=== PATIENT | male | born 1980 | race Two or more races ===

== ENCOUNTER 2020-07-08 22:07 | Emergency (ER) | payer MEDICARE, MEDICAID, SELFPAY ==
[2020-07-08 22:11] VITALS: BP 145/89; PULSE 99; RESP 18; TEMP 36.7; O2SAT 99; BMI 32.1
--- NOTE | 2020-07-08 22:33 | ED.ABDPAIN ---
HPI - Abdominal Pain General Chief Complaint: Abdominal Pain Stated Complaint: abd pain Time Seen by Provider: 07/08/20 22:32 Source: patient and medical billing and coding specialist Mode of arrival: ambulatory Limitations: no limitations History of Present Illness HPI narrative: This is a 40-year-old male who presents with onset of diffuse abdominal discomfort approximately 4 hours ago that is not associated with fevers, chills, nausea, vomiting, diarrhea, or urinary pain/ burning, but he does report urinary frequency. He has had similar symptoms previously and at that time it was a case of colitis. Related Data Home Medications Medication Instructions Recorded Confirmed albuterol sulfate 90 mcg/actuation INHALATION 06/04/20 aerosol inhaler buprenorphine 12 mg-naloxone 3 mg 15 mg SUBLINGUAL DAILY 06/04/20 sublingual film buspirone 15 mg tablet 15 mg PO TID 06/04/20 gabapentin 300 mg capsule 300 mg PO TID 06/04/20 hydroxyzine HCl 50 mg tablet 50 mg PO BID PRN 06/04/20 montelukast 10 mg tablet 10 mg PO BEDTIME 06/04/20 omeprazole 40 mg capsule,delayed mg PO 06/04/20 release quetiapine 200 mg tablet,extended 200 mg PO BEDTIME 06/04/20 release 24 hr quetiapine 300 mg tablet,extended 300 mg PO BEDTIME 06/04/20 release 24 hr trazodone 150 mg tablet mg PO 06/04/20 venlafaxine 150 mg 150 mg PO QAM 06/04/20 capsule,extended release 24 hr zolpidem 10 mg tablet 10 mg PO BEDTIME PRN 06/04/20 Allergies Allergy/AdvReac Type Severity Reaction Status Date / Time No Known Allergies Allergy Unverified 07/08/20 22:11 Review of Systems Review of Systems Pertinent positives and negatives as stated in HPI 10 point review systems is otherwise negative. Physical Exam Vital Signs: Vital Signs: Vital Signs Temp Pulse Resp BP Pulse Ox 07/09/20 00:08 80 16 134/79 98 07/08/20 22:11 98.1 F 99 18 145/89 H 99 Body Mass Index 32.1 VITAL SIGNS: Reviewed. GENERAL: Well developed, well nourished, in no acute distress. HEAD: Normocephalic/atraumatic, EYES: PERRLA, EOMI intact without pain, no nystagmus/pallor/icterus noted EARS: Ext canals without abnormality, TMs non-bulging and non-erythematous NOSE: Nares patent bilateral OROPHARYNX: no oral lesions noted, posterior pharynx clear and non-erythematous without noted tonsillar enlargement/erythema/exudates NECK: Supple, no adenopathy LUNGS: Normal breath sounds. No adventitious sounds or accessory muscle use. SpO2<99> CARDIOVASCULAR: Regular rate and rhythm without noted murmurs, no JVD or lower extremity edema. ABDOMEN: obese, soft, diffusely tender without rebound, non-distended with bowel sounds. No rigidity. No guarding. No palpable masses or hernias noted MUSCULOSKELETAL: No tenderness, deformities, or effusions noted on gross inspection. EXTREMITIES: No cyanosis, clubbing or edema. SKIN: Inspection of the skin reveals no rashes, ulcerations, jaundice, pallor, or petechiae. NEUROLOGIC: Alert and oriented x 4. Strength and sensation to light touch were grossly intact x 4. Course Course Course Narrative: This is a 40-year-old male with history and clinical presentation most consistent with colitis versus diverticulitis but doubt renal colic /cholecystitis / pancreatitis. Review of all investigations is negative for any acute findings to explain patient's symptoms. Review of CT scan is negative for any acute findings. There is noted random glucose of 324 which patient will be directed to follow up with his primary care provider for further evaluation. All results and findings were discussed the patient at bedside and he was discharged in stable condition. MDM - Abdominal Pain Lab Data Result diagrams: 07/08/20 22:39 07/08/20 22:39 Labs: Lab Results 07/08/20 07/08/20 07/08/20 Range/Units 22:39 22:39 22:39 WBC 6.1 (4.8-10.8) X10*3/uL RBC 5.02 (4.60-5.80) X10*6/uL Hgb 14.4 (14.0-18.0) g/dl Hct 42.2 (42-52) % MCV 84.1 (80-98) fL MCH 28.7 (27.0-33.0) pg MCHC 34.1 (31.0-36.0) g/dl RDW 12.4 (11.0-16.0) % Plt Count 192 (160-400) X10*3/uL MPV 9.8 (9.4-12.4) fL Immature Gran % (Auto) 0.5 H (0.0-0.4) % Neut % (Auto) 54.0 (45-73) % Lymph % (Auto) 30.6 (20-40) % Hendricks % (Auto) 8.6 (2-11) % Eos % (Auto) 5.6 H (0-4) % Baso % (Auto) 0.7 (0-2) % Lymph # (Auto) 1.9 (1.2-4.9) X10*3/uL Hendricks # (Auto) 0.5 (0.1-1.2) X10*3/uL Eos # (Auto) 0.3 (0.0-0.4) X10*3/uL Baso # (Auto) 0.0 (0.0-0.2) X10*3/uL Abs Immat Gran (auto) 0.03 (0.00-0.03) X10*3/uL Absolute Neuts (auto) 3.3 (2.0-8.3) X10*3/uL Absolute Nucleated RBC 0.000 (0.0-0.012) X10*3/uL Nucleated RBC % (auto) 0.0 (0.0-0.2) /100WBC Sodium 136 (135-145) mmol/L Potassium 4.1 (3.3-5.1) mmol/l Chloride 97 (96-108) mmol/L Carbon Dioxide 29 (22-29) mmol/L Anion Gap 14 (12-20) BUN 12 (9-16) mg/dL Creatinine 1.02 (0.5-1.4) mg/dL Estim Creat Clear Calc 111.6 Estimated GFR > 60 Random Glucose 324 H (60-115) mg/dL Calcium 9.3 (8.4-10.2) mg/dL Total Bilirubin 0.6 (0.0-1.0) mg/dL AST 44 H (5-37) U/L ALT 55 H (0-40) U/L Alkaline Phosphatase 127 H (39-117) U/L Total Protein 7.4 (6.5-8.0) g/dL Albumin 4.3 (3.5-5.0) g/dL Lipase 46 (8-78) U/L Urine Color YELLOW Urine Appearance CLEAR Urine pH 6.5 (5.0-8.0) Ur Specific [place] 1.020 (1.005-1.025) Urine Protein TRACE (NEG-TRACE) MG/DL Urine Glucose (UA) >=1000 H (NEG) MG/DL Urine Ketones NEG (NEG) MG/DL Urine Blood 2+ H (NEG) Urine Nitrite NEG (NEG) Ur Leukocyte Esterase NEG (NEG) Urine RBC 5-9 H (0) /HPF Urine WBC 0-2 (0-4) /HPF Ur Squamous Epith Cells TRACE /LPF Urine Bacteria NONE /LPF Discharge Plan Discharge Clinical Impression: Abdominal pain Qualifiers: Abdominal location: generalized Qualified Code(s): R10.84 - Generalized abdominal pain Patient Disposition: Home, Self-Care Instructions: Abdominal Pain (ED) Additional Instructions: 1. No hubo hallazgos agudos que expliquen chavis dolor abdominal hoy. 2. tuvo daryn elevaci?n notada de chavis glucosa, 324 que deber? ser evaluada m?s a fondo por chavis proveedor de atenci?n primaria. El paciente y / o la eloina reconocen que comprenden los resultados (seg?n corresponda), el diagn?stico, el plan de tratamiento, la necesidad de seguimiento y los s?ntomas que deber?an impulsar el regreso a la ramu de emergencias. Referrals: Ayah Mir MD [Primary Care Provider] - 2 days (For further evaluation of noted elevation of glucose-324) Print Language: Maltese [facility] Past Medical History Source: nursing notes reviewed Medical History Asthma Colitis Surgical History History of elbow surgery History of surgery Family History Family History Father Hypertension Diabetes Cancer Mother No problems noted. Son Colon cancer Paternal Grandfather Cancer Social History Social History Advance Directives: No Advance Directives Information Provided: Yes
[2020-07-08] MEDS: 0.9 % Sodium Chloride 1,000 ML 1000 ML IV (22:59)
[2020-07-08 23:01] LABS: Basophils Percent Auto 0.7 % (0-2); Eosinophils Absolute Auto 0.3 X10*3/uL (0.0-0.4); Eosinophils Percent Auto 5.6 % (0-4); Hematocrit 42.2 % (42-52); Hemoglobin 14.4 g/dl (14.0-18.0); Imm Gran Abs Auto 0.03 X10*3/uL (0.00-0.03); Imm Gran Pct Auto 0.5 % (0.0-0.4); Lymphocytes Absolute Auto 1.9 X10*3/uL (1.2-4.9); Lymphocytes Percent Auto 30.6 % (20-40); Mean Corpuscular HGB Conc 34.1 g/dl (31.0-36.0); Mean Corpuscular Hemoglobin 28.7 pg (27.0-33.0); Mean Corpuscular Volume 84.1 fL (80-98); Mean Platelet Volume 9.8 fL (9.4-12.4); Monocytes Absolute Auto 0.5 X10*3/uL (0.1-1.2); Monocytes Percent Auto 8.6 % (2-11); Neutrophils Absolute Auto 3.3 X10*3/uL (2.0-8.3); Platelet Count 192 X10*3/uL (160-400); Red Blood Count 5.02 X10*6/uL (4.60-5.80); Red Cell Distribution Width 12.4 % (11.0-16.0); White Blood Count 6.1 X10*3/uL (4.8-10.8)
[2020-07-08 23:03] LABS: MANUAL DIFF FLAG NO
--- NOTE | 2020-07-08 23:04 | PC.NURSE ---
PT TO ROOM WITH C/O LOWER ABD PAIN WHICH STARTED TODAY. PT CHG INTO GOWN AND MD AT BEDSIDE FOR EVAL. PT UP TO RESTROOM FOR URINE SAMPLE TO LAB. PT ARRIVES A&OX3, SKIN W/D. RESPIRATIONS EASY, N/L.
[2020-07-08 23:06] LABS: Glucose Urine UA >=1000 MG/DL (NEG); Leukocyte Esterase Urine NEG (NEG); Nitrite Urine NEG (NEG); PH 6.5 (5.0-8.0); Urine Blood 2+ (NEG); Urine Ketones NEG (NEG); Urine Protein TRACE MG/DL (NEG-TRACE)
[2020-07-08 23:08] LABS: Appearance Urine CLEAR; Color Urine YELLOW
[2020-07-08 23:17] LABS: Squamous Epithelial Cell Urine TRACE /LPF; WBC Urine 0-2 /HPF (0-4)
[2020-07-08 23:33] LABS: Alanine Aminotransferase 55 U/L (0-40); Albumin Level 4.3 g/dL (3.5-5.0); Alkaline Phosphatase 127 U/L (39-117); Anion Gap 14 (12-20); Aspartate Amino Transferase 44 U/L (5-37); Bilirubin Total 0.6 mg/dL (0.0-1.0); Blood Urea Nitrogen 12 mg/dL (9-16); Calcium 9.3 mg/dL (8.4-10.2); Carbon Dioxide 29 mmol/L (22-29); Chloride 97 mmol/L (96-108); Creatinine Clr Calc Pharmacy 111.6; Estimated Glomerular Filt Rate > 60; Glucose Random 324 mg/dL (60-115); Lipase 46 U/L (8-78); Potassium 4.1 mmol/l (3.3-5.1); Sodium 136 mmol/L (135-145); Total Protein 7.4 g/dL (6.5-8.0)
--- NOTE | 2020-07-08 23:38 | CT_ITS ---
EXAMINATION: CT ABDOMEN AND PELVIS WITH CONTRAST CLINICAL INFORMATION: Abdominal pain. COMPARISON: 03/02/2020 and 03/15/2019, CT abdomen and pelvis. TECHNIQUE: Multidetector volumetric images were obtained from the superior aspect of the liver through the pubic symphysis following administration 85 mL of Omnipaque 350 intravenous contrast. Sagittal and coronal reformatted images were obtained on the technologist's workstation. Oral contrast: No This CT examination was performed using dose optimization techniques as appropriate, variously including the following: Automated exposure control. Adjustment of mA and/or kV according to patient size (this includes techniques or standardized protocols for targeted exams where dose is matched to indication/reason for exam; i.e. extremities or head). Use of iterative reconstruction technique. DLP: 737 mGy-cm FINDINGS: LUNG BASES: The visualized lung bases are unremarkable. LIVER, GALLBLADDER, AND BILIARY TREE: Marked hepatic steatosis is present with focal fatty sparing around the gallbladder. There is one rounded area on the medial aspect of the gallbladder which probably represents focal fatty sparing as well. This was present previously and is unchanged. This was even present, but more subtle on the 03/15/2019 study. No worrisome focal liver mass or bile duct dilatation is seen. The gallbladder is unremarkable with no evidence of radiopaque gallstones, gallbladder wall thickening, or obvious pericholecystic inflammatory changes. PANCREAS: Unremarkable. SPLEEN: Unremarkable. A small splenule is seen. ADRENAL GLANDS: Unremarkable. KIDNEYS AND URETERS: The kidneys are normal in size, shape, and attenuation. No hydronephrosis, hydroureter, or calculi seen. No perinephric stranding. BLADDER: Unremarkable. GASTROINTESTINAL TRACT: The small and large bowel are unremarkable. The appendix is not seen. ABDOMINAL WALL: No significant hernia is appreciated. LYMPH NODES: No retroperitoneal lymphadenopathy seen. Small inguinal nodes are present. VASCULAR: Unremarkable. PELVIC VISCERA: Prostate and seminal vesicles appear normal. OSSEOUS STRUCTURES: Unremarkable. CT/CT abdomen pelvis w con IMPRESSION: An acute cause for the patient's abdominal pain has not been found. Marked hepatic steatosis with areas of focal fatty sparing as described above, one mass-like.
[2020-07-09] MEDS: iohexoL 350 MG/ML 100 ML INFUS..BTL 85 ML IV
--- NOTE | 2020-07-09 00:03 | PC.NURSE ---
PT RETURNS TO ROOM FROM CT. PT REMAINS ALERT AND IN NAD. NS INFUSED W/O DIFFICULTY, SITE INTACT. PT AWAITING FURTHER ORDERS.
[2020-07-09 00:08] VITALS: BP 134/79; PULSE 80; RESP 16; O2SAT 98
== END 2020-07-09 01:34 | disposition home or self-care (01) ==
PROVIDERS: Emergency Provider Student in an Organized Health Care Education/Training Program; PCP Internal Medicine
DX: R10.9 Unspecified abdominal pain (principal); R10.2 Pelvic and perineal pain; Z79.899 Other long term (current) drug therapy
CPT/HCPCS: 36415; 74177; 80053; 81001; 83690; 85025; 96360; 99284; Q9967

== ENCOUNTER 2020-07-29 10:06 | Outpatient (REF) | payer MEDICARE, MEDICAID, SELFPAY ==
[2020-07-29 11:05] LABS: Basophils Absolute Auto 0.1 X10*3/uL (0.0-0.2); Basophils Percent Auto 0.9 % (0-2); Eosinophils Absolute Auto 0.4 X10*3/uL (0.0-0.4); Eosinophils Percent Auto 5.3 % (0-4); Hematocrit 43.1 % (42-52); Hemoglobin 14.2 g/dl (14.0-18.0); Imm Gran Abs Auto 0.03 X10*3/uL (0.00-0.03); Imm Gran Pct Auto 0.5 % (0.0-0.4); Lymphocytes Absolute Auto 2.7 X10*3/uL (1.2-4.9); Lymphocytes Percent Auto 41.2 % (20-40); MANUAL DIFF FLAG NO; Mean Corpuscular HGB Conc 32.9 g/dl (31.0-36.0); Mean Corpuscular Hemoglobin 28.1 pg (27.0-33.0); Mean Corpuscular Volume 85.3 fL (80-98); Mean Platelet Volume 9.9 fL (9.4-12.4); Monocytes Absolute Auto 0.7 X10*3/uL (0.1-1.2); Neutrophils Absolute Auto 2.8 X10*3/uL (2.0-8.3); Neutrophils Percent Auto 42.1 % (45-73); Platelet Count 209 X10*3/uL (160-400); Red Blood Count 5.05 X10*6/uL (4.60-5.80); Red Cell Distribution Width 12.6 % (11.0-16.0); White Blood Count 6.6 X10*3/uL (4.8-10.8)
[2020-07-29 11:49] LABS: Alanine Aminotransferase 48 U/L (0-40); Albumin Level 4.4 g/dL (3.5-5.0); Alkaline Phosphatase 110 U/L (39-117); Anion Gap 14 (12-20); Aspartate Amino Transferase 27 U/L (5-37); Bilirubin Total 0.3 mg/dL (0.0-1.0); Blood Urea Nitrogen 11 mg/dL (9-16); Calcium 9.3 mg/dL (8.4-10.2); Carbon Dioxide 28 mmol/L (22-29); Chloride 100 mmol/L (96-108); Cholesterol 188 mg/dL; Estimated Glomerular Filt Rate > 60; Glucose Random 152 mg/dL (60-115); HDL Cholesterol 34 mg/dL; Potassium 3.9 mmol/l (3.3-5.1); Sodium 138 mmol/L (135-145); Total Protein 7.7 g/dL (6.5-8.0); Triglycerides 402 mg/dL
[2020-07-29 11:58] LABS: Free T4 (Free Thyroxine) 0.86 ng/dL (0.71-1.85); Thyroid Stimulating Hormone 1.39 uIU/mL (0.32-4.0)
[2020-07-29 12:15] LABS: Folate 9.3 ng/mL (> or = 4.0)
[2020-07-29 12:29] LABS: Creatinine Urine 142.75 mg/dL; Microalbum/Creatinine Ratio Ur 64.4 ug/mg cr
[2020-07-29 13:02] LABS: Vitamin B12 420 pg/mL (200-900)
== END 2020-07-29 10:07 | disposition home or self-care (01) ==
LOC: HO.LAB 10:06
PROVIDERS: PCP Internal Medicine; Visit Provider Internal Medicine
DX: E78.00 Pure hypercholesterolemia, unspecified (principal); E11.65 Type 2 diabetes mellitus with hyperglycemia
CPT/HCPCS: 36415; 80053; 80061; 82043; 82607; 82746; 84439; 84443; 85025

== ENCOUNTER → 2020-09-16 13:57 | Outpatient (BNVA) | payer MEDICARE, MEDICAID, SELFPAY | PROVIDERS: PCP Internal Medicine; Visit Provider Nurse Practitioner Gerontology | DX: E11.65 Type 2 diabetes mellitus with hyperglycemia (principal); E66.9 Obesity, unspecified; E78.1 Pure hyperglyceridemia | CPT/HCPCS: 82947; 99212 ==

== ENCOUNTER 2020-09-19 11:08 | Outpatient (REF) | payer MEDICARE, MEDICAID, SELFPAY ==
[2020-09-19 14:20] LABS: Cholesterol 188 mg/dL; HDL Cholesterol 47 mg/dL; LDL Cholesterol Calculated 90 mg/dl; Triglycerides 256 mg/dL
[2020-09-20 10:06] LABS: LDL Cholesterol Direct 97 mg/dL (<100)
[2020-09-20 13:17] LABS: C Peptide 3.47 ng/mL (0.80-3.85)
[2020-09-24 22:53] LABS: Glutamic acid decarboxylase Ab <5 IU/mL (<5)
[2020-10-05 10:28] LABS: Islet Cell Antibody Screen NEGATIVE (NEGATIVE)
== END 2020-09-19 11:09 | disposition home or self-care (01) ==
LOC: HO.10HDL 11:08
PROVIDERS: Visit Provider Nurse Practitioner Gerontology
DX: E11.65 Type 2 diabetes mellitus with hyperglycemia (principal)
CPT/HCPCS: 36415; 80061; 83721; 84681; 86255; 86341

== ENCOUNTER → 2020-12-08 13:35 | Outpatient (BNVA) | payer MEDICARE, MEDICAID, SELFPAY | PROVIDERS: PCP Internal Medicine; Visit Provider Nurse Practitioner Gerontology | DX: E11.65 Type 2 diabetes mellitus with hyperglycemia (principal); E66.9 Obesity, unspecified; E78.1 Pure hyperglyceridemia | CPT/HCPCS: 99212 ==

== ENCOUNTER → 2021-02-27 11:34 | Outpatient (BNVA) | payer MEDICARE, MEDICAID, SELFPAY | PROVIDERS: PCP Internal Medicine; Visit Provider Dietitian, Registered | DX: E11.65 Type 2 diabetes mellitus with hyperglycemia (principal) | CPT/HCPCS: 97802 ==

== ENCOUNTER → 2021-04-24 11:35 | Outpatient (BNVA) | payer MEDICARE, MEDICAID, SELFPAY | PROVIDERS: PCP Internal Medicine; Visit Provider Dietitian, Registered | DX: E11.65 Type 2 diabetes mellitus with hyperglycemia (principal); Z79.4 Long term (current) use of insulin; Z71.3 Dietary counseling and surveillance | CPT/HCPCS: 97803 ==

== ENCOUNTER 2021-06-17 08:16 | Outpatient (REF) | payer MEDICARE, MEDICAID, SELFPAY ==
--- NOTE | ~2021-06-17 | XR_ITS ---
EXAMINATION: XR HAND, RIGHT XR HAND, LEFT CLINICAL INFORMATION: Pain COMPARISON: Right and left hand radiographs dated 09/26/2019. TECHNIQUE: AP, oblique, and lateral views of the right and left hand. FINDINGS: Right Hand: Soft tissue swelling surrounding the third distal interphalangeal joint. Mild joint space narrowing with small marginal osteophytes. Findings appear unchanged. No acute fracture or dislocation. No new osseous erosion. Left Hand: Mild joint space narrowing with small marginal osteophytes and juxta-articular erosion redemonstrated at the third proximal interphalangeal joint. Surrounding soft tissue swelling. Calcification ventral to the third proximal phalangeal head measuring 0.2 cm, slightly decreased in prominence. Findings can be seen in the setting of gout arthropathy. No acute fracture or dislocation. XR/XR hand LT 2V IMPRESSION: Right Hand: Mild joint space narrowing and small marginal osteophytes with circumferential soft tissue swelling at the fifth distal interphalangeal joint, unchanged. No associated erosion or abnormal soft tissue calcification. Left Hand: Joint space narrowing with marginal osteophytes and juxta-articular erosion at the third proximal interphalangeal joint. Prominent circumferential soft tissue swelling adjacent calcification. Findings can be seen in the setting of gout arthritis.
--- NOTE | ~2021-06-17 | XR_ITS ---
EXAMINATION: XR HAND, RIGHT XR HAND, LEFT CLINICAL INFORMATION: Pain COMPARISON: Right and left hand radiographs dated 09/26/2019. TECHNIQUE: AP, oblique, and lateral views of the right and left hand. FINDINGS: Right Hand: Soft tissue swelling surrounding the third distal interphalangeal joint. Mild joint space narrowing with small marginal osteophytes. Findings appear unchanged. No acute fracture or dislocation. No new osseous erosion. Left Hand: Mild joint space narrowing with small marginal osteophytes and juxta-articular erosion redemonstrated at the third proximal interphalangeal joint. Surrounding soft tissue swelling. Calcification ventral to the third proximal phalangeal head measuring 0.2 cm, slightly decreased in prominence. Findings can be seen in the setting of gout arthropathy. No acute fracture or dislocation. XR/XR hand RT 2V IMPRESSION: Right Hand: Mild joint space narrowing and small marginal osteophytes with circumferential soft tissue swelling at the fifth distal interphalangeal joint, unchanged. No associated erosion or abnormal soft tissue calcification. Left Hand: Joint space narrowing with marginal osteophytes and juxta-articular erosion at the third proximal interphalangeal joint. Prominent circumferential soft tissue swelling adjacent calcification. Findings can be seen in the setting of gout arthritis.
== END 2021-06-17 08:17 | disposition home or self-care (01) ==
LOC: HO.XRAY 08:16
PROVIDERS: PCP Internal Medicine; Visit Provider Internal Medicine
DX: M79.641 Pain in right hand (principal); M79.642 Pain in left hand; E11.65 Type 2 diabetes mellitus with hyperglycemia; E66.9 Obesity, unspecified; Z68.34 Body mass index [BMI] 34.0-34.9, adult; Z79.4 Long term (current) use of insulin; Z71.3 Dietary counseling and surveillance
CPT/HCPCS: 73120; 82947; 99212

== ENCOUNTER 2021-06-24 08:02 | Outpatient (REF) | payer MEDICARE, MEDICAID, SELFPAY ==
[2021-06-24 09:28] LABS: Alanine Aminotransferase 35 U/L (0-40); Albumin Level 4.4 g/dL (3.5-5.0); Alkaline Phosphatase 72 U/L (39-117); Anion Gap 14 (12-20); Aspartate Amino Transferase 23 U/L (5-37); Bilirubin Total 0.9 mg/dL (0.0-1.0); Blood Urea Nitrogen 14 mg/dL (9-16); Calcium 10.3 mg/dL (8.4-10.2); Carbon Dioxide 27 mmol/L (22-29); Chloride 103 mmol/L (96-108); Estimated Glomerular Filt Rate > 60; Glucose Fasting 108 mg/dL (60-99); Potassium 4.1 mmol/L (3.3-5.1); Sodium 140 mmol/L (135-145); Total Protein 7.6 g/dL (6.5-8.0)
== END 2021-06-24 08:03 | disposition home or self-care (01) ==
LOC: HO.LAB 08:02
PROVIDERS: PCP Physician Assistant; Visit Provider Nurse Practitioner Gerontology
DX: E11.65 Type 2 diabetes mellitus with hyperglycemia (principal)
CPT/HCPCS: 36415; 80053

== ENCOUNTER 2021-06-25 09:03 | Emergency (ER) | payer MEDICARE, MEDICAID, SELFPAY ==
[2021-06-25 09:32] VITALS: BP 138/89; PULSE 69; RESP 20; TEMP 36.3; O2SAT 95; BMI 33.2
[2021-06-25 10:17] VITALS: BP 128/77; PULSE 68; RESP 12; O2SAT 95
[2021-06-25 10:21] LABS: Glucose, Whole Blood 127 mg/dL (60-115)
[2021-06-25 10:25] LABS: Basophils Percent Auto 0.6 % (0-2); Eosinophils Absolute Auto 0.4 X10*3/uL (0.0-0.4); Eosinophils Percent Auto 6.4 % (0-4); Hematocrit 40.2 % (42-52); Hemoglobin 13.7 g/dl (14.0-18.0); Imm Gran Abs Auto 0.04 X10*3/uL (0.00-0.03); Imm Gran Pct Auto 0.6 % (0.0-0.4); Lymphocytes Absolute Auto 2.1 X10*3/uL (1.2-4.9); Lymphocytes Percent Auto 32.6 % (20-40); Mean Corpuscular HGB Conc 34.1 g/dl (31.0-36.0); Mean Corpuscular Volume 85.2 fL (80-98); Mean Platelet Volume 9.3 fL (9.4-12.4); Monocytes Absolute Auto 0.6 X10*3/uL (0.1-1.2); Monocytes Percent Auto 9.7 % (2-11); Neutrophils Absolute Auto 3.2 X10*3/uL (2.0-8.3); Neutrophils Percent Auto 50.1 % (45-73); Platelet Count 222 X10*3/uL (160-400); Red Blood Count 4.72 X10*6/uL (4.60-5.80); White Blood Count 6.4 X10*3/uL (4.8-10.8)
[2021-06-25 10:26] LABS: MANUAL DIFF FLAG NO
--- NOTE | 2021-06-25 10:44 | ED_ITS ---
HPI - Abdominal Pain General Chief Complaint: Abdominal Pain Stated Complaint: Abd pain/vomiting Time Seen by Provider: 06/25/21 10:42 Source: patient Mode of arrival: ambulatory Limitations: no limitations History of Present Illness HPI narrative: 41 yo male past medical history of asthma, colitis, DM, HTN, ED, GERD, anxiety & depression presents to the emergency department with complaints of generalized abdominal pain, nausea and vomiting for 3 days. He states his entire abdomen hurts, however is worse in the epigastric region. He states he has been constantly nauseous for the past 3 days, and he has been vomiting very frequently over these past 3 days. He vomited 2 times this morning. He states he is not been able to eat or drink much. He has no previous abdominal surgeries. He reports vague chills yesterday. He denies chest pain, shortness of breath, fever, weakness, diarrhea, back pain, difficulty voiding. MD elicited complaint: abdominal pain Pertinent past history: other (colitis) Onset (ago): day(s) (3) Pain Consistency: constant Location: diffuse and epigastric Severity: severe Quality: cramping Radiation: none Migration to: no migration Exacerbating factors: nothing Relieving factors: nothing Associated symptoms: nausea, vomiting and chills Related Data Home Medications Medication Instructions Recorded Confirmed buspirone 15 mg tablet 15 mg PO TID 06/04/20 06/17/21 montelukast 10 mg tablet 10 mg PO BEDTIME 06/04/20 06/17/21 quetiapine 300 mg tablet,extended 300 mg PO BEDTIME 06/04/20 06/17/21 release 24 hr venlafaxine 150 mg 150 mg PO QAM 06/04/20 06/17/21 capsule,extended release 24 hr zolpidem 10 mg tablet 10 mg PO BEDTIME PRN 06/04/20 06/17/21 buprenorphine 12 mg-naloxone 3 mg 1 film BUCCAL ONCE ea 07/09/20 06/17/21 sublingual film (Suboxone) hydroxyzine HCl 50 mg tablet 50 mg PO Q8H PRN tab 07/10/20 06/17/21 sertraline 100 mg tablet 100 mg PO DAILY tab 07/10/20 06/17/21 ibuprofen 800 mg tablet 800 mg PO TID PRN 09/16/20 06/17/21 trazodone 150 mg tablet 150 mg PO DAILY tab 12/08/20 06/17/21 gabapentin 300 mg capsule 300 mg PO TID 06/17/21 06/17/21 Previous Rx's Medication Instructions Recorded sildenafil 50 mg tablet 50 mg PO DAILY PRN #14 tab 08/15/20 blood-glucose meter (FreeStyle #1 ea 09/09/20 [place]) blood sugar diagnostic (FreeStyle #300 ea 09/16/20 Lite Strips) pen needle, diabetic 31 gauge x 1 ea SUBCUT DAILY 90 Days #100 ea 11/04/2001/18 (BD Ultra-Fine Short Pen Needle) empagliflozin 25 mg tablet 25 mg PO QAM #30 tab 12/08/20 (Jardiance) glucose 4 gram chewable tablet 16 g PO Q15M 30 Days #50 tab 12/24/20 prednisone 20 mg tablet 20 mg PO DAILY 5 Days #5 tab 01/16/21 omeprazole 40 mg capsule,delayed 40 mg PO BID #180 cap 01/20/21 release fenofibrate nanocrystallized 145 145 mg PO DAILY #90 tab 03/01/21 mg tablet metformin 1,000 mg tablet 1,000 mg PO BID #180 tab 04/07/21 albuterol sulfate 90 mcg/actuation 2 puff INHALATION Q6-8H PRN 30 05/21/21 aerosol inhaler Days #8.5 g blood pressure test kit-large #1 ea 05/21/21 fluticasone 500 mcg-salmeterol 50 1 inh INHALATION BID 30 Days #60 ea 05/21/21 mcg/dose blistr powdr for inhalation (Advair Diskus) tizanidine 4 mg tablet 4 mg PO TID PRN #30 tab 06/02/21 dulaglutide 0.75 mg/0.5 mL 0.75 mg SUBCUT QWEEK #6 ml 06/17/21 subcutaneous pen injector (Trulicity) insulin glargine 100 unit/mL (3 16 unit SUBCUT QPM #5 ml 06/17/21 mL) subcutaneous pen (Basaglar KwikPen U-100 Insulin) lancets 28 gauge (FreeStyle #300 ea 06/23/21 Lancets) ondansetron HCl 4 mg tablet 4 mg PO Q8H PRN #7 tab 06/25/21 (Zofran) Allergies Allergy/AdvReac Type Severity Reaction Status Date / Time No Known Allergies Allergy Verified 06/17/21 15:02 Review of Systems Review of Systems Constitutional: No Fever, No Chills ENT/Mouth: No sore throat, No Rhinorrhea, No Swallowing Difficulty Eyes: No Eye Pain, No Swelling, No Redness Cardiovascular: No Chest Pain, No SOB, No Orthopnea, No Edema Respiratory: No Cough, No Sputum, No Wheezing, No dyspnea Gastrointestinal: + Nausea, + Vomiting, No Diarrhea, + abdominal Pain, No Hematochezia, No Melena Genitourinary: No Dysuria, No Urinary Frequency, No Hematuria Musculoskeletal: No joint pain, No Myalgias Skin: No Skin Lesions, No rash Neuro: No Weakness, No Numbness, + Dizziness, No Headache Physical Exam Vital Signs: Vital Signs: Last Vital Signs Temp 97.9 F 06/25/21 10:59 Pulse 60 06/25/21 12:00 Resp 10 L 06/25/21 12:00 BP 112/61 06/25/21 12:00 Pulse Ox 96 06/25/21 12:00 Body Mass Index 33.2 Appearance: Alert. Oriented X3. No acute distress. Eyes: Pupils equal, round and reactive to light. ENT: Pharynx normal. Neck: Normal inspection. Neck supple. CVS: Normal heart rate and rhythm. Pulses normal. Respiratory: No respiratory distress. Breath sounds normal. Abdomen: Soft and + diffuse tenderness most significant in epigastric region. +BS x4 Skin: Skin warm and dry. Normal skin color. Normal skin turgor. No rashes. Extremities: No lower extremity edema. No CVA tenderness Neuro: Oriented X 3. No motor deficit. No sensory deficit. Course Course Course Narrative: 41-year-old male past medical history asthma,colitis, DM, HTN, asthma, GERD, anxiety&depression presents to the emergency department with 3 days of progressively worsening nausea, vomiting and generalized abdominal pain which is worse in the epigastric region. No previous abdominal surgeries. Having normal bowel movements. Upon physical examination patient is laying comfortably on the stretcher, there is mild tenderness to palpation in all 4 quadrants, appears to be worse in the epigastric region. Lungs are clear to auscultation. Vitals are stable, patient is afebrile. Plan at this time is to obtain basic labs, start fluids, Zofran. Then he will be given a GI cocktail. Reevaluation(s) Reevaluation #1: Upon re-evaluation, patient is comfortably sleeping on the stretcher. He was medicated with Zofran, Maalox and has been given fluids. He has not had any episodes of nausea or vomiting while in the emergency department. Will re-evaluate patient in about an hour. Time: 11:15 Reevaluation #2: Patient reports he is still having abdominal pain, Toradol will be given at this time. This pain is likely from the patient retching, and constantly vomiting. Spoke to the patient about his sugars at home, he states that the high sugar he has had is 289 which is this morning. His sugars are usually well under control. He states he takes metformin, and insulin. Today in the emergency department his blood glucose was 135, and a point of care is 127. A point of care will be repeated prior to his discharge. Will re-evaluate, to see if Toradol helped for pain. Time: 11:59 Reevaluation #3: Patient is resting comfortably, when awoken he reports his abdominal muscles are still sore. He was given did drill and crackers and is tolerating well. No vomiting in the several hours he was monitored in the emergency department. At this time his symptoms are most likely due to a gastroenteritis and he is safe for discharge with supportive care. Zofran has been sent to his pharmacy and dietary modifications have been discussed. Patient agrees with plan. Time: 13:46 MDM - Abdominal Pain Lab Data Result diagrams: 06/25/21 10:14 06/25/21 10:14 Labs: Lab Results 06/25/21 06/25/21 06/25/21 Range/Units 10:07 10:14 10:14 WBC 6.4 (4.8-10.8) X10*3/uL RBC 4.72 (4.60-5.80) X10*6/uL Hgb 13.7 L (14.0-18.0) g/dl Hct 40.2 L (42-52) % MCV 85.2 (80-98) fL MCH 29.0 (27.0-33.0) pg MCHC 34.1 (31.0-36.0) g/dl RDW 13.0 (11.0-16.0) % Plt Count 222 (160-400) X10*3/uL MPV 9.3 L (9.4-12.4) fL Immature Gran % (Auto) 0.6 H (0.0-0.4) % Neut % (Auto) 50.1 (45-73) % Lymph % (Auto) 32.6 (20-40) % [place] % (Auto) 9.7 (2-11) % Eos % (Auto) 6.4 H (0-4) % Baso % (Auto) 0.6 (0-2) % Lymph # (Auto) 2.1 (1.2-4.9) X10*3/uL [place] # (Auto) 0.6 (0.1-1.2) X10*3/uL Eos # (Auto) 0.4 (0.0-0.4) X10*3/uL Baso # (Auto) 0.0 (0.0-0.2) X10*3/uL Abs Immat Gran (auto) 0.04 H (0.00-0.03) X10*3/uL Absolute Neuts (auto) 3.2 (2.0-8.3) X10*3/uL Absolute Nucleated RBC 0.000 (0.0-0.012) X10*3/uL Nucleated RBC % (auto) 0.0 (0.0-0.2) /100WBC Sodium 140 (135-145) mmol/L Potassium 3.8 (3.3-5.1) mmol/L Chloride 103 (96-108) mmol/L Carbon Dioxide 27 (22-29) mmol/L Anion Gap 14 (12-20) BUN 14 (9-16) mg/dL Creatinine 0.86 (0.5-1.4) mg/dL Estim Creat Clear Calc 141.3 Estimated GFR > 60 POC Glucose 127 H (60-115) mg/dL Random Glucose 135 H (60-115) mg/dL Calcium 9.9 (8.4-10.2) mg/dL Total Bilirubin 0.4 (0.0-1.0) mg/dL AST 27 (5-37) U/L ALT 39 (0-40) U/L Alkaline Phosphatase 74 (39-117) U/L Total Protein 7.8 (6.5-8.0) g/dL Albumin 4.5 (3.5-5.0) g/dL Lipase 22 (8-78) U/L 06/25/21 Range/Units 12:30 WBC (4.8-10.8) X10*3/uL RBC (4.60-5.80) X10*6/uL Hgb (14.0-18.0) g/dl Hct (42-52) % MCV (80-98) fL MCH (27.0-33.0) pg MCHC (31.0-36.0) g/dl RDW (11.0-16.0) % Plt Count (160-400) X10*3/uL MPV (9.4-12.4) fL Immature Gran % (Auto) (0.0-0.4) % Neut % (Auto) (45-73) % Lymph % (Auto) (20-40) % [place] % (Auto) (2-11) % Eos % (Auto) (0-4) % Baso % (Auto) (0-2) % Lymph # (Auto) (1.2-4.9) X10*3/uL [place] # (Auto) (0.1-1.2) X10*3/uL Eos # (Auto) (0.0-0.4) X10*3/uL Baso # (Auto) (0.0-0.2) X10*3/uL Abs Immat Gran (auto) (0.00-0.03) X10*3/uL Absolute Neuts (auto) (2.0-8.3) X10*3/uL Absolute Nucleated RBC (0.0-0.012) X10*3/uL Nucleated RBC % (auto) (0.0-0.2) /100WBC Sodium (135-145) mmol/L Potassium (3.3-5.1) mmol/L Chloride (96-108) mmol/L Carbon Dioxide (22-29) mmol/L Anion Gap (12-20) BUN (9-16) mg/dL Creatinine (0.5-1.4) mg/dL Estim Creat Clear Calc Estimated GFR POC Glucose 160 H (60-115) mg/dL Random Glucose (60-115) mg/dL Calcium (8.4-10.2) mg/dL Total Bilirubin (0.0-1.0) mg/dL AST (5-37) U/L ALT (0-40) U/L Alkaline Phosphatase (39-117) U/L Total Protein (6.5-8.0) g/dL Albumin (3.5-5.0) g/dL Lipase (8-78) U/L Discharge Plan Discharge Clinical Impression: Gastroenteritis GERD (gastroesophageal reflux disease) Qualifiers: Esophagitis presence: without esophagitis Qualified Code(s): K21.9 - Gastro- esophageal reflux disease without esophagitis Abdominal pain Qualifiers: Abdominal location: epigastric Qualified Code(s): R10.13 - Epigastric pain Nausea & vomiting Qualifiers: Vomiting type: unspecified Vomiting Intractability: unspecified Qualified Code( s): R11.2 - Nausea with vomiting, unspecified Patient Disposition: Home, Self-Care Instructions: Diet for Stomach Ulcers and Gastritis (ED), Acute Nausea and Vomiting (ED), Abdominal Pain (ED) Additional Instructions: Follow-up with your primary care provider Follow a bland diet Continue to check your sugars, and write them down seizing sure this information with her primary care. High point of care here in the emergency department was 160, after you ate. Return to the emergency department with new or worsening symptoms Prescriptions: New ondansetron HCl [Zofran] 4 mg tablet 4 mg PO Q8H PRN (Reason: nausea and vomiting) Qty: 7 RF: 0 No Action sildenafil 50 mg tablet 50 mg PO DAILY PRN (Reason: sexual activity) Qty: 14 RF: 3 (DME) blood-glucose meter [FreeStyle [place]] Kit See Rx Instructions .ROUTE .MEDSUPPLY Qty: 1 RF: 0 pen needle, diabetic [BD Ultra-Fine Short Pen Needle] 31 gauge x 5/16 needle 1 ea subcut DAILY 90 Days Qty: 100 RF: 3 glucose 4 gram tablet,chewable 16 g PO Q15M 30 Days Qty: 50 RF: 3 omeprazole 40 mg capsule,delayed release(DR/EC) 40 mg PO BID Qty: 180 RF: 3 fenofibrate nanocrystallized 145 mg tablet 145 mg PO DAILY Qty: 90 RF: 1 metformin 1,000 mg tablet 1,000 mg PO BID Qty: 180 RF: 2 tizanidine 4 mg tablet 4 mg PO TID PRN (Reason: for muscle spasm) Qty: 30 RF: 1 (DME) lancets [FreeStyle Lancets] 28 gauge misc See Rx Instructions .ROUTE .MEDSUPPLY Qty: 300 RF: 3 prednisone 20 mg tablet 20 mg PO DAILY 5 Days Qty: 5 RF: 0 buprenorphine-naloxone [Suboxone] 12-3 mg film 1 film buccal ONCE RF: 0 sertraline 100 mg tablet 100 mg PO DAILY RF: 0 fluticasone propion-salmeterol [Advair Diskus] 500-50 mcg/dose blister with device 1 inh inhalation BID 30 Days Qty: 60 RF: 3 albuterol sulfate 90 mcg/actuation HFA aerosol inhaler 2 puff inhalation Q6-8H PRN (Reason: shortness of breath or wheezing) 30 Days Qty: 8.5 RF: 3 (DME) blood pressure test kit-large Kit See Rx Instructions .Route Qty: 1 RF: 0 ibuprofen 800 mg tablet 800 mg PO TID PRN (Reason: pain) RF: 0 (DME) FreeStyle Lite Strips Strip See Rx Instructions .ROUTE .MEDSUPPLY Qty: 300 RF: 1 Jardiance 25 mg tablet 25 mg PO QAM Qty: 30 RF: 3 gabapentin 300 mg capsule 300 mg PO TID RF: 0 Trulicity 0.75 mg/0.5 mL pen injector 0.75 mg subcut QWEEK Qty: 6 RF: 1 Basaglar KwikPen U-100 Insulin 100 unit/mL (3 mL) insulin pen 16 unit subcut QPM Qty: 5 RF: 7 venlafaxine 150 mg capsule,extended release 24hr 150 mg PO QAM RF: 0 quetiapine 300 mg tablet extended release 24 hr 300 mg PO BEDTIME RF: 0 zolpidem 10 mg tablet 10 mg PO BEDTIME PRN (Reason: insomnia) RF: 0 buspirone 15 mg tablet 15 mg PO TID RF: 0 montelukast 10 mg tablet 10 mg PO BEDTIME RF: 0 hydroxyzine HCl 50 mg tablet 50 mg PO Q8H PRN (Reason: anxiety) RF: 0 trazodone 150 mg tablet 150 mg PO DAILY RF: 0 Referrals: Ayah Mir MD [Primary Care Provider] - 2 days Stand Alone Forms: Work/School Release [facility] Past Medical History Attestation statement: The following information was validated with the patient. Source: old records reviewed and nursing notes reviewed Medical History Acute lumbar myofascial strain Anxiety and depression Asthma Colitis Erectile dysfunction GERD (gastroesophageal reflux disease) Hypertriglyceridemia Hypogonadism Lumbar degenerative disc disease Obesity (BMI 30-39.9) Polyarthralgia Polysubstance abuse Type 2 diabetes mellitus with hyperglycemia Surgical History History of elbow surgery History of surgery Family History Family History Father Hypertension Diabetes Cancer Cancer, hepatocellular Mother No problems noted. Son Colon cancer Paternal Grandfather Cancer Social History Social History Household Members: Spouse Housing: House Alcohol intake: former Patient Tobacco Use Status: Current someday Tobacco user Tobacco use type: Cigarette Substance Use Type: Former Substance User, Heroin and Marijuana Advance Directives: No Advance Directives Information Provided: No service: No Current occupational status: disabled
[2021-06-25 10:46] LABS: Alanine Aminotransferase 39 U/L (0-40); Albumin Level 4.5 g/dL (3.5-5.0); Alkaline Phosphatase 74 U/L (39-117); Anion Gap 14 (12-20); Aspartate Amino Transferase 27 U/L (5-37); Bilirubin Total 0.4 mg/dL (0.0-1.0); Blood Urea Nitrogen 14 mg/dL (9-16); Calcium 9.9 mg/dL (8.4-10.2); Carbon Dioxide 27 mmol/L (22-29); Chloride 103 mmol/L (96-108); Creatinine Clr Calc Pharmacy 141.3; Estimated Glomerular Filt Rate > 60; Glucose Random 135 mg/dL (60-115); Potassium 3.8 mmol/L (3.3-5.1); Sodium 140 mmol/L (135-145); Total Protein 7.8 g/dL (6.5-8.0)
[2021-06-25 10:59] VITALS: BP 118/55; PULSE 66; RESP 10; TEMP 36.6; O2SAT 95
[2021-06-25] MEDS: ondansetron HCL 4 MG/2 ML VIAL IVPUSH (11:08)
[2021-06-25] MEDS: 0.9 % Sodium Chloride 1,000 ML 999 ML IVCONT (11:08)
[2021-06-25 11:14] LABS: Lipase 22 U/L (8-78)
[2021-06-25] MEDS: Magnesium Hydrox/Alum Hydrox 30 ML ORAL.SUSP PO (11:16)
[2021-06-25 12:00] VITALS: BP 112/61; PULSE 60; RESP 10; O2SAT 96
[2021-06-25] MEDS: Ketorolac Tromethamine 15 MG/ML VIAL IVPUSH (12:31)
[2021-06-25 12:36] LABS: Glucose, Whole Blood 160 mg/dL (60-115)
== END 2021-06-25 14:00 | disposition home or self-care (01) ==
PROVIDERS: Physician Assistant; Emergency Provider Emergency Medicine; PCP Internal Medicine
DX: K52.9 Noninfective gastroenteritis and colitis, unspecified (principal); K21.9 Gastro-esophageal reflux disease without esophagitis; R10.13 Epigastric pain; R11.2 Nausea with vomiting, unspecified; Z79.899 Other long term (current) drug therapy
CPT/HCPCS: 36415; 80053; 82947; 83690; 85025; 96361; 96374; 96375; 99284; 99285; J1885; J2405

== ENCOUNTER → 2021-06-30 14:21 | Outpatient (BNVA) | payer MEDICARE, MEDICAID, SELFPAY | PROVIDERS: PCP Physician Assistant; Visit Provider Internal Medicine | DX: G47.33 Obstructive sleep apnea (adult) (pediatric) (principal); J45.909 Unspecified asthma, uncomplicated; E66.9 Obesity, unspecified | CPT/HCPCS: 99212 ==

== ENCOUNTER → 2021-07-24 11:38 | Outpatient (BNVA) | payer MEDICARE, MEDICAID, SELFPAY | PROVIDERS: PCP Physician Assistant; Visit Provider Dietitian, Registered | DX: E11.65 Type 2 diabetes mellitus with hyperglycemia (principal) | CPT/HCPCS: 97803 ==

== ENCOUNTER → 2021-10-13 14:33 | Outpatient (BNVA) | payer MEDICARE, MEDICAID, SELFPAY | PROVIDERS: PCP Internal Medicine; Visit Provider Nurse Practitioner Gerontology | DX: E11.9 Type 2 diabetes mellitus without complications (principal); E66.9 Obesity, unspecified; R10.9 Unspecified abdominal pain; Z68.33 Body mass index [BMI] 33.0-33.9, adult | CPT/HCPCS: 82947; 83036; 99212 ==

== ENCOUNTER 2021-12-24 09:59 | Outpatient (REF) | payer MEDICARE, MEDICAID, SELFPAY ==
[2021-12-24 10:18] LABS: MANUAL DIFF FLAG NO
[2021-12-24 10:32] LABS: Basophils Absolute Auto 0.1 X10*3/uL (0.0-0.2); Basophils Percent Auto 0.9 % (0-2); Eosinophils Absolute Auto 0.4 X10*3/uL (0.0-0.4); Eosinophils Percent Auto 6.3 % (0-4); Hemoglobin 14.7 g/dl (14.0-18.0); Imm Gran Abs Auto 0.05 X10*3/uL (0.00-0.03); Imm Gran Pct Auto 0.7 % (0.0-0.4); Lymphocytes Absolute Auto 1.9 X10*3/uL (1.2-4.9); Lymphocytes Percent Auto 27.2 % (20-40); Mean Corpuscular HGB Conc 34.2 g/dl (31.0-36.0); Mean Corpuscular Hemoglobin 29.8 pg (27.0-33.0); Mean Platelet Volume 9.4 fL (9.4-12.4); Monocytes Absolute Auto 0.6 X10*3/uL (0.1-1.2); Monocytes Percent Auto 8.9 % (2-11); Neutrophils Absolute Auto 3.8 x10*3/uL (2.0-8.3); Platelet Count 198 X10*3/uL (160-400); Red Blood Count 4.94 X10*6/uL (4.60-5.80); Red Cell Distribution Width 13.1 % (11.0-16.0); White Blood Count 6.8 X10*3/uL (4.8-10.8)
[2021-12-24 10:54] LABS: Creatinine Urine 93.21 mg/dL; Microalbum/Creatinine Ratio Ur 144.8 ug/mg cr
[2021-12-24 11:00] LABS: Alanine Aminotransferase 36 U/L (0-40); Albumin Level 4.6 g/dL (3.5-5.0); Alkaline Phosphatase 84 U/L (39-117); Anion Gap 12 (12-20); Aspartate Amino Transferase 25 U/L (5-37); Bilirubin Total 0.4 mg/dL (0.0-1.0); Blood Urea Nitrogen 14 mg/dL (9-16); Calcium 10.2 mg/dL (8.4-10.2); Carbon Dioxide 29 mmol/L (22-29); Chloride 103 mmol/L (96-108); Cholesterol 197 mg/dL; Estimated Glomerular Filt Rate > 60; Glucose Fasting 120 mg/dL (60-99); HDL Cholesterol 36 mg/dL; LDL Cholesterol Calculated 107 mg/dl; Potassium 4.1 mmol/L (3.3-5.1); Sodium 140 mmol/L (135-145); Total Protein 7.9 g/dL (6.5-8.0); Triglycerides 271 mg/dL
[2021-12-24 11:23] LABS: Vitamin D 25-OH Total 22.6 ng/mL (>30)
[2021-12-26 05:25] LABS: LDL Cholesterol Direct 102 mg/dL (<100)
[2021-12-30 14:15] LABS: Testosterone, Free 20.6 pg/mL (35.0-155.0); Testosterone, Total 114 ng/dL (250-1100)
== END 2021-12-24 10:00 | disposition home or self-care (01) ==
LOC: HO.LAB 09:59
PROVIDERS: Nurse Practitioner Gerontology; PCP Internal Medicine; Visit Provider Internal Medicine
DX: E78.5 Hyperlipidemia, unspecified (principal); E11.9 Type 2 diabetes mellitus without complications; E55.9 Vitamin D deficiency, unspecified; R10.9 Unspecified abdominal pain; N52.9 Male erectile dysfunction, unspecified
CPT/HCPCS: 36415; 80053; 80061; 82043; 82306; 83721; 84402; 84403; 85025

== ENCOUNTER 2021-12-30 09:49 | Emergency (ER) | payer MEDICARE, MEDICAID, SELFPAY ==
--- NOTE | ~2021-12-30 | CT_ITS ---
EXAMINATION: CT ABDOMEN AND PELVIS WITH CONTRAST CLINICAL INFORMATION: Severe abdominal pain. COMPARISON: CT abdomen and pelvis with contrast 07/08/2020. TECHNIQUE: Multidetector volumetric images were obtained from the superior aspect of the liver through the pubic symphysis following administration 85 mL of Omnipaque 350 intravenous contrast. Sagittal and coronal reformatted images were obtained on the technologist's workstation. Preliminary wet read report provided earlier, during IT downtime. Oral contrast: No This CT examination was performed using dose optimization techniques as appropriate, variously including the following: *Automated exposure control *Adjustment of mA and/or kV according to patient size (this includes techniques or standardized protocols for targeted exams where dose is matched to indication/reason for exam; i.e. extremities or head) *Use of iterative reconstruction technique DLP: 927 mGy-cm FINDINGS: LUNG BASES: The visualized lung bases are unremarkable. LIVER, GALLBLADDER, AND BILIARY TREE: Liver is mildly enlarged measuring 22.4 cm in length secondary to diffuse hepatic steatosis similar to prior study. The liver surface is smooth. There is some focal fatty sparing adjacent to the gallbladder again seen. No focal hepatic parenchymal lesion or intrahepatic biliary ductal dilatation. Gallbladder is mildly contracted. No wall thickening or calculus or pericholecystic inflammatory changes. Common duct unremarkable. PANCREAS: Unremarkable. SPLEEN: Unremarkable. Small splenule again noted left upper quadrant. ADRENAL GLANDS: Unremarkable. KIDNEYS AND URETERS: The kidneys are normal in size, shape, and attenuation. No hydronephrosis, hydroureter, or calculi seen. No perinephric stranding. BLADDER: Unremarkable. GASTROINTESTINAL TRACT: No bowel obstruction or focal inflammatory changes in bowel or mesentery. The appendix is not seen with certainty. There are no inflammatory changes around the terminal ileum or cecum. No ascites, pneumatosis, free air, or fluid collection. ABDOMINAL WALL: No significant hernia is appreciated. LYMPH NODES: No lymphadenopathy. VASCULAR: Unremarkable. PELVIC VISCERA: Unremarkable. OSSEOUS STRUCTURES: No acute bony abnormality. There are degenerative changes lower thoracic and lumbosacral junctions similar to prior exam. Focal fatty deposit in vertebral body T7 stable. CT/CT abdomen pelvis w con IMPRESSION: -No acute inflammatory changes in abdomen or pelvis. No ascites or fluid collection. -Diffuse hepatic steatosis similar to prior exam 07/08/2020. -No cholelithiasis or biliary ductal dilatation. No hydronephrosis.
--- NOTE | 2021-12-30 10:44 | ED_ITS ---
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 Mode of arrival: ambulatory Limitations: other (agitated, hard to get a history from) History of Present Illness HPI narrative: denies taking NSAIDs but states he does at times MD elicited complaint: abdominal pain Pertinent past history: other (DM) Onset (ago): month(s) (1) Pain Consistency: constant Location: epigastric Severity: moderate Quality: stabbing Radiation: none Migration to: no migration Exacerbating factors: eating Relieving factors: nothing Context: other (not compliant with his omeprazole states it doesn't help, due for endoscopy next month, reports he only takes his suboxone when he feels like he needs it didn't take it today) Associated symptoms: nausea and vomiting Related Data Home Medications Medication Instructions Recorded Confirmed buspirone 15 mg tablet 15 mg PO TID 06/04/20 12/01/21 montelukast 10 mg tablet 10 mg PO BEDTIME 06/04/20 12/01/21 quetiapine 300 mg tablet,extended 300 mg PO BEDTIME 06/04/20 12/01/21 release 24 hr zolpidem 10 mg tablet 10 mg PO BEDTIME PRN 06/04/20 12/01/21 buprenorphine 12 mg-naloxone 3 mg 1 film BUCCAL ONCE ea 07/09/20 12/01/21 sublingual film (Suboxone) hydroxyzine HCl 50 mg tablet 50 mg PO Q8H PRN tab 07/10/20 12/01/21 sertraline 100 mg tablet 100 mg PO DAILY tab 07/10/20 12/01/21 ibuprofen 800 mg tablet 800 mg PO TID PRN 09/16/20 12/01/21 trazodone 150 mg tablet 150 mg PO DAILY tab 12/08/20 12/01/21 gabapentin 300 mg capsule 300 mg PO TID 10/13/21 12/01/21 Previous Rx's Medication Instructions Recorded blood-glucose meter (FreeStyle #1 ea 09/09/20 [place]) glucose 4 gram chewable tablet 16 g PO Q15M 30 Days #50 tab 12/24/20 omeprazole 40 mg capsule,delayed 40 mg PO BID #180 cap 01/20/21 release metformin 1,000 mg tablet 1,000 mg PO BID #180 tab 04/07/21 blood pressure test kit-large #1 ea 05/21/21 insulin glargine 100 unit/mL (3 16 unit (0.16 mL) SUBCUT QPM #5 ml 06/17/21 mL) subcutaneous pen (Basaglar KwikPen U-100 Insulin) lancets 28 gauge (FreeStyle #300 ea 06/23/21 Lancets) empagliflozin 25 mg tablet 25 mg PO QAM #30 tab 08/21/21 (Jardiance) fluticasone 500 mcg-salmeterol 50 1 inh INHALATION BID 30 Days #60 ea 09/19/21 mcg/dose blistr powdr for inhalation (Advair Diskus) albuterol sulfate 90 mcg/actuation 2 puff INHALATION Q6-8H PRN 30 09/28/21 aerosol inhaler Days #8.5 g blood sugar diagnostic (FreeStyle #300 ea 11/03/21 Lite Strips) tizanidine 4 mg tablet 4 mg PO TID PRN #30 tab 11/03/21 pen needle, diabetic 31 gauge x 1 ea SUBCUT DAILY 90 Days #100 ea 11/30/21 5/16 (BD Ultra-Fine Short Pen Needle) fenofibrate nanocrystallized 145 145 mg PO DAILY #90 tab 12/01/21 mg tablet sildenafil 50 mg tablet 50 mg PO DAILY PRN 5 Days #3 tab 12/02/21 omeprazole 20 mg capsule,delayed 20 mg PO BID 14 Days #28 cap 12/30/21 release ondansetron 4 mg disintegrating 4 mg PO Q8H PRN #20 tab 12/30/21 tablet Allergies Allergy/AdvReac Type Severity Reaction Status Date / Time No Known Allergies Allergy Verified 12/01/21 17:23 Review of Systems Review of Systems Constitutional : No Weight loss, No Fever, No Chills ENT/Mouth : No sore throat, No Rhinorrhea Eyes: No Swelling, No Redness Cardiovascular : No Chest Pain, No SOB, NoEdema Respiratory : No Cough, No Sputum, No Wheezing Gastrointestinal : Positive Nausea, Positive Vomiting, no Diarrhea, positive abdominal Pain, No Hematochezia, No Melena Genitourinary : No Dysuria, No Urinary Frequency, No Hematuria, No Urgency Musculoskeletal : No joint pain, No Myalgias, No Joint Swelling Skin : No Skin Lesions, No rash Neuro : No Weakness, No Numbness, No Dizziness, No Headache Psych : No Anxiety/Panic, No Depression Heme/Lymph: No Bruising, No Lymphadenopathy Endocrine : No Polyuria, No Polydipsia All other systems reviewed and are negative. [facility] Past Medical History Attestation statement: The following information was validated with the patient. Medical History Acute lumbar myofascial strain Anxiety and depression Asthma Colitis DM2 (diabetes mellitus, type 2) Erectile dysfunction GERD (gastroesophageal reflux disease) Hypertriglyceridemia Hypogonadism Lumbar degenerative disc disease Mild recurrent major depression REE (obstructive sleep apnea) Polyarthralgia Polysubstance abuse Type 2 diabetes mellitus with hyperglycemia Surgical History History of elbow surgery History of surgery Family History Family History Father Hypertension Diabetes Cancer Cancer, hepatocellular Mother No problems noted. Son Colon cancer Paternal Grandfather Cancer Social History Social History Household Members: Spouse Housing: House Alcohol intake: former Patient Tobacco Use Status: Former Tobacco user Quit Date: 2006 Tobacco use type: Cigarette Cigarette Packs Per Day: 1 Cigarettes Per Day: 20 Years Smoked: 20 e-Cigarette/Vaping Use: Never Used Second Hand Smoke Exposure: No Substance Use Type: Former Substance User, Heroin and Marijuana Advance Directives: No Advance Directives Information Provided: No service: No Current occupational status: disabled Cognitive needs: No Hearing needs: No Vision needs: No Physical Exam ED Vital Signs: Vital Signs - 24 hr 12/30/21 10:59 12/30/21 14:00 Temperature 98.0 F Pulse Rate 72 56 Respiratory Rate 18 18 Blood Pressure 136/80 127/69 Pulse Oximetry 97 98 BMI result Body Mass Index 25.8 Appearance: Alert. Oriented X3. No acute distress. Agitated, difficult to get answers from at times Eyes: Pupils equal, round and reactive to light. ENT: Pharynx normal. Neck: Normal inspection. Neck supple. CVS: Normal heart rate and rhythm. Pulses normal. Respiratory: No respiratory distress. Breath sounds normal. Abdomen: Soft and moderate epigastric ttp no rebound or guarding Skin: Skin warm and dry. Normal skin color. Normal skin turgor. Extremities: No lower extremity edema. No calf ttp Neuro: Oriented X 3. No motor deficit. No sensory deficit. Course Course Course Narrative: no acute findings on CT scan at this time - fatty liver, negative GB, renals, no SBO, appendix no infl changes in the area, no ascites discussed taking no NSAIDS, omeprazole 20mg PO BID for 1 week, did ask for pain medicine at home but we discussed he has suboxone at home that he can take and should take when he is having pain MDM - Abdominal Pain MDM Narrative Medical decision making narrative: 41 yo male with hx of DM, arthritis, obese, HTN, GERD, pain, anxiety/depression comes in with c/o 1 month of epigastric pain and n/v made worse with eating. He is not compliant with medications, due for endoscopy next month. He is hard to get a history from due to agitation. At this time will obtain basic labs, IV morphine for pain, CT scan to evaluate pancreas, duodenum, colitis, GB - no prior surgeries and denies frequent NSAID use. Lab Data Result diagrams: 12/30/21 11:11 12/30/21 11:11 Labs: Lab Results 12/30/21 12/30/21 Range/Units 11:11 11:11 WBC 6.7 (4.8-10.8) X10*3/uL RBC 4.65 (4.60-5.80) X10*6/uL Hgb 13.9 L (14.0-18.0) g/dl Hct 40.1 L (42.0-52.0) % MCV 86.2 (80.0-98.0) fL MCH 29.9 (27.0-33.0) pg MCHC 34.7 (31.0-36.0) g/dl RDW 13.0 (11.0-16.0) % Plt Count 182 (160-400) X10*3/uL MPV 9.3 L (9.4-12.4) fL Immature Gran % (Auto) 0.7 H (0.0-0.4) % Neut % (Auto) 63.9 (45-73) % Lymph % (Auto) 25.0 (20-40) % [place] % (Auto) 7.3 (2-11) % Eos % (Auto) 2.5 (0-4) % Baso % (Auto) 0.6 (0-2) % Lymph # (Auto) 1.7 (1.2-4.9) X10*3/uL [place] # (Auto) 0.5 (0.1-1.2) X10*3/uL Eos # (Auto) 0.2 (0.0-0.4) X10*3/uL Baso # (Auto) 0.0 (0.0-0.2) X10*3/uL Abs Immat Gran (auto) 0.05 H (0.00-0.03) X10*3/uL Absolute Neuts (auto) 4.3 (2.0-8.3) x10*3/uL Absolute Nucleated RBC 0.000 (0.0-0.012) X10*3/uL Nucleated RBC % (auto) 0.0 (0.0-0.2) /100WBC Sodium 138 (135-145) mmol/L Potassium 4.4 (3.3-5.1) mmol/L Chloride 105 (96-108) mmol/L Carbon Dioxide 25 (22-29) mmol/L Anion Gap 12 (12-20) BUN 13 (9-16) mg/dL Creatinine 0.70 (0.5-1.4) mg/dL Estim Creat Clear Calc 143.3 Estimated GFR > 60 Random Glucose 147 H (60-115) mg/dL Calcium 9.8 (8.4-10.2) mg/dL Magnesium 1.9 (1.6-2.6) mg/dL Total Bilirubin 0.3 (0.0-1.0) mg/dL Direct Bilirubin < 0.2 (0.0-0.5) mg/dL AST 26 (5-37) U/L ALT 31 (0-40) U/L Alkaline Phosphatase 71 (39-117) U/L Total Protein 7.4 (6.5-8.0) g/dL Albumin 4.2 (3.5-5.0) g/dL Lipase 75 (8-78) U/L Discharge Plan Discharge Clinical Impression: Abdominal pain Qualifiers: Abdominal location: epigastric Qualified Code(s): R10.13 - Epigastric pain Patient Disposition: Home, Self-Care Instructions: Abdominal Pain (ED) Additional Instructions: return to ED for any worsening symptoms or concerns CT Scan and labs normal today Tomograf?a computarizada y laboratorios normales hoy. Contin?e con chavis omeprazol maria elena omeprazol 20 mg dos veces al d?a sin motrin, aspirina, aleve, ibuprofeno Prescriptions: New ondansetron 4 mg tablet,disintegrating 4 mg PO Q8H PRN (Reason: nausea and vomiting) Qty: 20 0RF omeprazole 20 mg capsule,delayed release(DR/EC) 20 mg PO BID 14 Days Qty: 28 0RF No Action (DME) blood-glucose meter [FreeStyle [place]] Kit See Rx Instructions .ROUTE .MEDSUPPLY Qty: 1 0RF Rx Instructions: As directed check the BS TID glucose 4 gram tablet,chewable 16 g PO Q15M 30 Days Qty: 50 3RF omeprazole 40 mg capsule,delayed release(DR/EC) 40 mg PO BID Qty: 180 3RF metformin 1,000 mg tablet 1,000 mg PO BID Qty: 180 2RF (DME) lancets [FreeStyle Lancets] 28 gauge misc See Rx Instructions .ROUTE .MEDSUPPLY Qty: 300 3RF Rx Instructions: As directed check the BS TID Jardiance 25 mg tablet 25 mg PO QAM Qty: 30 4RF fluticasone propion-salmeterol [Advair Diskus] 500-50 mcg/dose blister with device 1 inh inhalation BID 30 Days Qty: 60 1RF albuterol sulfate 90 mcg/actuation HFA aerosol inhaler 2 puff inhalation Q6-8H PRN (Reason: shortness of breath or wheezing) 30 Days Qty: 8.5 3RF (DME) FreeStyle Lite Strips Strip See Rx Instructions .ROUTE .MEDSUPPLY Qty: 300 1RF Rx Instructions: three times a day tizanidine 4 mg tablet 4 mg PO TID PRN (Reason: for muscle spasm) Qty: 30 1RF pen needle, diabetic [BD Ultra-Fine Short Pen Needle] 31 gauge x 5/16 needle 1 ea subcut DAILY 90 Days Qty: 100 3RF sildenafil 50 mg tablet 50 mg PO DAILY PRN (Reason: sexual activity) 5 Days Qty: 3 0RF Rx Instructions: administer 30 minutes to 4 hours before activity buprenorphine-naloxone [Suboxone] 12-3 mg film 1 film buccal ONCE 0RF sertraline 100 mg tablet 100 mg PO DAILY 0RF (DME) blood pressure test kit-large Kit See Rx Instructions .Route Qty: 1 0RF Rx Instructions: As directed fenofibrate nanocrystallized 145 mg tablet 145 mg PO DAILY Qty: 90 1RF ibuprofen 800 mg tablet 800 mg PO TID PRN (Reason: pain) 0RF Basaglar KwikPen U-100 Insulin 100 unit/mL (3 mL) insulin pen 16 unit subcut QPM Qty: 5 7RF Hold Instructions: Doctor's Order quetiapine 300 mg tablet extended release 24 hr 300 mg PO BEDTIME 0RF zolpidem 10 mg tablet 10 mg PO BEDTIME PRN (Reason: insomnia) 0RF buspirone 15 mg tablet 15 mg PO TID 0RF montelukast 10 mg tablet 10 mg PO BEDTIME 0RF hydroxyzine HCl 50 mg tablet 50 mg PO Q8H PRN (Reason: anxiety) 0RF trazodone 150 mg tablet 150 mg PO DAILY 0RF gabapentin 300 mg capsule 300 mg PO TID 0RF Referrals: Ayah Mir MD [Primary Care Provider] - 2 days
[2021-12-30 10:59] VITALS: BP 136/80; PULSE 72; RESP 18; TEMP 36.7; O2SAT 97; BMI 25.8
[2021-12-30] MEDS: 0.9 % Sodium Chloride 1,000 ML 999 ML IVCONT (11:12)
[2021-12-30] MEDS: Morphine Sulfate 4 MG/ML CARTRIDGE IVPUSH (11:13)
[2021-12-30] MEDS: ondansetron HCL 4 MG/2 ML VIAL IVPUSH (11:13)
[2021-12-30 11:18] LABS: MANUAL DIFF FLAG NO
[2021-12-30 11:20] LABS: Basophils Percent Auto 0.6 % (0-2); Eosinophils Absolute Auto 0.2 X10*3/uL (0.0-0.4); Eosinophils Percent Auto 2.5 % (0-4); Hematocrit 40.1 % (42.0-52.0); Hemoglobin 13.9 g/dl (14.0-18.0); Imm Gran Abs Auto 0.05 X10*3/uL (0.00-0.03); Imm Gran Pct Auto 0.7 % (0.0-0.4); Lymphocytes Absolute Auto 1.7 X10*3/uL (1.2-4.9); Mean Corpuscular HGB Conc 34.7 g/dl (31.0-36.0); Mean Corpuscular Hemoglobin 29.9 pg (27.0-33.0); Mean Corpuscular Volume 86.2 fL (80.0-98.0); Mean Platelet Volume 9.3 fL (9.4-12.4); Monocytes Absolute Auto 0.5 X10*3/uL (0.1-1.2); Monocytes Percent Auto 7.3 % (2-11); Neutrophils Absolute Auto 4.3 x10*3/uL (2.0-8.3); Neutrophils Percent Auto 63.9 % (45-73); Platelet Count 182 X10*3/uL (160-400); Red Blood Count 4.65 X10*6/uL (4.60-5.80); White Blood Count 6.7 X10*3/uL (4.8-10.8)
[2021-12-30] MEDS: Pantoprazole Sodium 40 MG/10 ML VIAL IVPUSH (11:21)
[2021-12-30 11:39] LABS: Alanine Aminotransferase 31 U/L (0-40); Albumin Level 4.2 g/dL (3.5-5.0); Alkaline Phosphatase 71 U/L (39-117); Anion Gap 12 (12-20); Aspartate Amino Transferase 26 U/L (5-37); Bilirubin Direct < 0.2 mg/dL (0.0-0.5); Bilirubin Total 0.3 mg/dL (0.0-1.0); Blood Urea Nitrogen 13 mg/dL (9-16); Calcium 9.8 mg/dL (8.4-10.2); Carbon Dioxide 25 mmol/L (22-29); Chloride 105 mmol/L (96-108); Creatinine Clr Calc Pharmacy 143.3; Estimated Glomerular Filt Rate > 60; Glucose Random 147 mg/dL (60-115); Lipase 75 U/L (8-78); Magnesium 1.9 mg/dL (1.6-2.6); Potassium 4.4 mmol/L (3.3-5.1); Sodium 138 mmol/L (135-145); Total Protein 7.4 g/dL (6.5-8.0)
[2021-12-30 14:00] VITALS: BP 127/69; PULSE 56; RESP 18; O2SAT 98
--- NOTE | 2021-12-30 15:10 | PC.NURSE ---
1ST ENCOUNTER WITH PATIENT FOR DC PURPOSES PT AWAKE, ALERT AND ORIENTED X 3. SKIN WARM AND DRY. RESP UNLABORED. DENIES N/V. NO C/O PAIN PRESENTLY. PT SITTING UP ON STRETCHER TALKING ON PHONE. NO ACUTE DISTRESS NOTED.
[2021-12-30] MEDS: iohexoL 350 MG/ML 100 ML INFUS..BTL IV (15:46)
== END 2021-12-30 15:15 | disposition home or self-care (01) ==
PROVIDERS: Emergency Provider Emergency Medicine; PCP Internal Medicine
DX: R10.13 Epigastric pain (principal); K21.9 Gastro-esophageal reflux disease without esophagitis; E11.9 Type 2 diabetes mellitus without complications; J45.909 Unspecified asthma, uncomplicated; Z91.14 Patient's other noncompliance with medication regimen
CPT/HCPCS: 36415; 74177; 80048; 80076; 83690; 83735; 85025; 96361; 96374; 96375; 99284; J2270; J2405; Q9967

== ENCOUNTER → 2022-01-14 13:55 | Outpatient (BNVA) | payer MEDICARE, MEDICAID, SELFPAY | PROVIDERS: PCP Internal Medicine; Visit Provider Nurse Practitioner Gerontology | DX: E11.9 Type 2 diabetes mellitus without complications (principal); E66.9 Obesity, unspecified; E78.5 Hyperlipidemia, unspecified; R80.9 Proteinuria, unspecified; Z79.4 Long term (current) use of insulin; Z79.84 Long term (current) use of oral hypoglycemic drugs | CPT/HCPCS: 99212; Q3014 ==

== ENCOUNTER → 2022-01-22 10:50 | Outpatient (BNVA) | payer MEDICARE, MEDICAID, SELFPAY | PROVIDERS: PCP Internal Medicine; Visit Provider Dietitian, Registered | DX: E11.65 Type 2 diabetes mellitus with hyperglycemia (principal) | CPT/HCPCS: 97803 ==

== ENCOUNTER 2022-01-30 13:33 | Emergency (ER) | payer MEDICARE, MEDICAID, SELFPAY ==
--- NOTE | ~2022-01-30 | XR_ITS ---
EXAMINATION: XR CHEST CLINICAL INFORMATION: Cough COMPARISON: 08/09/2019 TECHNIQUE: Frontal view of the chest was obtained. FINDINGS: No significant abnormality is noted involving the heart, lungs, mediastinum, bony thorax or soft tissues. XR/XR chest 1V IMPRESSION: Unremarkable examination.
[2022-01-30 14:29] VITALS: BP 129/76; PULSE 69; RESP 18; TEMP 35.6; O2SAT 96; BMI 31.8
[2022-01-30 15:22] LABS: Strep A Nucleic Acid Negative (Negative)
[2022-01-30 15:23] LABS: COVID-19 Test Positive (Negative)
[2022-01-30 15:27] LABS: IDNOW Serial# 9DB6401D; Influenza A Negative (Negative); Influenza B2 Negative (Negative)
--- NOTE | 2022-01-30 15:38 | ED_ITS ---
HPI - General Adult General Chief complaint: Upper Respiratory Symptoms Stated complaint: Asthma Exposed to COVID Time Seen by Provider: 01/30/22 13:56 Source: patient and acute specialist Mode of arrival: ambulatory Limitations: language barrier History of Present Illness HPI narrative: Patient is a 41 year old male presenting to the emergency department today with back pain and feeling generally unwell. Patient states that he has had upper back pain for 2 weeks and for the last few days, he has felt unwell. Patient denies any dizziness, lightheadedness, abdominal pain, nausea, vomiting, fever, chills, blurry vision, double vision, loss of vision, chest pain, difficulty breathing, shortness of breath, night sweats, pain with urination, increased urinary frequency, increased urinary urgency, blood in his urine or stool, syncope or a near syncopal episode, recent trauma or falls, bowel incontinence, bladder incontinence, bowel retention, bladder retention, or any other complaints at this time. Location: back Radiation: non-radiation Severity: mild Severity scale (1-10): 2 Quality: dull Pain Consistency: constant Relieving factors: none Exacerbating factors: none Associated symptoms: cough Treatments prior to arrival: none Related Data Home Medications Medication Instructions Recorded Confirmed buspirone 15 mg tablet 15 mg PO TID 06/04/20 12/01/21 montelukast 10 mg tablet 10 mg PO BEDTIME 06/04/20 12/01/21 quetiapine 300 mg tablet,extended 300 mg PO BEDTIME 06/04/20 12/01/21 release 24 hr zolpidem 10 mg tablet 10 mg PO BEDTIME PRN 06/04/20 12/01/21 buprenorphine 12 mg-naloxone 3 mg 1 film BUCCAL ONCE ea 07/09/20 12/01/21 sublingual film (Suboxone) hydroxyzine HCl 50 mg tablet 50 mg PO Q8H PRN tab 07/10/20 12/01/21 sertraline 100 mg tablet 100 mg PO DAILY tab 07/10/20 12/01/21 ibuprofen 800 mg tablet 800 mg PO TID PRN 09/16/20 12/01/21 trazodone 150 mg tablet 150 mg PO DAILY tab 12/08/20 12/01/21 gabapentin 300 mg capsule 300 mg PO TID 10/13/21 01/14/22 pantoprazole 40 mg tablet,delayed 40 mg PO DAILY 01/14/22 01/14/22 release venlafaxine 75 mg capsule,extended 75 mg PO DAILY 01/14/22 01/14/22 release 24 hr Previous Rx's Medication Instructions Recorded blood-glucose meter (FreeStyle #1 ea 09/09/20 [place]) glucose 4 gram chewable tablet 16 g PO Q15M 30 Days #50 tab 12/24/20 omeprazole 40 mg capsule,delayed 40 mg PO BID #180 cap 01/20/21 release blood pressure test kit-large #1 ea 05/21/21 lancets 28 gauge (FreeStyle #300 ea 06/23/21 Lancets) fluticasone 500 mcg-salmeterol 50 1 inh INHALATION BID 30 Days #60 ea 09/19/21 mcg/dose blistr powdr for inhalation (Advair Diskus) albuterol sulfate 90 mcg/actuation 2 puff INHALATION Q6-8H PRN 30 09/28/21 aerosol inhaler Days #8.5 g blood sugar diagnostic (FreeStyle #300 ea 11/03/21 Lite Strips) tizanidine 4 mg tablet 4 mg PO TID PRN #30 tab 11/03/21 pen needle, diabetic 31 gauge x 1 ea SUBCUT DAILY 90 Days #100 ea 11/30/21 5/16 (BD Ultra-Fine Short Pen Needle) omeprazole 20 mg capsule,delayed 20 mg PO BID 14 Days #28 cap 12/30/21 release ondansetron 4 mg disintegrating 4 mg PO Q8H PRN #20 tab 12/30/21 tablet sildenafil 50 mg tablet 50 mg PO DAILY PRN 14 Days #7 tab 01/03/22 atorvastatin 20 mg tablet 20 mg PO BEDTIME #30 tab 01/14/22 empagliflozin 25 mg tablet 25 mg PO QAM #30 tab 01/14/22 (Jardiance) fenofibrate nanocrystallized 145 145 mg PO DAILY #90 tab 01/14/22 mg tablet insulin glargine 100 unit/mL (3 14 unit (0.14 mL) SUBCUT QPM #5 ml 01/14/22 mL) subcutaneous pen (Basaglar KwikPen U-100 Insulin) cyclobenzaprine 10 mg tablet 10 mg PO TID PRN 7 Days #21 tab 01/30/22 Allergies Allergy/AdvReac Type Severity Reaction Status Date / Time No Known Allergies Allergy Verified 01/14/22 14:06 Review of Systems Constitutional: Constitutional: Reports no additional constitutional complaints, Denies chills, Denies fever(s) and Denies night sweats Eyes: Eyes: Reports no additional eye complaints, Denies blurry vision, Denies change in vision, Denies diplopia, Denies eye discharge, Denies loss of vision and Denies eye pain ENT: Denies dizziness Cardiovascular: Cardiovascular: Reports no additional cardiovascular complaints, Denies chest pain, Denies lightheadedness, Denies Loss of Consciousness and Denies dyspnea Respiratory: Respiratory: Reports no additional respiratory complaints, Reports cough and Denies dyspnea Gastrointestinal: Gastrointestinal: Reports no additional gastrointestinal complaints, Denies abdominal pain, Denies melena, Denies hematochezia, Denies change in bowel habits and Denies change in stool character Genitourinary: Genitourinary: Reports no additional male genitourinary complaints, Denies hematuria, Denies oliguria, Denies difficulty urinating, Denies dysuria, Denies urinary frequency, Denies urinary hesitancy, Denies urinary incontinence and Denies urinary urgency Musculoskeletal: Musculoskeletal: Reports no additional musculoskeletal complaints, Reports back pain, Denies numbness and Denies tingling Neurologic: Denies dizziness, Denies loss of vision, Denies numbness and De nies tingling Psychiatric: Psychiatric: Reports no additional psychiatric complaints Endocrine: Endocrine: Reports no additional endocrine complaints Hematologic/Lymphatic: Hematologic/Lymphatic: Reports no additional hematologic/lymphatic complaints Allergic/Immunologic: Allergic/Immunologic: Reports no additional allergic/immunologic complaints [facility] Past Medical History Attestation statement: The following information was validated with the patient. Source: old records reviewed Medical History Acute lumbar myofascial strain Anxiety and depression Asthma Colitis DM2 (diabetes mellitus, type 2) Dyslipidemia Erectile dysfunction GERD (gastroesophageal reflux disease) Hypertriglyceridemia Hypogonadism Lumbar degenerative disc disease Mild recurrent major depression REE (obstructive sleep apnea) Polyarthralgia Polysubstance abuse Type 2 diabetes mellitus with hyperglycemia Surgical History History of elbow surgery History of surgery Family History Family History Father Hypertension Diabetes Cancer Cancer, hepatocellular Mother No problems noted. Son Colon cancer Paternal Grandfather Cancer Social History Social History Household Members: Spouse Housing: House Alcohol intake: former Patient Tobacco Use Status: Former Tobacco user Quit Date: 2006 Tobacco use type: Cigarette Cigarette Packs Per Day: 1 Cigarettes Per Day: 20 Years Smoked: 20 e-Cigarette/Vaping Use: Never Used Second Hand Smoke Exposure: No Substance Use Type: Former Substance User, Heroin and Marijuana Advance Directives: No Advance Directives Information Provided: No service: No Current occupational status: disabled Cognitive needs: No Hearing needs: No Vision needs: No Physical Exam ED Vital Signs: Vital Signs - 24 hr 01/30/22 14:29 Temperature 96.1 F L Pulse Rate 69 Respiratory Rate 18 Blood Pressure 129/76 Pulse Oximetry 96 BMI result Body Mass Index 31.8 Const General: cooperative, no acute distress, alert and awake Nutritional Appearance: well nourished Orientation/consciousness: patient oriented x3 Limitations: no limitations HENMT Head: Yes normal to inspection and Yes atraumatic Ears: hearing grossly normal bilaterally and external ears normal General nose exam: Normal external nose present, no nasal discharge noted and no epistaxis Face and sinus: Yes normal facial exam, No abrasion and No laceration Mouth: Normal oral and palatal mucosa present, no drooling and no muffled voice Eyes General: appearance normal, both eyes and all related structures Periorbital: periorbital findings normal Eyelids: Yes eyelids normal Conjunctivae: conjunctivae normal Pupils: Equal, round and reactive pupils present EOM: EOMs intact bilaterally Neck Neck: Yes normal visual inspection, Yes full ROM and Yes no lymphadenopathy Chest Chest palpation & inspection: normal inspection of the chest Resp Effort & Inspection: normal respiratory effort and able to speak in complete sentences Auscultation: clear to auscultation bilaterally Cardio Rate: regular rate Rhythm: regular rhythm GI Inspection: Yes normal to inspection Neuro General: patient oriented x3 and moves all extremities Cranial nerves: Yes Equal, round and reactive pupils present Cognition (Neuro): normal cognition Motor exam (neuro): 5/5 motor strength present throughout Sensory Exam: Normal double simultaneous stimulation for sensation Coordination: [id number] test normal Extrem General: Yes normal to inspection, Yes full ROM and Yes capillary refill normal Psych Appearance: grossly normal Mental Status: mental status grossly normal Affect: normal affect Attitude: cooperative Thought process: Normal thought process present Thought content: Normal thought content present Insight: Good insight present (Psych) Medical Decision Making MDM Narrative Medical decision making narrative: Patient is a 41 year old male presenting to the emergency department today with a cough and back pain. Patient's physical exam was unremarkable. Patient's rapid COVID-19 test was positive. Patient's chest x-ray showed no acute process. I explained my physical exam findings as well as all test results to the patient. I answered all questions asked by the patient. Patient received PO Flexeril and IM Toradol which he stated helped his back pain significantly. I stressed the importance of the patient taking his medication as prescribed. I stressed the importance of the patient following up with his primary care provider. I st ressed the importance of the patient returning to the emergency department immediately if his symptoms were to worsen or if he were to develop any dizziness, shortness of breath, difficulty breathing, chest pain, blurry vision, loss of vision, nausea, vomiting, abdominal pain, fever, chills, back pain, or any other complaints. Patient verbalized agreement and understanding with this treatment plan and discharge. Differential Diagnosis Differential Diagnosis: COVID-19, back spasm Medical Records Medical records reviewed: Yes I reviewed the patient's medical records. Lab Data Lab results reviewed: Yes I reviewed the patient's lab results. Labs: Lab Results 01/30/22 01/30/22 01/30/22 Range/Units 15:00 15:00 15:02 COVID-19 ([facility]) Positive A (Negative) COVID-19 Clin Com See Note Influenza Type A ([facility]) Negative (Negative) Influenza Type B ([facility]) Negative (Negative) Influenza A & B Note See Note S. pyogenes GrpA [facility] Negative (Negative) Imaging Data Chest x-ray: Attestation: I personally reviewed and interpreted this imaging study as follows: My impression: No acute process. Radiologist's impression: EXAMINATION: XR CHEST CLINICAL INFORMATION: Cough COMPARISON: 08/09/2019 TECHNIQUE: Frontal view of the chest was obtained. FINDINGS: No significant abnormality is noted involving the heart, lungs, mediastinum, bony thorax or soft tissues. XR/XR chest 1V IMPRESSION: Unremarkable examination. ? Dictated By: Jm Tsai MD Signed By: Electronically signed by Jm Tsai MD 01/30/22 1527 Discharge Plan Discharge Clinical Impression: COVID-19, Back spasm Patient Disposition: Home, Self-Care Instructions: COVID-19 (Coronavirus Disease 2019) (ED) Additional Instructions: Follow up with your primary care provider. Return to the emergency department immediately if your symptoms worsen or if you develop any dizziness, shortness of breath, difficulty breathing, chest pain, blurry vision, loss of vision, nausea, vomiting, abdominal pain, fever, chills, back pain, or any other complaints. Prescriptions: New cyclobenzaprine 10 mg tablet 10 mg PO TID PRN (Reason: muscle spasm) 7 Days Qty: 21 0RF No Action (DME) blood-glucose meter [FreeStyle [place]] Kit See Rx Instructions .ROUTE .MEDSUPPLY Qty: 1 0RF Rx Instructions: As directed check the BS TID glucose 4 gram tablet,chewable 16 g PO Q15M 30 Days Qty: 50 3RF omeprazole 40 mg capsule,delayed release(DR/EC) 40 mg PO BID Qty: 180 3RF (DME) lancets [FreeStyle Lancets] 28 gauge misc See Rx Instructions .ROUTE .MEDSUPPLY Qty: 300 3RF Rx Instructions: As directed check the BS TID fluticasone propion-salmeterol [Advair Diskus] 500-50 mcg/dose blister with device 1 inh inhalation BID 30 Days Qty: 60 1RF albuterol sulfate 90 mcg/actuation HFA aerosol inhaler 2 puff inhalation Q6-8H PRN (Reason: shortness of breath or wheezing) 30 Days Qty: 8.5 3RF (DME) FreeStyle Lite Strips Strip See Rx Instructions .ROUTE .MEDSUPPLY Qty: 300 1RF Rx Instructions: three times a day tizanidine 4 mg tablet 4 mg PO TID PRN (Reason: for muscle spasm) Qty: 30 1RF pen needle, diabetic [BD Ultra-Fine Short Pen Needle] 31 gauge x 5/16 needle 1 ea subcut DAILY 90 Days Qty: 100 3RF sildenafil 50 mg tablet 50 mg PO DAILY PRN (Reason: sexual activity) 14 Days Qty: 7 0RF Rx Instructions: administer 30 minutes to 4 hours before activity ondansetron 4 mg tablet,disintegrating 4 mg PO Q8H PRN (Reason: nausea and vomiting) Qty: 20 0RF omeprazole 20 mg capsule,delayed release(DR/EC) 20 mg PO BID 14 Days Qty: 28 0RF buprenorphine-naloxone [Suboxone] 12-3 mg film 1 film buccal ONCE 0RF sertraline 100 mg tablet 100 mg PO DAILY 0RF (DME) blood pressure test kit-large Kit See Rx Instructions .Route Qty: 1 0RF Rx Instructions: As directed ibuprofen 800 mg tablet 800 mg PO TID PRN (Reason: pain) 0RF quetiapine 300 mg tablet extended release 24 hr 300 mg PO BEDTIME 0RF zolpidem 10 mg tablet 10 mg PO BEDTIME PRN (Reason: insomnia) 0RF buspirone 15 mg tablet 15 mg PO TID 0RF montelukast 10 mg tablet 10 mg PO BEDTIME 0RF hydroxyzine HCl 50 mg tablet 50 mg PO Q8H PRN (Reason: anxiety) 0RF trazodone 150 mg tablet 150 mg PO DAILY 0RF pantoprazole 40 mg tablet,delayed release (DR/EC) 40 mg PO DAILY 0RF venlafaxine 75 mg capsule,extended release 24hr 75 mg PO DAILY 0RF Basaglar KwikPen U-100 Insulin 100 unit/mL (3 mL) insulin pen 14 unit subcut QPM Qty: 5 7RF Hold Instructions: Doctor's Order fenofibrate nanocrystallized 145 mg tablet 145 mg PO DAILY Qty: 90 1RF atorvastatin 20 mg tablet 20 mg PO BEDTIME Qty: 30 11RF Jardiance 25 mg tablet 25 mg PO QAM Qty: 30 4RF gabapentin 300 mg capsule 300 mg PO TID 0RF Referrals: Ayah Mir MD [Primary Care Provider] - Print Language: Macanese
[2022-01-30] MEDS: Ketorolac Tromethamine 15 MG/ML VIAL IM (17:28)
[2022-01-30] MEDS: Cyclobenzaprine HCl 10 MG TABLET PO (17:28)
== END 2022-01-30 17:39 | disposition home or self-care (01) ==
PROVIDERS: Physician Assistant Medical; Emergency Provider Emergency Medicine; PCP Internal Medicine
DX: U07.1 COVID-19 (principal); R25.2 Cramp and spasm; R05.9 Cough, unspecified; F17.210 Nicotine dependence, cigarettes, uncomplicated; Z71.6 Tobacco abuse counseling; Z79.899 Other long term (current) drug therapy
CPT/HCPCS: 71045; 87502; 87635; 87651; 96372; 99283; J1885

== ENCOUNTER → 2022-05-21 09:57 | Outpatient (BNVA) | payer MEDICARE, MEDICAID, SELFPAY | PROVIDERS: PCP Internal Medicine; Visit Provider Student in an Organized Health Care Education/Training Program | DX: M79.641 Pain in right hand (principal); M79.642 Pain in left hand | CPT/HCPCS: 99212 ==

== ENCOUNTER → 2022-06-01 15:29 | Outpatient (BNVA) | payer MEDICARE, MEDICAID, SELFPAY | PROVIDERS: PCP Internal Medicine; Visit Provider Urology | DX: E11.69 Type 2 diabetes mellitus with other specified complication (principal); E11.65 Type 2 diabetes mellitus with hyperglycemia; N52.1 Erectile dysfunction due to diseases classified elsewhere; E29.1 Testicular hypofunction; I12.9 Hypertensive chronic kidney disease with stage 1 through stage 4 chronic kidney disease, or unspecified chronic kidney disease; B19.20 Unspecified viral hepatitis C without hepatic coma; Z79.899 Other long term (current) drug therapy | CPT/HCPCS: 99202 ==

== ENCOUNTER 2022-07-13 13:01 | Outpatient (REF) | payer MEDICARE, MEDICAID, SELFPAY ==
--- NOTE | ~2022-07-13 | MR_ITS ---
EXAMINATION: MR LEFT HAND WITHOUT CONTRAST, LEFT CLINICAL INFORMATION: Pain in the left hand. Patient reports 2 years of increasing pain in the fingers. COMPARISON: Prior radiographs of the left hand, most recent 06/17/2021, and dating back to 02/01/2019. TECHNIQUE: MRI of the left hand was performed without contrast on a high-field MRI scanner. FINDINGS: SUBCUTANEOUS SOFT TISSUES: Normal. MUSCLES/TENDONS: Normal. LIGAMENTS/CAPSULAR STRUCTURES: Normal. BONE/CARTILAGE: 3rd PIP Joint: There is some deformity of the dorsal head of the proximal phalanx compatible with old fracture or marginal osteophytes related to arthrosis. No joint effusion. Remaining bones and joints are normal. NEUROVASCULAR STRUCTURES: Unremarkable. MR/MR hand LT wo con IMPRESSION: Mild abnormality of the 3rd PIP joint, unchanged compared with prior radiographs. This likely reflects osteoarthritis or post traumatic change related to old, healed fracture. No joint effusion or synovitis.
== END 2022-07-13 13:02 | disposition home or self-care (01) ==
LOC: HO.MRI 13:01
PROVIDERS: Visit Provider Student in an Organized Health Care Education/Training Program
DX: M25.542 Pain in joints of left hand (principal)
CPT/HCPCS: 73218

== ENCOUNTER → 2022-09-01 15:19 | Outpatient (BNVA) | payer MEDICARE, MEDICAID, SELFPAY | PROVIDERS: PCP Internal Medicine; Visit Provider Urology | DX: E11.69 Type 2 diabetes mellitus with other specified complication (principal); N52.1 Erectile dysfunction due to diseases classified elsewhere | CPT/HCPCS: Q3014 ==

== ENCOUNTER 2022-09-30 09:50 | Emergency (ER) | payer MEDICARE, MEDICAID, SELFPAY ==
[2022-09-30 10:16] VITALS: BP 146/90; PULSE 70; RESP 18; TEMP 36.8; O2SAT 96; BMI 33.7
[2022-09-30 11:03] VITALS: BP 136/93; PULSE 69; RESP 18; TEMP 37.3; O2SAT 95
[2022-09-30] MEDS: diphenhydrAMINE HCL 25 MG CAPSULE 50 MG PO (11:21)
[2022-09-30 11:23] VITALS: BP 144/96; PULSE 72; RESP 18; O2SAT 95
--- NOTE | 2022-09-30 11:54 | ED.EYEPROB ---
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 He otherwise denies any fever, chills, headaches, visual changes or double vision. Related Data Home Medications Medication Instructions Recorded Confirmed buspirone 15 mg tablet 15 mg PO TID 06/04/20 04/01/22 montelukast 10 mg tablet 10 mg PO BEDTIME 06/04/20 04/01/22 quetiapine 300 mg tablet,extended 300 mg PO BEDTIME 06/04/20 04/01/22 release 24 hr zolpidem 10 mg tablet 10 mg PO BEDTIME PRN insomnia 06/04/20 04/01/22 buprenorphine 12 mg-naloxone 3 mg 1 film buccal ONCE 07/09/20 04/01/22 sublingual film (Suboxone) hydroxyzine HCl 50 mg tablet 50 mg PO Q8H PRN anxiety 07/10/20 04/01/22 sertraline 100 mg tablet 100 mg PO DAILY 07/10/20 04/01/22 ibuprofen 800 mg tablet 800 mg PO TID PRN pain 09/16/20 04/01/22 trazodone 150 mg tablet 150 mg PO DAILY 12/08/20 04/01/22 gabapentin 300 mg capsule 300 mg PO TID 10/13/21 04/01/22 venlafaxine 75 mg capsule,extended 75 mg PO DAILY 01/14/22 04/01/22 release 24 hr metformin 1,000 mg tablet 1,000 mg PO BID 05/28/22 venlafaxine 150 mg 150 mg PO DAILY 05/28/22 capsule,extended release 24 hr Previous Rx's Medication Instructions Recorded blood-glucose meter (FreeStyle #1 ea 09/09/20 [place] kit) glucose 4 gram chewable tablet 16 g PO Q15M 30 days #50 tabs 12/24/20 omeprazole 40 mg capsule,delayed 40 mg PO BID #180 caps 01/20/21 release blood pressure test kit-large #1 ea 05/21/21 lancets 28 gauge (FreeStyle #300 ea 06/23/21 Lancets) fluticasone 500 mcg-salmeterol 50 1 inh inhalation BID 30 days #60 ea 09/19/21 mcg/dose blistr powdr for inhalation (Advair Diskus) albuterol sulfate 90 mcg/actuation 2 puff inhalation Q6-8H PRN 09/28/21 aerosol inhaler shortness of breath or wheezing 30 days #8.5 grams blood sugar diagnostic (FreeStyle #300 ea 11/03/21 Lite Strips) pen needle, diabetic 31 gauge x 1 ea subcut DAILY 90 days #100 ea 11/30/21 5/16 (BD Ultra-Fine Short Pen Needle) atorvastatin 20 mg tablet 20 mg PO BEDTIME #30 tabs 01/14/22 empagliflozin 25 mg tablet 25 mg PO QAM #30 tabs 01/14/22 (Jardiance) fenofibrate nanocrystallized 145 145 mg PO DAILY #90 tabs 01/14/22 mg tablet insulin glargine 100 unit/mL (3 14 unit (0.14 mL) subcut QPM #5 mL 01/14/22 mL) subcutaneous pen (Nelsonaglar KwikPen U-100 Insulin) cyclobenzaprine 10 mg tablet 10 mg PO TID PRN muscle spasm 7 01/30/22 days #21 tabs sildenafil 50 mg tablet 50 mg PO DAILY PRN sexual activity 04/12/22 14 days #7 tabs tizanidine 4 mg tablet 4 mg PO TID PRN for muscle spasm 05/30/22 #30 tabs prednisone 10 mg tablet 10 mg PO DAILY PRN bronchospasm 6 08/03/22 days #12 tabs tadalafil 20 mg tablet 20 mg PO ONCE PRN sexual activity 09/01/22 30 days #30 tabs tadalafil 5 mg tablet 5 mg PO DAILY sexual activity 90 09/01/22 days #90 tabs Allergies Allergy/AdvReac Type Severity Reaction Status Date / Time No Known Allergies Allergy Verified 09/01/22 15:55 Review of Systems Review of Systems: Pertinent positives and negatives as stated in [facility] Past Medical History Source: nursing notes reviewed Medical History Acute lumbar myofascial strain Anxiety and depression Asthma Bilateral hand pain Colitis DM2 (diabetes mellitus, type 2) Dyslipidemia Erectile dysfunction GERD (gastroesophageal reflux disease) Hypertriglyceridemia Hypogonadism Lumbar degenerative disc disease Mild recurrent major depression REE (obstructive sleep apnea) Polyarthralgia Polysubstance abuse Type 2 diabetes mellitus with hyperglycemia Surgical History History of elbow surgery History of surgery Family History Family History Father Hypertension Diabetes Cancer Cancer, hepatocellular Mother No problems noted. Son Colon cancer Paternal Grandfather Cancer Social History Social History Household Members: Spouse Housing: House Alcohol intake: unknown Patient Tobacco Use Status: Former Tobacco user Quit Date: 2006 Tobacco use type: Cigarette Cigarette Packs Per Day: 1 Cigarettes Per Day: 20 Years Smoked: 20 e-Cigarette/Vaping Use: Never Used Second Hand Smoke Exposure: No Use of substances other than those prescribed or required for medical reasons: Unknown Substance Use Type: Former Substance User, Heroin and Marijuana Advance Directives: No Advance Directives Information Provided: Yes service: No Current occupational status: disabled Cognitive needs: No Hearing needs: No Vision needs: No Physical Exam Vital Signs: Vital Signs: Last Vital Signs Temp 99.1 F 09/30/22 11:03 Pulse 79 09/30/22 12:39 Resp 18 09/30/22 12:39 BP 144/87 H 09/30/22 12:39 Pulse Ox 95 09/30/22 12:39 O2 Del Method 09/30/22 12:39 BMI result Body Mass Index 33.7 VITAL SIGNS: Reviewed. GENERAL: Well developed, well nourished, in no acute distress. HEAD: Normocephalic/atraumatic EYES: PERRLA, EOMI without pain, significant bilateral conjunctival injection with clear secretions, no nystagmus, no obvious injuries EARS: Ext canals without abnormality OROPHARYNX: no oral lesions noted, posterior pharynx clear NECK: Supple, no adenopathy LUNGS: Normal breath sounds. No adventitious sounds or accessory muscle use. SpO2<95> CARDIOVASCULAR: Regular rate and rhythm without noted murmurs ABDOMEN: Soft, non-tender, non-distended with bowel sounds. NEUROLOGIC: Alert and oriented x 4. Strength and sensation to light touch were grossly intact x 4. Medications Administered Discontinued Medications Generic Name Dose Route Start Last Admin Trade Name Freq PRN Reason Stop Dose Admin Diphenhydramine HCl 50 mg 09/30/22 11:15 09/30/22 11:21 Diphenhydramine Hcl 25 Mg Capsule PO 09/30/22 11:16 50 mg ONCE ONE Administration Ketotifen Fumarate 1 drop 09/30/22 11:45 09/30/22 11:59 Ketotifen Fumarate 0.025% Oph 5 Ml Drpbtl EYE-BOTH 09/30/22 11:46 1 drop ONCE ONE Administration Medical Decision Making Medical Decision Making MDM Narrative: 42-year-old male with what appears to be allergic high irritation as there is no history traumatic injury or exposure to noxious substances in no use of contact lenses. There are no visual changes and will provide the patient with Benadryl and eyedrops. On re-evaluation after patient received the eyedrops and the Benadryl, he is feeling much better. He is otherwise discharged home with instructions to use Benadryl and to continue with eyedrops. In addition, he was instructed to follow-up with his primary care provider. Differential Diagnosis Differential Diagnoses: The differential diagnosis associated with the presentation includes Please see the discussion above Lab Data [facility] Lab Attestation statement: I reviewed the patient's lab results. Please see the discussion above External Record Review External record reviewed: Outpatient record and Prior outpatient labs Chronic Conditions Patient?s care impacted by: Diabetes Discharge Plan Discharge Clinical Impression: Allergic conjunctivitis of left eye, Allergic conjunctivitis of right eye Patient Disposition: Home, Self-Care Instructions: How to Use Eye Drops (ED), Conjunctivitis (ED) Additional Instructions: 1. Use las gotas para los ojos seg?n sea necesario y contin?e con Benadryl de venta beau. 2. Seguimiento con el proveedor de atenci?n primaria los pr?ximos 1 a 2 d?as para daryn reevaluaci?n. Regrese a la ramu de emergencias si los s?ntomas empeoran. 1. Please use the eyedrops as needed and continue with [id number] Benadryl. 2. Follow-up with primary care provider next 1-2 days for re-evaluation. Return to the ER for any worsening symptoms. Prescriptions: No Action (DME) blood-glucose meter [FreeStyle [place]] Kit See Rx Instructions .ROUTE .MEDSUPPLY Qty: 1 0RF Rx Instructions: As directed check the BS TID glucose 4 gram tablet,chewable 16 g PO Q15M 30 Days Qty: 50 3RF omeprazole 40 mg capsule,delayed release(DR/EC) 40 mg PO BID Qty: 180 3RF (DME) lancets [FreeStyle Lancets] 28 gauge misc See Rx Instructions .ROUTE .MEDSUPPLY Qty: 300 3RF Rx Instructions: As directed check the BS TID fluticasone propion-salmeterol [Advair Diskus] 500-50 mcg/dose blister with device 1 inh inhalation BID 30 Days Qty: 60 1RF albuterol sulfate 90 mcg/actuation HFA aerosol inhaler 2 puff inhalation Q6-8H PRN (Reason: shortness of breath or wheezing) 30 Days Qty: 8.5 3RF (DME) FreeStyle Lite Strips Strip See Rx Instructions .ROUTE .MEDSUPPLY Qty: 300 1RF Rx Instructions: three times a day pen needle, diabetic [BD Ultra-Fine Short Pen Needle] 31 gauge x 5/16 needle 1 ea subcut DAILY 90 Days Qty: 100 3RF sildenafil 50 mg tablet 50 mg PO DAILY PRN (Reason: sexual activity) 14 Days Qty: 7 1RF Rx Instructions: administer 30 minutes to 4 hours before activity tizanidine 4 mg tablet 4 mg PO TID PRN (Reason: for muscle spasm) Qty: 30 1RF prednisone 10 mg tablet 10 mg PO DAILY PRN (Reason: bronchospasm) 6 Days Qty: 12 0RF Rx Instructions: Take 3 tabs the first 2 days, then 2 tabs the next 2 days, then 1 tab the next 2 days cyclobenzaprine 10 mg tablet 10 mg PO TID PRN (Reason: muscle spasm) 7 Days Qty: 21 0RF buprenorphine-naloxone [Suboxone] 12-3 mg film 1 film buccal ONCE sertraline 100 mg tablet 100 mg PO DAILY (DME) blood pressure test kit-large Kit See Rx Instructions .Route Qty: 1 0RF Rx Instructions: As directed ibuprofen 800 mg tablet 800 mg PO TID PRN (Reason: pain) quetiapine 300 mg tablet extended release 24 hr 300 mg PO BEDTIME zolpidem 10 mg tablet 10 mg PO BEDTIME PRN (Reason: insomnia) buspirone 15 mg tablet 15 mg PO TID montelukast 10 mg tablet 10 mg PO BEDTIME hydroxyzine HCl 50 mg tablet 50 mg PO Q8H PRN (Reason: anxiety) trazodone 150 mg tablet 150 mg PO DAILY venlafaxine 75 mg capsule,extended release 24hr 75 mg PO DAILY Nelsonaglar PandaikPen U-100 Insulin 100 unit/mL (3 mL) insulin pen 14 unit subcut QPM Qty: 5 7RF Hold Instructions: Doctor's Order fenofibrate nanocrystallized 145 mg tablet 145 mg PO DAILY Qty: 90 1RF atorvastatin 20 mg tablet 20 mg PO BEDTIME Qty: 30 11RF Jardiance 25 mg tablet 25 mg PO QAM Qty: 30 4RF tadalafil 5 mg tablet 5 mg PO DAILY 90 Days Qty: 90 1RF tadalafil 20 mg tablet 20 mg PO ONCE PRN (Reason: sexual activity) 30 Days Qty: 30 0RF Rx Instructions: On demand medication take 60 minutes before intended activity gabapentin 300 mg capsule 300 mg PO TID venlafaxine 150 mg capsule,extended release 24hr 150 mg PO DAILY metformin 1,000 mg tablet 1,000 mg PO BID Referrals: Ayah Mir MD [Primary Care Provider] - Print Language: Upper Sorbian
[2022-09-30] MEDS: Ketotifen Fumarate 0.025% Oph 5 ML DRPBTL 1 DROP EYE-BOTH (11:59)
--- NOTE | 2022-09-30 12:07 | PC.NURSE ---
Patient sleeping easily aroused tolerated eye drops will CTM
[2022-09-30 12:39] VITALS: BP 144/87; PULSE 79; RESP 18; O2SAT 95
== END 2022-09-30 13:28 | disposition home or self-care (01) ==
PROVIDERS: Emergency Provider Student in an Organized Health Care Education/Training Program; PCP Internal Medicine
DX: H10.13 Acute atopic conjunctivitis, bilateral (principal); Z87.891 Personal history of nicotine dependence; Z79.899 Other long term (current) drug therapy
CPT/HCPCS: 99283; 99284

== ENCOUNTER 2022-10-12 09:50 | Outpatient (REF) | payer MEDICARE, MEDICAID, SELFPAY ==
[2022-10-12 10:57] LABS: Influenza A PCR NEGATIVE (Negative); Influenza B PCR NEGATIVE (Negative); Resp Syncy Virus RNA Qual PCR NEGATIVE (Negative); SARS COV2 PCR INHOUSE NEGATIVE (Negative)
[2022-10-12 11:10] LABS: Alanine Aminotransferase 42 U/L (0-40); Albumin Level 4.9 g/dL (3.5-5.0); Alkaline Phosphatase 128 U/L (39-117); Anion Gap 17 (12-20); Aspartate Amino Transferase 22 U/L (5-37); Bilirubin Total 0.4 mg/dL (0.0-1.0); Blood Urea Nitrogen 13 mg/dL (9-16); Calcium 10.8 mg/dL (8.4-10.2); Carbon Dioxide 25 mmol/L (22-29); Chloride 103 mmol/L (96-108); Cholesterol 179 mg/dL; Estimated Glomerular Filt Rate > 60; Glucose Fasting 318 mg/dL (60-99); HDL Cholesterol 46 mg/dL; LDL Cholesterol Calculated 106 mg/dl; Potassium 4.2 mmol/L (3.3-5.1); Sodium 141 mmol/L (135-145); Total Protein 8.1 g/dL (6.5-8.0); Triglycerides 138 mg/dL
[2022-10-12 11:11] LABS: Creatinine Urine 37.21 mg/dL; Microalbum/Creatinine Ratio Ur 244.5 ug/mg cr
[2022-10-12 11:32] LABS: Vitamin D 25-OH Total 22.7 ng/mL (>30)
== END 2022-10-12 09:51 | disposition home or self-care (01) ==
LOC: HO.LAB 09:50
PROVIDERS: PCP Internal Medicine; Visit Provider Internal Medicine
DX: E55.9 Vitamin D deficiency, unspecified (principal); E11.9 Type 2 diabetes mellitus without complications; R09.89 Other specified symptoms and signs involving the circulatory and respiratory systems; E78.5 Hyperlipidemia, unspecified; Z20.822 Contact with and (suspected) exposure to COVID-19
CPT/HCPCS: 0241U; 80053; 80061; 82043; 82306

== ENCOUNTER 2022-10-21 10:11 | Outpatient (REF) | payer MEDICARE, MEDICAID, SELFPAY ==
[2022-10-21 11:21] LABS: Alanine Aminotransferase 57 U/L (0-40); Albumin Level 4.8 g/dL (3.5-5.0); Alkaline Phosphatase 115 U/L (39-117); Anion Gap 16 (12-20); Aspartate Amino Transferase 21 U/L (5-37); Bilirubin Total 0.4 mg/dL (0.0-1.0); Blood Urea Nitrogen 17 mg/dL (9-16); Calcium 10.3 mg/dL (8.4-10.2); Carbon Dioxide 26 mmol/L (22-29); Chloride 105 mmol/L (96-108); Cholesterol 204 mg/dL; Estimated Glomerular Filt Rate > 60; Glucose Fasting 112 mg/dL (60-99); HDL Cholesterol 47 mg/dL; LDL Cholesterol Calculated 111 mg/dl; Sodium 143 mmol/L (135-145); Total Protein 7.9 g/dL (6.5-8.0); Triglycerides 234 mg/dL
== END 2022-10-21 10:12 | disposition home or self-care (01) ==
LOC: HO.LAB 10:11
PROVIDERS: PCP Internal Medicine; Visit Provider Internal Medicine
DX: E78.5 Hyperlipidemia, unspecified (principal); E11.9 Type 2 diabetes mellitus without complications
CPT/HCPCS: 36415; 80053; 80061

== ENCOUNTER 2022-11-24 09:35 | Outpatient (REF) | payer MEDICARE, MEDICAID, SELFPAY ==
[2022-11-24 11:45] LABS: Microalbum/Creatinine Ratio Ur 116.7 ug/mg cr
[2022-11-30 17:03] LABS: Testosterone, Free 4.8 pg/mL (35.0-155.0); Testosterone, Total 23 ng/dL (250-1100)
== END 2022-11-24 09:36 | disposition home or self-care (01) ==
LOC: HO.LAB 09:35
PROVIDERS: PCP Internal Medicine; Visit Provider Urology
DX: N52.9 Male erectile dysfunction, unspecified (principal); E11.9 Type 2 diabetes mellitus without complications
CPT/HCPCS: 36415; 82043; 84402; 84403

== ENCOUNTER → 2022-12-01 11:19 | Outpatient (BNVA) | payer MEDICARE, MEDICAID, SELFPAY | PROVIDERS: PCP Internal Medicine; Visit Provider Urology | DX: E34.9 Endocrine disorder, unspecified (principal) | CPT/HCPCS: Q3014 ==

== ENCOUNTER → 2022-12-29 09:10 | Outpatient (BNVA) | payer MEDICARE, MEDICAID, SELFPAY | PROVIDERS: PCP Internal Medicine; Visit Provider Internal Medicine | DX: E34.9 Endocrine disorder, unspecified (principal); J45.40 Moderate persistent asthma, uncomplicated; E66.9 Obesity, unspecified; G47.33 Obstructive sleep apnea (adult) (pediatric); Z68.33 Body mass index [BMI] 33.0-33.9, adult | CPT/HCPCS: 96372; 99212 ==

== ENCOUNTER 2023-01-17 16:11 | Outpatient (REF) | payer MEDICARE, MEDICAID, SELFPAY ==
--- NOTE | ~2023-01-17 | US_ITS ---
EXAMINATION: US SOFT TISSUE NECK CLINICAL INFORMATION: Acute lymphadenitis COMPARISON: None available. TECHNIQUE: Ultrasound of the neck soft tissues is performed with high- frequency lutz-scale imaging and color Doppler. FINDINGS: No soft tissue mass, fluid collection or lymphadenopathy is seen in the area of patient complaint in the posterior neck and base of skull. There are 5 right cervical lymph nodes seen. Largest lymph node is a level 5A lymph node. This measures 1.6 x 0.9 x 1.2 cm and is slightly enlarged. This demonstrates a slitlike hilum and cortical thickening. This demonstrates normal hilar flow. The remainder of the right cervical lymph nodes are normal in size and ultrasound morphology. There are 2 level 5A lymph nodes and 2 level 1B lymph nodes. US/US soft tiss head and/or neck IMPRESSION: Lymphadenopathy in the right neck, largest lymph node is a level 5 the lymph node that is slightly enlarged with slightly abnormal ultrasound morphology. No adenopathy mass or fluid collection is seen in the posterior neck/skull base in the area of patient complaint.
== END 2023-01-17 16:12 | disposition home or self-care (01) ==
LOC: HO.US 16:11
PROVIDERS: PCP Internal Medicine; Visit Provider Internal Medicine
DX: L04.9 Acute lymphadenitis, unspecified (principal)
CPT/HCPCS: 76536

== ENCOUNTER 2023-02-07 08:37 | Outpatient (REF) | payer MEDICARE, MEDICAID, SELFPAY ==
[2023-02-07 09:01] LABS: MANUAL DIFF FLAG NO
[2023-02-07 09:38] LABS: Basophils Absolute Auto 0.1 X10*3/uL (0.0-0.2); Basophils Percent Auto 1.2 % (0-2); Eosinophils Absolute Auto 0.6 X10*3/uL (0.0-0.4); Eosinophils Percent Auto 9.2 % (0-4); Hematocrit 48.4 % (42.0-52.0); Hemoglobin 15.7 g/dl (14.0-18.0); Imm Gran Abs Auto 0.03 X10*3/uL (0.00-0.03); Imm Gran Pct Auto 0.4 % (0.0-0.4); Lymphocytes Absolute Auto 2.1 X10*3/uL (1.2-4.9); Lymphocytes Percent Auto 30.2 % (20-40); Mean Corpuscular HGB Conc 32.4 g/dl (31.0-36.0); Mean Corpuscular Hemoglobin 27.4 pg (27.0-33.0); Mean Corpuscular Volume 84.6 fL (80.0-98.0); Mean Platelet Volume 10.2 fL (9.4-12.4); Monocytes Absolute Auto 0.7 X10*3/uL (0.1-1.2); Neutrophils Absolute Auto 3.4 x10*3/uL (2.0-8.3); Platelet Count 211 X10*3/uL (160-400); Red Blood Count 5.72 X10*6/uL (4.60-5.80); Red Cell Distribution Width 14.1 % (11.0-16.0); White Blood Count 6.9 X10*3/uL (4.8-10.8)
[2023-02-07 10:17] LABS: Creatinine Urine 79.24 mg/dL; Microalbum/Creatinine Ratio Ur 55.5 ug/mg cr
[2023-02-07 10:32] LABS: Alanine Aminotransferase 36 U/L (0-40); Albumin Level 4.5 g/dL (3.5-5.0); Alkaline Phosphatase 95 U/L (39-117); Anion Gap 12 (12-20); Aspartate Amino Transferase 21 U/L (5-37); Bilirubin Total 0.3 mg/dL (0.0-1.0); Blood Urea Nitrogen 11 mg/dL (9-16); Calcium 9.8 mg/dL (8.4-10.2); Carbon Dioxide 26 mmol/L (22-29); Chloride 109 mmol/L (96-108); Cholesterol 136 mg/dL; Estimated Glomerular Filt Rate > 60; Glucose Fasting 122 mg/dL (60-99); HDL Cholesterol 30 mg/dL; Iron 46 mcg/dL (45-160); LDL Cholesterol Calculated 72 mg/dl; Percent Iron Saturation 13 % (15-50); Potassium 4.3 mmol/L (3.3-5.1); Sodium 143 mmol/L (135-145); Total Iron Binding Capacity 343 mcg/dL (228-428); Total Protein 7.5 g/dL (6.5-8.0); Triglycerides 171 mg/dL; Unsaturated Iron Binding 297 ug/dL
[2023-02-07 10:49] LABS: Folate 12.1 ng/mL (> or = 4.0); Vitamin B12 355 pg/mL (200-900); Vitamin D 25-OH Total 25.6 ng/mL (>30)
== END 2023-02-07 08:38 | disposition home or self-care (01) ==
LOC: HO.LAB 08:37
PROVIDERS: Absent Provider Urology; PCP Internal Medicine; Visit Provider Internal Medicine
DX: E11.9 Type 2 diabetes mellitus without complications (principal); D64.9 Anemia, unspecified; E53.8 Deficiency of other specified B group vitamins; E55.9 Vitamin D deficiency, unspecified; L04.9 Acute lymphadenitis, unspecified; E78.5 Hyperlipidemia, unspecified
CPT/HCPCS: 36415; 80053; 80061; 82043; 82306; 82607; 82746; 83540; 85025

== ENCOUNTER 2023-02-16 09:27 | Outpatient (REF) | payer MEDICARE, MEDICAID, SELFPAY ==
[2023-02-22 11:33] LABS: Testosterone, Total 555 ng/dL (250-1100)
== END 2023-02-16 09:28 | disposition home or self-care (01) ==
LOC: HO.LAB 09:27
PROVIDERS: PCP Internal Medicine; Visit Provider Urology
DX: J45.40 Moderate persistent asthma, uncomplicated (principal); E34.9 Endocrine disorder, unspecified
CPT/HCPCS: 36415; 84403; 99212

== ENCOUNTER 2023-04-06 10:04 | Outpatient (AMB) | payer MEDICARE, MEDICAID, SELFPAY ==
[2023-04-06 10:12] VITALS: BP 141/74; PULSE 91; BMI 32.4
--- NOTE | 2023-04-06 10:12 | MHC.OFFVIS ---
Intake Vital Signs 04/06/23 10:12 Height 5 ft 10 in Weight 226 lb BMI 32.4 BP 141/74 H Blood Pressure Location Rt brachial Position Sitting Pulse 91 Intake Visit Reasons: Painful lesion on Rt post neck Intake Note: Patient referred for growth on Rt post neck. Reports cyst healed well. C/o muscle pain in same area. Taking Ibuprofen for pain. 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 Accompanied by: Self / Same As Patient Allergies No Known Allergies Allergy (Verified 04/06/23 10:14) Medication List - Last Reconciled 04/06/23 by Ambrose Dillon MD albuterol sulfate 2.5 mg (3 mL) inhalation Q6H ammonium lactate 12% 1 appl topical BID atorvastatin 40 mg PO BEDTIME 90 days blood pressure test kit-large As directed blood sugar diagnostic (FreeStyle Lite Strips) three times a day blood-glucose meter (FreeStyle [place] kit) As directed check the BS TID buprenorphine-naloxone 12-3 mg (Suboxone) 1 film buccal ONCE buspirone 15 mg PO TID cane As directed cholecalciferol (vitamin D3) 25 mcg PO DAILY 90 days cromolyn 4% 1 drp ophthalmic (eye) 6XD 5 days cyclobenzaprine 10 mg PO TID PRN 7 days empagliflozin (Jardiance) 25 mg PO QAM fenofibrate nanocrystallized 145 mg PO DAILY fluticasone propion-salmeterol 500-50 mcg/dose (Advair Diskus) 1 inh inhalation BID 30 days glucose 16 grams (4 x 4 gram) PO Q15M 30 days hydroxyzine HCl 50 mg PO Q8H PRN ibuprofen 800 mg PO TID PRN insulin glargine (Basaglar KwikPen U-100 Insulin) 27 units (0.27 mL) subcut QPM 90 days lancets (FreeStyle Lancets) As directed check the BS TID metformin 500 mg PO BID 90 days montelukast 10 mg PO BEDTIME 90 days needle (disp) 18 G (BD Regular [place]) As directed to be used weekly for T injection needle (disp) 25 gauge (BD Regular [place]) As directed - for testosterone subcutaneous injection nirmatrelvir-ritonavir 300 mg (150 mg x 2)-100 mg (Paxlovid) 3 ea PO PER PKG DIR 5 days omeprazole 40 mg PO BID pen needle, diabetic (BD Ultra-Fine Short Pen Needle) 1 ea subcut DAILY 90 days quetiapine ER 300 mg PO BEDTIME sertraline 100 mg PO DAILY sildenafil 50 mg PO DAILY PRN 14 days sulfamethoxazole-trimethoprim 800-160 mg (Bactrim DS) 1 tab PO BID 10 days syringe (disposable) (BD Luer-Enio Syringe) Testosterone injection weekly tadalafil 5 mg PO DAILY 90 days tadalafil 20 mg PO ONCE PRN 30 days testosterone cypionate (Depo-Testosterone) 80 mg (0.4 mL) subcut QWEEK 4 weeks tizanidine 4 mg PO TID PRN tramadol 50 mg PO TID PRN 5 days trazodone 150 mg PO DAILY venlafaxine ER 150 mg PO DAILY venlafaxine ER 75 mg PO DAILY Ventolin HFA 90 mcg/actuation (albuterol sulfate) 2 puffs inhalation Q6H PRN 30 days NS zolpidem 10 mg PO BEDTIME PRN HPI HPI Comments History of Present Illness Details Patient presents for evaluation of a right posterior neck discomfort. He was evaluated by his medical doctor and apparently it resolved but now he has recurrence of his symptoms. He had ultrasound which demonstrated a minimally enlarged lymph node of the area. Ultrasound results were reviewed Patient presents here because of progression of symptoms. Patient denies any fever, chills, night sweats, weight loss. Chart was reviewed patient evaluated. He has a plethora of medical issues and is on numerous medications. [facility] Medical History Acute lumbar myofascial strain Anxiety and depression Asthma Bilateral hand pain Colitis DM2 (diabetes mellitus, type 2) Dyslipidemia Erectile dysfunction Excessive daytime sleepiness GERD (gastroesophageal reflux disease) Hypertriglyceridemia Hypogonadism Lumbar degenerative disc disease Mild recurrent major depression REE (obstructive sleep apnea) Polyarthralgia Polysubstance abuse Type 2 diabetes mellitus with hyperglycemia Surgical History History of elbow surgery History of surgery Family History Father Hypertension Diabetes Cancer Cancer, hepatocellular Mother No problems noted. Son Colon cancer Paternal Grandfather Cancer Social History (Reviewed 04/06/23 @ 10:15 by ENRIQUE Blake Household Members: Spouse Housing: House Alcohol intake: unknown Patient Tobacco Use Status: Former Tobacco user Quit Date: 2006 Tobacco use type: Cigarette Cigarette Packs Per Day: 1 Cigarettes Per Day: 20 Years Smoked: 20 e-Cigarette/Vaping Use: Never Used Second Hand Smoke Exposure: No Substance Use Type: Former Substance User, Heroin and Marijuana service: No Current occupational status: disabled Cognitive needs: No Hearing needs: No Vision needs: No Physical Exam Vital Signs: Last Vital Signs Pulse 91 04/06/23 10:12 BP 141/74 H 04/06/23 10:12 BMI result Body Mass Index 32.4 HEENT Other: No obvious cervical periclavicular or axillary adenopathy. Some mild tenderness posterior neck, level 5 area. Patient is somewhat corpulent and no obvious adenopathy appreciated. No evidence of any fluctuance or abscess. Assessment & Plan Assessment & Plan (1) Mass of right side of neck: Code(s): R22.1 - Localized swelling, mass and lump, neck Plan Current plan is treat the patient conservatively. He will give script for antibiotics, local wound care in the form of warm soaks. He will see me in few days time for follow-up or p.r.n.. Medications: New cephalexin 500 mg PO TID 30 caps 0RF Coding Level of Care Code New Pt Level 4 (57842) Diagnoses Mass of right side of neck R22.1
== END 2023-04-06 10:29 | disposition home or self-care (01) ==
PROVIDERS: PCP Internal Medicine; Referring Provider Internal Medicine; Visit Provider Surgery
DX: R22.1 Localized swelling, mass and lump, neck (principal)
CPT/HCPCS: 99204

== ENCOUNTER → 2023-04-06 10:04 | Outpatient (BNVA) | payer MEDICARE, MEDICAID, SELFPAY | PROVIDERS: PCP Internal Medicine; Referring Provider Internal Medicine; Visit Provider Surgery | DX: R22.1 Localized swelling, mass and lump, neck (principal) | CPT/HCPCS: 99202 ==

== ENCOUNTER 2023-04-21 09:25 | Outpatient (REF) | payer MEDICARE, MEDICAID, SELFPAY ==
--- NOTE | 2023-04-21 10:02 | PFT_ITS ---
Forced vital capacity 82%, FEV1 85%. FEV1/FVC ratio is 82. [id number] 91% and MVV 68%. Post bronchodilator therapy, there is no change. Total lung capacity 84%, residual volume 101% and diffusion capacity 119%. CONCLUSION: Normal pulmonary function test. No evidence of obstructive or restrictive pulmonary disorder. MD ANDERSON Patel/BEE / [phone]
== END 2023-04-21 09:26 | disposition home or self-care (01) ==
LOC: HO.RESP 09:25
PROVIDERS: PCP Internal Medicine; Visit Provider Internal Medicine
DX: E66.9 Obesity, unspecified (principal); J45.909 Unspecified asthma, uncomplicated; G47.33 Obstructive sleep apnea (adult) (pediatric)
CPT/HCPCS: 94010; 94727; 94729; 99212

== ENCOUNTER 2023-04-21 09:29 | Outpatient (AMB) | payer MEDICARE, MEDICAID, SELFPAY ==
[2023-04-21 10:04] VITALS: BP 110/62; PULSE 69; O2SAT 95; BMI 32.4
--- NOTE | 2023-04-21 10:04 | A.OFFVIS_ITS ---
Intake Vital Signs 04/21/23 10:04 Height 5 ft 10 in Weight 226 lb BMI 32.4 BP 110/62 Blood Pressure Location Lt brachial Position Sitting Pulse 69 Pulse Source Pulse Oximeter Pulse Oximetry (%) 95 Oxygen Delivery Method Room Air Intake Visit Reasons: Same day PFT Intake Note: pt is here for follow up and states he is feeling good. Respiratory Services Manager Required: No Allergies No Known Allergies Allergy (Verified 04/21/23 10:28) Medication List - Last Reconciled 04/21/23 by Gilberto Baldwin MD albuterol sulfate 2.5 mg (3 mL) inhalation Q6H ammonium lactate 12% 1 appl topical BID atorvastatin 40 mg PO BEDTIME 90 days blood pressure test kit-large As directed blood sugar diagnostic (FreeStyle Lite Strips) three times a day blood-glucose meter (FreeStyle [place] kit) As directed check the BS TID buprenorphine-naloxone 12-3 mg (Suboxone) 1 film buccal ONCE buspirone 15 mg PO TID cane As directed cholecalciferol (vitamin D3) 25 mcg PO DAILY 90 days cromolyn 4% 1 drp ophthalmic (eye) 6XD 5 days cyclobenzaprine 10 mg PO TID PRN 7 days empagliflozin (Jardiance) 25 mg PO QAM fenofibrate nanocrystallized 145 mg PO DAILY fluticasone propion-salmeterol 500-50 mcg/dose (Advair Diskus) 1 inh inhalation BID 30 days glucose 16 grams (4 x 4 gram) PO Q15M 30 days guaifenesin ER (Mucinex) 600 mg PO Q12H PRN 5 days guaifenesin ER (Mucinex) 600 mg PO Q12H PRN 5 days hydroxyzine HCl 50 mg PO Q8H PRN ibuprofen 800 mg PO TID PRN insulin glargine (Basaglar KwikPen U-100 Insulin) 27 units (0.27 mL) subcut QPM 90 days lancets (FreeStyle Lancets) As directed check the BS TID metformin 500 mg PO BID 90 days montelukast 10 mg PO BEDTIME 90 days needle (disp) 18 G (BD Regular Bevel [place]) As directed to be used weekly for T injection needle (disp) 25 gauge (BD Regular Bevel [place]) As directed - for testosterone subcutaneous injection omeprazole 40 mg PO BID pen needle, diabetic (BD Ultra-Fine Short Pen Needle) 1 ea subcut DAILY 90 days quetiapine ER 300 mg PO BEDTIME sertraline 100 mg PO DAILY sildenafil 50 mg PO DAILY PRN 14 days syringe (disposable) (BD Luer-Enio Syringe) Testosterone injection weekly tadalafil 5 mg PO DAILY 90 days tadalafil 20 mg PO ONCE PRN 30 days testosterone cypionate (Depo-Testosterone) 80 mg (0.4 mL) subcut QWEEK 4 weeks tizanidine 4 mg PO TID PRN trazodone 150 mg PO DAILY venlafaxine ER 150 mg PO DAILY venlafaxine ER 75 mg PO DAILY Ventolin HFA 90 mcg/actuation (albuterol sulfate) 2 puffs inhalation Q6H PRN 30 days NS zolpidem 10 mg PO BEDTIME PRN Do you need a note to return to daycare/school/sports/work: No HPI Same day PFT HPI Details THIS 42 YEARS OLD GENTLEMAN COMES AFTER 2 MONTHS FOR FOLLOW-UP. HE DENIES ANY RESIDUAL SYMPTOMS OF SLEEP APNEA, AND IS DOING OKAY WITHOUT THE CPAP MACHINE. BRONCHIAL ASTHMA IS WELL CONTROLLED AND HE USES A RELATIVELY HIGHER DOES OF ADVAIR ( 500-50 ) PLUS ALBUTEROL P.R.N.. HAS MILD INTERMITTENT NASAL, CONGEST ION INTERMITTENT COUGH, DENIES ANY WHEEZING OR SHORTNESS OF BREATH HOWEVER ON SOME NIGHTS WHEN THE IT IS HOT AND HUMID HE GETS CHEST CONGESTION, AND USES THE NEBULIZER WITH ALBUTEROL SOLUTION. HE DID HAVE PULMONARY FUNCTION TEST EARLIER THIS MORNING PFSH Medical History Acute lumbar myofascial strain Anxiety and depression Asthma Bilateral hand pain Colitis DM2 (diabetes mellitus, type 2) Dyslipidemia Erectile dysfunction Excessive daytime sleepiness GERD (gastroesophageal reflux disease) Hypertriglyceridemia Hypogonadism Lumbar degenerative disc disease Mild recurrent major depression REE (obstructive sleep apnea) Polyarthralgia Polysubstance abuse Type 2 diabetes mellitus with hyperglycemia Surgical History History of elbow surgery History of surgery Family History Father Hypertension Diabetes Cancer Cancer, hepatocellular Mother No problems noted. Son Colon cancer Paternal Grandfather Cancer Social History Household Members: Spouse Housing: House Alcohol intake: unknown Patient Tobacco Use Status: Former Tobacco user Quit Date: 2006 Tobacco use type: Cigarette Cigarette Packs Per Day: 1 Cigarettes Per Day: 20 Years Smoked: 20 e-Cigarette/Vaping Use: Never Used Second Hand Smoke Exposure: No Substance Use Type: Former Substance User, Heroin and Marijuana service: No Current occupational status: disabled Cognitive needs: No Hearing needs: No Vision needs: No Review of Systems Const All systems reviewed & are unremarkable except as noted in HPI and below Eyes Reports no additional complaints ENT Reports no additional complaints Card Denies chest pain, Denies irregular heart rhythm and Denies leg edema Resp Reports as per HPI GI Reports no additional complaints Reports no additional complaints Musc Reports no additional complaints Skin/Breast Reports system reviewed and no additional complaints, except as documented Neuro Reports no additional complaints Psych Reports no additional complaints Physical Exam Vital Signs: Last Vital Signs Pulse 69 04/21/23 10:04 BP 110/62 04/21/23 10:04 Pulse Ox 95 04/21/23 10:04 Oxygen Delivery Method Room Air 04/21/23 10:04 BMI result Body Mass Index 32.4 Const General: healthy appearing (Except being overweight), comfortable, no acute distress, alert and awake Orientation/consciousness: patient oriented x3 HEENT Head: Yes normal to inspection General nose exam: No nasal polyps present and No nasal discharge present Face and sinus: Yes sinuses nontender Mouth: oropharynx abnormals (Oropharynx is narrow crowded and Mallampati class 4) Throat: Yes posterior oropharynx normal Eyes General: appearance normal, both eyes and all related structures Neck Neck: Yes normal visual inspection, Yes no lymphadenopathy, Yes trachea midline, Yes no JVD and Yes other (Neck circumference 17 in) Thyroid: Thyroid normal Chest Chest palpation & inspection: normal inspection of the chest, normal palpation of entire chest wall and no tenderness Resp Effort & Inspection: normal respiratory effort Auscultation: clear to auscultation bilaterally, no crackles, no wheezes and other (BREATH SOUNDS ARE DIMINISHED OVER THE BASILAR AREAS) Cardio Palpation: normal PMI Rate: regular rate Rhythm: regular rhythm Heart sounds: no gallops and no murmurs Peripheral pulses: Peripheral pulses 2+ throughout GI Palpation (GI): Soft to palpation, nontender, No hepatosplenomegaly present and no masses Auscultation: normal bowel sounds Back/Spine/Pelvis Thoracic/Lumbar Spine: thoracic and lumbar spine normal to inspection Skin General skin exam: no rashes or lesions noted Neuro General: patient oriented x3 and no focal motor deficits Cranial nerves: Yes CN's II-XII intact bilaterally Extrem General: Yes normal to inspection, Yes no clubbing, cyanosis or edema and Yes no calf tenderness Psych Appearance: grossly normal and well kempt Speech and movement: Normal speech and movement present Results Reviewed Results Reviewed: PULMONARY FUNCTION TEST DONE THIS MORNING I.S ESSENTIALLY NORMAL. THERE IS NO EVIDENCE OF OBSTRUCTIVE OR RESTRICTIVE DISORDER. Assessment & Plan Assessment & Plan (1) REE (obstructive sleep apnea): Comment: Patient is a known case of obstructive sleep apnea but he has not been able to use the CPAP. He had actually returned his CPAP device in back in 2020 . A home-based sleep study was again ordered on his last visit but he did not keep the appointment. Today he claims that he sleeps okay and does not want to have any further workup for sleep apnea, as he would not use CPAP. Code(s): G47.33 - Obstructive sleep apnea (adult) (pediatric) (2) Asthma: Comment: HE DOES HAVE HISTORY OF BRONCHIAL ASTHMA, CURRENTLY DOING WELL WITH ADVAIR 500-50 1 INHALATION B.I.D. I EXPLAINED TO HIM THAT HIS PULMONARY FUNCTION TEST IS NORMAL. WE NEED TO LOWER THE DOES OF ADVAIR , AND HOPEFULLY COULD TAKE HIM OFF LONG HE HAS NO RECURRENCE OF HIS ASTHMA. USE VENTOLIN 2 PUFFS Q 6 HOURS ONLY P.R.N.. *Alternatively may use albuterol solution in the nebulizer for acute asthma symptoms. also continue montelukast 10 mg daily. Code(s): J45.909 - Unspecified asthma, uncomplicated Qualifiers: Asthma severity: moderate Asthma persistence: persistent Asthma complication type: uncomplicated Qualified Code(s): J45.40 - Moderate persistent asthma, uncomplicated Coding Level of Care Code Est Pt Level 3 (98610) Diagnoses REE (obstructive sleep apnea) G47.33 Asthma J45.40 Asthma severity: moderate Asthma persistence: persistent Asthma complication type: uncomplicated
== END 2023-04-21 10:25 | disposition home or self-care (01) ==
PROVIDERS: PCP Internal Medicine; Visit Provider Internal Medicine
DX: J45.909 Unspecified asthma, uncomplicated (principal); G47.33 Obstructive sleep apnea (adult) (pediatric)
CPT/HCPCS: 94060; 94727; 94729; 99213

== ENCOUNTER 2023-04-26 09:01 | Outpatient (AMB) | payer MEDICARE, MEDICAID, SELFPAY ==
[2023-04-26 09:17] VITALS: BP 123/74; BMI 33.4
--- NOTE | 2023-04-26 09:17 | MHC.OFFVIS ---
Intake Vital Signs 04/26/23 09:17 Height 5 ft 10 in Weight 233 lb BMI 33.4 BP 123/74 Blood Pressure Location Lt brachial Position Standing Intake Visit Reasons: Painful lesion on Rt post neck Intake Note: This patient presents for a follow-up assessment for painful lesion on the right posterior neck. Patient c/o; reports no changes or complaints at this time. Synthetic Department Supervisor Required: Yes Synthetic Department Supervisor Language: Macanese Information Interpreted: non-clinical & clinical Accompanied by: Self / Same As Patient Allergies No Known Allergies Allergy (Verified 04/26/23 09:18) HPI HPI Comments History of Present Illness Details Patient presents for evaluation of right posterior neck cyst. He has had this indeterminate time. Is not really symptomatic but he wishes to have it evaluated. He has no such lesions elsewhere. Chart was reviewed patient evaluated [facility] Medical History Acute lumbar myofascial strain Anxiety and depression Asthma Bilateral hand pain Colitis DM2 (diabetes mellitus, type 2) Dyslipidemia Erectile dysfunction Excessive daytime sleepiness GERD (gastroesophageal reflux disease) Hypertriglyceridemia Hypogonadism Lumbar degenerative disc disease Mild recurrent major depression REE (obstructive sleep apnea) Polyarthralgia Polysubstance abuse Type 2 diabetes mellitus with hyperglycemia Surgical History History of elbow surgery History of surgery Family History Father Hypertension Diabetes Cancer Cancer, hepatocellular Mother No problems noted. Son Colon cancer Paternal Grandfather Cancer Social History Household Members: Spouse Housing: House Alcohol intake: unknown Patient Tobacco Use Status: Former Tobacco user Quit Date: 2006 Tobacco use type: Cigarette Cigarette Packs Per Day: 1 Cigarettes Per Day: 20 Years Smoked: 20 e-Cigarette/Vaping Use: Never Used Second Hand Smoke Exposure: No Substance Use Type: Former Substance User, Heroin and Marijuana service: No Current occupational status: disabled Cognitive needs: No Hearing needs: No Vision needs: No Physical Exam Vital Signs: Last Vital Signs BP 123/74 04/26/23 09:17 BMI result Body Mass Index 33.4 Neck Other: Patient has approximately 3 mm right posterior subcutaneous sebaceous cyst or lipoma. No cervical adenopathy appreciated. Assessment & Plan Assessment & Plan (1) Mass of right side of neck: Code(s): R22.1 - Localized swelling, mass and lump, neck Plan The present time, I recommend treating this conservatively. Should increase in size become more symptomatic, patient can return for further evaluation and excision. All questions were answered. Incidental finding is patient has left hand/painful swelling of his 4th digit and would like to have a referral for orthopedic/ hand. Arrangements were made for this. Coding Level of Care Code New Pt Level 3 (29405) Diagnoses Mass of right side of neck R22.1
== END 2023-04-26 09:28 | disposition home or self-care (01) ==
PROVIDERS: PCP Internal Medicine; Visit Provider Surgery
DX: R22.1 Localized swelling, mass and lump, neck (principal)
CPT/HCPCS: 99213

== ENCOUNTER → 2023-04-26 09:01 | Outpatient (BNVA) | payer MEDICARE, MEDICAID, SELFPAY | PROVIDERS: PCP Internal Medicine; Visit Provider Surgery | DX: R22.1 Localized swelling, mass and lump, neck (principal) | CPT/HCPCS: 99212 ==

== ENCOUNTER 2023-05-11 10:11 | Outpatient (REF) | payer MEDICARE, MEDICAID, SELFPAY ==
--- NOTE | ~2023-05-11 | XR_ITS ---
EXAMINATION: XR CHEST CLINICAL INFORMATION: Unspecified asthma with acute exacerbation. COMPARISON: Chest x-ray 01/30/2022 TECHNIQUE: 2 views of the chest were obtained. FINDINGS: No significant abnormality is noted involving the heart, lungs, mediastinum, bony thorax or soft tissues. XR/XR chest 2V IMPRESSION: Unremarkable chest examination. No change from 01/30/2022.
[2023-05-11 11:02] LABS: MANUAL DIFF FLAG NO
[2023-05-11 11:58] LABS: Basophils Absolute Auto 0.1 X10*3/uL (0.0-0.2); Basophils Percent Auto 1.2 % (0-2); Eosinophils Absolute Auto 0.6 X10*3/uL (0.0-0.4); Eosinophils Percent Auto 10.9 % (0-4); Hematocrit 48.5 % (42.0-52.0); Hemoglobin 16.4 g/dl (14.0-18.0); Imm Gran Abs Auto 0.02 X10*3/uL (0.00-0.03); Imm Gran Pct Auto 0.3 % (0.0-0.4); Lymphocytes Absolute Auto 2.2 X10*3/uL (1.2-4.9); Lymphocytes Percent Auto 37.4 % (20-40); Mean Corpuscular HGB Conc 33.8 g/dl (31.0-36.0); Mean Corpuscular Hemoglobin 27.8 pg (27.0-33.0); Mean Corpuscular Volume 82.3 fL (80.0-98.0); Mean Platelet Volume 9.8 fL (9.4-12.4); Monocytes Absolute Auto 0.7 X10*3/uL (0.1-1.2); Monocytes Percent Auto 12.4 % (2-11); Neutrophils Absolute Auto 2.2 x10*3/uL (2.0-8.3); Neutrophils Percent Auto 37.8 % (45-73); Platelet Count 245 X10*3/uL (160-400); Red Blood Count 5.89 X10*6/uL (4.60-5.80); Red Cell Distribution Width 13.5 % (11.0-16.0); White Blood Count 5.9 X10*3/uL (4.8-10.8)
[2023-05-11 12:38] LABS: Erythrocyte Sedimentation Rate 3 MM/HR (0-15)
[2023-05-11 12:44] LABS: Alanine Aminotransferase 27 U/L (0-40); Albumin Level 4.5 g/dL (3.5-5.0); Alkaline Phosphatase 74 U/L (39-117); Anion Gap 13 (12-20); Aspartate Amino Transferase 23 U/L (5-37); Bilirubin Total 0.5 mg/dL (0.0-1.0); Blood Urea Nitrogen 14 mg/dL (9-16); C Reactive Protein 0.39 mg/dL (< or = 0.50); Carbon Dioxide 27 mmol/L (22-29); Chloride 105 mmol/L (96-108); Estimated Glomerular Filt Rate > 60; Glucose Random 96 mg/dL (60-115); Potassium 3.7 mmol/L (3.3-5.1); Sodium 141 mmol/L (135-145); Total Protein 7.9 g/dL (6.5-8.0); Uric Acid 5.7 mg/dL (3.4-7.0)
[2023-05-11 12:46] LABS: Rheumatoid Factor < 13.0 IU/mL (<15.0)
[2023-05-11 13:40] LABS: Appearance Urine Clear; Color Urine Yellow; Glucose Urine UA >=1000 mg/dL (Negative); Leukocyte Esterase Urine Negative (Negative); Nitrite Urine Negative (Negative); Specific Gravity - Urine >= 1.030 (1.005-1.025); UMIC TRIGGER UA YES; Urine Blood Negative (Negative); Urine Ketones Negative (Negative); Urine Protein Negative (Neg-Trace)
[2023-05-11 13:49] LABS: Bacteria Urine None Seen (None Seen); Hyaline Casts Urine 0-2 /LPF (0-2); RBC Urine 0-2 /HPF (0-2); Squamous Epithelial Cell Urine 0-2 /HPF (0-2); WBC Urine 0-5 /HPF (0-5)
[2023-05-11 13:54] LABS: Creatinine Urine 126.04 mg/dL; Protein/Creatinine Ratio, Ur 0.13 (<0.2); Total Protein Urine Random 17 mg/dL (<12)
[2023-05-12 08:16] LABS: HBS Num1 226.44 mIU/mL (0-7.99); HBc Num1 0.23 S/CO (0.00-0.79); HBsAGNum1 0.27 S/CO (0.00-0.99); HIV AB/AG Nonreactive (Nonreactive); HIV Num 1 0.06 S/CO (0.00-0.99); Hepatitis A Antibody IgM 0.61 Index (0-0.79); Hepatitis B Core Antibody Nonreactive (Nonreactive); Hepatitis B Surface Antigen Negative (Negative); ~HepC Num1 9.37 S/CO (0.00-0.79); ~Hepatitis A Antibody IgM Nonreactive (Nonreactive); ~Hepatitis B Surface Antibody REACTIVE (Nonreactive); ~Hepatitis C Antibody Reactive (Nonreactive)
[2023-05-13 13:28] LABS: Cyclic Citrullinated Peptide <16 UNITS
[2023-05-13 17:58] LABS: Anti DNA DS Antibody <1 IU/mL; Complement C3 144 mg/dL (82-185); SM/Ribonucleoprotein Ab <1.0 NEG AI (<1.0 NEG); Smith Protein <1.0 NEG AI (<1.0 NEG)
[2023-05-13 20:44] LABS: IgA 190 mg/dL (47-310); IgG 1503 mg/dL (600-1640); IgM 265 mg/dL (50-300)
[2023-05-13 22:24] LABS: TS Negative Control Passed; TS Panel A 1; TS Panel B 0; TS Positive Control Passed; TSpotTB Negative (Negative)
[2023-05-15 09:28] LABS: HCV Log PCR <1.18 NOT DETECTED Log IU/mL (NOT DETECTED); HepC Viral Load <15 NOT DETECTED IU/mL (NOT DETECTED)
[2023-05-16 08:40] LABS: Angiotensin Converting Enzyme 54.6 U/L (9-67)
[2023-05-16 13:04] LABS: Anti Nuclear Antibody Screen NEGATIVE (NEGATIVE)
[2023-05-16 14:23] LABS: Testosterone, Free 109.5 pg/mL (35.0-155.0); Testosterone, Total 519 ng/dL (250-1100)
== END 2023-05-11 10:12 | disposition home or self-care (01) ==
LOC: HO.XRAY 10:11
PROVIDERS: Student in an Organized Health Care Education/Training Program; Absent Provider Urology; PCP Internal Medicine; Visit Provider Internal Medicine
DX: Z11.7 Encounter for testing for latent tuberculosis infection (principal); Z11.59 Encounter for screening for other viral diseases; Z11.4 Encounter for screening for human immunodeficiency virus [HIV]; E34.9 Endocrine disorder, unspecified; M25.549 Pain in joints of unspecified hand; R80.9 Proteinuria, unspecified; M25.542 Pain in joints of left hand; R76.8 Other specified abnormal immunological findings in serum; J45.901 Unspecified asthma with (acute) exacerbation; Z72.89 Other problems related to lifestyle
CPT/HCPCS: 36415; 71046; 80053; 81001; 82164; 82570; 82784; 84156; 84402; 84403; 84550; 85025; 85652; 86038; 86140; 86160; 86200; 86225; 86235; 86334; 86431; 86481; 86704; 86706; 86709; 86803; 87340; 87389; 87522; 99212

== ENCOUNTER 2023-05-11 10:11 | Outpatient (AMB) | payer MEDICARE, MEDICAID, SELFPAY ==
[2023-05-11 10:17] VITALS: BP 130/90; PULSE 82; O2SAT 95; BMI 33.4
--- NOTE | 2023-05-11 10:17 | MHC.OFFVIS ---
Intake Vital Signs 05/11/23 10:17 Height 5 ft 10 in Weight 233 lb BMI 33.4 BP 130/90 H Blood Pressure Location Lt brachial Position Sitting Pulse 82 Pulse Source Pulse Oximeter Pulse Oximetry (%) 95 Oxygen Delivery Method Room Air Intake Visit Reasons: Sick visit Intake Note: pt is here for sick visit, not sleeping well, has been wheezy since pft was done. International Relations Teacher Required: Yes International Relations Teacher Name: isis Allergies No Known Allergies Allergy (Verified 05/11/23 10:20) Medication List - Last Reconciled 05/11/23 by Gilberto Baldwin MD albuterol sulfate 2.5 mg (3 mL) inhalation Q6H ammonium lactate 12% 1 appl topical BID atorvastatin 40 mg PO BEDTIME 90 days blood pressure test kit-large As directed blood sugar diagnostic (FreeStyle Lite Strips) three times a day blood-glucose meter (FreeStyle [place] kit) As directed check the BS TID buprenorphine-naloxone 12-3 mg (Suboxone) 1 film buccal ONCE buspirone 15 mg PO TID cane As directed cholecalciferol (vitamin D3) 25 mcg PO DAILY 90 days cromolyn 4% 1 drp ophthalmic (eye) 6XD 5 days cyclobenzaprine 10 mg PO TID PRN 7 days empagliflozin (Jardiance) 25 mg PO QAM fenofibrate nanocrystallized 145 mg PO DAILY fluticasone propion-salmeterol 500-50 mcg/dose (Advair Diskus) 1 inh inhalation BID 30 days glucose 16 grams (4 x 4 gram) PO Q15M 30 days guaifenesin ER (Mucinex) 600 mg PO Q12H PRN 5 days guaifenesin ER (Mucinex) 600 mg PO Q12H PRN 5 days hydroxyzine HCl 50 mg PO Q8H PRN ibuprofen 800 mg PO TID PRN insulin glargine (Basaglar KwikPen U-100 Insulin) 27 units (0.27 mL) subcut QPM 90 days lancets (FreeStyle Lancets) As directed check the BS TID metformin 500 mg PO BID 90 days montelukast 10 mg PO BEDTIME 90 days needle (disp) 18 G (BD Regular Bevel [place]) As directed to be used weekly for T injection needle (disp) 25 gauge (BD Regular Bevel [place]) As directed - for testosterone subcutaneous injection omeprazole 40 mg PO BID pen needle, diabetic (BD Ultra-Fine Short Pen Needle) 1 ea subcut DAILY 90 days quetiapine ER 300 mg PO BEDTIME sertraline 100 mg PO DAILY sildenafil 50 mg PO DAILY PRN 14 days syringe (disposable) (BD Luer-Enio Syringe) Testosterone injection weekly tadalafil 5 mg PO DAILY 90 days tadalafil 20 mg PO ONCE PRN 30 days testosterone cypionate (Depo-Testosterone) 80 mg (0.4 mL) subcut QWEEK 4 weeks tizanidine 4 mg PO TID PRN trazodone 150 mg PO DAILY venlafaxine ER 150 mg PO DAILY venlafaxine ER 75 mg PO DAILY Ventolin HFA 90 mcg/actuation (albuterol sulfate) 2 puffs inhalation Q6H PRN 30 days NS zolpidem 10 mg PO BEDTIME PRN Do you need a note to return to daycare/school/sports/work: No HPI Sick visit HPI Details 42 years old gentleman, previously being treated for chronic bronchial asthma, has been using Advair 500-51 inhalation b.i.d., along with Ventolin 2 puffs Q 4-6 hours p.r.n. and albuterol in nebulizer 2 to 3 times a day. His pulmonary function test on 04/21/2023 was essentially normal. He was still continuing on Advair 500-50 b.i.d. , and still using the albuterol quite of. Claims that since the day when he had pulmonary, function test he has increased sore throat cough and wheezing He denies any fever chills or chest pain. This gentleman has diagnosis of obstructive sleep apnea but back in 2020 he could not use the CPAP which was then taken away. He continues to be obese and has a relatively large fat neck, with narrow upper airway passages. He has multiple comorbidities as listed in [facility] Medical History (Updated 05/11/23 @ 10:47 by Gilberto Baldwin MD) Acute lumbar myofascial strain Anxiety and depression Asthma Asthma exacerbation Bilateral hand pain Bronchitis Colitis DM2 (diabetes mellitus, type 2) Dyslipidemia Erectile dysfunction Excessive daytime sleepiness GERD (gastroesophageal reflux disease) Hypertriglyceridemia Hypogonadism Lumbar degenerative disc disease Mild recurrent major depression REE (obstructive sleep apnea) Polyarthralgia Polysubstance abuse Type 2 diabetes mellitus with hyperglycemia Surgical History History of elbow surgery History of surgery Family History Father Hypertension Diabetes Cancer Cancer, hepatocellular Mother No problems noted. Son Colon cancer Paternal Grandfather Cancer Social History Household Members: Spouse Housing: House Alcohol intake: unknown Patient Tobacco Use Status: Former Tobacco user Quit Date: 2006 Tobacco use type: Cigarette Cigarette Packs Per Day: 1 Cigarettes Per Day: 20 Years Smoked: 20 e-Cigarette/Vaping Use: Never Used Second Hand Smoke Exposure: No Substance Use Type: Former Substance User, Heroin and Marijuana service: No Current occupational status: disabled Cognitive needs: No Hearing needs: No Vision needs: No Review of Systems Const All systems reviewed & are unremarkable except as noted in HPI and below Eyes Reports no additional complaints ENT Reports no additional complaints Card Denies chest pain, Denies irregular heart rhythm and Denies leg edema Resp Reports as per HPI GI Reports no additional complaints Reports no additional complaints Musc Reports no additional complaints Skin/Breast Reports system reviewed and no additional complaints, except as documented Neuro Reports no additional complaints Psych Reports no additional complaints Physical Exam Vital Signs: Last Vital Signs Pulse 82 05/11/23 10:17 BP 130/90 H 05/11/23 10:17 Pulse Ox 95 05/11/23 10:17 Oxygen Delivery Method Room Air 05/11/23 10:17 BMI result Body Mass Index 33.4 Const General: healthy appearing (Except being overweight), comfortable, no acute distress, alert and awake Orientation/consciousness: patient oriented x3 HEENT Head: Yes normal to inspection General nose exam: No nasal polyps present and No nasal discharge present Face and sinus: Yes sinuses nontender Mouth: oropharynx abnormals (Oropharynx is narrow crowded and Mallampati class 4) Throat: Yes posterior oropharynx normal Eyes General: appearance normal, both eyes and all related structures Neck Neck: Yes normal visual inspection, Yes no lymphadenopathy, Yes trachea midline, Yes no JVD and Yes other (Neck circumference 17 in) Thyroid: Thyroid normal Chest Chest palpation & inspection: normal inspection of the chest, normal palpation of entire chest wall and no tenderness Resp Effort & Inspection: normal respiratory effort Auscultation: crackles, wheezes (Has bilateral inspiratory and expiratory wheezes) and other (BREATH SOUNDS ARE DIMINISHED OVER THE BASILAR AREAS) Cardio Palpation: normal PMI Rate: regular rate Rhythm: regular rhythm Heart sounds: no gallops and no murmurs Peripheral pulses: Peripheral pulses 2+ throughout GI Palpation (GI): Soft to palpation, nontender, No hepatosplenomegaly present and no masses Auscultation: normal bowel sounds Back/Spine/Pelvis Thoracic/Lumbar Spine: thoracic and lumbar spine normal to inspection Skin General skin exam: no rashes or lesions noted Neuro General: patient oriented x3 and no focal motor deficits Cranial nerves: Yes CN's II-XII intact bilaterally Extrem General: Yes normal to inspection, Yes no clubbing, cyanosis or edema and Yes no calf tenderness Psych Appearance: grossly normal and well kempt Speech and movement: Normal speech and movement present Results Reviewed Results Reviewed: Once again I reviewed his the findings of pulmonary function test, with him. And it was essentially normal. No evidence of obstructive or restrictive disorder was noted. Assessment & Plan Assessment & Plan (1) Bronchitis: Comment: Comes with complaint of persistent cough and wheezing, I think he has had acute tracheobronchitis, may be viral. Treatment with Augmentin 500 mg t.i.d. for 1 week is prescribed. Also course of prednisone 20 mg b.i.d. for 5 days. If symptoms continue I think he would need a bronchoscopy ache examination , to evaluate his upper airways. Code(s): J40 - Bronchitis, not specified as acute or chronic (2) Asthma exacerbation: Comment: As noted above under bronchitis, he seems to have acute inflammatory condition, causing exacerbation of bronchial asthma, To be treated with a course of antibiotic, Augmentin and also with a course of prednisone. Code(s): J45.901 - Unspecified asthma with (acute) exacerbation (3) REE (obstructive sleep apnea): Comment: Patient is a known case of obstructive sleep apnea but he has not been able to use the CPAP. He had actually returned his CPAP device in back in 2020 . A home-based sleep study was again ordered a few visits ago but he did not keep the appointment. * even though he keeps on saying that he sleeps okay, I think he still has significant degree of sleep apnea. I told him that the best treatment would be says use of CPAP, are he should try to lose significant amount of weight. Code(s): G47.33 - Obstructive sleep apnea (adult) (pediatric) Orders: Orders XR chest 2V Today J40 - Bronchitis, not specified as acute or chronic, J45.901 - Unspecified asthma with (acute) exacerbation Medications: New amoxicillin-pot clavulanate 500-125 mg (Augmentin) 1 tab PO TID 7 days 21 tabs 0RF bronchitis prednisone 20 mg PO BID 5 days 10 tabs 0RF Coding Level of Care Code Est Pt Level 4 (57397) Diagnoses Bronchitis J40 Asthma exacerbation J45.901 REE (obstructive sleep apnea) G47.33
== END 2023-05-11 10:33 | disposition home or self-care (01) ==
PROVIDERS: PCP Internal Medicine; Visit Provider Internal Medicine
DX: J40 Bronchitis, not specified as acute or chronic (principal); G47.33 Obstructive sleep apnea (adult) (pediatric)
CPT/HCPCS: 99214

== ENCOUNTER 2023-05-18 12:43 | Outpatient (AMB) | payer MEDICARE, MEDICAID, SELFPAY ==
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
[2023-05-18 12:47] VITALS: BMI 33.4
== END 2023-05-18 14:00 | disposition home or self-care (01) ==
PROVIDERS: PCP Internal Medicine; Visit Provider Orthopaedic Surgery
DX: M19.042 Primary osteoarthritis, left hand (principal)
CPT/HCPCS: 99204

== ENCOUNTER 2023-05-18 12:43 | Outpatient (REF) | payer MEDICARE, MEDICAID, SELFPAY ==
--- NOTE | ~2023-05-18 | XR_ITS ---
EXAMINATION: XR HAND, LEFT CLINICAL INFORMATION: Left hand pain, middle finger. COMPARISON: None available. TECHNIQUE: PA, lateral, and oblique views of the left hand. FINDINGS: Again seen are degenerative changes at the proximal interphalangeal joint of the 3rd digit with associated soft tissue swelling. Findings have progressed minimally when compared to the prior study. The remainder of the joints are unremarkable. Tiny calcification again noted on the ventral surface at the distal one-third of the proximal phalanx. No acute fractures. XR/XR hand LT min 3V IMPRESSION: Degenerative changes at the proximal interphalangeal joint of the 3rd digit with associated soft tissue swelling.
== END 2023-05-18 12:44 | disposition home or self-care (01) ==
LOC: HO.HOSX 12:43
PROVIDERS: PCP Internal Medicine; Visit Provider Orthopaedic Surgery
DX: M19.042 Primary osteoarthritis, left hand (principal)
CPT/HCPCS: 73130

== ENCOUNTER 2023-05-25 10:50 | Outpatient (AMB) | payer MEDICARE, MEDICAID, SELFPAY ==
[2023-05-25 11:12] VITALS: BP 120/72; PULSE 86; O2SAT 98; BMI 33.1
--- NOTE | 2023-05-25 11:12 | MHC.OFFVIS ---
Intake Vital Signs 05/25/23 11:12 Height 5 ft 10 in Weight 231 lb BMI 33.1 BP 120/72 Blood Pressure Location Lt brachial Position Sitting Pulse 86 Pulse Source Pulse Oximeter Pulse Oximetry (%) 98 Oxygen Delivery Method Room Air Intake Visit Reasons: Sick visit Intake Note: pt here for 4 week follow up, has sleep study scheduled in a few weeks. He states he is feelng better than last time, little wheeze. Allergies No Known Allergies Allergy (Verified 05/25/23 11:40) Medication List - Last Reconciled 05/25/23 by Gilberto Baldwin MD albuterol sulfate 2.5 mg (3 mL) inhalation Q6H ammonium lactate 12% 1 appl topical BID atorvastatin 40 mg PO BEDTIME 90 days blood pressure test kit-large As directed blood sugar diagnostic (FreeStyle Lite Strips) three times a day blood-glucose meter (FreeStyle [place] kit) As directed check the BS TID buprenorphine-naloxone 12-3 mg (Suboxone) 1 film buccal ONCE buspirone 15 mg PO TID cane As directed cholecalciferol (vitamin D3) 25 mcg PO DAILY 90 days cromolyn 4% 1 drp ophthalmic (eye) 6XD 5 days cyclobenzaprine 10 mg PO TID PRN 7 days empagliflozin (Jardiance) 25 mg PO QAM fenofibrate nanocrystallized 145 mg PO DAILY fluticasone propion-salmeterol 500-50 mcg/dose (Advair Diskus) 1 inh inhalation BID 30 days glucose 16 grams (4 x 4 gram) PO Q15M 30 days guaifenesin ER (Mucinex) 600 mg PO Q12H PRN 5 days guaifenesin ER (Mucinex) 600 mg PO Q12H PRN 5 days hydroxyzine HCl 50 mg PO Q8H PRN ibuprofen 800 mg PO TID PRN insulin glargine (Basaglar KwikPen U-100 Insulin) 27 units (0.27 mL) subcut QPM 90 days lancets (FreeStyle Lancets) As directed check the BS TID metformin 500 mg PO BID 90 days montelukast 10 mg PO BEDTIME 90 days needle (disp) 18 G (BD Regular Bevel [place]) As directed to be used weekly for T injection needle (disp) 25 gauge (BD Regular Bevel [place]) As directed - for testosterone subcutaneous injection omeprazole 40 mg PO BID pen needle, diabetic (BD Ultra-Fine Short Pen Needle) 1 ea subcut DAILY 90 days quetiapine ER 300 mg PO BEDTIME sertraline 100 mg PO DAILY sildenafil 50 mg PO DAILY PRN 14 days syringe (disposable) (BD Luer-Enio Syringe) Testosterone injection weekly tadalafil 5 mg PO DAILY 90 days tadalafil 20 mg PO ONCE PRN 30 days testosterone cypionate (Depo-Testosterone) 80 mg (0.4 mL) subcut QWEEK 4 weeks tizanidine 4 mg PO TID PRN trazodone 150 mg PO DAILY venlafaxine ER 150 mg PO DAILY venlafaxine ER 75 mg PO DAILY Ventolin HFA 90 mcg/actuation (albuterol sulfate) 2 puffs inhalation Q6H PRN 30 days NS zolpidem 10 mg PO BEDTIME PRN Do you need a note to return to daycare/school/sports/work: No HPI Sick visit HPI Details This 43 years old gentleman, comes for a short term follow-up. He has completed course of prednisone and also Augmentin for 10 days. He claims that he is feeling better but still has intermittent cough and wheezing. He is waking up frequently at night because of untreated REE, His the sleep study is scheduled to in mid June. STILL SMOKING 1 PACK OF CIGARETTES A DAY. [facility] Medical History Asthma exacerbation Bronchitis Excessive daytime sleepiness Bilateral hand pain Dyslipidemia Mild recurrent major depression DM2 (diabetes mellitus, type 2) REE (obstructive sleep apnea) Polyarthralgia Acute lumbar myofascial strain Lumbar degenerative disc disease Hypertriglyceridemia Type 2 diabetes mellitus with hyperglycemia Polysubstance abuse Hypogonadism Erectile dysfunction GERD (gastroesophageal reflux disease) Anxiety and depression Asthma Colitis Surgical History History of surgery History of elbow surgery Family History Father Hypertension Diabetes Cancer Cancer, hepatocellular Mother No problems noted. 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 Cognitive needs: No Hearing needs: No Vision needs: No Review of Systems Const All systems reviewed & are unremarkable except as noted in HPI and below Eyes Reports no additional complaints ENT Reports no additional complaints Card Denies chest pain, Denies irregular heart rhythm and Denies leg edema Resp Reports as per HPI GI Reports no additional complaints Reports no additional complaints Musc Reports no additional complaints Skin/Breast Reports system reviewed and no additional complaints, except as documented Neuro Reports no additional complaints Psych Reports no additional complaints Physical Exam Vital Signs: Last Vital Signs Pulse 86 05/25/23 11:12 BP 120/72 05/25/23 11:12 Pulse Ox 98 05/25/23 11:12 Oxygen Delivery Method Room Air 05/25/23 11:12 BMI result Body Mass Index 33.1 Const General: healthy appearing (Except being overweight), comfortable, no acute distress, alert and awake Orientation/consciousness: patient oriented x3 HEENT Head: Yes normal to inspection General nose exam: No nasal polyps present and No nasal discharge present Face and sinus: Yes sinuses nontender Mouth: oropharynx abnormals (Oropharynx is narrow crowded and Mallampati class 4) Throat: Yes posterior oropharynx normal Eyes General: appearance normal, both eyes and all related structures Neck Neck: Yes normal visual inspection, Yes no lymphadenopathy, Yes trachea midline, Yes no JVD and Yes other (Neck circumference 17 in) Thyroid: Thyroid normal Chest Chest palpation & inspection: normal inspection of the chest, normal palpation of entire chest wall and no tenderness Resp Effort & Inspection: normal respiratory effort Auscultation: crackles, wheezes (Has bilateral inspiratory and expiratory wheezes, but much less than before) and other (BREATH SOUNDS ARE DIMINISHED OVER THE BASILAR AREAS) Cardio Palpation: normal PMI Rate: regular rate Rhythm: regular rhythm Heart sounds: no gallops and no murmurs Peripheral pulses: Peripheral pulses 2+ throughout GI Palpation (GI): Soft to palpation, nontender, No hepatosplenomegaly present and no masses Auscultation: normal bowel sounds Back/Spine/Pelvis Thoracic/Lumbar Spine: thoracic and lumbar spine normal to inspection Skin General skin exam: no rashes or lesions noted Neuro General: patient oriented x3 and no focal motor deficits Cranial nerves: Yes CN's II-XII intact bilaterally Extrem General: Yes normal to inspection, Yes no clubbing, cyanosis or edema and Yes no calf tenderness Psych Appearance: grossly normal and well kempt Speech and movement: Normal speech and movement present Assessment & Plan Assessment & Plan (1) Asthma exacerbation: Comment: Patient has been treated for acute exacerbation with a short course of prednisone, and also a course of Augmentin. He has definitely improved and now he has residual mild wheezing. Part of his wheezing is due to upper airway dysfunction. [place]: Continue Advair 500-51 inhalation b.i.d., advised to rains the throat thoroughly after using Advair. Albuterol HFA 2 puffs Q 4-6 hours p.r.n. Code(s): J45.901 - Unspecified asthma with (acute) exacerbation (2) REE (obstructive sleep apnea): Comment: Patient is a known case of obstructive sleep apnea but he has not been able to use the CPAP. He had actually returned his CPAP device in back in 2020 . A home-based sleep study was again ordered a few visits ago but he did not keep the appointment. * even though he keeps on saying that he sleeps okay, I think he still has significant degree of sleep apnea. We have ordered the home-based sleep study again, scheduled on 06/27 I told him that the best treatment would be says use of CPAP, are he should try to lose significant amount of weight. Code(s): G47.33 - Obstructive sleep apnea (adult) (pediatric) (3) Obese: Comment: Obesity due to excess calories. BMI 33.7, goal is <30 I did alert him to being overweight and he should try to lose weight, , at least by 15-20 lb. He has poor understanding and I do not think he is going to lose much weight. Code(s): E66.9 - Obesity, unspecified Qualifiers: Obesity classification: adult class 2 (BMI 35 - 39.9) Serious obesity comorbidity presence: with serious comorbidity Body mass index: BMI 35.0-35.9 (4) Excessive daytime sleepiness: Comment: He still remains tired and sleepy during the daytime. It is partly due to untreated REE and also due to other factors such as use of Buspirone, Suboxone, quetiapine ER , and trazodone. Code(s): G47.19 - Other hypersomnia Coding Level of Care Code Est Pt Level 3 (08372) Diagnoses Asthma exacerbation J45.901 REE (obstructive sleep apnea) G47.33 Obese E66.9 Obesity classification: adult class 2 (BMI 35 - 39.9) Serious obesity comorbidity presence: with serious comorbidity Body mass index: BMI 35.0-35.9 Excessive daytime sleepiness G47.19
== END 2023-05-25 11:40 | disposition home or self-care (01) ==
PROVIDERS: PCP Internal Medicine; Visit Provider Internal Medicine
DX: J45.901 Unspecified asthma with (acute) exacerbation (principal); G47.33 Obstructive sleep apnea (adult) (pediatric); E66.9 Obesity, unspecified; G47.19 Other hypersomnia
CPT/HCPCS: 99213

== ENCOUNTER → 2023-05-25 10:50 | Outpatient (BNVA) | payer MEDICARE, MEDICAID, SELFPAY | PROVIDERS: PCP Internal Medicine; Visit Provider Internal Medicine | DX: J45.901 Unspecified asthma with (acute) exacerbation (principal); G47.33 Obstructive sleep apnea (adult) (pediatric); G47.19 Other hypersomnia; E66.9 Obesity, unspecified; Z68.33 Body mass index [BMI] 33.0-33.9, adult | CPT/HCPCS: 99212 ==

== ENCOUNTER 2023-06-09 10:05 | Outpatient (AMB) | payer MEDICARE, MEDICAID, SELFPAY ==
--- NOTE | 2023-06-09 10:06 | MHC.PC.OV ---
Vital Signs 06/09/23 10:08 Height 5 ft 10 in Weight 231 lb BMI 33.1 BP 132/86 Blood Pressure Location Lt brachial Position Sitting Intake Visit Reasons: DM Intake Note: Patient here for a follow up DM Direct Care Provider Required: No Accompanied by: Self / Same As Patient Allergies No Known Allergies Allergy (Verified 06/09/23 10:21) Medication List - Last Reconciled 06/09/23 by Ayah Peña MD albuterol sulfate 2.5 mg (3 mL) inhalation Q6H ammonium lactate 12% 1 appl topical BID atorvastatin 40 mg PO BEDTIME 90 days blood pressure test kit-large As directed blood sugar diagnostic (FreeStyle Lite Strips) three times a day blood-glucose meter (FreeStyle Letts kit) As directed check the BS TID buprenorphine-naloxone 12-3 mg (Suboxone) 1 film buccal ONCE buspirone 15 mg PO TID cane As directed cholecalciferol (vitamin D3) 25 mcg PO DAILY 90 days cyclobenzaprine 10 mg PO TID PRN 7 days empagliflozin (Jardiance) 25 mg PO QAM fenofibrate nanocrystallized 145 mg PO DAILY fluticasone propion-salmeterol 500-50 mcg/dose (Advair Diskus) 1 inh inhalation BID 30 days glucose 16 grams (4 x 4 gram) PO Q15M 30 days hydroxyzine HCl 50 mg PO Q8H PRN ibuprofen 800 mg PO TID PRN insulin glargine (Basaglar KwikPen U-100 Insulin) 27 units (0.27 mL) subcut QPM 90 days lancets (FreeStyle Lancets) As directed check the BS TID metformin 1,000 mg PO BID metformin 1,000 mg PO BID montelukast 10 mg PO BEDTIME 90 days needle (disp) 18 G (BD Regular Bevel [place]) As directed to be used weekly for T injection needle (disp) 25 gauge (BD Regular Bevel [place]) As directed - for testosterone subcutaneous injection omeprazole 40 mg PO BID pen needle, diabetic (BD Ultra-Fine Short Pen Needle) 1 ea subcut DAILY 90 days quetiapine ER 300 mg PO BEDTIME sertraline 100 mg PO DAILY sildenafil 50 mg PO DAILY PRN 14 days syringe (disposable) (BD Luer-Enio Syringe) Testosterone injection weekly tadalafil 5 mg PO DAILY 90 days tadalafil 20 mg PO ONCE PRN 30 days testosterone cypionate (Depo-Testosterone) 80 mg (0.4 mL) subcut QWEEK 4 weeks tizanidine 4 mg PO TID PRN trazodone 150 mg PO DAILY venlafaxine ER 150 mg PO DAILY venlafaxine ER 75 mg PO DAILY Ventolin HFA 90 mcg/actuation (albuterol sulfate) 2 puffs inhalation Q6H PRN 30 days NS zolpidem 10 mg PO BEDTIME PRN Tobacco use date assessed: 01/04/23 Dental Screening Dental Screen Date: 06/09/23 Did you have a dental visit in the last 12 months?: Yes Did you have a dental problem in the last 6 months where you did not have access to dental care?: No Was dental information given to patient?: Patient has dentist HPI HPI Comments History of Present Illness Details This is a 43-year-old male with diabetes mellitus type 2 on long-term current use of insulin, mixed hyperlipidemia, mild recurrent major depression and testosterone deficiency that comes today for follow-up on his conditions. Last A1c was in May with endocrinology was 6.9%. Lipid panel will be order and his LDL goal should be less than 70. Depression stable with sertraline and this is follow by Psychiatry. On testosterone supplements for testosterone deficiency and this is follow by Urology. Walks with a cane for gait stability. He is alone in the room. No chest pain or shortness of breath. [facility] Medical History Asthma exacerbation Bronchitis Excessive daytime sleepiness Bilateral hand pain Dyslipidemia Mild recurrent major depression DM2 (diabetes mellitus, type 2) REE (obstructive sleep apnea) Polyarthralgia Acute lumbar myofascial strain Lumbar degenerative disc disease Hypertriglyceridemia Type 2 diabetes mellitus with hyperglycemia Polysubstance abuse Hypogonadism Erectile dysfunction GERD (gastroesophageal reflux disease) Anxiety and depression Asthma Colitis Surgical History History of surgery History of elbow surgery Family History Father Hypertension Diabetes Cancer Cancer, hepatocellular Mother No problems noted. 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 Surjit Espino, Lucina Escoto, Elvin Hussein and colleagues, with an educational porsche from [employer]. Review of Systems Const All systems reviewed & are unremarkable except as noted in HPI and below Eyes Reports no additional complaints, Denies change in vision and Denies other visual disturbances Card Denies chest pain at rest, Denies chest pain with activity, Denies edema, Denies irregular heart rhythm, Denies claudication, Denies dyspnea, Denies dyspnea on exertion, Denies orthopnea, Denies paroxysmal nocturnal dyspnea and Denies slow heart rate Resp Denies cough, Denies dyspnea and Denies dyspnea on exertion GI Denies abdominal pain, Denies change in bowel habits, Denies excessive flatus, Denies nausea and Denies vomiting Denies urinary hesitancy, Denies urinary incontinence and Denies urinary urgency Musc Denies abnormal gait, Denies atrophy, Denies deformity and Denies limited range of motion Skin/Breast Denies bleeding lesions, Denies changing lesions and Denies rash Neuro Denies abnormal gait and Denies lack of coordination Physical exam (Primary Care) Vital Signs: Last Vital Signs BP 132/86 06/09/23 10:08 BMI result Body Mass Index 33.1 Tobacco/Smoking Status: Tobacco use Status Tobacco use date assessed 01/04/23 06/09/23 10:06 Patient Tobacco Use Status Former Tobacco user 06/09/23 10:06 Tobacco use type Cigarette 06/09/23 10:06 e-Cigarette/Vaping Use Never Used 06/09/23 10:06 Thrive Assessment: Date of Thrive Assessment Date Thrive assessed 01/04/23 06/09/23 10:06 Const Limitations: ambulation with cane Eyes General: appearance normal, both eyes and all related structures Eyelids: Yes eyelids normal Conjunctivae: conjunctivae normal Neck Neck: Yes normal visual inspection and Yes supple Resp Effort & Inspection: normal respiratory effort Auscultation: clear to auscultation bilaterally Cardio Jugular venous distension: no JVD Rate: regular rate Rhythm: regular rhythm Heart sounds: S1 normal heart sound present and S2 normal heart sound present Extrem General: Yes full ROM Office Procedures Flu Questionnaire Does the patient have a severe egg allergy?: No Immunizations flu vacc [id number] 6mos up(PF) 60 mcg(15 mcgx4)/0.5 mL IM syringe Performing Provider: Ayah Peña MD [facility] Documented (not given) by: RED Forman on 06/09/23 10:35 Reason Not Given: Not Given Assessment and Plan Assessment & Plan (1) DM2 (diabetes mellitus, type 2): Code(s): E11.9 - Type 2 diabetes mellitus without complications Qualifiers: Diabetes mellitus fdc insulin use: unspecified fdc insulin use status Diabetes mellitus complication status: without complication Qualified Code(s): E11.9 - Type 2 diabetes mellitus without complications Plan: Continue insulin. A1c goal is equal or less than 7%. (2) Mild recurrent major depression: Code(s): F33.0 - Major depressive disorder, recurrent, mild Plan: Continue sertraline. Follow-up with psychiatry. (3) Testosterone deficiency: Code(s): E34.9 - Endocrine disorder, unspecified Plan: Continue testosterone supplements. Follow-up with Urology. (4) Mixed hyperlipidemia: Code(s): E78.2 - Mixed hyperlipidemia Plan: Continue statins and fibrates. LDL goal is less than 70. Orders: Orders Influenza [id number] Immunization Today Z23 - Encounter for immunization Medications: Changed From metformin 1,000 mg PO BID E11.9 - Type 2 diabetes mellitus without complications To metformin 1,000 mg (2 x 500 mg) PO BID 360 tabs 3RF 90 days E11.9 - Type 2 diabetes mellitus without complications From cyclobenzaprine 10 mg PO TID 7 days PRN 21 tabs 0RF muscle spasm To cyclobenzaprine 10 mg PO TID PRN 90 tabs 1RF muscle spasm 30 days Discontinued tizanidine Discontinued Reason: Patient Completed Course 4 mg PO TID PRN 30 tabs 1RF for muscle spasm S39.012A - Strain of muscle, fascia and tendon of lower back, initial encounter Coding Level of Care Code Est Pt Level 4 (66549) Diagnoses Type 2 diabetes mellitus without complication, unspecified whether fdc insulin use E11.9 Diabetes mellitus fdc insulin use: unspecified medical terminologist insulin use status Diabetes mellitus complication status: without complication Mild recurrent major depression F33.0 Testosterone deficiency E34.9 Mixed hyperlipidemia E78.2 Time Spent (min) 23
[2023-06-09 10:08] VITALS: BP 132/86; BMI 33.1
== END 2023-06-09 10:39 | disposition home or self-care (01) ==
PROVIDERS: PCP Internal Medicine; Visit Provider Internal Medicine
DX: E11.9 Type 2 diabetes mellitus without complications (principal); F33.0 Major depressive disorder, recurrent, mild; E34.9 Endocrine disorder, unspecified; E78.2 Mixed hyperlipidemia
CPT/HCPCS: 99214

== ENCOUNTER → 2023-06-16 13:43 | Outpatient (REF) | payer MEDICARE, MEDICAID, SELFPAY | LOC: HO.SL 13:43 | PROVIDERS: PCP Internal Medicine; Visit Provider Internal Medicine | DX: G47.33 Obstructive sleep apnea (adult) (pediatric) (principal); G47.19 Other hypersomnia; E66.9 Obesity, unspecified | CPT/HCPCS: 95806 ==

== ENCOUNTER → 2023-06-16 13:58 | Outpatient (BNV) | payer MEDICARE, MEDICAID, SELFPAY | PROVIDERS: PCP Internal Medicine; Visit Provider Internal Medicine | DX: G47.33 Obstructive sleep apnea (adult) (pediatric) (principal) | CPT/HCPCS: 95806 ==

== ENCOUNTER 2023-09-07 11:23 | Outpatient (REF) | payer MEDICARE, MEDICAID, SELFPAY ==
[2023-09-13 17:54] LABS: Testosterone, Free 174.7 pg/mL (35.0-155.0); Testosterone, Total 844 ng/dL (250-1100)
== END 2023-09-07 11:24 | disposition home or self-care (01) ==
LOC: HO.LAB 11:23
PROVIDERS: PCP Internal Medicine; Visit Provider Urology
DX: E34.9 Endocrine disorder, unspecified (principal); Z12.5 Encounter for screening for malignant neoplasm of prostate
CPT/HCPCS: 36415; 84153; 84402; 84403; 85027

== ENCOUNTER 2023-09-21 12:24 | Outpatient (REF) | payer MEDICARE, MEDICAID, SELFPAY | END 2023-09-21 12:25 | disposition home or self-care (01) | LOC: HO.HOSX 12:24 | PROVIDERS: Visit Provider Orthopaedic Surgery | DX: Z13.89 Encounter for screening for other disorder (principal) ==

== ENCOUNTER 2023-10-12 13:08 | Outpatient (AMB) | payer MEDICARE, MEDICAID, SELFPAY ==
--- NOTE | 2023-10-12 13:07 | A.OFFVIS_ITS ---
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 He is a patient of Dr. Peña. 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 Initiated therapy with testosterone replacement Lab work Wed Labs - 09/28 T 844 0.3 48 Erectile dysfunction in setting of diabetes Progressive Concurrent diagnosis include diabetes, hepatitis-C, dyslipidemia, hypertension, depression with SSRI, sleep disorder Laboratories - 03/26 HbA1c 6.2, T 120, 11/25 T 23 Prior therapy include daily 5 mg tadalafil Therapeutic plan - daily tadalafil with on demand PFSH Medical History Nocturnal hypoxemia Asthma exacerbation Bronchitis Excessive daytime sleepiness Bilateral hand pain Dyslipidemia Mild recurrent major depression DM2 (diabetes mellitus, type 2) REE (obstructive sleep apnea) Polyarthralgia Acute lumbar myofascial strain Lumbar degenerative disc disease Hypertriglyceridemia Type 2 diabetes mellitus with hyperglycemia Polysubstance abuse Hypogonadism Erectile dysfunction GERD (gastroesophageal reflux disease) Anxiety and depression Asthma Colitis Surgical History History of surgery History of elbow surgery Family History Father Hypertension Diabetes Cancer Cancer, hepatocellular Mother No problems noted. 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 Cognitive needs: No Hearing needs: No Vision needs: No Review of Systems Const All systems reviewed & are unremarkable except as noted in HPI and below Reports no additional complaints Resp Reports no additional complaints GI Reports no additional complaints Reports as per HPI Musc Reports no additional complaints Physical Exam Telemedicine evaluation Appropriate responses Regular breathing rate and rhythm HEENT Head: Yes normal to inspection Ears: hearing grossly normal bilaterally Eyes General: appearance normal, both eyes and all related structures Neck Neck: Yes normal visual inspection Chest Chest palpation & inspection: normal inspection of the chest Resp Effort & Inspection: normal respiratory effort and able to speak in complete sentences Assessment & Plan Assessment & Plan (1) Erectile dysfunction associated with type 2 diabetes mellitus: Code(s): E11.69 - Type 2 diabetes mellitus with other specified complication; N52.1 - Erectile dysfunction due to diseases classified elsewhere (2) Testosterone deficiency: Code(s): E34.9 - Endocrine disorder, unspecified Plan Six-month follow-up lab work Orders: Orders Prostate Specific Antigen 6 Months E11.69 - Type 2 diabetes mellitus with other specified complication, N52.1 - Erectile dysfunction due to diseases classified elsewhere Testosterone, Total 6 Months E11.69 - Type 2 diabetes mellitus with other specified complication, N52.1 - Erectile dysfunction due to diseases classified elsewhere Complete Blood Count no Diff 6 Months E11.69 - Type 2 diabetes mellitus with other specified complication, N52.1 - Erectile dysfunction due to diseases classified elsewhere Medications: Refilled tadalafil On demand medication take 60 minutes before intended activity 20 mg PO ONCE 30 days PRN 30 tabs 0RF sexual activity E11.69 - Type 2 diabetes mellitus with other specified complication, N52.1 - Erectile dysfunction due to diseases classified elsewhere testosterone cypionate (Depo-Testosterone) 80 mg (0.4 mL) subcut QWEEK 4 weeks 2 multiple units 5RF E34.9 - Endocrine disorder, unspecified Patient Instructions: Imaging studies, laboratory and physical exam results were discussed and reviewed in detail. No major barriers to patient understanding were identified. An opportunity to ask questions regarding the treatment plan was provided. All questions were answered. The patient expressed understanding and agreement with the above treatment plan. The patient is aware they should contact our office by phone for worsening of their current condition or the appearance of new urologic symptoms. Compliance is encouraged with any medications and followup testing that is ordered. It is a privilege to participate in the urologic care of your patient. If you have any questions or concerns regarding treatment for the above conditions, or other urologic issues, please do not hesitate to contact me. The office telephone contact is [phone]. This note is constructed using voice recognition software. While every effort has been made to ensure accuracy federal air marshal errors may have been included. Yours sincerely, Dr Juan David Mane MD, [facility] - Urology Providers of Expert, Compassionate Care for the Genitourinary System Telehealth Telehealth Location of provider rendering services: practice address Location of patient: address on file Patient Identification confirmed using: Name, : Yes Telehealth method: video Patient verbally consented to treatment: Yes Patient verbally consented to billing insurance company: Yes Patient informed of any privacy concerns related to visit: Yes Coding Level of Care Code Tele Est Pt Level 4 (66721) Diagnoses Erectile dysfunction associated with type 2 diabetes mellitus E11.69; N52.1 Testosterone deficiency E34.9
== END 2023-10-12 16:00 | disposition home or self-care (01) ==
LOC: HO.HUSH 13:08
PROVIDERS: PCP Internal Medicine; Visit Provider Urology
DX: E11.69 Type 2 diabetes mellitus with other specified complication (principal); N52.1 Erectile dysfunction due to diseases classified elsewhere; E34.9 Endocrine disorder, unspecified
CPT/HCPCS: 99214

== ENCOUNTER → 2023-10-12 13:08 | Outpatient (BNVA) | payer MEDICARE, MEDICAID, SELFPAY | PROVIDERS: PCP Internal Medicine; Visit Provider Urology ==

== ENCOUNTER 2023-10-18 10:19 | Outpatient (AMB) | payer MEDICARE, MEDICAID, SELFPAY ==
[2023-10-18 10:22] VITALS: BP 130/82; BMI 31.3
--- NOTE | 2023-10-18 10:22 | A.OFFPC_ITS ---
Vital Signs 10/18/23 10:22 Height 5 ft 10 in Weight 218 lb BMI 31.3 BP 130/82 Blood Pressure Location Lt brachial Position Sitting Intake Visit Reasons: Annual exam Intake Note: Patient here for an annual physical exam Nicu Rn Required: No Accompanied by: Spouse Allergies No Known Allergies Allergy (Verified 10/18/23 10:41) Medication List - Last Reconciled 10/18/23 by Ayah Peña MD albuterol sulfate 2.5 mg (3 mL) inhalation Q6H ammonium lactate 12% 1 appl topical BID atorvastatin 40 mg PO BEDTIME 90 days blood pressure test kit-large As directed blood sugar diagnostic (FreeStyle Lite Strips) three times a day blood-glucose meter (FreeStyle [place] kit) As directed check the BS TID buprenorphine-naloxone 12-3 mg (Suboxone) 1 film buccal ONCE buspirone 15 mg PO TID cane As directed cholecalciferol (vitamin D3) 25 mcg PO DAILY 90 days cyclobenzaprine 10 mg PO TID PRN 30 days empagliflozin (Jardiance) 25 mg PO QAM fenofibrate nanocrystallized 145 mg PO DAILY fluticasone propion-salmeterol 500-50 mcg/dose (Advair Diskus) 1 inh inhalation BID 30 days glucose 16 grams (4 x 4 gram) PO Q15M 30 days hydroxyzine HCl 50 mg PO Q8H PRN ibuprofen 800 mg PO TID PRN insulin glargine (Basaglar KwikPen U-100 Insulin) 27 units (0.27 mL) subcut QPM 90 days lancets (FreeStyle Lancets) As directed check the BS TID metformin 1,000 mg (2 x 500 mg) PO BID 90 days metformin 1,000 mg PO BID montelukast 10 mg PO BEDTIME 90 days needle (disp) 18 G (BD Regular Bevel [place]) As directed to be used weekly for T injection needle (disp) 25 gauge (BD Regular Bevel [place]) As directed - for testosterone subcutaneous injection omeprazole 40 mg PO BID pen needle, diabetic (BD Ultra-Fine Short Pen Needle) 1 ea subcut DAILY 90 days quetiapine ER 300 mg PO BEDTIME syringe (disposable) (BD Luer-Enio Syringe) Testosterone injection weekly tadalafil 5 mg PO DAILY 90 days tadalafil 20 mg PO ONCE PRN 30 days testosterone cypionate (Depo-Testosterone) 80 mg (0.4 mL) subcut QWEEK 4 weeks trazodone 150 mg PO DAILY venlafaxine ER 150 mg PO DAILY venlafaxine ER 75 mg PO DAILY Ventolin HFA 90 mcg/actuation (albuterol sulfate) 2 puffs inhalation Q6H PRN 30 days NS zolpidem 10 mg PO BEDTIME PRN Tobacco use date assessed: 10/18/23 Dental Screening Dental Screen Date: 10/18/23 Did you have a dental visit in the last 12 months?: No Did you have a dental problem in the last 6 months where you did not have access to dental care?: No Was dental information given to patient?: Patient has dentist HPI HPI Comments History of Present Illness Details This is a 43-year-old male with mild major depression and diabetes mellitus type 2 that comes accompanied by for his physical exam. Depression stable Seroquel. A1c within goal. Last diabetic eye exam was over a year ago. Had colonoscopy 2 years ago and is complaining of blood in the stools most likely secondary to hemorrhoids. Will be referred to Gastroenterology. Has a scalp lesion and would like to see Dermatology. Walks with a cane for gait stability due to lumbar degenerative disc disease causing severe back pain. Also has bilateral hand pain and weakness and x-ray show osteoarthritis. Patient is not able to work. [facility] Medical History (Updated 10/18/23 @ 12:17 by Ayah Peña MD) Nocturnal hypoxemia Asthma exacerbation Bronchitis Excessive daytime sleepiness Bilateral hand pain Dyslipidemia Mild recurrent major depression DM2 (diabetes mellitus, type 2) REE (obstructive sleep apnea) Polyarthralgia Acute lumbar myofascial strain Lumbar degenerative disc disease Hypertriglyceridemia Type 2 diabetes mellitus with hyperglycemia Polysubstance abuse Hypogonadism Erectile dysfunction GERD (gastroesophageal reflux disease) Anxiety and depression Asthma Colitis Surgical History History of surgery History of elbow surgery Family History (Updated 10/18/23 @ 10:51 by Ayah Peña MD) Father Hypertension Diabetes Cancer Cancer, hepatocellular Mother No problems noted. 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 1. Little interest or pleasure in doing things: nearly every day 2. Feeling down, depressed, or hopeless: nearly every day 3. Trouble falling or staying asleep, or sleeping too much: not at all 4. Feeling tired or having little energy: nearly every day 5. Poor appetite or overeating: not at all 6. Feeling bad about yourself - or that you are a failure or have let yourself or your family down: several days 7. Trouble concentrating on things, such as reading the newspaper or watching television: several days 8. Moving or speaking so slowly that other people could have noticed. Or the opposite - being so fidgety or restless that you have been moving around a lot more than usual: not at all 9. Thoughts that you would be better off or of hurting yourself in some way: not at all Total score: 11 Depression Screening Interpretation: Positive Depression Screening Follow-up: Existing condition and In treatment Depression Screening Done: Yes 09489 - PHQ-9 Billing: Yes Source: Developed by Drs. Surjit Espino, Lucina Escoto, Elvin Hussein and colleagues, with an educational porsche from [employer]. Thrive Questionnaire Date Thrive assessed: 10/18/23 I am a: Patient What is your living situation today?: I have a steady place to live Within the past 12 months, did the food you bought not last and you didn't have the money to get more?: Never true Within the past 12 months, did you worry whether your food would run out before you got money to buy more?: Never true Do you have trouble paying for medicines?: No Do you have trouble getting transportation to medical appointments?: No Do you have trouble paying your heating and electricity bill?: No Do you have trouble taking care of your child, family member or friend?: No Do you have trouble with day-to-day activities such as bathing, preparing meals, shopping, managing finances, etc.?: No Are you currently unemployed and looking for a job?: No Are you interested in more education?: No Please select the resources that you would like help with: None Currently or been in a relationship where the following occur: no concerns reported THRIVE Score: 0 AUDIT C Alcohol Use Questionnaire (AUDIT-C) 1. How often do you have a drink containing alcohol?: Never Total Score: 0 MIRIAM-7 AMB Questionnaire MIRIAM-7 Date MIRIAM - 7 assessed: 10/18/23 Feeling nervous, anxious, or on edge: 1 = Several days Not being able to stop or control worryin = Not at all Worrying too much about different things: 1 = Several days Trouble relaxin = Several days Being so restless that it is hard to sit still: 0 = Not at all Becoming easily annoyed or irritable: 1 = Several days Feeling afraid as if something awful might happen: 0 = Not at all Total MIRIAM-7 score (0-4 normal; 5-9 mild; 10-14 moderate; 15-21 severe): 4 Source: Developed by Drs. Surjit Espino, Lucina Escoto, Elvin Hussein and colleagues, with an educational porsche from [employer]. MIRIAM-7 Assessment Billing MIIRAM-7 Assessment Tool: MIRIAM-7 Assessment 52931 Review of Systems Const All systems reviewed & are unremarkable except as noted in HPI and below Eyes Reports no additional complaints, Denies change in vision and Denies other visual disturbances Card Denies chest pain at rest, Denies chest pain with activity, Denies edema, Denies irregular heart rhythm, Denies claudication, Denies dyspnea, Denies dyspnea on exertion, Denies orthopnea, Denies paroxysmal nocturnal dyspnea and Denies slow heart rate Resp Denies cough, Denies dyspnea and Denies dyspnea on exertion GI Denies abdominal pain, Denies change in bowel habits, Denies excessive flatus, Denies nausea and Denies vomiting Denies urinary hesitancy, Denies urinary incontinence and Denies urinary urgency Musc Denies abnormal gait, Reports back pain, Denies atrophy, Denies deformity and Denies limited range of motion Skin/Breast Denies bleeding lesions, Denies changing lesions and Denies rash Neuro Denies abnormal gait, Denies behavioral changes, Denies confusion and Denies lack of coordination Psych Denies behavioral changes and Denies confusion Physical exam (Primary Care) Vital Signs: Last Vital Signs BP 130/82 10/18/23 10:22 BMI result Body Mass Index 31.3 Tobacco/Smoking Status: Tobacco use Status Tobacco use date assessed 10/18/23 10/18/23 10:35 Patient Tobacco Use Status Former Tobacco user 10/18/23 10:35 Tobacco use type Cigarette 10/18/23 10:35 e-Cigarette/Vaping Use Never Used 10/18/23 10:35 PHQ-9: PHQ-9 Score PHQ-9: Total score 11 10/18/23 11:04 Depression Screening Interpretation: Positive Depression Screening Follow-up: Existing condition and In treatment Thrive Assessment: Date of Thrive Assessment Date Thrive assessed 10/18/23 10/18/23 10:35 Currently or been in a relationship where the following occur: no concerns reported Const General: No confusion Orientation/consciousness: patient oriented x3 and No confusion Limitations: ambulation with cane HENMT Head: Yes normal to inspection, Yes normocephalic and Yes atraumatic Ears: external ears normal Eyes General: appearance normal, both eyes and all related structures Eyelids: Yes eyelids normal Conjunctivae: conjunctivae normal Neck Neck: Yes normal visual inspection and Yes supple Resp Effort & Inspection: normal respiratory effort Auscultation: clear to auscultation bilaterally Cardio Jugular venous distension: no JVD Rate: regular rate Rhythm: regular rhythm Heart sounds: S1 normal heart sound present and S2 normal heart sound present GI Inspection: Yes normal to inspection Palpation (GI): Soft to palpation and nontender Auscultation: normal bowel sounds Back/Spine/Pelvis Thoracic/Lumbar Spine: lumbar spinal tenderness Skin General skin exam: no rashes or lesions noted Neuro General: patient oriented x3, no focal motor deficits and No confusion Extrem General: Yes full ROM Psych Appearance: grossly normal Results AMB Hemoglobin A1c AMB Hemoglobin A1c 6.4 % Last Edit by RED Forman on 10/18/23 11:0 3 Results Reviewed Results Reviewed: Laboratory Last Values Hgb A1c (Clinic) 6.4 % (4.0-6.0) H 10/18/23 11:02 Assessment and Plan Assessment & Plan (1) Physical exam: Code(s): Z00.00 - Encounter for general adult medical examination without abnormal findings Plan: Repeat in a year. (2) Mild recurrent major depression: Code(s): F33.0 - Major depressive disorder, recurrent, mild Plan: Continue Seroquel. (3) DM2 (diabetes mellitus, type 2): Code(s): E11.9 - Type 2 diabetes mellitus without complications Qualifiers: Diabetes mellitus long term care social worker insulin use: unspecified long term care social worker insulin use status Diabetes mellitus complication status: without complication Qualified Code(s): E11.9 - Type 2 diabetes mellitus without complications Plan: Continue insulin and metformin. A1c goal is equal or less than 7%. Orders: Orders Vitamin D 25-OH Total Today E55.9 - Vitamin D deficiency, unspecified Comprehensive [place]. Panel Fast Today E11.9 - Type 2 diabetes mellitus without complications Complete Blood Count Auto Diff Today K92.1 - [place] Vitamin B12 and Folate Today E53.8 - Deficiency of other specified B group vitamins Lipid Panel Today E78.5 - Hyperlipidemia, unspecified Microalbumin, Random (w Creat) Today E11.9 - Type 2 diabetes mellitus without complications IRON PROFILE Today D64.9 - Anemia, unspecified AMB Hemoglobin A1c Today E11.9 - Type 2 diabetes mellitus without complications Referrals Gastroenterology Referral K92.1 - [place] Ophthalmology Referral E11.9 - Type 2 diabetes mellitus without complications Dermatology Referral L98.9 - Disorder of the skin and subcutaneous tissue, unspecified Medications: New lorazepam Take 1 to 2 tabs 45 minutes before MRI 1 mg (2 x 0.5 mg) PO DAILY 1 day PRN 2 tabs 0RF anxiety Coding Level of Care Code Est Pt Prev Care 40-64y(21671) Diagnoses Physical exam Z00.00 Mild recurrent major depression F33.0 Type 2 diabetes mellitus without complication, unspecified whether long term care social worker insulin use E11.9 Diabetes mellitus long term care social worker insulin use: unspecified long term care social worker insulin use status Diabetes mellitus complication status: without complication Additional Codes MIRIAM-7 Assessment Billing - MIRIAM-7 Assessment Tool: MIRIAM-7 Assessment 11399 ([id number]) Time Spent (min) 35
== END 2023-10-18 11:02 | disposition home or self-care (01) ==
PROVIDERS: Visit Provider Internal Medicine
DX: Z00.00 Encounter for general adult medical examination without abnormal findings (principal); F33.0 Major depressive disorder, recurrent, mild; E11.9 Type 2 diabetes mellitus without complications
CPT/HCPCS: 83036; 99396

== ENCOUNTER 2023-11-22 09:17 | Outpatient (AMB) | payer MEDICARE, MEDICAID, SELFPAY ==
[2023-11-22 09:18] VITALS: BP 140/82; BMI 32.0
--- NOTE | 2023-11-22 09:18 | MHC.PC.OV ---
Vital Signs 11/22/23 09:18 11/22/23 09:54 Height 5 ft 10 in Weight 223 lb BMI 32.0 BP 140/82 H 138/82 Blood Pressure Location Lt brachial Lt brachial Position Sitting Sitting Intake Visit Reasons: lump Intake Note: Patient here c/o lump on stomach Customer Engagement Representative Required: No Accompanied by: Spouse Allergies No Known Allergies Allergy (Verified 11/22/23 09:26) Medication List - Last Reconciled 11/22/23 by Ayah Peña MD albuterol sulfate 2.5 mg (3 mL) inhalation Q6H ammonium lactate 12% 1 appl topical BID amoxicillin 500 mg PO BID 5 days atorvastatin 40 mg PO BEDTIME 90 days blood pressure test kit-large As directed blood sugar diagnostic (FreeStyle Lite Strips) three times a day blood-glucose meter (FreeStyle [place] kit) As directed check the BS TID buprenorphine-naloxone 12-3 mg (Suboxone) 1 film buccal ONCE buspirone 15 mg PO TID cane As directed cholecalciferol (vitamin D3) 25 mcg PO DAILY 90 days cyclobenzaprine 10 mg PO TID PRN 30 days empagliflozin (Jardiance) 25 mg PO QAM fenofibrate nanocrystallized 145 mg PO DAILY fluticasone propion-salmeterol 500-50 mcg/dose (Advair Diskus) 1 inh inhalation BID 30 days glucose 16 grams (4 x 4 gram) PO Q15M 30 days hydroxyzine HCl 50 mg PO Q8H PRN ibuprofen 800 mg PO TID PRN insulin glargine (Basaglar KwikPen U-100 Insulin) 27 units (0.27 mL) subcut QPM 90 days lancets (FreeStyle Lancets) As directed check the BS TID lorazepam 1 mg (2 x 0.5 mg) PO DAILY PRN 1 day metformin 1,000 mg (2 x 500 mg) PO BID 90 days metformin 1,000 mg PO BID montelukast 10 mg PO BEDTIME 90 days needle (disp) 18 G (BD Regular Bevel [place]) As directed to be used weekly for T injection needle (disp) 25 gauge (BD Regular Bevel [place]) As directed - for testosterone subcutaneous injection omeprazole 40 mg PO BID pen needle, diabetic (BD Ultra-Fine Short Pen Needle) 1 ea subcut DAILY 90 days quetiapine ER 300 mg PO BEDTIME syringe (disposable) (BD Luer-Enio Syringe) Testosterone injection weekly tadalafil 5 mg PO DAILY 90 days tadalafil 20 mg PO ONCE PRN 30 days testosterone cypionate (Depo-Testosterone) 80 mg (0.4 mL) subcut QWEEK 4 weeks trazodone 150 mg PO DAILY venlafaxine ER 150 mg PO DAILY venlafaxine ER 75 mg PO DAILY Ventolin HFA 90 mcg/actuation (albuterol sulfate) 2 puffs inhalation Q6H PRN 30 days NS zolpidem 10 mg PO BEDTIME PRN Tobacco use date assessed: 10/18/23 HPI HPI Comments History of Present Illness Details This is a 43-year-old male with diabetes mellitus type 2 on long-term current use of insulin, mixed hyperlipidemia, testosterone deficiency and mild recurrent major depression that comes accompanied by complaining of abdominal while lumps in right and left flank that he noticed about a week ago. One of them was associated with local testosterone injection. He has another 1 in the epigastric area that feels harder than the others. Will be referred to General surgery. Had neck lymphadenopathy last year in which ultrasound was repeated and lymph node resolved. Will also have chest x-ray for the lump in the chest and ultrasound of the abdomen for abdominal lumps. Has characteristic of lipoma. Last A1c was within goal. On statins and fibrates 4 mixed hyperlipidemia. On testosterone supplements for testosterone deficiency. Depression stable with venlafaxine. [facility] Medical History Nocturnal hypoxemia Asthma exacerbation Bronchitis Excessive daytime sleepiness Bilateral hand pain Dyslipidemia Mild recurrent major depression DM2 (diabetes mellitus, type 2) REE (obstructive sleep apnea) Polyarthralgia Acute lumbar myofascial strain Lumbar degenerative disc disease Hypertriglyceridemia Type 2 diabetes mellitus with hyperglycemia Polysubstance abuse Hypogonadism Erectile dysfunction GERD (gastroesophageal reflux disease) Anxiety and depression Asthma Colitis Surgical History History of surgery History of elbow surgery Family History Father Hypertension Diabetes Cancer Cancer, hepatocellular Mother No problems noted. 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 Surjit Espino, Lucina Escoto, Elvin Hussein and colleagues, with an educational porsche from [employer]. Review of Systems Const All systems reviewed & are unremarkable except as noted in HPI and below Eyes Reports no additional complaints, Denies change in vision and Denies other visual disturbances Card Denies chest pain at rest, Denies chest pain with activity, Denies edema, Denies irregular heart rhythm, Denies claudication, Denies dyspnea, Denies dyspnea on exertion, Denies orthopnea, Denies paroxysmal nocturnal dyspnea and Denies slow heart rate Resp Denies cough, Denies dyspnea and Denies dyspnea on exertion GI Denies abdominal pain, Denies change in bowel habits, Denies excessive flatus, Denies nausea and Denies vomiting Denies urinary hesitancy, Denies urinary incontinence and Denies urinary urgency Musc Denies abnormal gait, Denies atrophy, Denies deformity and Denies limited range of motion Skin/Breast Denies bleeding lesions, Denies changing lesions and Denies rash Neuro Denies abnormal gait, Denies behavioral changes and Denies lack of coordination Psych Denies behavioral changes Physical exam (Primary Care) Vital Signs: Last Vital Signs BP 140/82 H 11/22/23 09:18 BMI result Body Mass Index 32.0 Tobacco/Smoking Status: Tobacco use Status Tobacco use date assessed 10/18/23 11/22/23 09:24 Patient Tobacco Use Status Former Tobacco user 11/22/23 09:24 Tobacco use type Cigarette 11/22/23 09:24 e-Cigarette/Vaping Use Never Used 11/22/23 09:24 Thrive Assessment: Date of Thrive Assessment Date Thrive assessed 10/18/23 11/22/23 09:24 Const Limitations: ambulation with cane HENMT Head: Yes normal to inspection, Yes normocephalic and Yes atraumatic Ears: external ears normal General nose exam: Normal external nose present and No nasal discharge present Face and sinus: Yes sinuses nontender Mouth: lip normal Eyes General: appearance normal, both eyes and all related structures Eyelids: Yes eyelids normal Conjunctivae: conjunctivae normal Neck Neck: Yes normal visual inspection and Yes supple Resp Effort & Inspection: normal respiratory effort Auscultation: clear to auscultation bilaterally Cardio Jugular venous distension: no JVD Rate: regular rate Rhythm: regular rhythm Heart sounds: S1 normal heart sound present and S2 normal heart sound present Skin Other: lump in epigastric area, lump in left flank that is tender and lump in right flank Extrem General: Yes full ROM Assessment and Plan Assessment & Plan (1) Abdominal wall lump: Code(s): R22.2 - Localized swelling, mass and lump, trunk Plan: Chest x-ray on ultrasound of abdomen ordered. Referred to General surgery. (2) Mixed hyperlipidemia: Code(s): E78.2 - Mixed hyperlipidemia Plan: Continue statins and fibrates. (3) DM2 (diabetes mellitus, type 2): Code(s): E11.9 - Type 2 diabetes mellitus without complications Qualifiers: Diabetes mellitus manager terminal insulin use: unspecified manager terminal insulin use status Diabetes mellitus complication status: without complication Qualified Code(s): E11.9 - Type 2 diabetes mellitus without complications Plan: Continue insulin and Jardiance. A1c goal is equal or less than 7%. (4) Mild recurrent major depression: Code(s): F33.0 - Major depressive disorder, recurrent, mild Plan: Continue venlafaxine. (5) Testosterone deficiency: Code(s): E34.9 - Endocrine disorder, unspecified Plan: Continue testosterone supplements. (6) Swelling, mass, or lump in chest: Code(s): R22.2 - Localized swelling, mass and lump, trunk Plan: Chest x-ray ordered. Orders: Orders US abdomen complete Today R22.2 - Localized swelling, mass and lump, trunk XR chest 2V Today R22.2 - Localized swelling, mass and lump, trunk Referrals General Surgery Referral R22.2 - Localized swelling, mass and lump, trunk Coding Level of Care Code Est Pt Level 4 (36061) Diagnoses Abdominal wall lump R22.2 Mixed hyperlipidemia E78.2 Type 2 diabetes mellitus without complication, unspecified whether manager terminal insulin use E11.9 Diabetes mellitus care home insulin use: unspecified manager terminal insulin use status Diabetes mellitus complication status: without complication Mild recurrent major depression F33.0 Testosterone deficiency E34.9 Swelling, mass, or lump in chest R22.2 Time Spent (min) 23
[2023-11-22 09:54] VITALS: BP 138/82
== END 2023-11-22 09:34 | disposition home or self-care (01) ==
PROVIDERS: PCP Internal Medicine; Visit Provider Internal Medicine
DX: E11.69 Type 2 diabetes mellitus with other specified complication (principal); F33.0 Major depressive disorder, recurrent, mild; R22.2 Localized swelling, mass and lump, trunk; E78.2 Mixed hyperlipidemia; E34.9 Endocrine disorder, unspecified
CPT/HCPCS: 99214

== ENCOUNTER 2023-11-30 09:31 | Outpatient (REF) | payer MEDICARE, MEDICAID, SELFPAY ==
--- NOTE | ~2023-11-30 | XR_ITS ---
EXAMINATION: XR CHEST CLINICAL INFORMATION: Localized swelling, mass and lump, trunk. COMPARISON: 05/11/2023 TECHNIQUE: 2 views of the chest were obtained. FINDINGS: There is no gross pneumothorax. Lung volumes are low. Stable cardiomediastinal silhouette. No pleural effusion. No focal consolidation to suggest pneumonia. Mild loss of height of a midthoracic vertebral body redemonstrated. Minimal degenerative changes in the thoracic spine. XR/XR chest 2V IMPRESSION: 1. No evidence of pneumonia. 2. Mild loss of height of a midthoracic vertebral body redemonstrated.
[2023-11-30 09:48] LABS: MANUAL DIFF FLAG NO
[2023-11-30 10:27] LABS: Basophils Absolute Auto 0.1 X10*3/uL (0.0-0.2); Basophils Percent Auto 0.8 % (0-2); Eosinophils Absolute Auto 0.4 X10*3/uL (0.0-0.4); Eosinophils Percent Auto 6.7 % (0-4); Hemoglobin 16.6 g/dl (14.0-18.0); Imm Gran Abs Auto 0.05 X10*3/uL (0.00-0.03); Imm Gran Pct Auto 0.8 % (0.0-0.4); Lymphocytes Absolute Auto 2.2 X10*3/uL (1.2-4.9); Lymphocytes Percent Auto 33.9 % (20-40); Mean Corpuscular HGB Conc 33.2 g/dl (31.0-36.0); Mean Corpuscular Hemoglobin 28.7 pg (27.0-33.0); Mean Corpuscular Volume 86.4 fL (80.0-98.0); Monocytes Absolute Auto 0.8 X10*3/uL (0.1-1.2); Monocytes Percent Auto 11.8 % (2-11); Neutrophils Absolute Auto 2.9 x10*3/uL (2.0-8.3); Platelet Count 197 X10*3/uL (160-400); Red Blood Count 5.79 X10*6/uL (4.60-5.80); Red Cell Distribution Width 13.5 % (11.0-16.0); White Blood Count 6.4 X10*3/uL (4.8-10.8)
[2023-11-30 11:04] LABS: Creatinine Urine 147.02 mg/dL; Microalbum/Creatinine Ratio Ur 65.9 ug/mg cr (<30)
[2023-11-30 11:30] LABS: Alanine Aminotransferase 20 U/L (0-40); Albumin Level 4.3 g/dL (3.5-5.0); Alkaline Phosphatase 68 U/L (39-117); Anion Gap 11 (12-20); Aspartate Amino Transferase 19 U/L (5-37); Bilirubin Total 0.5 mg/dL (0.0-1.0); Blood Urea Nitrogen 12 mg/dL (9-16); Calcium 9.4 mg/dL (8.4-10.2); Carbon Dioxide 29 mmol/L (22-29); Chloride 104 mmol/L (96-108); Cholesterol 136 mg/dL (<200); Estimated Glomerular Filt Rate > 60; Glucose Fasting 98 mg/dL (60-99); HDL Cholesterol 37 mg/dL (>40); Iron 74 mcg/dL (45-160); LDL Cholesterol Calculated 75 mg/dL (<100); Percent Iron Saturation 21 % (15-50); Potassium 3.7 mmol/L (3.3-5.1); Sodium 140 mmol/L (135-145); Total Iron Binding Capacity 356 mcg/dL (228-428); Total Protein 7.6 g/dL (6.5-8.0); Triglycerides 121 mg/dL (<150); Unsaturated Iron Binding 282 ug/dL
[2023-11-30 11:37] LABS: Vitamin B12 423 pg/mL (200-900)
[2023-11-30 11:39] LABS: Vitamin D 25-OH Total 23.3 ng/mL (>30)
== END 2023-11-30 09:32 | disposition home or self-care (01) ==
LOC: HO.LAB 09:31
PROVIDERS: Absent Provider Urology; PCP Internal Medicine; Visit Provider Internal Medicine
DX: R22.2 Localized swelling, mass and lump, trunk (principal); E55.9 Vitamin D deficiency, unspecified; E53.8 Deficiency of other specified B group vitamins; E11.9 Type 2 diabetes mellitus without complications; E78.5 Hyperlipidemia, unspecified; D64.9 Anemia, unspecified; K92.1 Melena
CPT/HCPCS: 36415; 71046; 80053; 80061; 82043; 82306; 82570; 82607; 82746; 83540; 85025

== ENCOUNTER 2023-12-07 11:57 | Outpatient (AMB) | payer MEDICARE, MEDICAID, SELFPAY ==
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
== END 2023-12-07 13:17 | disposition home or self-care (01) ==
PROVIDERS: PCP Internal Medicine; Visit Provider Orthopaedic Surgery
DX: M19.042 Primary osteoarthritis, left hand (principal); R76.8 Other specified abnormal immunological findings in serum; E11.9 Type 2 diabetes mellitus without complications; M25.50 Pain in unspecified joint
CPT/HCPCS: 20600; 77002; 99213

== ENCOUNTER 2023-12-07 11:57 | Outpatient (REF) | payer MEDICARE, MEDICAID, SELFPAY ==
--- NOTE | ~2023-12-07 | FL_ITS ---
EXAMINATION: XR FLUOROSCOPY WITH IMAGES CLINICAL INFORMATION: Osteoarthritis left hand. COMPARISON: Left hand radiograph 05/18/2023. TECHNIQUE: Fluoroscopy Supervised By: Sally Mirza Fluoroscopy Time: 6.3 seconds Cumulative Dose: 95880.5 mGy-cm Images: 1 FINDINGS: Intraoperative fluoroscopy and spot films were performed during an MSK. A needle is seen in the PIP joint of the middle finger. Please correlate with Sally Mirza' report for complete details. FL/FL guided needle placement IMPRESSION: Fluoroscopy was provided and spot films were obtained. Please see Sally Mirza' report for complete details.
== END 2023-12-07 11:58 | disposition home or self-care (01) ==
LOC: HO.HOSX 11:57
PROVIDERS: PCP Internal Medicine; Visit Provider Orthopaedic Surgery
DX: M19.042 Primary osteoarthritis, left hand (principal); R76.8 Other specified abnormal immunological findings in serum; M25.50 Pain in unspecified joint
CPT/HCPCS: 20600; 77002; 99212; J1010; J1020

== ENCOUNTER 2023-12-13 11:32 | Outpatient (REF) | payer MEDICARE, MEDICAID, SELFPAY ==
--- NOTE | ~2023-12-13 | US_ITS ---
EXAMINATION: US ABDOMEN LIMITED CLINICAL INFORMATION: Localized swelling, mass and lump, trunk. Right flank and left flank, mass epigastric per MD notes. COMPARISON: CT abdomen and pelvis 12/30/2021. Ultrasound abdomen complete 03/14/2019. TECHNIQUE: Real-time imaging of the epigastric area. FINDINGS: Corresponding to the area of patient reported palpable lump at the level of the sternum is no suspicious soft tissue abnormality. No lymphadenopathy or soft tissue mass. US/US abdomen limited IMPRESSION: Corresponding to the area of patient reported palpable lump at the level of the sternum is no suspicious soft tissue abnormality.
== END 2023-12-13 11:33 | disposition home or self-care (01) ==
LOC: HO.US 11:32
PROVIDERS: PCP Internal Medicine; Visit Provider Internal Medicine
DX: R22.2 Localized swelling, mass and lump, trunk (principal)
CPT/HCPCS: 76705

== ENCOUNTER 2023-12-20 11:43 | Outpatient (AMB) | payer MEDICARE, MEDICAID, SELFPAY ==
--- NOTE | 2023-12-20 11:46 | MHC.OFFVIS ---
Intake Vital Signs 12/20/23 11:50 Height 5 ft 10 in Weight 223 lb BMI 32.0 BP 143/74 H Blood Pressure Location Rt brachial Position Sitting Pulse 79 Intake Visit Reasons: ? lipomas on R&L flank Intake Note: Patient c/o lipomas on Mid chest. Became bothersome 1m ago but is stable now. Denies pain, oozing, itch. Patient was last seen on 04-26-23 for mass on Rt post neck. Reports mass healed well. Marketing Programs Manager Required: No Accompanied by: Self / Same As Patient Allergies No Known Allergies Allergy (Verified 12/20/23 11:48) HPI HPI Comments History of Present Illness Details Patient presents for evaluation of an upper abdominal/subxiphoid soft tissue mass. He has had this indeterminate time. His increasing in size, become more symptomatic. Patient had a sonogram which was nondiagnostic. Patient has had multiple prior cyst in lipomas excised in the past. Patient is known to me. [facility] Medical History Nocturnal hypoxemia Asthma exacerbation Bronchitis Excessive daytime sleepiness Bilateral hand pain Dyslipidemia Mild recurrent major depression DM2 (diabetes mellitus, type 2) REE (obstructive sleep apnea) Polyarthralgia Acute lumbar myofascial strain Lumbar degenerative disc disease Hypertriglyceridemia Type 2 diabetes mellitus with hyperglycemia Polysubstance abuse Hypogonadism Erectile dysfunction GERD (gastroesophageal reflux disease) Anxiety and depression Asthma Colitis Surgical History History of surgery History of elbow surgery Family History Father Hypertension Diabetes Cancer Cancer, hepatocellular Mother No problems noted. 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 Abdomen is otherwise benign. Assessment & Plan Assessment & Plan (1) Abdominal wall lump: Code(s): R22.2 - Localized swelling, mass and lump, trunk Plan Patient would like to have this excised but today is not a good day for him and would like to reschedule when it is more convenient. Arrangements were made for this. All questions answered. Coding Level of Care Code Est Pt Level 4 (29132) Diagnoses Abdominal wall lump R22.2
[2023-12-20 11:50] VITALS: BP 143/74; PULSE 79; BMI 32.0
== END 2023-12-20 12:09 | disposition home or self-care (01) ==
PROVIDERS: PCP Internal Medicine; Visit Provider Surgery
DX: R22.2 Localized swelling, mass and lump, trunk (principal)
CPT/HCPCS: 99214

== ENCOUNTER → 2023-12-20 11:43 | Outpatient (BNVA) | payer MEDICARE, MEDICAID, SELFPAY | PROVIDERS: PCP Internal Medicine; Visit Provider Surgery | DX: R22.2 Localized swelling, mass and lump, trunk (principal) | CPT/HCPCS: 99212 ==

== ENCOUNTER 2024-01-10 09:35 | Outpatient (AMB) | payer MEDICARE, MEDICAID, SELFPAY ==
[2024-01-10 09:45] VITALS: BP 130/72; PULSE 91; BMI 32.1
--- NOTE | 2024-01-10 09:45 | A.OFFVIS_ITS ---
Vital Signs 01/10/24 09:45 Height 5 ft 10 in Weight 224 lb BMI 32.1 BP 130/72 Blood Pressure Location Rt brachial Position Sitting Pulse 91 Intake Visit Reasons: exc abdominal wall mass Intake Note: Patient here for cyst exc on mid chest. Patient c/o: reports no changes or concerns. Tunnel Heading Inspector Required: No Accompanied by: Self / Same As Patient Allergies No Known Allergies Allergy (Verified 01/10/24 09:46) Medication List - Last Reconciled 01/10/24 by Ambrose Dillon MD albuterol sulfate 2.5 mg (3 mL) inhalation Q6H ammonium lactate 12% 1 appl topical BID atorvastatin 40 mg PO BEDTIME 90 days blood pressure test kit-large As directed blood sugar diagnostic (FreeStyle Lite Strips) three times a day blood-glucose meter (FreeStyle Elizabeth kit) As directed check the BS TID buprenorphine-naloxone 12-3 mg (Suboxone) 1 film buccal ONCE buspirone 15 mg PO TID cane As directed cholecalciferol (vitamin D3) 25 mcg PO DAILY 90 days cyclobenzaprine 10 mg PO TID PRN 30 days empagliflozin (Jardiance) 25 mg PO QAM fenofibrate nanocrystallized 145 mg PO DAILY fluticasone propion-salmeterol 500-50 mcg/dose (Advair Diskus) 1 inh inhalation BID 30 days glucose 16 grams (4 x 4 gram) PO Q15M 30 days hydroxyzine HCl 50 mg PO Q8H PRN ibuprofen 800 mg PO TID PRN insulin glargine (Basaglar KwikPen U-100 Insulin) 27 units (0.27 mL) subcut QPM 90 days lancets (FreeStyle Lancets) As directed check the BS TID meclizine 25 mg PO BID PRN 30 days metformin 1,000 mg (2 x 500 mg) PO BID 90 days metformin 1,000 mg PO BID montelukast 10 mg PO BEDTIME 90 days needle (disp) 18 G (BD Regular Bevel [place]) As directed to be used weekly for T injection needle (disp) 25 gauge (BD Regular Bevel [place]) As directed - for testosterone subcutaneous injection omeprazole 40 mg PO BID pen needle, diabetic (BD Ultra-Fine Short Pen Needle) 1 ea subcut DAILY 90 days quetiapine ER 300 mg PO BEDTIME syringe (disposable) (BD Luer-Enio Syringe) Testosterone injection weekly tadalafil 20 mg PO ONCE PRN 30 days tadalafil 5 mg PO DAILY 90 days testosterone cypionate (Depo-Testosterone) 80 mg (0.4 mL) subcut QWEEK 4 weeks trazodone 150 mg PO DAILY venlafaxine ER 150 mg PO DAILY venlafaxine ER 75 mg PO DAILY Ventolin HFA 90 mcg/actuation (albuterol sulfate) 2 puffs inhalation Q6H PRN 30 days NS zolpidem 10 mg PO BEDTIME PRN HPI Comments Details: Patient presents for excision of his upper abdominal wall lipoma. Risks, benefits, alternatives of the procedure reviewed the patient and included but not limited to bleeding, infection, recurrence, numbness, pain, scarring the patient was to proceed. All questions answered. Consent signed. [facility] Medical History Nocturnal hypoxemia Asthma exacerbation Bronchitis Excessive daytime sleepiness Bilateral hand pain Dyslipidemia Mild recurrent major depression DM2 (diabetes mellitus, type 2) REE (obstructive sleep apnea) Polyarthralgia Acute lumbar myofascial strain Lumbar degenerative disc disease Hypertriglyceridemia Type 2 diabetes mellitus with hyperglycemia Polysubstance abuse Hypogonadism Erectile dysfunction GERD (gastroesophageal reflux disease) Anxiety and depression Asthma Colitis Surgical History History of surgery History of elbow surgery Family History Father Hypertension Diabetes Cancer Cancer, hepatocellular Mother No problems noted. 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 This carried down through skin, subcutaneous tissue, with uneventful enucleation of the lipoma which was sent to pathology. Wound was irrigated, secured hemostasis, and closed using running 3-0 Vicryl suture followed by Steri-Strips and sterile dressings. Patient tolerated procedure well. 63236-kcpdo/arms/legs 3.1-4cm Procedure code (CPT) selection complete Office Meds lidocaine 1 %-epinephrine 1:100,000 injection solution Performing Provider: Ambrose Dillon MD Performing Location: [facility] Administered by: Ambrose Dillon MD on 01/10/24 10:29 Dose Route Admin Location Dispensed Lot Number Expiration Date NDC Ore Trimmer 15 mL Infiltration 15 mL Assessment & Plan Assessment & Plan (1) Lipoma: Code(s): D17.9 - Benign lipomatous neoplasm, unspecified Category: Surgical Plan: Patient has been given local instructions including avoiding strenuous activities, ice to wound periodically, may shower in 2 days, removed outside dressing only leave Steri-Strips alone. patient will see me as directed or p.r.n.. All questions answered Orders: Orders AMB Excision Today D17.9 - Benign lipomatous neoplasm, unspecified Medications: New lidocaine-epinephrine 1 %-1:100,000 15 mL Infiltration ONCE 30 mL 0RF D17.9 - Benign lipomatous neoplasm, unspecified Coding Level of Care Code Est Pt Level 5 (69906) Diagnoses Lipoma D17.9 CPT Codes Trunk/Arms/Legs - CPT: 59472-negxz/arms/legs 3.1-4cm ([id number])
== END 2024-01-10 10:17 | disposition home or self-care (01) ==
PROVIDERS: PCP Internal Medicine; Visit Provider Surgery
DX: D17.1 Benign lipomatous neoplasm of skin and subcutaneous tissue of trunk (principal)
CPT/HCPCS: 11404

== ENCOUNTER 2024-01-10 09:35 | Outpatient (REF) | payer MEDICARE, MEDICAID, SELFPAY | END 2024-01-10 09:36 | disposition home or self-care (01) | LOC: HO.LNP 09:35 | PROVIDERS: PCP Internal Medicine; Visit Provider Surgery | DX: D17.1 Benign lipomatous neoplasm of skin and subcutaneous tissue of trunk (principal) | CPT/HCPCS: 11404; 88304 ==

== ENCOUNTER 2024-01-17 09:38 | Outpatient (AMB) | payer MEDICARE, MEDICAID, SELFPAY ==
--- NOTE | 2024-01-17 09:44 | MHC.OFFVIS ---
Vital Signs 01/17/24 09:45 Height 5 ft 10 in Weight 224 lb BMI 32.1 BP 130/72 Blood Pressure Location Rt brachial Position Sitting Pulse 79 Intake Visit Reasons: Exc Mid upper abd Intake Note: Patient here s/p exc Mid upper abd. Reports incision healing well. Patient c/o: feels tight. Denies oozing, pain. EXC: 01-10-24. Carbon Electrodes Supervisor Required: Yes Carbon Electrodes Supervisor Name: Radha MOON Accompanied by: Self / Same As Patient Allergies No Known Allergies Allergy (Verified 01/17/24 09:46) HPI Comments Details: Patient presents for follow-up. He has no wound issues or complaints. Pathology is benign. [facility] Medical History Nocturnal hypoxemia Asthma exacerbation Bronchitis Excessive daytime sleepiness Bilateral hand pain Dyslipidemia Mild recurrent major depression DM2 (diabetes mellitus, type 2) REE (obstructive sleep apnea) Polyarthralgia Acute lumbar myofascial strain Lumbar degenerative disc disease Hypertriglyceridemia Type 2 diabetes mellitus with hyperglycemia Polysubstance abuse Hypogonadism Erectile dysfunction GERD (gastroesophageal reflux disease) Anxiety and depression Asthma Colitis Surgical History History of surgery History of elbow surgery Family History Father Hypertension Diabetes Cancer Cancer, hepatocellular Mother No problems noted. Son Ulcerative colitis Paternal Grandfather Cancer Social History Household Members: Spouse Housing: House Alcohol intake: unknown Patient Tobacco Use Status: Former Tobacco user Quit Date: 2006 Tobacco use type: Cigarette Cigarette Packs Per Day: 1 Cigarettes Per Day: 20 Years Smoked: 20 e-Cigarette/Vaping Use: Never Used Second Hand Smoke Exposure: No Substance Use Type: Former Substance User, Heroin and Marijuana service: No Current occupational status: disabled 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 Cognitive needs: Yes Hearing needs: No Vision needs: No Physical Exam Vital Signs: Last Vital Signs Pulse 79 01/17/24 09:45 BP 130/72 01/17/24 09:45 BMI result Body Mass Index 32.1 GI Other: Abdomen is soft. Wound clean dry and intact healing well Assessment & Plan Assessment & Plan (1) Lipoma: Code(s): D17.9 - Benign lipomatous neoplasm, unspecified Category: Surgical (2) Postop check: Code(s): Z09 - Encounter for follow-up examination after completed treatment for conditions other than malignant neoplasm Category: Surgical Plan Patient has been given local instructions including avoiding strenuous activities for next 3 weeks time and will otherwise follow-up p.r.n.. All questions answered. Coding Level of Care Code Global (86474) Diagnoses Lipoma D17.9 Postop check Z09
[2024-01-17 09:45] VITALS: BP 130/72; PULSE 79; BMI 32.1
== END 2024-01-17 10:03 | disposition home or self-care (01) ==
PROVIDERS: PCP Internal Medicine; Visit Provider Surgery
DX: D17.9 Benign lipomatous neoplasm, unspecified (principal); Z09 Encounter for follow-up examination after completed treatment for conditions other than malignant neoplasm
CPT/HCPCS: 99024

== ENCOUNTER → 2024-01-17 09:38 | Outpatient (BNVA) | payer MEDICARE, MEDICAID, SELFPAY | PROVIDERS: PCP Internal Medicine; Visit Provider Surgery | DX: Z09 Encounter for follow-up examination after completed treatment for conditions other than malignant neoplasm (principal) | CPT/HCPCS: 99212 ==

== ENCOUNTER 2024-02-09 15:19 | Outpatient (AMB) | payer MEDICARE, MEDICAID, SELFPAY ==
[2024-02-09 15:23] VITALS: BP 130/72; PULSE 86; O2SAT 96; BMI 31.6
--- NOTE | 2024-02-09 15:23 | MHC.OFFVIS ---
Vital Signs 02/09/24 15:23 Height 5 ft 10 in Weight 220 lb BMI 31.6 BP 130/72 Blood Pressure Location Lt brachial Position Sitting Pulse 86 Pulse Source Pulse Oximeter Pulse Oximetry (%) 96 Oxygen Delivery Method Room Air Intake Visit Reasons: Asma Intake Note: pt is here for follow up and states he has been on prednisone for the past few days, so he was wheezing. pt was suppose to have in lab study but there was mix up with date and study not done. 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 Medical Name: ami Allergies No Known Allergies Allergy (Verified 02/09/24 15:45) Medication List - Last Reconciled 02/09/24 by Gilberto Baldwin MD albuterol sulfate 2.5 mg (3 mL) inhalation Q6H ammonium lactate 12% 1 appl topical BID atorvastatin 40 mg PO BEDTIME 90 days blood pressure test kit-large As directed blood sugar diagnostic (FreeStyle Lite Strips) three times a day blood-glucose meter (FreeStyle [place] kit) As directed check the BS TID buprenorphine-naloxone 12-3 mg (Suboxone) 1 film buccal ONCE buspirone 15 mg PO TID cane As directed cholecalciferol (vitamin D3) 25 mcg PO DAILY 90 days cyclobenzaprine 10 mg PO TID PRN 30 days empagliflozin (Jardiance) 25 mg PO QAM fenofibrate nanocrystallized 145 mg PO DAILY fluticasone propion-salmeterol 500-50 mcg/dose (Advair Diskus) 1 inh inhalation BID 30 days glucose 16 grams (4 x 4 gram) PO Q15M 30 days hydroxyzine HCl 50 mg PO Q8H PRN ibuprofen 800 mg PO TID PRN insulin glargine (Basaglar KwikPen U-100 Insulin) 27 units (0.27 mL) subcut QPM 90 days lancets (FreeStyle Lancets) As directed check the BS TID meclizine 25 mg PO BID PRN 30 days metformin 1,000 mg (2 x 500 mg) PO BID 90 days metformin 1,000 mg PO BID montelukast 10 mg PO BEDTIME 90 days montelukast 10 mg PO BEDTIME needle (disp) 18 G (BD Regular Bevel [place]) As directed to be used weekly for T injection needle (disp) 25 gauge (BD Regular Bevel [place]) As directed - for testosterone subcutaneous injection omeprazole 40 mg PO BID pen needle, diabetic (BD Ultra-Fine Short Pen Needle) 1 ea subcut DAILY 90 days quetiapine ER 300 mg PO BEDTIME syringe (disposable) (BD Luer-Enio Syringe) Testosterone injection weekly tadalafil 5 mg PO DAILY 90 days tadalafil 20 mg PO ONCE PRN 30 days testosterone cypionate (Depo-Testosterone) 80 mg (0.4 mL) subcut QWEEK 4 weeks trazodone 150 mg PO DAILY venlafaxine ER 150 mg PO DAILY venlafaxine ER 75 mg PO DAILY Ventolin HFA 90 mcg/actuation (albuterol sulfate) 2 puffs inhalation Q6H PRN 30 days NS zolpidem 10 mg PO BEDTIME PRN Do you need a note to return to daycare/school/sports/work: No HPI HPI Asma: Details: 43 years old gentleman who is grossly obese, especially in the head and neck area, with Mallampati class 4, and is a known case of obstructive sleep apnea. However he has been noncompliant in the past. The last home-based sleep study was done in June which was positive for sleep apnea and nocturnal hypoxemia. The patient was supposed to have CPAP titration study in the sleep lab but he missed his appointment. He continues to have difficulty in sleeping, waking up frequently during the night, and then remains tired and sleepy during the daytime. He also has symptoms of bronchial asthma, and gets attacks of wheezing and sometimes choking especially at night. This may be partly due to his closure of the oropharynx. Anyway he continues to use Advair twice a day prednisone 5 mg a day .p.r.n. if his symptoms get worse Albuterol in the nebulizer q.6 hours p.r.n. And he is also on montelukast 10 mg daily He is still smoking 1 pack of cigarettes a day. [facility] Medical History Nocturnal hypoxemia Asthma exacerbation Bronchitis Excessive daytime sleepiness Bilateral hand pain Dyslipidemia Mild recurrent major depression DM2 (diabetes mellitus, type 2) REE (obstructive sleep apnea) Polyarthralgia Acute lumbar myofascial strain Lumbar degenerative disc disease Hypertriglyceridemia Type 2 diabetes mellitus with hyperglycemia Polysubstance abuse Hypogonadism Erectile dysfunction GERD (gastroesophageal reflux disease) Anxiety and depression Asthma Colitis Surgical History History of surgery History of elbow surgery Family History Father Hypertension Diabetes Cancer Cancer, hepatocellular Mother No problems noted. 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 Cognitive needs: Yes Hearing needs: No Vision needs: No Review of Systems Const All systems reviewed & are unremarkable except as noted in HPI and below Eyes Reports no additional complaints ENT Reports no additional complaints Card Denies chest pain, Denies irregular heart rhythm and Denies leg edema Resp Reports as per HPI GI Reports no additional complaints Reports no additional complaints Musc Reports no additional complaints Skin/Breast Reports system reviewed and no additional complaints, except as documented Neuro Reports no additional complaints Psych Reports no additional complaints Physical Exam Vital Signs: Last Vital Signs Pulse 86 02/09/24 15:23 BP 130/72 02/09/24 15:23 Pulse Ox 96 02/09/24 15:23 Oxygen Delivery Method Room Air 02/09/24 15:23 BMI result Body Mass Index 31.6 Const General: healthy appearing (Except being overweight), comfortable, no acute distress, alert and awake Orientation/consciousness: patient oriented x3 HEENT Head: Yes normal to inspection General nose exam: No nasal polyps present and No nasal discharge present Face and sinus: Yes sinuses nontender Mouth: oropharynx abnormals (Oropharynx is narrow crowded and Mallampati class 4) Throat: Yes posterior oropharynx normal Eyes General: appearance normal, both eyes and all related structures Neck Neck: Yes normal visual inspection, Yes no lymphadenopathy, Yes trachea midline, Yes no JVD and Yes other (Neck circumference 17 in) Thyroid: Thyroid normal Chest Chest palpation & inspection: normal inspection of the chest, normal palpation of entire chest wall and no tenderness Resp Effort & Inspection: normal respiratory effort Auscultation: crackles, wheezes (Has only a few scattered bilateral wheezes ) and other (BREATH SOUNDS ARE DIMINISHED OVER THE BASILAR AREAS) Cardio Palpation: normal PMI Rate: regular rate Rhythm: regular rhythm Heart sounds: no gallops and no murmurs Peripheral pulses: Peripheral pulses 2+ throughout GI Palpation (GI): Soft to palpation, nontender, No hepatosplenomegaly present and no masses Auscultation: normal bowel sounds Back/Spine/Pelvis Thoracic/Lumbar Spine: thoracic and lumbar spine normal to inspection Skin General skin exam: no rashes or lesions noted Neuro General: patient oriented x3 and no focal motor deficits Cranial nerves: Yes CN's II-XII intact bilaterally Extrem General: Yes normal to inspection, Yes no clubbing, cyanosis or edema and Yes no calf tenderness Psych Appearance: grossly normal and well kempt Speech and movement: Normal speech and movement present Results Reviewed Results Reviewed: Home sleep study. on 06/16/2023 Total sleep time AHI 18.2 snoring for 22% of the sleep time, and there was nocturnal hypoxemia with O2 sat below 88% for 21 minutes. Assessment & Plan Assessment & Plan (1) Asthma: Comment: HE DOES HAVE HISTORY OF BRONCHIAL ASTHMA, CURRENTLY DOING WELL WITH ADVAIR 500-50 1 INHALATION B.I.D. Code(s): J45.909 - Unspecified asthma, uncomplicated Category: Medical Qualifiers: Asthma complication type: uncomplicated Asthma persistence: persistent Asthma severity: moderate Qualified Code(s): J45.40 - Moderate persistent asthma, uncomplicated Plan: I EXPLAINED TO HIM THAT HIS PULMONARY FUNCTION TEST was NORMAL. WE NEED TO LOWER THE DOSE OF ADVAIR , AND HOPEFULLY COULD TAKE HIM OFF LONG HE HAS NO RECURRENCE OF HIS ASTHMA. USE VENTOLIN 2 PUFFS Q 6 HOURS ONLY P.R.N.. ALTERNATIVELY MAY USE ALBUTEROL SOLUTION IN THE NEBULIZER Q 6 HOURS P.R.N.. ALSO CONTINUE MONTELUKAST 10 MG DAILY. (2) REE (obstructive sleep apnea): Comment: Patient is a known case of obstructive sleep apnea but he has not been able to use the CPAP. He had actually returned his CPAP device in back in 2020 . A home-based sleep study was again ordered a few visits ago but he did not keep the appointment. FINALLY HOME-BASED SLEEP STUDY WAS DONE ON 06/16/2023 WHICH IS POSITIVE FOR OBSTRUCTIVE SLEEP APNEA, MODERATELY SEVERE, ALONG WITH NOCTURNAL HYPOXEMIA. Code(s): G47.33 - Obstructive sleep apnea (adult) (pediatric) Category: Medical Plan: EXPLAINED THE RESULTS TO HIM, AND ALSO EXPLAINED THAT HE WOULD NEED CPAP TITRATION IN THE SLEEP LAB, BEFORE HE CAN GET CPAP DEVICE. HE IS SOMEWHAT RELUCTANT BUT I TOLD HIM THERE IS JUST NO OTHER OPTIONS. Orders: Orders RT PSG in-lab sleep titration Today Coding Level of Care Code Est Pt Level 4 (25435) Diagnoses Moderate persistent asthma without complication J45.40 Asthma complication type: uncomplicated Asthma persistence: persistent Asthma severity: moderate REE (obstructive sleep apnea) G47.33
== END 2024-02-09 15:44 | disposition home or self-care (01) ==
PROVIDERS: PCP Internal Medicine; Visit Provider Internal Medicine
DX: J45.40 Moderate persistent asthma, uncomplicated (principal); G47.33 Obstructive sleep apnea (adult) (pediatric)
CPT/HCPCS: 99214

== ENCOUNTER → 2024-02-09 15:19 | Outpatient (BNVA) | payer MEDICARE, MEDICAID, SELFPAY | PROVIDERS: PCP Internal Medicine; Visit Provider Internal Medicine | DX: J45.40 Moderate persistent asthma, uncomplicated (principal); G47.33 Obstructive sleep apnea (adult) (pediatric) | CPT/HCPCS: 99212 ==

== ENCOUNTER → 2024-02-29 20:30 | Outpatient (REF) | payer MEDICARE, MEDICAID, SELFPAY | LOC: HO.SL 20:30 | PROVIDERS: Visit Provider Internal Medicine | DX: G47.33 Obstructive sleep apnea (adult) (pediatric) (principal); G47.34 Idiopathic sleep related nonobstructive alveolar hypoventilation | CPT/HCPCS: 95811 ==

== ENCOUNTER → 2024-02-29 23:09 | Outpatient (BNV) | payer MEDICARE, MEDICAID, SELFPAY | PROVIDERS: Visit Provider Internal Medicine | DX: G47.33 Obstructive sleep apnea (adult) (pediatric) (principal) | CPT/HCPCS: 95811 ==

== ENCOUNTER 2024-04-02 10:43 | Outpatient (AMB) | payer MEDICARE, MEDICAID, SELFPAY ==
--- NOTE | 2024-04-02 10:51 | MHC.PC.OV ---
Vital Signs 04/02/24 10:52 Height 5 ft 10 in Weight 220 lb BMI 31.6 BP 130/70 Blood Pressure Location Lt brachial Position Sitting Intake Visit Reasons: dm Intake Note: Patient here for a follow up DM Template Inspector Required: No Accompanied by: Self / Same As Patient Allergies No Known Allergies Allergy (Verified 04/02/24 10:58) Medication List - Last Reconciled 04/02/24 by Ayah Peña MD albuterol sulfate 2.5 mg (3 mL) inhalation Q6H ammonium lactate 12% 1 appl topical BID atorvastatin 40 mg PO BEDTIME 90 days blood pressure test kit-large As directed blood sugar diagnostic (FreeStyle Lite Strips) three times a day blood-glucose meter (FreeStyle [place] kit) As directed check the BS TID buprenorphine-naloxone 12-3 mg (Suboxone) 1 film buccal ONCE buspirone 15 mg PO TID cane As directed cholecalciferol (vitamin D3) 25 mcg PO DAILY 90 days cyclobenzaprine 10 mg PO TID PRN 30 days empagliflozin (Jardiance) 25 mg PO QAM fenofibrate nanocrystallized 145 mg PO DAILY fluticasone propion-salmeterol 500-50 mcg/dose (Advair Diskus) 1 inh inhalation BID 30 days glucose 16 grams (4 x 4 gram) PO Q15M 30 days hydroxyzine HCl 50 mg PO Q8H PRN ibuprofen 800 mg PO TID PRN insulin glargine (Basaglar KwikPen U-100 Insulin) 27 units (0.27 mL) subcut QPM 90 days lancets (FreeStyle Lancets) As directed check the BS TID meclizine 25 mg PO BID PRN 30 days metformin 1,000 mg PO BID montelukast 10 mg PO BEDTIME needle (disp) 18 G (BD Regular Bevel [place]) As directed to be used weekly for T injection needle (disp) 25 gauge (BD Regular Bevel [place]) As directed - for testosterone subcutaneous injection omeprazole 40 mg PO BID pen needle, diabetic (BD Ultra-Fine Short Pen Needle) 1 ea subcut DAILY 90 days quetiapine ER 300 mg PO BEDTIME syringe (disposable) (BD Luer-Enio Syringe) Testosterone injection weekly tadalafil 5 mg PO DAILY 90 days tadalafil 20 mg PO ONCE PRN 30 days testosterone cypionate (Depo-Testosterone) 80 mg (0.4 mL) subcut QWEEK 4 weeks trazodone 150 mg PO DAILY venlafaxine ER 150 mg PO DAILY venlafaxine ER 75 mg PO DAILY Ventolin HFA 90 mcg/actuation (albuterol sulfate) 2 puffs inhalation Q6H PRN 30 days NS zolpidem 10 mg PO BEDTIME PRN Tobacco use date assessed: 10/18/23 Dental Screening Dental Screen Date: 10/18/23 HPI HPI Comments History of Present Illness Details This is a 43-year-old male with diabetes mellitus type 2 on long-term current use of insulin, mixed hyperlipidemia, mild recurrent major depression, mixed hyperlipidemia and erectile dysfunction that comes today for follow-up on his conditions. Blood pressure stable. A1c within goal. Lipid panel will be order. Erectile dysfunction stable with tadalafil as needed. Depression somewhat stable with medications. No chest pain or shortness on breath. Walks with a cane for gait stability. [facility] Medical History Nocturnal hypoxemia Asthma exacerbation Bronchitis Excessive daytime sleepiness Bilateral hand pain Dyslipidemia Mild recurrent major depression DM2 (diabetes mellitus, type 2) REE (obstructive sleep apnea) Polyarthralgia Acute lumbar myofascial strain Lumbar degenerative disc disease Hypertriglyceridemia Type 2 diabetes mellitus with hyperglycemia Polysubstance abuse Hypogonadism Erectile dysfunction GERD (gastroesophageal reflux disease) Anxiety and depression Asthma Colitis Surgical History History of surgery History of elbow surgery Family History Father Hypertension Diabetes Cancer Cancer, hepatocellular Mother No problems noted. 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 Surjit Espino, Lucina Escoto, Elvin Hussein and colleagues, with an educational porsche from [employer]. Review of Systems Const All systems reviewed & are unremarkable except as noted in HPI and below Card Denies chest pain at rest, Denies chest pain with activity, Denies edema, Denies irregular heart rhythm, Denies claudication, Denies dyspnea, Denies dyspnea on exertion, Denies orthopnea, Denies paroxysmal nocturnal dyspnea and Denies slow heart rate Resp Denies cough, Denies dyspnea and Denies dyspnea on exertion Reports erectile dysfunction Musc Reports back pain and Reports arthralgias Physical exam (Primary Care) Vital Signs: Last Vital Signs BP 130/70 04/02/24 10:52 BMI result Body Mass Index 31.6 BMI Assessment/Plan discussion: High BMI High, discussed plan: lifestyle, weight reduction, dietary and physical activity Tobacco/Smoking Status: Tobacco use Status Tobacco use date assessed 10/18/23 04/02/24 10:55 Patient Tobacco Use Status Former Tobacco user 04/02/24 10:55 Tobacco use type Cigarette 04/02/24 10:55 e-Cigarette/Vaping Use Never Used 04/02/24 10:55 Thrive Assessment: Date of Thrive Assessment Date Thrive assessed 10/18/23 04/02/24 10:55 Const Limitations: ambulation with cane Resp Effort & Inspection: normal respiratory effort Auscultation: clear to auscultation bilaterally Cardio Jugular venous distension: no JVD Rate: regular rate Rhythm: regular rhythm Heart sounds: S1 normal heart sound present and S2 normal heart sound present Extrem General: Yes full ROM Results AMB Hemoglobin A1c AMB Hemoglobin A1c 6.3 % Last Edit by RED Forman on 04/02/24 10:58 Results Reviewed Results Reviewed: Laboratory Last Values Hgb A1c (Clinic) 6.3 % (4.0-6.0) H 04/02/24 10:48 Assessment and Plan Assessment & Plan (1) Mixed hyperlipidemia: Code(s): E78.2 - Mixed hyperlipidemia Plan: Continue statins and fibrates. LDL goal is less than 70. (2) Mild recurrent major depression: Code(s): F33.0 - Major depressive disorder, recurrent, mild Plan: Continue citalopram. Follow-up with psychiatry. (3) DM2 (diabetes mellitus, type 2): Code(s): E11.9 - Type 2 diabetes mellitus without complications Qualifiers: Diabetes mellitus technician terminal and repeater insulin use: unspecified technician terminal and repeater insulin use status Diabetes mellitus complication status: without complication Qualified Code(s): E11.9 - Type 2 diabetes mellitus without complications Plan: Continue insulin. A1c goal is equal or less than 7%. (4) Erectile dysfunction associated with type 2 diabetes mellitus: Code(s): E11.69 - Type 2 diabetes mellitus with other specified complication; N52.1 - Erectile dysfunction due to diseases classified elsewhere Plan: Continue tadalafil as needed. Orders: Orders Lipid Panel Today E78.5 - Hyperlipidemia, unspecified Comprehensive [place]. Panel Fast Today E11.9 - Type 2 diabetes mellitus without complications AMB Hemoglobin A1c Today E11.9 - Type 2 diabetes mellitus without complications Microalbumin, Random (w Creat) Today E11.9 - Type 2 diabetes mellitus without complications Coding Level of Care Code Est Pt Level 4 (02107) Complex EM visit Add On G2211 Diagnoses Mixed hyperlipidemia E78.2 Mild recurrent major depression F33.0 Type 2 diabetes mellitus without complication, unspecified whether technician terminal and repeater insulin use E11.9 Diabetes mellitus technician terminal and repeater insulin use: unspecified custodial insulin use status Diabetes mellitus complication status: without complication Erectile dysfunction associated with type 2 diabetes mellitus E11.69; N52.1 Time Spent (min) 23
[2024-04-02 10:52] VITALS: BP 130/70; BMI 31.6
== END 2024-04-02 11:06 | disposition home or self-care (01) ==
PROVIDERS: PCP Internal Medicine; Visit Provider Internal Medicine
DX: E11.9 Type 2 diabetes mellitus without complications (principal); E78.2 Mixed hyperlipidemia; F33.0 Major depressive disorder, recurrent, mild; N52.1 Erectile dysfunction due to diseases classified elsewhere
CPT/HCPCS: 83036; 99214; G2211

== ENCOUNTER 2024-04-03 11:36 | Outpatient (AMB) | payer MEDICARE, MEDICAID, SELFPAY ==
[2024-04-03 11:37] VITALS: BMI 31.6
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
== END 2024-04-03 12:56 | disposition home or self-care (01) ==
PROVIDERS: PCP Internal Medicine; Visit Provider Orthopaedic Surgery
DX: M19.042 Primary osteoarthritis, left hand (principal); R76.8 Other specified abnormal immunological findings in serum; E11.9 Type 2 diabetes mellitus without complications; M25.50 Pain in unspecified joint
CPT/HCPCS: 20600; 77002; 99213

== ENCOUNTER 2024-04-03 11:36 | Outpatient (REF) | payer MEDICARE, MEDICAID, SELFPAY ==
--- NOTE | ~2024-04-03 | FL_ITS ---
EXAMINATION: XR FLUOROSCOPY WITH IMAGES CLINICAL INFORMATION: Primary osteoarthritis with left hand third digit PIP injection COMPARISON: Plain films left hand 05/18/2023. TECHNIQUE: Fluoroscopy Supervised By: Dr. Mirza. Fluoroscopy Time: 10.65 Seconds DAP: 4173.6 Gycm2. Images: 1. FINDINGS: Solitary image demonstrates needle placement within the PIP joint of the third digit. FL/FL guided needle placement IMPRESSION: Fluoroscopic guidance. Please refer to the full operative report for details. Electronically signed by: Hugo Ley MD 05/31/2024 08:53 AM EDT
== END 2024-04-03 11:37 | disposition home or self-care (01) ==
LOC: HO.HOSX 11:36
PROVIDERS: PCP Internal Medicine; Visit Provider Orthopaedic Surgery
DX: M19.042 Primary osteoarthritis, left hand (principal); R76.8 Other specified abnormal immunological findings in serum; M25.50 Pain in unspecified joint
CPT/HCPCS: 20600; 77002; 99212; J1010

== ENCOUNTER → 2024-04-03 11:43 | Outpatient (BNV) | payer MEDICARE, MEDICAID, SELFPAY | PROVIDERS: PCP Internal Medicine; Visit Provider Radiology Diagnostic Radiology | DX: M19.042 Primary osteoarthritis, left hand (principal) | CPT/HCPCS: 77002 ==

== ENCOUNTER 2024-04-25 09:48 | Outpatient (REF) | payer MEDICARE, MEDICAID, SELFPAY ==
[2024-04-25 11:19] LABS: Hematocrit 44.4 % (42.0-52.0); Hemoglobin 15.2 g/dl (14.0-18.0); Mean Corpuscular HGB Conc 34.2 g/dl (31.0-36.0); Mean Corpuscular Volume 84.6 fL (80.0-98.0); Mean Platelet Volume 9.2 fL (9.4-12.4); Platelet Count 184 X10*3/uL (160-400); Red Blood Count 5.25 X10*6/uL (4.60-5.80); Red Cell Distribution Width 13.6 % (11.0-16.0)
[2024-04-25 12:38] LABS: Alanine Aminotransferase 32 U/L (0-40); Albumin Level 4.6 g/dL (3.5-5.0); Alkaline Phosphatase 63 U/L (39-117); Anion Gap 10 (12-20); Aspartate Amino Transferase 21 U/L (5-37); Bilirubin Total 0.6 mg/dL (0.0-1.0); Blood Urea Nitrogen 15 mg/dL (9-16); Carbon Dioxide 29 mmol/L (22-29); Chloride 104 mmol/L (96-108); Cholesterol 209 mg/dL (<200); Estimated Glomerular Filt Rate > 60; Glucose Fasting 121 mg/dL (60-99); HDL Cholesterol 46 mg/dL (>40); LDL Cholesterol Calculated 122 mg/dL (<100); Sodium 139 mmol/L (135-145); Total Protein 7.7 g/dL (6.5-8.0); Triglycerides 205 mg/dL (<150)
[2024-04-25 12:41] LABS: Prostate Specific Antigen 0.17 ng/mL (<0.05-4.0)
[2024-04-25 12:48] LABS: Microalbum/Creatinine Ratio Ur 61.7 ug/mg cr (<30)
[2024-04-30 13:14] LABS: Testosterone, Total 103 ng/dL (250-1100)
== END 2024-04-25 09:49 | disposition home or self-care (01) ==
LOC: HO.LAB 09:48
PROVIDERS: PCP Internal Medicine; Referring Provider Internal Medicine; Visit Provider Urology
DX: E11.9 Type 2 diabetes mellitus without complications (principal); E78.5 Hyperlipidemia, unspecified; E11.69 Type 2 diabetes mellitus with other specified complication; N52.1 Erectile dysfunction due to diseases classified elsewhere; Z12.5 Encounter for screening for malignant neoplasm of prostate; J45.40 Moderate persistent asthma, uncomplicated; J30.9 Allergic rhinitis, unspecified; G47.33 Obstructive sleep apnea (adult) (pediatric)
CPT/HCPCS: 36415; 80053; 80061; 82043; 82570; 84153; 84403; 85027; 99212

== ENCOUNTER 2024-04-25 10:21 | Outpatient (AMB) | payer MEDICARE, MEDICAID, SELFPAY ==
[2024-04-25 10:27] VITALS: BP 108/70; PULSE 64; O2SAT 95; BMI 31.6
--- NOTE | 2024-04-25 10:27 | MHC.OFFVIS ---
Vital Signs 04/25/24 10:27 Height 5 ft 10 in Weight 220 lb 7.396 oz BMI 31.6 BP 108/70 Blood Pressure Location Lt brachial Position Sitting Pulse 64 Pulse Source Pulse Oximeter Pulse Oximetry (%) 95 Oxygen Delivery Method Room Air Intake Visit Reasons: Asthma Intake Note: pt is here for follow up of sleep study, he states he is feeling sheila short of breath the past few days, pt needs refill on generic advair and nebulizer medication. Enterprise Project Manager Required: Yes Enterprise Project Manager Services: Enterprise Project Manager Present Enterprise Project Manager Name: Francoise Allergies No Known Allergies Allergy (Verified 04/25/24 10:41) Medication List - Last Reconciled 04/25/24 by Gilberto Baldwin MD albuterol sulfate 2.5 mg (3 mL) inhalation Q6H ammonium lactate 12% 1 appl topical BID atorvastatin 40 mg PO BEDTIME 90 days blood pressure test kit-large As directed blood sugar diagnostic (FreeStyle Lite Strips) three times a day blood-glucose meter (FreeStyle [place] kit) As directed check the BS TID buprenorphine-naloxone 12-3 mg (Suboxone) 1 film buccal ONCE buspirone 15 mg PO TID cane As directed cholecalciferol (vitamin D3) 25 mcg PO DAILY 90 days cyclobenzaprine 10 mg PO TID PRN 30 days empagliflozin (Jardiance) 25 mg PO QAM fenofibrate nanocrystallized 145 mg PO DAILY fluticasone propion-salmeterol 500-50 mcg/dose (Advair Diskus) 1 inh inhalation BID 30 days glucose 16 grams (4 x 4 gram) PO Q15M 30 days hydroxyzine HCl 50 mg PO Q8H PRN ibuprofen 800 mg PO TID PRN insulin glargine (Basaglar KwikPen U-100 Insulin) 27 units (0.27 mL) subcut QPM 90 days lancets (FreeStyle Lancets) As directed check the BS TID lisinopril 5 mg PO DAILY 90 days meclizine 25 mg PO BID PRN 30 days metformin 1,000 mg PO BID montelukast 10 mg PO BEDTIME needle (disp) 18 G (BD Regular Bevel [place]) As directed to be used weekly for T injection needle (disp) 25 gauge (BD Regular Bevel [place]) As directed - for testosterone subcutaneous injection omeprazole 40 mg PO BID pen needle, diabetic (BD Ultra-Fine Short Pen Needle) 1 ea subcut DAILY 90 days quetiapine ER 300 mg PO BEDTIME syringe (disposable) (BD Luer-Enio Syringe) Testosterone injection weekly tadalafil 5 mg PO DAILY 90 days tadalafil 20 mg PO ONCE PRN 30 days testosterone cypionate (Depo-Testosterone) 80 mg (0.4 mL) subcut QWEEK 4 weeks trazodone 150 mg PO DAILY venlafaxine ER 150 mg PO DAILY venlafaxine ER 75 mg PO DAILY Ventolin HFA 90 mcg/actuation (albuterol sulfate) 2 puffs inhalation Q6H PRN 30 days NS zolpidem 10 mg PO BEDTIME PRN Do you need a note to return to daycare/school/sports/work: No HPI HPI Asthma: Details: 43 years old gentleman, Kittitian-speaking , moderately obese , with a round face and short neck Is post CPAP titration, he say is that with the nasal pillows he felt very good and had the best sleep. He seems to be well motivated to get CPAP d.evice and use it . For his allergic rhinitis and bronchial asthma he does okay as long as he uses his medications. Currently he is out of Advair and is having intermittent wheezing attacks. He has no infection, claims that he does not smoke anymore. COUNT INCLUDES THE [facility] Medical History (Updated 04/25/24 @ 10:51 by Gilberto Baldwin MD) Allergic rhinitis Nocturnal hypoxemia Asthma exacerbation Bronchitis Excessive daytime sleepiness Bilateral hand pain Dyslipidemia Mild recurrent major depression DM2 (diabetes mellitus, type 2) REE (obstructive sleep apnea) Polyarthralgia Acute lumbar myofascial strain Lumbar degenerative disc disease Hypertriglyceridemia Type 2 diabetes mellitus with hyperglycemia Polysubstance abuse Hypogonadism Erectile dysfunction GERD (gastroesophageal reflux disease) Anxiety and depression Asthma Colitis Surgical History History of surgery History of elbow surgery Family History Father Hypertension Diabetes Cancer Cancer, hepatocellular Mother No problems noted. 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 Cognitive needs: Yes Hearing needs: No Vision needs: No Review of Systems Const All systems reviewed & are unremarkable except as noted in HPI and below Eyes Reports no additional complaints ENT Reports no additional complaints Card Denies chest pain, Denies irregular heart rhythm and Denies leg edema Resp Reports as per HPI GI Reports no additional complaints Reports no additional complaints Musc Reports no additional complaints Skin/Breast Reports system reviewed and no additional complaints, except as documented Neuro Reports no additional complaints Psych Reports no additional complaints Physical Exam Vital Signs: Last Vital Signs Pulse 64 04/25/24 10:27 BP 108/70 04/25/24 10:27 Pulse Ox 95 04/25/24 10:27 Oxygen Delivery Method Room Air 04/25/24 10:27 BMI result Body Mass Index 31.6 Const General: healthy appearing (Except being overweight), comfortable, no acute distress, alert and awake Orientation/consciousness: patient oriented x3 HEENT Head: Yes normal to inspection General nose exam: No nasal polyps present, No nasal discharge present and Other nasal findings present ( has mild bilateral nasal congestion) Face and sinus: Yes sinuses nontender Mouth: oropharynx abnormals (Oropharynx is narrow crowded and Mallampati class 4) Throat: Yes posterior oropharynx normal Eyes General: appearance normal, both eyes and all related structures Neck Neck: Yes normal visual inspection, Yes no lymphadenopathy, Yes trachea midline, Yes no JVD and Yes other (Neck circumference 17 in) Thyroid: Thyroid normal Chest Chest palpation & inspection: normal inspection of the chest, normal palpation of entire chest wall and no tenderness Resp Effort & Inspection: normal respiratory effort Auscultation: crackles, wheezes (Has only a few scattered bilateral wheezes ) and other (BREATH SOUNDS ARE DIMINISHED OVER THE BASILAR AREAS) Cardio Palpation: normal PMI Rate: regular rate Rhythm: regular rhythm Heart sounds: no gallops and no murmurs Peripheral pulses: Peripheral pulses 2+ throughout GI Palpation (GI): Soft to palpation, nontender, No hepatosplenomegaly present and no masses Auscultation: normal bowel sounds Back/Spine/Pelvis Thoracic/Lumbar Spine: thoracic and lumbar spine normal to inspection Skin General skin exam: no rashes or lesions noted Neuro General: patient oriented x3 and no focal motor deficits Cranial nerves: Yes CN's II-XII intact bilaterally Extrem General: Yes normal to inspection, Yes no clubbing, cyanosis or edema and Yes no calf tenderness Psych Appearance: grossly normal and well kempt Speech and movement: Normal speech and movement present Results Reviewed Results Reviewed: CPAP titration study on 02/29/2024, titrated up to 9 cm using nasal pillows and he tolerated well. Assessment & Plan Assessment & Plan (1) Asthma: Comment: HE DOES HAVE HISTORY OF BRONCHIAL ASTHMA, CURRENTLY DOING WELL WITH ADVAIR 500-50 1 INHALATION B.I.D. Code(s): J45.909 - Unspecified asthma, uncomplicated Category: Medical Qualifiers: Asthma severity: moderate Asthma persistence: persistent Asthma complication type: uncomplicated Qualified Code(s): J45.40 - Moderate persistent asthma, uncomplicated Plan: Continue to use fluticasone- salmeterol 500-50 1 inhalation b.i..d. Albuterol inhalation solution in the nebulizer Q 4-6 hours p.r.n. (2) Allergic rhinitis: Comment: he has low-grade chronic nasal congestion, controlled with use of montelukast. Code(s): J30.9 - Allergic rhinitis, unspecified Category: Medical Plan: continue montelukast 10 mg , 1 tablet daily. (3) REE (obstructive sleep apnea): Comment: Patient is a known case of obstructive sleep apnea but he has not been able to use the CPAP. He had actually returned his CPAP device in back in 2020 . A HOME-BASED SLEEP STUDY WAS DONE ON 06/16/2023 WHICH WAS POSITIVE FOR OBSTRUCTIVE SLEEP APNEA, MODERATELY SEVERE, ALONG WITH NOCTURNAL HYPOXEMIA. NOW HE HAS UNDERGONE CPAP TITRATION STUDY IN THE SLEEP LAB, AND DID WELL WITH PRESSURE OF 9 CM, USING NASAL PILLOWS. Code(s): G47.33 - Obstructive sleep apnea (adult) (pediatric) Category: Medical Plan: CPAP DEVICE IS BEING. ORDERED NASAL PILLOWS WITH PRESSURE SETTING OF 9 CM . DOES NOT NEED O2. SHOULD USE HEATED HUMIDIFICATION PATIENT GIVEN FULL INSTRUCTIONS AND URGED TO USE THE CPAP EVERY NIGHT. Coding Level of Care Code Est Pt Level 4 (18078) Diagnoses Moderate persistent asthma without complication J45.40 Asthma severity: moderate Asthma persistence: persistent Asthma complication type: uncomplicated Allergic rhinitis J30.9 REE (obstructive sleep apnea) G47.33
== END 2024-04-25 10:42 | disposition home or self-care (01) ==
PROVIDERS: PCP Internal Medicine; Visit Provider Internal Medicine
DX: J45.40 Moderate persistent asthma, uncomplicated (principal); J30.9 Allergic rhinitis, unspecified; G47.33 Obstructive sleep apnea (adult) (pediatric)
CPT/HCPCS: 99214

== ENCOUNTER 2024-06-06 10:09 | Outpatient (AMB) | payer MEDICARE, MEDICAID, SELFPAY ==
--- NOTE | 2024-06-06 10:14 | A.OFFVIS_ITS ---
Vital Signs 06/06/24 10:15 Height 5 ft 10 in Weight 225 lb 15.581 oz BMI 32.4 BP 110/80 Blood Pressure Location Lt brachial Position Sitting Pulse 60 Pulse Source Pulse Oximeter Pulse Oximetry (%) 96 Oxygen Delivery Method Room Air Intake Visit Reasons: Asthma Intake Note: pt is here for follow up and states he is feeling good, trying to use cpap but cannot get to every night greater than 4 hours. Inclusion Internship Required: Yes Inclusion Internship Services: Inclusion Internship Present Inclusion Internship Name: [facility] Allergies No Known Allergies Allergy (Verified 06/06/24 10:19) Medication List - Last Reconciled 06/06/24 by Gilberto Baldwin MD albuterol sulfate 2.5 mg (3 mL) inhalation Q6H 30 days ammonium lactate 12% 1 appl topical BID atorvastatin 40 mg PO BEDTIME 90 days blood pressure test kit-large As directed blood sugar diagnostic (FreeStyle Lite Strips) three times a day blood-glucose meter (FreeStyle Garden kit) As directed check the BS TID buprenorphine-naloxone 12-3 mg (Suboxone) 1 film buccal ONCE buspirone 15 mg PO TID cane As directed cholecalciferol (vitamin D3) 25 mcg PO DAILY 90 days cyclobenzaprine 10 mg PO TID PRN 30 days empagliflozin (Jardiance) 25 mg PO QAM fenofibrate nanocrystallized 145 mg PO DAILY fluticasone propion-salmeterol 500-50 mcg/dose (Advair Diskus) 1 inh inhalation BID 30 days glucose 16 grams (4 x 4 gram) PO Q15M 30 days hydroxyzine HCl 50 mg PO Q8H PRN ibuprofen 800 mg PO TID PRN insulin glargine (Basaglar KwikPen U-100 Insulin) 27 units (0.27 mL) subcut QPM 90 days lancets (FreeStyle Lancets) As directed check the BS TID lisinopril 5 mg PO DAILY 90 days meclizine 25 mg PO BID PRN 30 days metformin 1,000 mg PO BID montelukast 10 mg PO BEDTIME needle (disp) 18 G (BD Regular Bevel [place]) As directed to be used weekly for T injection needle (disp) 25 gauge (BD Regular Bevel [place]) As directed - for testosterone subcutaneous injection omeprazole 40 mg PO BID pen needle, diabetic (BD Ultra-Fine Short Pen Needle) 1 ea subcut DAILY 90 days quetiapine ER 300 mg PO BEDTIME syringe (disposable) (BD Luer-Enio Syringe) Testosterone injection weekly tadalafil 5 mg PO DAILY 90 days tadalafil 20 mg PO ONCE PRN 30 days testosterone cypionate (Depo-Testosterone) 80 mg (0.4 mL) subcut QWEEK 4 weeks trazodone 150 mg PO DAILY venlafaxine ER 150 mg PO DAILY venlafaxine ER 75 mg PO DAILY Ventolin HFA 90 mcg/actuation (albuterol sulfate) 2 puffs inhalation Q6H PRN 30 days NS zolpidem 10 mg PO BEDTIME PRN Do you need a note to return to daycare/school/sports/work: No HPI HPI Asthma: Details: 44 years old gentleman with diagnosis of gross obesity, REE, bronchial asthma, is here for follow-up after 2 months. He received his CPAP device only about 3 weeks ago and has been using it almost every night, but his usage is only about 2-3 hours per night. He has the nasal mask with pressure of 9 cm. He feels somewhat better during the daytime, but his compliance is still suboptimal. Breathing has been better and controlled with the current regimen of Advair 500- 50 b.i.d. and he uses albuterol about once a day in the morning. [facility] Medical History Allergic rhinitis Nocturnal hypoxemia Asthma exacerbation Bronchitis Excessive daytime sleepiness Bilateral hand pain Dyslipidemia Mild recurrent major depression DM2 (diabetes mellitus, type 2) REE (obstructive sleep apnea) Polyarthralgia Acute lumbar myofascial strain Lumbar degenerative disc disease Hypertriglyceridemia Type 2 diabetes mellitus with hyperglycemia Polysubstance abuse Hypogonadism Erectile dysfunction GERD (gastroesophageal reflux disease) Anxiety and depression Asthma Colitis Surgical History History of surgery History of elbow surgery Family History Father Hypertension Diabetes Cancer Cancer, hepatocellular Mother No problems noted. 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 Cognitive needs: Yes Hearing needs: No Vision needs: No Review of Systems Const All systems reviewed & are unremarkable except as noted in HPI and below Eyes Reports no additional complaints ENT Reports no additional complaints Card Denies chest pain, Denies irregular heart rhythm and Denies leg edema Resp Reports as per HPI GI Reports no additional complaints Reports no additional complaints Musc Reports no additional complaints Skin/Breast Reports system reviewed and no additional complaints, except as documented Neuro Reports no additional complaints Psych Reports no additional complaints Physical Exam Vital Signs: Last Vital Signs Pulse 60 06/06/24 10:15 BP 110/80 06/06/24 10:15 Pulse Ox 96 06/06/24 10:15 Oxygen Delivery Method Room Air 06/06/24 10:15 BMI result Body Mass Index 32.4 Const General: healthy appearing (Except being overweight), comfortable, no acute distress, alert and awake Orientation/consciousness: patient oriented x3 HEENT Head: Yes normal to inspection General nose exam: No nasal polyps present, No nasal discharge present and Other nasal findings present ( has mild bilateral nasal congestion) Face and sinus: Yes sinuses nontender Mouth: oropharynx abnormals (Oropharynx is narrow crowded and Mallampati class 4) Throat: Yes posterior oropharynx normal Eyes General: appearance normal, both eyes and all related structures Neck Neck: Yes normal visual inspection, Yes no lymphadenopathy, Yes trachea midline, Yes no JVD and Yes other (Neck circumference 17 in) Thyroid: Thyroid normal Chest Chest palpation & inspection: normal inspection of the chest, normal palpation of entire chest wall and no tenderness Resp Effort & Inspection: normal respiratory effort Auscultation: crackles, wheezes (Has only a few scattered bilateral wheezes ) and other (BREATH SOUNDS ARE DIMINISHED OVER THE BASILAR AREAS) Cardio Palpation: normal PMI Rate: regular rate Rhythm: regular rhythm Heart sounds: no gallops and no murmurs Peripheral pulses: Peripheral pulses 2+ throughout GI Palpation (GI): Soft to palpation, nontender, No hepatosplenomegaly present and no masses Auscultation: normal bowel sounds Back/Spine/Pelvis Thoracic/Lumbar Spine: thoracic and lumbar spine normal to inspection Skin General skin exam: no rashes or lesions noted Neuro General: patient oriented x3 and no focal motor deficits Cranial nerves: Yes CN's II-XII intact bilaterally Extrem General: Yes normal to inspection, Yes no clubbing, cyanosis or edema and Yes no calf tenderness Psych Appearance: grossly normal and well kempt Speech and movement: Normal speech and movement present Results Reviewed Results Reviewed: Compliance report is reviewed . He used 17/30 nights but actually it will be 17 out of 18 nights. Average use it per hour 3 hours 40 minutes which is suboptimal. He has moderate amount of air leak. Residual AHI 7.6. Assessment & Plan Assessment & Plan (1) Obese: Comment: Obesity due to excess calories. BMI 33.7, goal is <30 I did alert him to being overweight and he should try to lose weight, , at least by 15-20 lb. He has poor understanding and I do not think he is going to lose much weight. Code(s): E66.9 - Obesity, unspecified Category: Medical Qualifiers: Obesity classification: adult class 2 (BMI 35 - 39.9) Serious obesity comorbidity presence: with serious comorbidity Body mass index: BMI 35.0-35.9 Plan: Patient has been educated and is re-educated about his obesity and need to lose weight. He has poor understanding and also he is relatively inactive, would be difficult for him to lose weight at this time. (2) REE (obstructive sleep apnea): Comment: Patient is a known case of obstructive sleep apnea but he has not been able to use the CPAP. He had actually returned his CPAP device in back in 2020 . A HOME-BASED SLEEP STUDY WAS DONE ON 06/16/2023 WHICH WAS POSITIVE FOR OBSTRUCTIVE SLEEP APNEA, MODERATELY SEVERE, ALONG WITH NOCTURNAL HYPOXEMIA. HE DID RECEIVE HIS CPAP DEVICE AND IS USING IT ALMOST EVERY NIGHT, BUT THE AVERAGE USAGE IS SUBOPTIMAL. HE IS ON A LEARNING CURVE, AND NEEDS LOT OF EDUCATION AND PERSPIRATION. Code(s): G47.33 - Obstructive sleep apnea (adult) (pediatric) Category: Medical Plan: I DISCUSSED WITH HIM ABOUT THE COMPLIANCE AND EXPECTATIONS FROM USAGE OF CPAP. ADVISE THAT HE SHOULD USE AT LEAST FOR 5-6 HOURS EVERY NIGHT. (3) Allergic rhinitis: Comment: he has low-grade chronic nasal congestion, controlled with use of montelukast. Code(s): J30.9 - Allergic rhinitis, unspecified Category: Medical Plan: CONTINUE MONTELUKAST 10 MG DAILY (4) Asthma: Comment: HE DOES HAVE HISTORY OF BRONCHIAL ASTHMA, CURRENTLY DOING WELL WITH ADVAIR 500-50 1 INHALATION B.I.D. Respiratory status is stable and his lungs are very clear. Code(s): J45.909 - Unspecified asthma, uncomplicated Category: Medical Qualifiers: Asthma severity: moderate Asthma persistence: persistent Asthma complication type: uncomplicated Qualified Code(s): J45.40 - Moderate persistent asthma, uncomplicated Plan: Continue Advair but does decrease to 250-51 inhalation b.i.d.. Also continue montelukast to 10 mg daily which helps to control his asthma. Albuterol HFA 2 puffs Q 4-6 hours but I to take it only as needed. Medications: New fluticasone propion-salmeterol 250-50 mcg/dose (Advair Diskus) 1 inh inhalation BID 30 days 60 ea 5RF asthma Coding Level of Care Code Est Pt Level 4 (59974) Diagnoses Obese E66.9 Obesity classification: adult class 2 (BMI 35 - 39.9) Serious obesity comorbidity presence: with serious comorbidity Body mass index: BMI 35.0-35.9 REE (obstructive sleep apnea) G47.33 Allergic rhinitis J30.9 Moderate persistent asthma without complication J45.40 Asthma severity: moderate Asthma persistence: persistent Asthma complication type: uncomplicated
[2024-06-06 10:15] VITALS: BP 110/80; PULSE 60; O2SAT 96; BMI 32.4
== END 2024-06-06 10:29 | disposition home or self-care (01) ==
PROVIDERS: PCP Internal Medicine; Visit Provider Internal Medicine
DX: E66.9 Obesity, unspecified (principal); G47.33 Obstructive sleep apnea (adult) (pediatric); J30.9 Allergic rhinitis, unspecified; J45.40 Moderate persistent asthma, uncomplicated
CPT/HCPCS: 99214

== ENCOUNTER → 2024-06-06 10:09 | Outpatient (BNVA) | payer MEDICARE, MEDICAID, SELFPAY | PROVIDERS: PCP Internal Medicine; Visit Provider Internal Medicine | DX: J45.40 Moderate persistent asthma, uncomplicated (principal); J30.9 Allergic rhinitis, unspecified; G47.33 Obstructive sleep apnea (adult) (pediatric); E66.9 Obesity, unspecified; Z68.32 Body mass index [BMI] 32.0-32.9, adult | CPT/HCPCS: 99212 ==

== ENCOUNTER 2024-06-15 13:26 | Outpatient (AMB) | payer MEDICARE, MEDICAID, SELFPAY ==
--- NOTE | 2024-06-15 13:35 | MHC.OFFVIS ---
Intake Visit Reasons: PSA/Testo(set) Intake Note: Patient is Present for Follow Up labs Urology Medication:Testosterone Antibiotic Allergies: None Blood Thinners: None Recent Labs: 04/25/24 PSA: 0.17 Testosterone: 103 Glass Calibrator Required: Yes Glass Calibrator Language: Cemetery Warden Services: Glass Calibrator Present Accompanied by: Self / Same As Patient Allergies No Known Allergies Allergy (Verified 06/06/24 10:19) HPI Comments Details: Roland is a pleasant [place]ian-speaking male. He is a patient of Dr. Peña. 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 Initiated therapy with testosterone replacement Had been using testosterone 80 mg subcutaneous weekly Lab work Wed Labs - 09/28 T 844 0.3 48, 04/28 T 103 Erectile dysfunction in setting of diabetes Progressive Concurrent diagnosis include diabetes, hepatitis-C, dyslipidemia, hypertension, depression with SSRI, sleep disorder Laboratories - 03/26 HbA1c 6.2, T 120, 11/25 T 23 Prior therapy include daily 5 mg tadalafil Therapeutic plan - daily tadalafil with on demand PFSH Medical History Allergic rhinitis Nocturnal hypoxemia Asthma exacerbation Bronchitis Excessive daytime sleepiness Bilateral hand pain Dyslipidemia Mild recurrent major depression DM2 (diabetes mellitus, type 2) REE (obstructive sleep apnea) Polyarthralgia Acute lumbar myofascial strain Lumbar degenerative disc disease Hypertriglyceridemia Type 2 diabetes mellitus with hyperglycemia Polysubstance abuse Hypogonadism Erectile dysfunction GERD (gastroesophageal reflux disease) Anxiety and depression Asthma Colitis Surgical History History of surgery History of elbow surgery Family History Father Hypertension Diabetes Cancer Cancer, hepatocellular Mother No problems noted. 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 Cognitive needs: Yes Hearing needs: No Vision needs: No Review of Systems Const Denies chills and Denies fever(s) Card Reports no additional complaints and Denies syncope Resp Denies cough GI Denies abdominal pain and Denies heartburn Reports as per HPI and Denies change in libido Neuro Denies syncope Psych Denies change in libido Endo Denies change in libido Physical Exam Const General: cooperative, healthy appearing, comfortable and no acute distress Orientation/consciousness: patient oriented x3 HEENT Face and sinus: Yes normal facial exam Mouth: moist mucous membranes Neck Neck: Yes normal visual inspection, Yes full ROM and Yes trachea midline Chest Chest palpation & inspection: normal inspection of the chest Resp Effort & Inspection: normal respiratory effort, able to speak in complete sentences and no respiratory distress GI Inspection: Yes normal to inspection Back/Spine/Pelvis Cervical Spine: normal cervical lordosis Thoracic/Lumbar Spine: thoracic and lumbar spine normal to inspection Skin General skin exam: no rashes or lesions noted Neuro General: patient oriented x3, gait normal, tone normal and moves all extremities Extrem General: Yes normal to inspection and Yes capillary refill normal Assessment & Plan Assessment & Plan (1) Hypogonadism in male: Code(s): E29.1 - Testicular hypofunction Category: Medical Plan Six-month follow-up lab work Orders: Orders Prostate Specific Antigen 6 Months E29.1 - Testicular hypofunction Testosterone, Total 6 Months E29.1 - Testicular hypofunction Complete Blood Count no Diff 6 Months E29.1 - Testicular hypofunction Medications: Changed From testosterone cypionate 80 mg (0.4 mL) subcut QWEEK 4 weeks 2 multiple units 5RF E34.9 - Endocrine disorder, unspecified To testosterone cypionate (Depo-Testosterone) Discard excess medication after use 80 mg (0.4 mL) subcut QWEEK 4 multiple units 5RF 4 weeks E34.9 - Endocrine disorder, unspecified Patient Instructions: Imaging studies, laboratory and physical exam results were discussed and reviewed in detail. No major barriers to patient understanding were identified. An opportunity to ask questions regarding the treatment plan was provided. All questions were answered. The patient expressed understanding and agreement with the above treatment plan. The patient is aware they should contact our office by phone for worsening of their current condition or the appearance of new urologic symptoms. Compliance is encouraged with any medications and followup testing that is ordered. It is a privilege to participate in the urologic care of your patient. If you have any questions or concerns regarding treatment for the above conditions, or other urologic issues, please do not hesitate to contact me. The office telephone contact is [phone]. This note is constructed using voice recognition software. While every effort has been made to ensure accuracy public health epidemiologist errors may have been included. Yours sincerely, Dr Juan David Mane MD, [facility] Urology Providers of Expert, Compassionate Care for the Genitourinary System Coding Level of Care Code Est Pt Level 3 (37071) Diagnoses Hypogonadism in male E29.1
== END 2024-06-15 14:09 | disposition home or self-care (01) ==
PROVIDERS: PCP Internal Medicine; Visit Provider Urology
DX: E29.1 Testicular hypofunction (principal)
CPT/HCPCS: 99213

== ENCOUNTER → 2024-06-15 13:26 | Outpatient (BNVA) | payer MEDICARE, MEDICAID, SELFPAY | PROVIDERS: PCP Internal Medicine; Visit Provider Urology | DX: N52.9 Male erectile dysfunction, unspecified (principal); E29.1 Testicular hypofunction; E34.9 Endocrine disorder, unspecified | CPT/HCPCS: 99212 ==

== ENCOUNTER 2024-08-22 10:46 | Outpatient (AMB) | payer MEDICARE, MEDICAID, SELFPAY ==
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
[2024-08-22 11:13] VITALS: BMI 32.3
== END 2024-08-22 11:41 | disposition home or self-care (01) ==
PROVIDERS: PCP Internal Medicine; Visit Provider Orthopaedic Surgery
DX: M25.542 Pain in joints of left hand (principal); M19.042 Primary osteoarthritis, left hand; R76.8 Other specified abnormal immunological findings in serum; E11.9 Type 2 diabetes mellitus without complications; M25.50 Pain in unspecified joint; A00-B99 Certain infectious and parasitic diseases
CPT/HCPCS: 20600; 77002; 99213

== ENCOUNTER 2024-08-22 10:46 | Outpatient (REF) | payer MEDICARE, MEDICAID, SELFPAY ==
--- NOTE | ~2024-08-22 | FL_ITS ---
EXAMINATION: FLUOROSCOPY AND SPOT FILMS PROVIDED DURING ORTHOPEDIC PROCEDURE CLINICAL INFORMATION: Joint pain in hand. COMPARISON: None available. TECHNIQUE: A single spot film was provided. FLUOROSCOPY TIME: 4.9 seconds DAP: 2373.6 Gy-m2 FINDINGS: Single needle is present at the PIP joint of what is likely the third digit. FL/FL guided needle placement IMPRESSION: Fluoroscopy and spot films provided during orthopedic procedure. Electronically signed by: Narciso Mitchell MD 10/04/2024 08:03 AM ASIYA [place]
== END 2024-08-22 10:47 | disposition home or self-care (01) ==
LOC: HO.HOSX 10:46
PROVIDERS: PCP Internal Medicine; Visit Provider Orthopaedic Surgery
DX: M25.542 Pain in joints of left hand (principal); M19.042 Primary osteoarthritis, left hand; R76.8 Other specified abnormal immunological findings in serum; M25.50 Pain in unspecified joint
CPT/HCPCS: 20600; 77002; 99212; J1010; J2003

== ENCOUNTER 2024-08-23 15:42 | Outpatient (AMB) | payer MEDICARE, MEDICAID, SELFPAY ==
--- NOTE | 2024-08-23 15:43 | A.OFFPC_ITS ---
Vital Signs 08/23/24 15:46 Height 5 ft 10 in Weight 224 lb BMI 32.1 BP 122/80 Blood Pressure Location Lt brachial Position Sitting Intake Visit Reasons: dm Intake Note: Patient here for a follow up DM Metal Patternmaker Required: No Accompanied by: Spouse Allergies No Known Allergies Allergy (Verified 08/23/24 16:00) Medication List - Last Reconciled 08/23/24 by Ayah Peña MD albuterol sulfate 2.5 mg (3 mL) inhalation Q6H 30 days ammonium lactate 12% 1 appl topical BID atorvastatin 40 mg PO BEDTIME 90 days blood pressure test kit-large As directed blood sugar diagnostic (FreeStyle Lite Strips) three times a day blood-glucose meter (FreeStyle [place] kit) As directed check the BS TID buprenorphine-naloxone 12-3 mg (Suboxone) 1 film buccal ONCE buspirone 15 mg PO TID cane As directed cholecalciferol (vitamin D3) 25 mcg PO DAILY 90 days cyclobenzaprine 10 mg PO TID PRN 30 days empagliflozin (Jardiance) 25 mg PO QAM fenofibrate nanocrystallized 145 mg PO DAILY fluticasone propion-salmeterol 250-50 mcg/dose (Advair Diskus) 1 inh inhalation BID 30 days glucose 16 grams (4 x 4 gram) PO Q15M 30 days hydroxyzine HCl 50 mg PO Q8H PRN ibuprofen 800 mg PO TID PRN lancets (FreeStyle Lancets) As directed check the BS TID lisinopril 5 mg PO DAILY 90 days meclizine 25 mg PO BID PRN 30 days metformin 1,000 mg PO BID montelukast 10 mg PO BEDTIME 90 days needle (disp) 18 G (BD Regular Bevel [place]) As directed to be used weekly for T injection needle (disp) 25 gauge (BD Regular Bevel [place]) As directed - for testosterone subcutaneous injection omeprazole 40 mg PO BID pen needle, diabetic (BD Ultra-Fine Short Pen Needle) 1 ea subcut DAILY 90 days quetiapine ER 300 mg PO BEDTIME syringe (disposable) (BD Luer-Enio Syringe) Testosterone injection weekly tadalafil 5 mg PO DAILY 90 days tadalafil 20 mg PO ONCE PRN 30 days testosterone cypionate (Depo-Testosterone) 80 mg (0.4 mL) subcut QWEEK 4 weeks tirzepatide (Mounjaro) mg subcut trazodone 150 mg PO DAILY venlafaxine ER 150 mg PO DAILY venlafaxine ER 75 mg PO DAILY Ventolin HFA 90 mcg/actuation (albuterol sulfate) 2 puffs inhalation Q6H PRN 30 days NS zolpidem 10 mg PO BEDTIME PRN Tobacco use date assessed: 10/18/23 Dental Screening Dental Screen Date: 08/23/24 Did you have a dental visit in the last 12 months?: No Did you have a dental problem in the last 6 months where you did not have access to dental care?: No Was dental information given to patient?: Patient has dentist HPI HPI Comments History of Present Illness Details The patient is a 44-year-old male presenting for a follow-up regarding chronic conditions, primarily Type 2 Diabetes Mellitus, hypertension, hyperlipidemia, generalized anxiety disorder, and depression. The patient reports stable blood glucose levels with the most recent hemoglobin A1c at 5.1. The patient has been managing hypertension with Lisinopril HCTZ, asthma with an unspecified inhaler used as needed, and cholesterol with atorvastatin 40 mg. He experiences anxiety and depression, managed with medications including buspirone 15 mg three times daily, hydroxyzine, trazodone as needed, and Ambien for sleep; also mentioned is management through psychiatric care with Jarad Michaels for depression and anxiety. Managed with quetiapine 300 mg at night. He also reports pain associated with osteoarthritis, especially in the hands, but notably severe after an arthritis injection into the fingers, contributing to continuous discomfort. The patient underwent a significant change in metformin dosage recently, adjusting from 1000 mg to 500 mg twice daily, possibly due to gastrointestinal side effects or for glucose control optimization. [facility] Medical History Allergic rhinitis Nocturnal hypoxemia Asthma exacerbation Bronchitis Excessive daytime sleepiness Bilateral hand pain Dyslipidemia Mild recurrent major depression DM2 (diabetes mellitus, type 2) REE (obstructive sleep apnea) Polyarthralgia Acute lumbar myofascial strain Lumbar degenerative disc disease Hypertriglyceridemia Type 2 diabetes mellitus with hyperglycemia Polysubstance abuse Hypogonadism Erectile dysfunction GERD (gastroesophageal reflux disease) Anxiety and depression Asthma Colitis Surgical History History of surgery History of elbow surgery Family History Father Hypertension Diabetes Cancer Cancer, hepatocellular Mother No problems noted. 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 Surjit Espino, Lucina Escoto, Elvin Hussein and colleagues, with an educational porsche from [employer]. Review of Systems Const Details: - Musculoskeletal: Reports persistent pain in hands, post-arthritis injection. - Psychological: Reports anxiety and depression under psychiatric care. Physical exam (Primary Care) Vital Signs: Last Vital Signs BP 122/80 08/23/24 15:46 BMI result Body Mass Index 32.1 BMI Assessment/Plan discussion: High BMI High, discussed plan: lifestyle, weight reduction, dietary and physical activity Tobacco/Smoking Status: Tobacco use Status Tobacco use date assessed 10/18/23 08/23/24 15:45 Patient Tobacco Use Status Former Tobacco user 08/23/24 15:45 Tobacco use type Cigarette 08/23/24 15:45 e-Cigarette/Vaping Use Never Used 08/23/24 15:45 Thrive Assessment: Date of Thrive Assessment Date Thrive assessed 10/18/23 08/23/24 15:45 Const Other: General: No confusion, walks with a cane Respiratory: Normal respiratory effort, clear to auscultation bilaterally Cardiovascular: No jugular venous distension, regular rate, regular rhythm, S1 normal heart sound present and S2 normal heart sound present Psychology: Grossly normal, patient reports depression and anxiety, under care of psychiatrist Jarad Michaels Results AMB Hemoglobin A1c AMB Hemoglobin A1c 5.2 % Last Edit by SHERRELL Abernathy on 08/23/24 15:56 Results Reviewed Results Reviewed: Laboratory Last Values Hgb A1c (Clinic) 5.2 % (4.0-6.0) 08/23/24 15:48 Coding Level of Care Code Est Pt Level 4 (38731) Complex EM visit Add On G2211 Diagnoses Mixed hyperlipidemia E78.2 Mild recurrent major depression F33.0 Type 2 diabetes mellitus without complication, unspecified whether alf insulin use E11.9 Diabetes mellitus terminal make up operator insulin use: unspecified terminal make up operator insulin use status Diabetes mellitus complication status: without complication Hypertension due to endocrine disorder I15.2 Hypertension type: secondary to endocrine disorders Polyarthralgia M25.50 REE (obstructive sleep apnea) G47.33 Time Spent (min) 24 Assessment & Plan Assessment & Plan (1) Mixed hyperlipidemia: Code(s): E78.2 - Mixed hyperlipidemia Category: Medical (2) Mild recurrent major depression: Code(s): F33.0 - Major depressive disorder, recurrent, mild Category: Medical (3) DM2 (diabetes mellitus, type 2): Code(s): E11.9 - Type 2 diabetes mellitus without complications Category: Medical Qualifiers: Diabetes mellitus terminal make up operator insulin use: unspecified terminal make up operator insulin use status Diabetes mellitus complication status: without complication Qualified Code(s): E11.9 - Type 2 diabetes mellitus without complications (4) HTN (hypertension): Comment: Todays office BP is good. Code(s): I10 - Essential (primary) hypertension Category: Medical Qualifiers: Hypertension type: secondary to endocrine disorders Qualified Code(s): I15.2 - Hypertension secondary to endocrine disorders (5) Polyarthralgia: Code(s): M25.50 - Pain in unspecified joint Category: Medical (6) REE (obstructive sleep apnea): Comment: Patient is a known case of obstructive sleep apnea but he has not been able to use the CPAP. He had actually returned his CPAP device in back in 2020 . A HOME-BASED SLEEP STUDY WAS DONE ON 06/16/2023 WHICH WAS POSITIVE FOR OBS TRUCTIVE SLEEP APNEA, MODERATELY SEVERE, ALONG WITH NOCTURNAL HYPOXEMIA. HE DID RECEIVE HIS CPAP DEVICE AND IS USING IT ALMOST EVERY NIGHT, BUT THE AVERAGE USAGE IS SUBOPTIMAL. HE IS ON A LEARNING CURVE, AND NEEDS LOT OF EDUCATION AND PERSPIRATION. Code(s): G47.33 - Obstructive sleep apnea (adult) (pediatric) Category: Medical Plan - Continue atorvastatin for hyperlipidemia. - Adjust metformin dosage to 500 mg twice daily to better manage Type 2 Diabetes Mellitus. - Maintain current regimen of antihypertensives for blood pressure management, including Lisinopril HCTZ. - Continue psychiatric care with Jarad Michaels for management of depression and anxiety. - Utilize prescribed medications such as buspirone and quetiapine for anxiety and bipolar disorder. - Recommend continued use of CPAP machine to manage Obstructive Sleep Apnea with attention to recent equipment changes improving sleep. - Consider pain management options for osteoarthritis; follow-up discussion required. Patient was informed and verbally consented to the use of an ambient scribe for clinic note documentation during this visit. During the visit, I reviewed the patient's management of chronic conditions, including the effective control of diabetes mellitus as evidenced by a hemoglob in A1c of 5.1. We discussed the recent reduction in metformin dosage to address potential gastrointestinal side effects while maintaining optimal glucose control. Hyperlipidemia is controlled with atorvastatin, and the patient will continue this regimen. We discussed the effect of adjusting the CPAP machine equipment in improving sleep quality. Management of anxiety and depression was addressed, emphasizing the importance of consistent medication adherence and continued psychiatric care with Jarad Michaels. We also discussed future pain management strategies for osteoarthritis, with consideration of further interventions if necessary. Follow-up is planned to reassess medication efficacy and chronic condition stability. Orders: Orders Microalbumin, Random (w Creat) 08/23/24 R80.9 - Proteinuria, unspecified Comprehensive [place]. Panel Fast 08/23/24 E11.9 - Type 2 diabetes mellitus without complications AMB Hemoglobin A1c 08/23/24 E11.69 - Type 2 diabetes mellitus with other specified complication, N52.1 - Erectile dysfunction due to diseases classified elsewhere Lipid Panel 08/23/24 E78.5 - Hyperlipidemia, unspecified Vitamin D 25-OH Total 08/23/24 E55.9 - Vitamin D deficiency, unspecified Referrals Dermatology Referral L98.9 - Disorder of the skin and subcutaneous tissue, unspecified Medications: New metformin 500 mg PO BID 180 tabs 1RF 90 days Refilled fenofibrate nanocrystallized 145 mg PO DAILY 90 tabs 1RF R10.9 - Unspecified abdominal pain Patient Instructions: - Continue taking atorvastatin, Lisinopril HCTZ, and adjusted metformin as prescribed. - Adhere to current regimen for anxiety and depression medications. - Use the CPAP machine consistently for sleep apnea, noting any further improvements or concerns. - Monitor blood glucose levels regularly and report significant changes. - Report any exacerbation of pain or new symptoms in osteoarthritis, especially regarding hands. - Follow up with psychiatric care with Jarad Michaels as scheduled.
[2024-08-23 15:46] VITALS: BP 122/80; BMI 32.1
== END 2024-08-23 16:09 | disposition home or self-care (01) ==
PROVIDERS: PCP Internal Medicine; Visit Provider Internal Medicine
DX: E78.2 Mixed hyperlipidemia (principal); F33.0 Major depressive disorder, recurrent, mild; E11.9 Type 2 diabetes mellitus without complications; I15.2 Hypertension secondary to endocrine disorders; M25.50 Pain in unspecified joint; G47.33 Obstructive sleep apnea (adult) (pediatric)

== ENCOUNTER → 2024-08-23 15:42 | Outpatient (BNVA) | payer MEDICARE, MEDICAID, SELFPAY | PROVIDERS: PCP Internal Medicine; Visit Provider Internal Medicine | DX: E78.2 Mixed hyperlipidemia (principal); F33.0 Major depressive disorder, recurrent, mild; E78.5 Hyperlipidemia, unspecified; F41.1 Generalized anxiety disorder; I15.2 Hypertension secondary to endocrine disorders; M25.50 Pain in unspecified joint; G47.33 Obstructive sleep apnea (adult) (pediatric); R80.9 Proteinuria, unspecified; E11.69 Type 2 diabetes mellitus with other specified complication; N52.1 Erectile dysfunction due to diseases classified elsewhere; E55.9 Vitamin D deficiency, unspecified; R10.9 Unspecified abdominal pain; Z79.84 Long term (current) use of oral hypoglycemic drugs | CPT/HCPCS: 83036; 99212 ==

== ENCOUNTER 2024-09-13 10:43 | Outpatient (AMB) | payer MEDICARE, MEDICAID, SELFPAY ==
--- NOTE | 2024-09-13 10:49 | MHC.OFFVIS ---
Vital Signs 09/13/24 10:50 Height 5 ft 10 in Weight 223 lb 12.307 oz BMI 32.1 BP 92/62 Blood Pressure Location Lt brachial Position Sitting Pulse 71 Pulse Source Pulse Oximeter Pulse Oximetry (%) 95 Oxygen Delivery Method Room Air Intake Visit Reasons: ree Intake Note: pt is here for follow up Multimedia Engineer Required: Yes Multimedia Engineer Services: Multimedia Engineer Present Multimedia Engineer Name: saulo (RAVIN) Allergies No Known Allergies Allergy (Verified 09/13/24 11:04) Medication List - Last Reconciled 09/13/24 by Gilberto Baldwin MD albuterol sulfate 2.5 mg (3 mL) inhalation Q6H 30 days ammonium lactate 12% 1 appl topical BID atorvastatin 40 mg PO BEDTIME 90 days blood pressure test kit-large As directed blood sugar diagnostic (FreeStyle Lite Strips) three times a day blood-glucose meter (FreeStyle [place] kit) As directed check the BS TID buprenorphine-naloxone 12-3 mg (Suboxone) 1 film buccal ONCE buspirone 15 mg PO TID cane As directed cholecalciferol (vitamin D3) 25 mcg PO DAILY 90 days cyclobenzaprine 10 mg PO TID PRN 30 days empagliflozin (Jardiance) 25 mg PO QAM fenofibrate nanocrystallized 145 mg PO DAILY fluticasone propion-salmeterol 250-50 mcg/dose (Advair Diskus) 1 inh inhalation BID 30 days glucose 16 grams (4 x 4 gram) PO Q15M 30 days hydroxyzine HCl 50 mg PO Q8H PRN ibuprofen 800 mg PO TID PRN lancets (FreeStyle Lancets) As directed check the BS TID lisinopril 5 mg PO DAILY 90 days meclizine 25 mg PO BID PRN 30 days metformin 500 mg PO BID 90 days montelukast 10 mg PO BEDTIME 90 days needle (disp) 18 G (BD Regular Bevel [place]) As directed to be used weekly for T injection needle (disp) 25 gauge (BD Regular Bevel [place]) As directed - for testosterone subcutaneous injection omeprazole 40 mg PO BID pen needle, diabetic (BD Ultra-Fine Short Pen Needle) 1 ea subcut DAILY 90 days quetiapine ER 300 mg PO BEDTIME syringe (disposable) (BD Luer-Enio Syringe) Testosterone injection weekly tadalafil 5 mg PO DAILY 90 days tadalafil 20 mg PO ONCE PRN 30 days testosterone cypionate (Depo-Testosterone) 80 mg (0.4 mL) subcut QWEEK 4 weeks tirzepatide (Mounjaro) mg subcut trazodone 150 mg PO DAILY venlafaxine ER 150 mg PO DAILY venlafaxine ER 75 mg PO DAILY Ventolin HFA 90 mcg/actuation (albuterol sulfate) 2 puffs inhalation Q6H PRN 30 days NS zolpidem 10 mg PO BEDTIME PRN Do you need a note to return to daycare/school/sports/work: No HPI HPI ree: Details: 44 YEARS OLD GENTLEMAN WITH MODERATE OBESITY, OBSTRUCTIVE SLEEP APNEA, IS HERE FOR FOLLOW-UP FOR USE OF CPAP. HE ALSO HAS HISTORY OF BRONCHIAL ASTHMA, . HAS BEEN USING CPAP MORE REGULARLY THAN BEFORE BUT STILL MISSED A FEW NIGHTS PER MONTH. THE DURATION OF USAGE PER NIGHT IS IMPROVING. HE CLAIMS THAT WHEN HE USES CPAP HE SLEEPS BETTER. BREATHING IS REMAINING STABLE , HAS MILD INTERMITTENT COUGH. NO SHORTNESS OF BREATH ON EXERTION BECAUSE HE WALKS WITH A CANE AND HIS WALKING IS SLOW. [facility] Medical History Allergic rhinitis Nocturnal hypoxemia Asthma exacerbation Bronchitis Excessive daytime sleepiness Bilateral hand pain Dyslipidemia Mild recurrent major depression DM2 (diabetes mellitus, type 2) REE (obstructive sleep apnea) Polyarthralgia Acute lumbar myofascial strain Lumbar degenerative disc disease Hypertriglyceridemia Type 2 diabetes mellitus with hyperglycemia Polysubstance abuse Hypogonadism Erectile dysfunction GERD (gastroesophageal reflux disease) Anxiety and depression Asthma Colitis Surgical History History of surgery History of elbow surgery Family History Father Hypertension Diabetes Cancer Cancer, hepatocellular Mother No problems noted. 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 Cognitive needs: Yes Hearing needs: No Vision needs: No Review of Systems Const All systems reviewed & are unremarkable except as noted in HPI and below Eyes Reports no additional complaints ENT Reports no additional complaints Card Denies chest pain, Denies irregular heart rhythm and Denies leg edema Resp Reports as per HPI GI Reports no additional complaints Reports no additional complaints Musc Reports no additional complaints Skin/Breast Reports system reviewed and no additional complaints, except as documented Neuro Reports no additional complaints Psych Reports no additional complaints Physical Exam Vital Signs: Last Vital Signs Pulse 71 09/13/24 10:50 BP 92/62 09/13/24 10:50 Pulse Ox 95 09/13/24 10:50 Oxygen Delivery Method Room Air 09/13/24 10:50 BMI result Body Mass Index 32.1 Const General: healthy appearing (Except being overweight), comfortable, no acute distress, alert and awake Orientation/consciousness: patient oriented x3 HEENT Head: Yes normal to inspection General nose exam: No nasal polyps present, No nasal discharge present and Other nasal findings present ( has mild bilateral nasal congestion) Face and sinus: Yes sinuses nontender Mouth: oropharynx abnormals (Oropharynx is narrow crowded and Mallampati class 4) Throat: Yes posterior oropharynx normal Eyes General: appearance normal, both eyes and all related structures Neck Neck: Yes normal visual inspection, Yes no lymphadenopathy, Yes trachea midline, Yes no JVD and Yes other (Neck circumference 17 in) Thyroid: Thyroid normal Chest Chest palpation & inspection: normal inspection of the chest, normal palpation of entire chest wall and no tenderness Resp Effort & Inspection: normal respiratory effort Auscultation: crackles, no wheezes and other (BREATH SOUNDS ARE DIMINISHED OVER THE BASILAR AREAS) Cardio Palpation: normal PMI Rate: regular rate Rhythm: regular rhythm Heart sounds: no gallops and no murmurs Peripheral pulses: Peripheral pulses 2+ throughout GI Palpation (GI): Soft to palpation, nontender, No hepatosplenomegaly present and no masses Auscultation: normal bowel sounds Back/Spine/Pelvis Thoracic/Lumbar Spine: thoracic and lumbar spine normal to inspection Skin General skin exam: no rashes or lesions noted Neuro General: patient oriented x3 and no focal motor deficits Cranial nerves: Yes CN's II-XII intact bilaterally Extrem General: Yes normal to inspection, Yes no clubbing, cyanosis or edema and Yes no calf tenderness Psych Appearance: grossly normal and well kempt Speech and movement: Normal speech and movement present Results Reviewed Results Reviewed: COMPLIANCE REPORT FOR THE LAST 30 NIGHTS IS REVIEWED. HE HAS USED 25/30 NIGHTS, 83%. AVERAGE USAGE PER NIGHT 3 HOURS 58 MINUTES THERE IS MODERATE DEGREE OF AIR LEAK. RESIDUAL AHI 7.0 Assessment & Plan Assessment & Plan (1) Allergic rhinitis: Comment: HE has low-grade chronic nasal congestion, controlled with use of montelukast. Code(s): J30.9 - Allergic rhinitis, unspecified Category: Medical Plan: Continue to use montelukast 10 mg daily. (2) REE (obstructive sleep apnea): Comment: Patient is a known case of obstructive sleep apnea but he has not been able to use the CPAP. He had actually returned his CPAP device in back in 2020 . A HOME-BASED SLEEP STUDY WAS DONE ON 06/16/2023 WHICH WAS POSITIVE FOR OBSTRUCTIVE SLEEP APNEA, MODERATELY SEVERE, ALONG WITH NOCTURNAL HYPOXEMIA. We have try to counsellors him, educate him about the use of CPAP its importance. He has definitely improved in his compliance , and claims that his sleep is better. The present compliance report indicates that he has used 83% of the night. Average use it per night is close to 4 hours. Code(s): G47.33 - Obstructive sleep apnea (adult) (pediatric) Category: Medical Plan: Again educated about the importance of using CPAP every night. Advised to tighten the straps bit more. Stress that he has to use more than 4 hours every night. (3) Asthma: Comment: HE DOES HAVE HISTORY OF BRONCHIAL ASTHMA, CURRENTLY DOING WELL WITH ADVAIR 250-50 1 INHALATION B.I.D. AND IS DOING WELL. LUNGS ARE CLEAR . Code(s): J45.909 - Unspecified asthma, uncomplicated Category: Medical Qualifiers: Asthma severity: moderate Asthma persistence: persistent Asthma complication type: uncomplicated Qualified Code(s): J45.40 - Moderate persistent asthma, uncomplicated Plan: CONTINUE ADVAIR 250-51 INHALATION B.I.D.. MONTELUKAST 10 MG DAILY ALBUTEROL HFA 2 PUFFS Q 6 HOURS P.R.N. Coding Level of Care Code Est Pt Level 3 (72475) Diagnoses Allergic rhinitis J30.9 REE (obstructive sleep apnea) G47.33 Moderate persistent asthma without complication J45.40 Asthma severity: moderate Asthma persistence: persistent Asthma complication type: uncomplicated
[2024-09-13 10:50] VITALS: BP 92/62; PULSE 71; O2SAT 95; BMI 32.1
== END 2024-09-13 11:04 | disposition home or self-care (01) ==
PROVIDERS: PCP Internal Medicine; Visit Provider Internal Medicine
DX: J30.9 Allergic rhinitis, unspecified (principal); G47.33 Obstructive sleep apnea (adult) (pediatric); J45.40 Moderate persistent asthma, uncomplicated
CPT/HCPCS: 99213

== ENCOUNTER → 2024-09-13 10:43 | Outpatient (BNVA) | payer MEDICARE, MEDICAID, SELFPAY | PROVIDERS: PCP Internal Medicine; Visit Provider Internal Medicine | DX: J45.40 Moderate persistent asthma, uncomplicated (principal); J30.9 Allergic rhinitis, unspecified; G47.33 Obstructive sleep apnea (adult) (pediatric) | CPT/HCPCS: 99212 ==

== ENCOUNTER 2024-09-14 18:47 | Emergency (ER) | payer MEDICARE, MEDICAID, SELFPAY ==
--- NOTE | ~2024-09-14 | CT_ITS ---
CLINICAL HISTORY: headache x5 days, nearsyncope head inj yesterday CT head without contrast Comparison: CT/SR - BRAIN WO IV CONTRAST [id number] - 06/24/16 13:38 EDT Findings: No acute hemorrhage. No extra-axial fluid collection. No hydrocephalus, mass-effect or herniation. Gore-white differentiation is maintained. White matter is within normal limits for age. No acute orbital pathology. No acute soft tissue abnormality. No fracture. Nasal septal defect measuring 3.6 cm in anterior-posterior dimension. Mild mucosal thickening in the right maxillary sinus. The other visualized paranasal sinuses are predominantly clear. The mastoid air cells are clear. Impression: No acute intracranial findings. This document has been electronically signed by: Nelsy Blue MD on 09/14/2024 20:24:34
[2024-09-14 19:21] VITALS: BP 128/71; PULSE 82; RESP 18; TEMP 36.8; O2SAT 97; BMI 32.6
--- NOTE | 2024-09-14 19:21 | ED_ITS ---
HPI - Headache General Chief Complaint: Headache Stated Complaint: headache (heading is burning and he fell) Time Seen by Provider: 09/14/24 23:08 Source: patient Mode of arrival: ambulatory Limitations: no limitations History of Present Illness ED Provider: HPI Narrative: Patient with no significant past medical history been having headache for last 5 days headache is generalized started from the front to the back today while getting up from the toilet felt dizzy lightheaded and hit his head to the wall no nausea no vomiting no fever no chills no other symptoms no light sensitivity no neck Related Data Home Medications ?Medication ?Instructions ?Recorded ?Confirmed buspirone 15 mg tablet 15 mg PO TID 06/04/20 08/23/24 quetiapine 300 mg tablet,extended 300 mg PO BEDTIME 06/04/20 08/23/24 release 24 hr zolpidem 10 mg tablet 10 mg PO BEDTIME PRN insomnia 06/04/20 08/23/24 buprenorphine 12 mg-naloxone 3 mg 1 film buccal ONCE 07/09/20 08/23/24 sublingual film (Suboxone) hydroxyzine HCl 50 mg tablet 50 mg PO Q8H PRN anxiety 07/10/20 08/23/24 ibuprofen 800 mg tablet 800 mg PO TID PRN pain 09/16/20 08/23/24 trazodone 150 mg tablet 150 mg PO DAILY 12/08/20 08/23/24 venlafaxine 75 mg capsule,extended 75 mg PO DAILY 01/14/22 08/23/24 release 24 hr venlafaxine 150 mg 150 mg PO DAILY 05/28/22 08/23/24 capsule,extended release 24 hr ammonium lactate 12 % topical cream 1 appl topical BID 12/01/22 08/23/24 tirzepatide 2.5 mg/0.5 mL mg subcut 08/23/24 08/23/24 subcutaneous pen injector (Kiko) Previous Rx's ?Medication ?Instructions ?Recorded blood-glucose meter (FreeStyle #1 ea 09/09/20 [place] kit) glucose 4 gram chewable tablet 16 g (4 x 4 gram) PO Q15M 30 days 12/24/20 #50 tabs omeprazole 40 mg capsule,delayed 40 mg PO BID #180 caps 01/20/21 release blood pressure test kit-large #1 ea 05/21/21 lancets 28 gauge (FreeStyle #300 ea 06/23/21 Lancets) blood sugar diagnostic (FreeStyle #300 ea 11/03/21 Lite Strips) empagliflozin 25 mg tablet 25 mg PO QAM #30 tabs 01/14/22 (Jardiance) cane #1 ea 01/25/23 tadalafil 5 mg tablet 5 mg PO DAILY sexual activity 90 06/10/23 days #90 tabs pen needle, diabetic 31 gauge x 1 ea subcut DAILY 90 days #100 ea 08/05/2301/18 (BD Ultra-Fine Short Pen Needle) cyclobenzaprine 10 mg tablet 10 mg PO TID PRN muscle spasm 30 12/05/23 days #90 tabs meclizine 25 mg tablet 25 mg PO BID PRN dizziness 30 days 02/13/24 #60 tabs cholecalciferol (vitamin D3) 25 25 mcg PO DAILY 90 days #90 caps 03/23/24 mcg (1,000 unit) capsule albuterol sulfate 2.5 mg/3 mL 2.5 mg (3 mL) inhalation Q6H 04/25/24 (0.083 %) solution for nebulization ASTHMA 30 days #360 mL fluticasone 250 mcg-salmeterol 50 1 inh inhalation BID asthma 30 06/06/24 mcg/dose blistr powdr for days #60 ea inhalation (Advair Diskus) testosterone cypionate 200 mg/mL 80 mg (0.4 mL) subcut QWEEK 4 06/15/24 intramuscular oil weeks #4 multiple units (Depo-Testosterone) montelukast 10 mg tablet 10 mg PO BEDTIME 90 days #90 tabs 07/26/24 lisinopril 5 mg tablet 5 mg PO DAILY 90 days #90 tabs 08/02/24 needle (disp) 18 G 18 gauge x 1 #30 ea 08/06/2409/06 (BD Regular Bevel [place]) syringe (disposable) 1 mL (BD #30 ea 08/06/24 Luer-Enio Syringe) needle (disp) 25 gauge 25 gauge x #30 ea 08/10/2401/10 (BD Regular Bevel [place]) fenofibrate nanocrystallized 145 145 mg PO DAILY #90 tabs 08/23/24 mg tablet metformin 500 mg tablet 500 mg PO BID 90 days #180 tabs 08/23/24 tadalafil 20 mg tablet 20 mg PO ONCE PRN sexual activity 08/26/24 30 days #30 tabs atorvastatin 40 mg tablet 40 mg PO BEDTIME 90 days #90 tabs 09/08/24 Ventolin HFA 90 mcg/actuation 2 puff inhalation Q6H PRN 09/11/24 aerosol inhaler (albuterol sulfate) shortness of breath or wheezing 30 days #8 grams gjhxrftmxx-rrsmzcodmvnyd-tirwyevv 1 tab PO Q6H PRN haeadace #20 tabs 09/15/24 50 mg-325 mg-40 mg tablet Allergies Allergy/AdvReac Type Severity Reaction Status Date / Time No Known Allergies Allergy Verified 09/14/24 19:25 Review of Systems 2 Review of Systems: Yes all other systems are reviewed and are negative [facility] Past Medical History Medical History Allergic rhinitis Nocturnal hypoxemia Asthma exacerbation Bronchitis Excessive daytime sleepiness Bilateral hand pain Dyslipidemia Mild recurrent major depression DM2 (diabetes mellitus, type 2) REE (obstructive sleep apnea) Polyarthralgia Acute lumbar myofascial strain Lumbar degenerative disc disease Hypertriglyceridemia Type 2 diabetes mellitus with hyperglycemia Polysubstance abuse Hypogonadism Erectile dysfunction GERD (gastroesophageal reflux disease) Anxiety and depression Asthma Colitis Surgical History History of surgery History of elbow surgery Family History Family History Father Hypertension Diabetes Cancer Cancer, hepatocellular Mother No problems noted. Son Ulcerative colitis Paternal Grandfather Cancer Social History Social History Household Members: Spouse Housing: House Alcohol intake: unknown Patient Tobacco Use Status: Former Tobacco user Tobacco use type: Cigarette Cigarette Packs Per Day: 1 Cigarettes Per Day: 20 Years Smoked: 20 Smoked in Last 30 Days: No e-Cigarette/Vaping Use: Never Used Second Hand Smoke Exposure: No Use of substances other than those prescribed or required for medical reasons: No Substance Use Type: Former Substance User, Heroin and Marijuana Advance Directives: No Advance Directives Information Provided: No service: No Current occupational status: disabled 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 Oriented X3. No acute distress. Eyes: PERRLA, No Nystagmus HEENT: Pharynx normal. Oral Mucosa moist Neck: Normal inspection. Neck supple. CVS: Normal heart rate and rhythm. Pulses normal. Respiratory: No respiratory distress. Equal air entry bilateral, no wheezing/rales/rhonchi Abdomen: Soft and nontender. Bowel sounds are present, no mass palpable, no CVA tenderness Skin: Skin warm and dry. Normal skin color. Normal skin turgor. Extremities: No lower extremity edema. No calf tenderness Neuro: Oriented X 3. No motor deficit. No sensory deficit.No cerebellar signs , cranial nerves II-XII intact Course Course Course Narrative: This is an RME performed by Kian Goel CNP: Additional HPI, ROS, PE not included below will be deferred to primary provider. Patient is a 44-year-old male who presents to the emergency department for evaluation of an intermittent frontal headache described as a burning sensation with intermittent dizziness. Reports that yesterday he stood up from using the bathroom when ?suddenly everything went black? he struck his head into the wall but denies having fallen down to the floor. Reports that he rarely experiences headaches. He does have a history of vertigo Exam: No focal neurological deficits. Head is normocephalic and atraumatic. Plan: Serum labs, viral serologies, EKG Medications Administered Discontinued Medications Generic Name Dose Route Start Last Admin Trade Name Freq PRN Reason Stop Dose Admin Acetaminophen/Butalbital/Caffeine 1 tab 09/15/24 00:22 09/15/24 00:30 Butalb/Acetamin/Caff 50/325/40 Tablet PO 09/15/24 00:23 1 tab ONCE ONE Administration Diphenhydramine HCl 50 mg 09/15/24 02:18 09/15/24 02:24 Diphenhydramine Hcl 50 Mg/Ml Vial IVPUSH 09/15/24 02:19 50 mg ONCE ONE Administration Sodium Chloride 1,000 mls @ 999 mls/hr 09/15/24 02:19 09/15/24 02:23 Ns IV 09/15/24 03:19 999 mls/hr .Q1H1M ONE Administration Ketorolac Tromethamine 60 mg 09/15/24 00:58 09/15/24 01:23 Ketorolac Tromethamine 60 Mg/2 Ml Vial IM 09/15/24 00:59 60 mg ONCE ONE Administration Metoclopramide HCl 10 mg 09/15/24 02:18 09/15/24 02:24 Metoclopramide Hcl 10 Mg/2 Ml Vial IVPUSH 09/15/24 02:19 10 mg ONCE ONE Administration Sumatriptan Succinate 6 mg 09/14/24 23:17 09/14/24 23:30 Sumatriptan Succinate 6 Mg/0.5 Ml Vial SUBCUT 09/14/24 23:18 6 mg ONCE ONE Administration Medical Decision Making Medical Decision Making [facility] Narrative: Patient has headache for for last 5 days gradual onset etiology not clear likely complex migraine CT scan of the head negative patient has responded to migraine medication discharge patient home Differential Diagnosis Differential Diagnoses: The differential diagnosis associated with the presentation includes SAH/as well/migraine/tension headache Lab Data MDM Lab Attestation statement: I reviewed the patient's lab results. 09/14/24 20:41 09/14/24 20:41 Labs: Lab Results 09/14/24 Range/Units 20:41 WBC 6.4 (4.8-10.8) X10*3/uL RBC 5.50 (4.60-5.80) X10*6/uL Hgb 16.2 (14.0-18.0) g/dl Hct 46.4 (42.0-52.0) % MCV 84.4 (80.0-98.0) fL MCH 29.5 (27.0-33.0) pg MCHC 34.9 (31.0-36.0) g/dl RDW 12.8 (11.0-16.0) % Plt Count 205 (160-400) X10*3/uL MPV 9.2 L (9.4-12.4) fL Immature Gran % (Auto) 0.5 H (0.0-0.4) % Neut % (Auto) 54.3 (45-73) % Lymph % (Auto) 28.7 (20-40) % [place] % (Auto) 10.3 (2-11) % Eos % (Auto) 5.3 H (0-4) % Baso % (Auto) 0.9 (0-2) % Lymph # (Auto) 1.8 (1.2-4.9) X10*3/uL [place] # (Auto) 0.7 (0.1-1.2) X10*3/uL Eos # (Auto) 0.3 (0.0-0.4) X10*3/uL Baso # (Auto) 0.1 (0.0-0.2) X10*3/uL Abs Immat Gran (auto) 0.03 (0.00-0.03) X10*3/uL Absolute Neuts (auto) 3.5 (2.0-8.3) x10*3/uL Absolute Nucleated RBC 0.000 (0.0-0.012) X10*3/uL Nucleated RBC % (auto) 0.0 (0.0-0.2) /100WBC PT 11.8 (10.9-12.4) SEC INR 1.0 (0.9-1.1) Sodium 141 (135-145) mmol/L Potassium 3.8 (3.3-5.1) mmol/L Chloride 109 H (96-108) mmol/L Carbon Dioxide 25 (22-29) mmol/L Anion Gap 11 L (12-20) BUN 9 (9-16) mg/dL Creatinine 0.88 (0.5-1.4) mg/dL Estim Creat Clear Calc 128.8 Estimated GFR > 60 Random Glucose 118 H (60-115) mg/dL Calcium 9.1 D (8.4-10.2) mg/dL Magnesium 2.1 (1.6-2.6) mg/dL Total Bilirubin 0.4 (0.0-1.0) mg/dL AST 30 (5-37) U/L ALT 35 (0-40) U/L Alkaline Phosphatase 58 (39-117) U/L Troponin I High Sens < 2.7 (<3.5-35.0) ng/L Total Protein 7.4 (6.5-8.0) g/dL Albumin 4.3 (3.5-5.0) g/dL Influenza Type A (PCR) NEGATIVE (Negative) Influenza Type B (PCR) NEGATIVE (Negative) RSV RNA Qual (PCR) NEGATIVE (Negative) SARS-CoV-2 RNA (RT-PCR) NEGATIVE (Negative) Independent Interpretation I performed an independent interpretation of an: CT Scan Radiology Impression Discussion of test interpretation with radiology: I have reviewed the radiologist's reading. Radiologist Impression: No acute Discharge Plan Discharge Clinical Impression: Headache Patient Disposition: Home, Self-Care Instructions: General Headache (ED) Additional Instructions: Cause of your headache is not clear possible complex migraine Take Fioricet as advised Follow up with your PCP if not better Prescriptions: New khkkbeyyjq-lehdtuharqmgg-leru 50-325-40 mg tablet 1 tab PO Q6H PRN (Reason: haeadace) Qty: 20 0RF No Action (DME) blood-glucose meter [FreeStyle [place]] Kit See Rx Instructions .ROUTE .MEDSUPPLY Qty: 1 0RF Rx Instructions: As directed check the BS TID glucose 4 gram tablet,chewable 16 g PO Q15M 30 Days Qty: 50 3RF omeprazole 40 mg capsule,delayed release(DR/EC) 40 mg PO BID Qty: 180 3RF (DME) lancets [FreeStyle Lancets] 28 gauge misc See Rx Instructions .ROUTE .MEDSUPPLY Qty: 300 3RF Rx Instructions: As directed check the BS TID (DME) FreeStyle Lite Strips Strip See Rx Instructions .ROUTE .MEDSUPPLY Qty: 300 1RF Rx Instructions: three times a day (DME) cane Device See Rx Instructions .Route Qty: 1 0RF Rx Instructions: As directed tadalafil 5 mg tablet 5 mg PO DAILY 90 Days Qty: 90 1RF pen needle, diabetic [BD Ultra-Fine Short Pen Needle] 31 gauge x 5/16 needle 1 ea subcut DAILY 90 Days Qty: 100 3RF cyclobenzaprine 10 mg tablet 10 mg PO TID PRN (Reason: muscle spasm) 30 Days Qty: 90 1RF meclizine 25 mg tablet 25 mg PO BID PRN (Reason: dizziness) 30 Days Qty: 60 0RF cholecalciferol (vitamin D3) 25 mcg (1,000 unit) capsule 25 mcg PO DAILY 90 Days Qty: 90 1RF fluticasone propion-salmeterol [Advair Diskus] 250-50 mcg/dose blister with device 1 inh inhalation BID 30 Days Qty: 60 5RF montelukast 10 mg tablet 10 mg PO BEDTIME 90 Days Qty: 90 1RF lisinopril 5 mg tablet 5 mg PO DAILY 90 Days Qty: 90 1RF (DME) BD Luer-Enio Syringe 1 mL syringe See Rx Instructions .MEDSUPPLY Qty: 30 0RF Rx Instructions: Testosterone injection weekly (DME) BD Regular Bevel [place] 18 gauge x 1 1/2 needle See Rx Instructions .MEDSUPPLY Qty: 30 0RF Rx Instructions: As directed to be used weekly for T injection (DME) BD Regular Bevel [place] 25 gauge x 5/8 needle See Rx Instructions .MEDSUPPLY Qty: 30 0RF Rx Instructions: As directed - for testosterone subcutaneous injection tadalafil 20 mg tablet 20 mg PO ONCE PRN (Reason: sexual activity) 30 Days Qty: 30 6RF Rx Instructions: On demand medication take 60 minutes before intended activity atorvastatin 40 mg tablet 40 mg PO BEDTIME 90 Days Qty: 90 0RF albuterol sulfate [Ventolin HFA] 90 mcg/actuation HFA aerosol inhaler 2 puff inhalation Q6H PRN (Reason: shortness of breath or wheezing) 30 Days Qty: 8 0RF buprenorphine-naloxone [Suboxone] 12-3 mg film 1 film buccal ONCE (DME) blood pressure test kit-large Kit See Rx Instructions .Route Qty: 1 0RF Rx Instructions: As directed ibuprofen 800 mg tablet 800 mg PO TID PRN (Reason: pain) quetiapine 300 mg tablet extended release 24 hr 300 mg PO BEDTIME zolpidem 10 mg tablet 10 mg PO BEDTIME PRN (Reason: insomnia) buspirone 15 mg tablet 15 mg PO TID hydroxyzine HCl 50 mg tablet 50 mg PO Q8H PRN (Reason: anxiety) trazodone 150 mg tablet 150 mg PO DAILY venlafaxine 75 mg capsule,extended release 24hr 75 mg PO DAILY Jardiance 25 mg tablet 25 mg PO QAM Qty: 30 4RF ammonium lactate 12 % cream 1 appl topical BID venlafaxine 150 mg capsule,extended release 24hr 150 mg PO DAILY testosterone cypionate [Depo-Testosterone] 200 mg/mL oil 80 mg subcut QWEEK 28 Days Qty: 4 5RF Rx Instructions: Discard excess medication after use Mounjaro 2.5 mg/0.5 mL pen injector subcut fenofibrate nanocrystallized 145 mg tablet 145 mg PO DAILY Qty: 90 1RF metformin 500 mg tablet 500 mg PO BID 90 Days Qty: 180 1RF albuterol sulfate 2.5 mg /3 mL (0.083 %) solution for nebulization 2.5 mg inhalation Q6H 30 Days Qty: 360 4RF Interventions: ED Discharge Assessment Last Done: 09/15/24 04:00 Discharge Date/Time: 09/15/24 04:07 Print Language: [place]
--- NOTE | 2024-09-14 19:25 | ECG_ITS ---
Test Reason : HEADACHE Blood Pressure : */* mmHG Vent. Rate : 73 BPM Atrial Rate : 73 BPM P-R Int : 162 ms QRS Dur : 92 ms QT Int : 358 ms P-R-T Axes : 1 -10 -10 degrees QTcB Int : 394 ms Normal sinus rhythm Normal ECG When compared with ECG of 09-Aug-2019 21:09, QT has shortened Referred By: Mary Goel Electronically Signed By: JOSE RENTERIA
[2024-09-14 20:46] LABS: MANUAL DIFF FLAG NO
[2024-09-14 20:48] LABS: Basophils Absolute Auto 0.1 X10*3/uL (0.0-0.2); Basophils Percent Auto 0.9 % (0-2); Eosinophils Absolute Auto 0.3 X10*3/uL (0.0-0.4); Eosinophils Percent Auto 5.3 % (0-4); Hematocrit 46.4 % (42.0-52.0); Hemoglobin 16.2 g/dl (14.0-18.0); Imm Gran Abs Auto 0.03 X10*3/uL (0.00-0.03); Imm Gran Pct Auto 0.5 % (0.0-0.4); Lymphocytes Absolute Auto 1.8 X10*3/uL (1.2-4.9); Lymphocytes Percent Auto 28.7 % (20-40); Mean Corpuscular HGB Conc 34.9 g/dl (31.0-36.0); Mean Corpuscular Hemoglobin 29.5 pg (27.0-33.0); Mean Corpuscular Volume 84.4 fL (80.0-98.0); Mean Platelet Volume 9.2 fL (9.4-12.4); Monocytes Absolute Auto 0.7 X10*3/uL (0.1-1.2); Monocytes Percent Auto 10.3 % (2-11); Neutrophils Absolute Auto 3.5 x10*3/uL (2.0-8.3); Neutrophils Percent Auto 54.3 % (45-73); Platelet Count 205 X10*3/uL (160-400); Red Cell Distribution Width 12.8 % (11.0-16.0); White Blood Count 6.4 X10*3/uL (4.8-10.8)
[2024-09-14 20:53] LABS: Prothrombin Time 11.8 SEC (10.9-12.4)
[2024-09-14 21:03] LABS: Alanine Aminotransferase 35 U/L (0-40); Albumin Level 4.3 g/dL (3.5-5.0); Alkaline Phosphatase 58 U/L (39-117); Anion Gap 11 (12-20); Aspartate Amino Transferase 30 U/L (5-37); Bilirubin Total 0.4 mg/dL (0.0-1.0); Blood Urea Nitrogen 9 mg/dL (9-16); Calcium 9.1 mg/dL (8.4-10.2); Carbon Dioxide 25 mmol/L (22-29); Chloride 109 mmol/L (96-108); Creatinine Clr Calc Pharmacy 128.8; Estimated Glomerular Filt Rate > 60; Glucose Random 118 mg/dL (60-115); Magnesium 2.1 mg/dL (1.6-2.6); Potassium 3.8 mmol/L (3.3-5.1); Sodium 141 mmol/L (135-145); Total Protein 7.4 g/dL (6.5-8.0)
[2024-09-14 21:12] LABS: Troponin-I High Sensitivity < 2.7 ng/L (<3.5-35.0)
[2024-09-14 21:26] LABS: Influenza A PCR NEGATIVE (Negative); Influenza B PCR NEGATIVE (Negative); Resp Syncy Virus RNA Qual PCR NEGATIVE (Negative); SARS COV2 PCR INHOUSE NEGATIVE (Negative)
[2024-09-14 23:20] VITALS: BP 106/57; PULSE 74; RESP 20; TEMP 37; O2SAT 97
[2024-09-14] MEDS: SUMAtriptan succinate 6 MG/0.5 ML VIAL SUBCUT (23:30)
[2024-09-15 00:08] VITALS: BP 133/72; PULSE 64; RESP 16; TEMP 37.1; O2SAT 97
[2024-09-15] MEDS: Butalb/Acetamin/Caff 50/325/40 TABLET 1 TAB PO (00:30)
[2024-09-15 01:19] VITALS: BP 111/69; PULSE 67; RESP 20; TEMP 36.9; O2SAT 98
[2024-09-15] MEDS: Ketorolac Tromethamine 60 MG/2 ML VIAL IM (01:23)
[2024-09-15 01:57] VITALS: BP 116/67; PULSE 59; RESP 16; TEMP 36.7; O2SAT 98
[2024-09-15] MEDS: 0.9 % Sodium Chloride 1,000 ML 999 ML IV (02:23)
[2024-09-15] MEDS: diphenhydrAMINE HCL 50 MG/ML VIAL IVPUSH (02:24)
[2024-09-15] MEDS: Metoclopramide HCl 10 MG/2 ML VIAL IVPUSH (02:24)
[2024-09-15 04:00] VITALS: BP 131/77; PULSE 55; RESP 19; TEMP 36.4; O2SAT 98
[2024-09-15 04:05] VITALS: BP 131/77; PULSE 56; RESP 16; TEMP 36.4; O2SAT 97
== END 2024-09-15 04:07 | disposition home or self-care (01) ==
PROVIDERS: Nurse Practitioner Family; Emergency Provider Internal Medicine; PCP Internal Medicine
DX: R51.9 Headache, unspecified (principal); R10.2 Pelvic and perineal pain; R42 Dizziness and giddiness; Z87.891 Personal history of nicotine dependence; Z03.818 Encounter for observation for suspected exposure to other biological agents ruled out; Z79.899 Other long term (current) drug therapy
CPT/HCPCS: 0241U; 36415; 70450; 80053; 83735; 84484; 85025; 85610; 93005; 99285; J1200; J1885; J2765; J3030

== ENCOUNTER → 2024-09-14 19:24 | Outpatient (BNV) | payer MEDICARE, MEDICAID, SELFPAY | PROVIDERS: PCP Internal Medicine; Visit Provider Radiology Diagnostic Radiology | DX: R51.9 Headache, unspecified (principal); S09.90XA Unspecified injury of head, initial encounter | CPT/HCPCS: 70450 ==

== ENCOUNTER → 2024-09-14 19:25 | Outpatient (BNV) | payer MEDICARE, MEDICAID, SELFPAY | PROVIDERS: Emergency Provider Internal Medicine; PCP Internal Medicine; Visit Provider Internal Medicine | DX: R51.9 Headache, unspecified (principal) | CPT/HCPCS: 93010 ==

== ENCOUNTER 2024-10-23 10:20 | Outpatient (AMB) | payer MEDICARE, MEDICAID, SELFPAY ==
--- NOTE | 2024-10-23 10:28 | A.OFFPC_ITS ---
Vital Signs 10/23/24 10:29 Height 5 ft 10 in Weight 222 lb BMI 31.9 BP 110/80 Blood Pressure Location Lt brachial Position Sitting Intake Visit Reasons: Annual Exam Intake Note: Patient here for a physical exam Auxiliary Operator Required: Yes Auxiliary Operator Language: Weather Clerk Name: Ayah Peña MD Information Interpreted: non-clinical & clinical Accompanied by: Spouse Allergies No Known Allergies Allergy (Verified 10/23/24 10:50) Medication List - Last Reconciled 10/23/24 by Ayah Peña MD albuterol sulfate 2.5 mg (3 mL) inhalation Q6H 30 days ammonium lactate 12% 1 appl topical BID atorvastatin 40 mg PO BEDTIME 90 days blood pressure test kit-large As directed blood sugar diagnostic (FreeStyle Lite Strips) three times a day blood-glucose meter (FreeStyle [place] kit) As directed check the BS TID buprenorphine-naloxone 12-3 mg (Suboxone) 1 film buccal ONCE buspirone 15 mg PO TID [id number]-lmlaputvphlpx-dpzn 50-325-40 mg 1 tab PO Q6H PRN cane As directed cholecalciferol (vitamin D3) 25 mcg PO DAILY 90 days cyclobenzaprine 10 mg PO TID PRN 30 days empagliflozin (Jardiance) 25 mg PO QAM fenofibrate nanocrystallized 145 mg PO DAILY fluticasone propion-salmeterol 250-50 mcg/dose (Advair Diskus) 1 inh inhalation BID 30 days glucose 16 grams (4 x 4 gram) PO Q15M 30 days hydroxyzine HCl 50 mg PO Q8H PRN ibuprofen 800 mg PO TID PRN lancets (FreeStyle Lancets) As directed check the BS TID lisinopril 5 mg PO DAILY 90 days meclizine 25 mg PO BID PRN 30 days metformin 500 mg PO BID 90 days montelukast 10 mg PO BEDTIME 90 days needle (disp) 18 G (BD Regular Bevel [place]) As directed to be used weekly for T injection needle (disp) 25 gauge (BD Regular Bevel [place]) As directed - for testosterone subcutaneous injection omeprazole 40 mg PO BID pen needle, diabetic (BD Ultra-Fine Short Pen Needle) 1 ea subcut DAILY 90 days quetiapine ER 300 mg PO BEDTIME syringe (disposable) (BD Luer-Enio Syringe) Testosterone injection weekly tadalafil 5 mg PO DAILY 90 days tadalafil 20 mg PO ONCE PRN 30 days testosterone cypionate (Depo-Testosterone) 80 mg (0.4 mL) subcut QWEEK 4 weeks tirzepatide (Mounjaro) mg subcut trazodone 150 mg PO DAILY venlafaxine ER 150 mg PO DAILY venlafaxine ER 75 mg PO DAILY Ventolin HFA 90 mcg/actuation (albuterol sulfate) 2 puffs inhalation Q6H PRN 30 days NS zolpidem 10 mg PO BEDTIME PRN Tobacco use date assessed: 10/23/24 Dental Screening Dental Screen Date: 10/23/24 Did you have a dental visit in the last 12 months?: Yes Did you have a dental problem in the last 6 months where you did not have access to dental care?: No Was dental information given to patient?: Patient has dentist HPI HPI Comments History of Present Illness Details The patient is a 44-year-old male presenting for his physical exam with chronic headaches, which have been occurring for the past two months. The headaches initiate suddenly, characterized by a pounding sensation, often occurring on both sides of the head. The frequency is almost daily and typically starts around 6:00 PM. He describes a throbbing feeling, particularly in the temples. There is no associated photophobia. The patient reports no neurological deficits such as speech difficulties or unilateral weakness. Previously, the patient visited the hospital, where a CT scan of the head was performed, yielding normal results. Fioricet provides some relief, yet its frequent usage has led to rebound headaches. New interventions planned include sumatriptan for more effective management. - Tetanus vaccination updated in 2020. - Hemoglobin A1c level was 5.2 on Dece er 19, indicating well-controlled blood glucose. - Scheduled to update laboratories, incl uding lipid panel, in four months. [facility] Medical History (Updated 10/23/24 @ 12:26 by Ayah Peña MD) Erectile dysfunction associated with type 2 diabetes mellitus Allergic rhinitis Nocturnal hypoxemia Asthma exacerbation Bronchitis Excessive daytime sleepiness Bilateral hand pain Dyslipidemia Mild recurrent major depression DM2 (diabetes mellitus, type 2) REE (obstructive sleep apnea) Polyarthralgia Acute lumbar myofascial strain Lumbar degenerative disc disease Hypertriglyceridemia Type 2 diabetes mellitus with hyperglycemia Polysubstance abuse Hypogonadism Erectile dysfunction GERD (gastroesophageal reflux disease) Anxiety and depression Asthma Colitis Surgical History History of surgery History of elbow surgery Family History Father Hypertension Diabetes Cancer Cancer, hepatocellular Mother No problems noted. 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 1. Little interest or pleasure in doing things: not at all 2. Feeling down, depressed, or hopeless: not at all 3. Trouble falling or staying asleep, or sleeping too much: several days 4. Feeling tired or having little energy: more than half the days 5. Poor appetite or overeating: several days 6. Feeling bad about yourself - or that you are a failure or have let yourself or your family down: several days 7. Trouble concentrating on things, such as reading the newspaper or watching television: not at all 8. Moving or speaking so slowly that other people could have noticed. Or the opposite - being so fidgety or restless that you have been moving around a lot more than usual: not at all 9. Thoughts that you would be better off or of hurting yourself in some way: not at all Total score: 5 Depression Screening Interpretation: Positive Depression Screening Follow-up: Existing condition, In treatment, Community Mental Health Worker F/U and Follow- up Visit Requested Depression Screening Done: Yes 54151 - PHQ-9 Billing: Yes Source: Developed by Drs. Surjit Espino, Lucina Escoto, Elvin Hussein and colleagues, with an educational porsche from [employer]. Thrive Questionnaire Date Thrive assessed: 10/23/24 I am a: Parent/Caregiver What is your living situation today?: I have a steady place to live Within the past 12 months, did the food you bought not last and you didn't have the money to get more?: Sometimes True Within the past 12 months, did you worry whether your food would run out before you got money to buy more?: Sometimes True Do you have trouble paying for medicines?: Yes Do you have trouble getting transportation to medical appointments?: No Do you have trouble paying your heating and electricity bill?: Yes Do you have trouble taking care of your child, family member or friend?: Yes Do you have trouble with day-to-day activities such as bathing, preparing meals, shopping, managing finances, etc.?: I choose not to answer this question Are you currently unemployed and looking for a job?: Yes Are you interested in more education?: No Please select the resources that you would like help with: Food, Paying for medicine and Utilities Currently or been in a relationship where the following occur: No concerns reported THRIVE Score: 3 AUDIT C Alcohol Use Questionnaire (AUDIT-C) 1. How often do you have a drink containing alcohol?: Never Total Score: 0 Score Reviewed/Action Taken: No MIRIAM-7 AMB Questionnaire MIRIAM-7 Date MIRIAM - 7 assessed: 10/23/24 Feeling nervous, anxious, or on edge: 2 = More than half the days Not being able to stop or control worryin = Several days Worrying too much about different things: 1 = Several days Trouble relaxin = Nearly every day Being so restless that it is hard to sit still: 2 = More than half the days Becoming easily annoyed or irritable: 2 = More than half the days Feeling afraid as if something awful might happen: 2 = More than half the days Total MIRIAM-7 score (0-4 normal; 5-9 mild; 10-14 moderate; 15-21 severe): 13 Source: Developed by Drs. Surjit Espino, Lucina Escoto, Elvin Hussein and colleagues, with an educational porsche from [employer]. MIRIAM-7 Assessment Billing MIRIAM-7 Assessment Tool: MIRIAM-7 Assessment 87426 Review of Systems Const All systems reviewed & are unremarkable except as noted in HPI and below Card Denies chest pain at rest, Denies chest pain with activity, Denies edema, Denies irregular heart rhythm, Denies claudication, Denies dyspnea, Denies dyspnea on exertion, Denies orthopnea, Denies paroxysmal nocturnal dyspnea and Denies slow heart rate Resp Denies cough, Denies dyspnea and Denies dyspnea on exertion GI Denies abdominal pain, Denies change in bowel habits, Denies excessive flatus, Denies nausea and Denies vomiting Denies urinary hesitancy, Denies urinary incontinence and Denies urinary urgency Physical exam (Primary Care) Vital Signs: Last Vital Signs BP 110/80 10/23/24 10:29 BMI result Body Mass Index 31.9 BMI Assessment/Plan discussion: High BMI High, discussed plan: lifestyle, weight reduction, dietary and physical activity Tobacco/Smoking Status: Tobacco use Status Tobacco use date assessed 10/23/24 10/23/24 10:34 Patient Tobacco Use Status Former Tobacco user 10/23/24 10:56 Tobacco use type Cigarette 10/23/24 10:56 e-Cigarette/Vaping Use Never Used 10/23/24 10:56 PHQ-9: PHQ-9 Score PHQ-9: Total score 5 10/23/24 11:12 Depression Screening Interpretation: Positive Depression Screening Follow-up: Existing condition, In treatment, Community Mental Health Worker F/U and Follow- up Visit Requested Thrive Assessment: Date of Thrive Assessment Date Thrive assessed 10/23/24 10/23/24 10:34 Currently or been in a relationship where the following occur: No concerns reported Const Orientation/consciousness: patient oriented x3 Limitations: ambulation with cane HENMT Head: Yes normal to inspection, Yes normocephalic and Yes atraumatic Ears: external ears normal Eyes General: appearance normal, both eyes and all related structures Eyelids: Yes eyelids normal Conjunctivae: conjunctivae normal Neck Neck: Yes normal visual inspection and Yes supple Resp Effort & Inspection: normal respiratory effort Auscultation: clear to auscultation bilaterally Cardio Jugular venous distension: no JVD Rate: regular rate Rhythm: regular rhythm Heart sounds: S1 normal heart sound present and S2 normal heart sound present GI Inspection: Yes normal to inspection Palpation (GI): Soft to palpation and nontender Auscultation: normal bowel sounds Skin General skin exam: no rashes or lesions noted Neuro General: patient oriented x3 and no focal motor deficits Extrem General: Yes full ROM Psych Appearance: grossly normal Office Procedures Flu Questionnaire Does the patient have a severe egg allergy?: No Immunizations Fluarix Triv [id number] (PF) 45 mcg (15 mcg x 3)/0.5 mL IM syringe Performing Provider: Ayah Peña MD Performing Location: [facility] – [place] [facility] Documented (not given) by: RED Forman on 10/23/24 11:10 Reason Not Given: Patient Refused Coding Level of Care Code Est Pt Level 3 (55173) Est Pt Prev Care 40-64y(02040) Diagnoses Physical exam Z00.00 Mild recurrent major depression F33.0 Type 2 diabetes mellitus without complication, unspecified whether superintendent terminal insulin use E11.9 Diabetes mellitus skilled nursing insulin use: unspecified superintendent terminal insulin use status Diabetes mellitus complication status: without complication New daily persistent headache G44.52 Skin lesion L98.9 Additional Codes MIRIAM-7 Assessment Billing - MIRIAM-7 Assessment Tool: MIRIAM-7 Assessment 11501 ([id number]) PHQ-9 - 91549 - PHQ-9 Billing: Yes ([id number]) Time Spent (min) 35 Assessment & Plan Assessment & Plan (1) Physical exam: Code(s): Z00.00 - Encounter for general adult medical examination without abnormal findings Category: Medical (2) Mild recurrent major depression: Code(s): F33.0 - Major depressive disorder, recurrent, mild Category: Medical (3) DM2 (diabetes mellitus, type 2): Code(s): E11.9 - Type 2 diabetes mellitus without complications Category: Medical Qualifiers: Diabetes mellitus superintendent terminal insulin use: unspecified skilled nursing insulin use status Diabetes mellitus complication status: without complication Qualified Code(s): E11.9 - Type 2 diabetes mellitus without complications (4) New daily persistent headache: Code(s): G44.52 - New daily persistent headache (NDPH) Category: Medical (5) Skin lesion: Code(s): L98.9 - Disorder of the skin and subcutaneous tissue, unspecified Category: Medical Plan - Prescribe sumatriptan for acute headache management. - Limited use of Fioricet to reduce rebound headaches. - Referral to neurology for ongoing headache management. - Continue current diabetic and hypertension management. - Continue atorvastatin for hyperlipidemia. - Order laboratory evaluations for lipids in four months. Patient was informed and verbally consented to the use of an ambient scribe for clinic note documentation during this visit. I discussed with the patient the likely diagnosis of migraines exacerbated by tension-type components. We reviewed the risks of rebound headaches using Fioricet and the benefits of transitioning to sumatriptan. Referred the patient to a neurologist for comprehensive headache management. Emphasized continuing with current medication for diabetes and hyperlipidemia while awaiting follow-up laboratory results in four months. Reviewed the necessity of lifestyle modifications, such as stress management, to reduce headache frequency. Orders: Orders Lipid Panel 4 Months E78.5 - Hyperlipidemia, unspecified Vitamin D 25-OH Total 4 Months E55.9 - Vitamin D deficiency, unspecified Microalbumin, Random (w Creat) 4 Months R80.9 - Proteinuria, unspecified Comprehensive [place]. Panel Fast 4 Months G44.52 - New daily persistent headache (NDPH) Influenza [id number] Immunization Today Z23 - Encounter for immunization Referrals Neurology Referral G44.52 - New daily persistent headache (NDPH) Dermatology Referral L98.9 - Disorder of the skin and subcutaneous tissue, unspecified Medications: New sumatriptan succinate do not exceed 8 doses per 24 hrs 25 mg PO Q2-4H PRN 9 tabs 1RF migraine headache 30 days Patient Instructions: - Take sumatriptan at the onset of a headache. - Limit Fioricet usage to prevent rebound headaches. - Follow up with the neurologist for headache evaluations. - Continue diabetic and hypertension management as prescribed. - Visit the laboratory in four months for updated lipid panels. - Monitor and manage stress to aid in headache prevention.
[2024-10-23 10:29] VITALS: BP 110/80; BMI 31.9
== END 2024-10-23 11:03 | disposition home or self-care (01) ==
PROVIDERS: PCP Internal Medicine; Visit Provider Internal Medicine
DX: Z00.00 Encounter for general adult medical examination without abnormal findings (principal); F33.0 Major depressive disorder, recurrent, mild; E11.9 Type 2 diabetes mellitus without complications; G44.52 New daily persistent headache (NDPH); L98.9 Disorder of the skin and subcutaneous tissue, unspecified; Z23 Encounter for immunization

== ENCOUNTER 2024-10-23 10:20 | Outpatient (REF) | payer MEDICARE, MEDICAID, SELFPAY ==
[2024-10-23 12:25] LABS: Microalbum/Creatinine Ratio Ur 29.1 ug/mg cr (<30)
[2024-10-23 13:19] LABS: Alanine Aminotransferase 39 U/L (0-40); Albumin Level 4.5 g/dL (3.5-5.0); Anion Gap 10 (12-20); Aspartate Amino Transferase 32 U/L (5-37); Bilirubin Total 0.5 mg/dL (0.0-1.0); Blood Urea Nitrogen 15 mg/dL (9-16); Carbon Dioxide 29 mmol/L (22-29); Chloride 106 mmol/L (96-108); Cholesterol 215 mg/dL (<200); Estimated Glomerular Filt Rate > 60; Glucose Fasting 96 mg/dL (60-99); HDL Cholesterol 38 mg/dL (>40); LDL Cholesterol Calculated 140 mg/dL (<100); Potassium 4.1 mmol/L (3.3-5.1); Sodium 141 mmol/L (135-145); Total Protein 8.4 g/dL (6.5-8.0); Triglycerides 188 mg/dL (<150)
[2024-10-23 13:32] LABS: Alkaline Phosphatase 59 U/L (39-117)
[2024-10-23 13:38] LABS: Vitamin D 25-OH Total 25.6 ng/mL (>30)
== END 2024-10-23 10:21 | disposition home or self-care (01) ==
LOC: HO.LAB 10:20
PROVIDERS: PCP Internal Medicine; Visit Provider Internal Medicine
DX: Z00.01 Encounter for general adult medical examination with abnormal findings (principal); F33.0 Major depressive disorder, recurrent, mild; E11.9 Type 2 diabetes mellitus without complications; G44.52 New daily persistent headache (NDPH); L98.9 Disorder of the skin and subcutaneous tissue, unspecified; R80.9 Proteinuria, unspecified; E78.5 Hyperlipidemia, unspecified; E55.9 Vitamin D deficiency, unspecified; I10 Essential (primary) hypertension; Z79.899 Other long term (current) drug therapy; Z28.21 Immunization not carried out because of patient refusal
CPT/HCPCS: 36415; 80053; 80061; 82043; 82306; 82570; 96127; 99212; 99396

== ENCOUNTER 2024-11-16 22:48 | Emergency (ER) | payer MEDICARE, MEDICAID, SELFPAY ==
[2024-11-16 23:02] VITALS: BP 145/69; PULSE 92; RESP 20; TEMP 37.2; O2SAT 95; BMI 32.7
--- NOTE | 2024-11-17 00:33 | ED.EYEPROB ---
HPI - Eye Problem General Chief complaint: Eye Problems Stated complaint: eye allergy? Time Seen by Provider: 11/17/24 00:32 Source: patient Mode of arrival: ambulatory Limitations: no limitations History of Present Illness ED Provider: HPI Narrative: Patient' with history of allergies comes here for redness both eyes with water for last 3 days with itching no discharge from the eyes patient does not wear any contact lenses Related Data Home Medications ?Medication ?Instructions ?Recorded ?Confirmed buspirone 15 mg tablet 15 mg PO TID 06/04/20 10/23/24 quetiapine 300 mg tablet,extended 300 mg PO BEDTIME 06/04/20 10/23/24 release 24 hr zolpidem 10 mg tablet 10 mg PO BEDTIME PRN insomnia 06/04/20 10/23/24 buprenorphine 12 mg-naloxone 3 mg 1 film buccal ONCE 07/09/20 10/23/24 sublingual film (Suboxone) hydroxyzine HCl 50 mg tablet 50 mg PO Q8H PRN anxiety 07/10/20 10/23/24 ibuprofen 800 mg tablet 800 mg PO TID PRN pain 09/16/20 10/23/24 trazodone 150 mg tablet 150 mg PO DAILY 12/08/20 10/23/24 venlafaxine 75 mg capsule,extended 75 mg PO DAILY 01/14/22 10/23/24 release 24 hr venlafaxine 150 mg 150 mg PO DAILY 05/28/22 10/23/24 capsule,extended release 24 hr ammonium lactate 12 % topical cream 1 appl topical BID 12/01/22 10/23/24 tirzepatide 2.5 mg/0.5 mL mg subcut 08/23/24 10/23/24 subcutaneous pen injector (Kiko) Previous Rx's ?Medication ?Instructions ?Recorded blood-glucose meter (FreeStyle #1 ea 09/09/20 Iliamna kit) glucose 4 gram chewable tablet 16 g (4 x 4 gram) PO Q15M 30 days 12/24/20 #50 tabs omeprazole 40 mg capsule,delayed 40 mg PO BID #180 caps 01/20/21 release blood pressure test kit-large #1 ea 05/21/21 lancets 28 gauge (FreeStyle #300 ea 06/23/21 Lancets) blood sugar diagnostic (FreeStyle #300 ea 11/03/21 Lite Strips) empagliflozin 25 mg tablet 25 mg PO QAM #30 tabs 01/14/22 (Jardiance) cane #1 ea 01/25/23 tadalafil 5 mg tablet 5 mg PO DAILY sexual activity 90 06/10/23 days #90 tabs pen needle, diabetic 31 gauge x 1 ea subcut DAILY 90 days #100 ea 08/05/23 5/16 (BD Ultra-Fine Short Pen Needle) cyclobenzaprine 10 mg tablet 10 mg PO TID PRN muscle spasm 30 12/05/23 days #90 tabs meclizine 25 mg tablet 25 mg PO BID PRN dizziness 30 days 02/13/24 #60 tabs albuterol sulfate 2.5 mg/3 mL 2.5 mg (3 mL) inhalation Q6H 04/25/24 (0.083 %) solution for nebulization ASTHMA 30 days #360 mL fluticasone 250 mcg-salmeterol 50 1 inh inhalation BID asthma 30 06/06/24 mcg/dose blistr powdr for days #60 ea inhalation (Advair Diskus) testosterone cypionate 200 mg/mL 80 mg (0.4 mL) subcut QWEEK 4 06/15/24 intramuscular oil weeks #4 multiple units (Depo-Testosterone) montelukast 10 mg tablet 10 mg PO BEDTIME 90 days #90 tabs 07/26/24 lisinopril 5 mg tablet 5 mg PO DAILY 90 days #90 tabs 08/02/24 needle (disp) 18 G 18 gauge x 1 #30 ea 08/06/24 1/2 (BD Regular Bevel [place]) syringe (disposable) 1 mL (BD #30 ea 08/06/24 Luer-Enio Syringe) needle (disp) 25 gauge 25 gauge x #30 ea 08/10/24 5/8 (BD Regular Bevel [place]) fenofibrate nanocrystallized 145 145 mg PO DAILY #90 tabs 08/23/24 mg tablet metformin 500 mg tablet 500 mg PO BID 90 days #180 tabs 08/23/24 tadalafil 20 mg tablet 20 mg PO ONCE PRN sexual activity 08/26/24 30 days #30 tabs atorvastatin 40 mg tablet 40 mg PO BEDTIME 90 days #90 tabs 09/08/24 axaoooevdn-wkaxnmmgdzsby-wefxfeud 1 tab PO Q6H PRN haeadace #20 tabs 09/15/24 50 mg-325 mg-40 mg tablet sumatriptan succinate 25 mg tablet 25 mg PO Q2-4H PRN migraine 10/23/24 headache 30 days #9 tabs cholecalciferol (vitamin D3) 25 25 mcg PO DAILY 90 days #90 caps 10/25/24 mcg (1,000 unit) capsule Ventolin HFA 90 mcg/actuation 2 puff inhalation Q6H PRN 10/30/24 aerosol inhaler (albuterol sulfate) shortness of breath or wheezing 30 days #8 grams diphenhydramine HCl 25 mg capsule 50 mg (2 x 25 mg) PO TID PRN 11/17/24 (Benadryl) allergic reaction #20 caps ketotifen fumarate 0.025 % (0.035 1 drp ophthalmic (eye) Q8H PRN 11/17/24 %) eye drops (Alaway) allergy symptoms #5 mL Allergies Allergy/AdvReac Type Severity Reaction Status Date / Time No Known Allergies Allergy Verified 11/16/24 23:04 Review of Systems Review of Systems: Yes all other systems are reviewed and are negative [facility] Past Medical History Medical History Erectile dysfunction associated with type 2 diabetes mellitus Allergic rhinitis Nocturnal hypoxemia Asthma exacerbation Bronchitis Excessive daytime sleepiness Bilateral hand pain Dyslipidemia Mild recurrent major depression DM2 (diabetes mellitus, type 2) REE (obstructive sleep apnea) Polyarthralgia Acute lumbar myofascial strain Lumbar degenerative disc disease Hypertriglyceridemia Type 2 diabetes mellitus with hyperglycemia Polysubstance abuse Hypogonadism Erectile dysfunction GERD (gastroesophageal reflux disease) Anxiety and depression Asthma Colitis Surgical History History of surgery History of elbow surgery Family History Family History Father Hypertension Diabetes Cancer Cancer, hepatocellular Mother No problems noted. Son Ulcerative colitis Paternal Grandfather Cancer Social History Social History Household Members: Spouse Housing: House Alcohol intake: never Patient Tobacco Use Status: Former Tobacco user Tobacco use type: Cigarette Cigarette Packs Per Day: 1 Cigarettes Per Day: 20 Years Smoked: 20 Smoked in Last 30 Days: No e-Cigarette/Vaping Use: Never Used Second Hand Smoke Exposure: No Use of substances other than those prescribed or required for medical reasons: No Substance Use Type: Former Substance User, Heroin and Marijuana Advance Directives: No Advance Directives Information Provided: Yes Do you have a plan to hurt others: No Plan service: No Current occupational status: disabled 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 Oriented X3. No acute distress. Eyes: Conjunctival inflammation no exudate no foreign body ENT: Pharynx normal. Oral Mucosa moist Neck: Normal inspection. Neck supple. CVS: Normal heart rate and rhythm. Pulses normal. Respiratory: No respiratory distress. Equal air entry bilateral, no wheezing/rales/rhonchi Abd: soft, not tender Skin: Skin warm and dry. Normal skin color. Normal skin turgor. Extremities: No lower extremity edema, no calf tenderness Neuro: Oriented X 3. Medications Administered Discontinued Medications Generic Name Dose Route Start Last Admin Trade Name Freq PRN Reason Stop Dose Admin Diphenhydramine HCl 50 mg 11/17/24 00:46 11/17/24 01:18 Diphenhydramine Hcl 25 Mg Capsule PO 11/17/24 00:47 50 mg ONCE ONE Administration Medical Decision Making Medical Decision Making [facility] Narrative: Patient with allergic conjunctivitis will prescribe ketorolac eyedrops advised to continue Benadryl Discharge Plan Discharge Clinical Impression: Acute allergic conjunctivitis Patient Disposition: Home, Self-Care Instructions: Conjunctivitis (ED) Additional Instructions: Likely have allergic conjunctivitis etiology not clear Use eyedrops as prescribed Benadryl 1-2 tablets every 6 hours as needed for itching/rash Prescriptions: New ketotifen fumarate [Alaway] 0.025 % (0.035 %) drops 1 drp ophthalmic (eye) Q8H PRN (Reason: allergy symptoms) Qty: 5 0RF Rx Instructions: do not exceed 2 doses in a 24 hour period diphenhydramine HCl [Benadryl] 25 mg capsule 50 mg PO TID PRN (Reason: allergic reaction) Qty: 20 0RF No Action (DME) blood-glucose meter [FreeStyle [place]] Kit See Rx Instructions .ROUTE .MEDSUPPLY Qty: 1 0RF Rx Instructions: As directed check the BS TID glucose 4 gram tablet,chewable 16 g PO Q15M 30 Days Qty: 50 3RF omeprazole 40 mg capsule,delayed release(DR/EC) 40 mg PO BID Qty: 180 3RF (DME) lancets [FreeStyle Lancets] 28 gauge misc See Rx Instructions .ROUTE .MEDSUPPLY Qty: 300 3RF Rx Instructions: As directed check the BS TID (DME) FreeStyle Lite Strips Strip See Rx Instructions .ROUTE .MEDSUPPLY Qty: 300 1RF Rx Instructions: three times a day (DME) cane Device See Rx Instructions .Route Qty: 1 0RF Rx Instructions: As directed tadalafil 5 mg tablet 5 mg PO DAILY 90 Days Qty: 90 1RF pen needle, diabetic [BD Ultra-Fine Short Pen Needle] 31 gauge x 5/16 needle 1 ea subcut DAILY 90 Days Qty: 100 3RF cyclobenzaprine 10 mg tablet 10 mg PO TID PRN (Reason: muscle spasm) 30 Days Qty: 90 1RF meclizine 25 mg tablet 25 mg PO BID PRN (Reason: dizziness) 30 Days Qty: 60 0RF fluticasone propion-salmeterol [Advair Diskus] 250-50 mcg/dose blister with device 1 inh inhalation BID 30 Days Qty: 60 5RF montelukast 10 mg tablet 10 mg PO BEDTIME 90 Days Qty: 90 1RF lisinopril 5 mg tablet 5 mg PO DAILY 90 Days Qty: 90 1RF (DME) BD Luer-Enio Syringe 1 mL syringe See Rx Instructions .MEDSUPPLY Qty: 30 0RF Rx Instructions: Testosterone injection weekly (DME) BD Regular Bevel [place] 18 gauge x 1 1/2 needle See Rx Instructions .MEDSUPPLY Qty: 30 0RF Rx Instructions: As directed to be used weekly for T injection (DME) BD Regular Bevel [place] 25 gauge x 5/8 needle See Rx Instructions .MEDSUPPLY Qty: 30 0RF Rx Instructions: As directed - for testosterone subcutaneous injection tadalafil 20 mg tablet 20 mg PO ONCE PRN (Reason: sexual activity) 30 Days Qty: 30 6RF Rx Instructions: On demand medication take 60 minutes before intended activity atorvastatin 40 mg tablet 40 mg PO BEDTIME 90 Days Qty: 90 0RF cholecalciferol (vitamin D3) 25 mcg (1,000 unit) capsule 25 mcg PO DAILY 90 Days Qty: 90 1RF albuterol sulfate [Ventolin HFA] 90 mcg/actuation HFA aerosol inhaler 2 puff inhalation Q6H PRN (Reason: shortness of breath or wheezing) 30 Days Qty: 8 0RF nafyfrowok-mwaccljrhchnc-loen 50-325-40 mg tablet 1 tab PO Q6H PRN (Reason: haeadace) Qty: 20 0RF buprenorphine-naloxone [Suboxone] 12-3 mg film 1 film buccal ONCE (DME) blood pressure test kit-large Kit See Rx Instructions .Route Qty: 1 0RF Rx Instructions: As directed ibuprofen 800 mg tablet 800 mg PO TID PRN (Reason: pain) quetiapine 300 mg tablet extended release 24 hr 300 mg PO BEDTIME zolpidem 10 mg tablet 10 mg PO BEDTIME PRN (Reason: insomnia) buspirone 15 mg tablet 15 mg PO TID hydroxyzine HCl 50 mg tablet 50 mg PO Q8H PRN (Reason: anxiety) trazodone 150 mg tablet 150 mg PO DAILY venlafaxine 75 mg capsule,extended release 24hr 75 mg PO DAILY Jardiance 25 mg tablet 25 mg PO QAM Qty: 30 4RF ammonium lactate 12 % cream 1 appl topical BID venlafaxine 150 mg capsule,extended release 24hr 150 mg PO DAILY testosterone cypionate [Depo-Testosterone] 200 mg/mL oil 80 mg subcut QWEEK 28 Days Qty: 4 5RF Rx Instructions: Discard excess medication after use Mounjaro 2.5 mg/0.5 mL pen injector subcut fenofibrate nanocrystallized 145 mg tablet 145 mg PO DAILY Qty: 90 1RF metformin 500 mg tablet 500 mg PO BID 90 Days Qty: 180 1RF albuterol sulfate 2.5 mg /3 mL (0.083 %) solution for nebulization 2.5 mg inhalation Q6H 30 Days Qty: 360 4RF sumatriptan succinate 25 mg tablet 25 mg PO Q2-4H PRN (Reason: migraine headache) 30 Days Qty: 9 1RF Rx Instructions: do not exceed 8 doses per 24 hrs Interventions: ED Discharge Assessment Last Done: 11/17/24 01:24 Discharge Date/Time: 11/17/24 01:24 Print Language: Kos[place]
[2024-11-17] MEDS: diphenhydrAMINE HCL 25 MG CAPSULE 50 MG PO (01:18)
[2024-11-17 01:22] VITALS: BP 136/72; PULSE 86; RESP 18; TEMP 37.2; O2SAT 97
[2024-11-17 01:24] VITALS: BP 136/72; PULSE 86; RESP 18; TEMP 37.2; O2SAT 97
== END 2024-11-17 01:24 | disposition home or self-care (01) ==
PROVIDERS: Emergency Provider Internal Medicine; PCP Internal Medicine
DX: H10.13 Acute atopic conjunctivitis, bilateral (principal); H57.13 Ocular pain, bilateral; E11.9 Type 2 diabetes mellitus without complications; E78.5 Hyperlipidemia, unspecified; J45.909 Unspecified asthma, uncomplicated; Z87.891 Personal history of nicotine dependence
CPT/HCPCS: 99283; 99284

== ENCOUNTER 2024-11-30 07:54 | Emergency (ER) | payer MEDICARE, MEDICAID, SELFPAY ==
--- NOTE | ~2024-11-30 | XR_ITS ---
EXAMINATION: XR CERVICAL SPINE CLINICAL INFORMATION: neck pain left sided COMPARISON: Correlation to June 24, 2016 TECHNIQUE: 3 views of the cervical spine were obtained. FINDINGS: Craniocervical junction is intact. Marginal osteophyte formation C6-7. No acute cortical disruption or malalignment. Upper airway is patent. XR/XR cervical spine 2V IMPRESSION: Mild spondylosis C6-7. Electronically signed by: Mike Evans MD 11/30/2024 08:45 AM EDT
[2024-11-30 08:07] VITALS: BP 139/81; PULSE 71; RESP 18; TEMP 37.3; O2SAT 95; BMI 31.3
--- NOTE | 2024-11-30 08:16 | ED.GENADULT ---
HPI - General Adult General Chief complaint: General Medical Stated complaint: l side neck and shoulder blade pain Time Seen by Provider: 11/30/24 08:16 Source: patient Mode of arrival: ambulatory Limitations: no limitations History of Present Illness ED Provider: NINA Graham HPI narrative: This is a 44-year-old male who presents to the emergency department with 8 days of neck pain that radiates into the left shoulder. Patient reports he has been taking baclofen and cyclobenzaprine alternating with little to no relief. He reports this is atraumatic in nature awhile ago he was told he had herniated discs in his neck however he is not sure if this is contributing to his pain. He describes his pain as a constant tightness particularly on the left side of his neck that radiates down to his left shoulder. Pain is worse with movement better at rest. He has been taking znoh-jin-tneknon meds with little to no relief. Denies numbness, tingling, fevers, chills, recent illness, headache, vision changes, dizziness, weakness, nausea, vomiting, abdominal pain. Related Data Home Medications ?Medication ?Instructions ?Recorded ?Confirmed buspirone 15 mg tablet 15 mg PO TID 06/04/20 10/23/24 quetiapine 300 mg tablet,extended 300 mg PO BEDTIME 06/04/20 10/23/24 release 24 hr zolpidem 10 mg tablet 10 mg PO BEDTIME PRN insomnia 06/04/20 10/23/24 buprenorphine 12 mg-naloxone 3 mg 1 film buccal ONCE 07/09/20 10/23/24 sublingual film (Suboxone) hydroxyzine HCl 50 mg tablet 50 mg PO Q8H PRN anxiety 07/10/20 10/23/24 ibuprofen 800 mg tablet 800 mg PO TID PRN pain 09/16/20 10/23/24 trazodone 150 mg tablet 150 mg PO DAILY 12/08/20 10/23/24 venlafaxine 75 mg capsule,extended 75 mg PO DAILY 01/14/22 10/23/24 release 24 hr venlafaxine 150 mg 150 mg PO DAILY 05/28/22 10/23/24 capsule,extended release 24 hr ammonium lactate 12 % topical cream 1 appl topical BID 12/01/22 10/23/24 tirzepatide 2.5 mg/0.5 mL mg subcut 08/23/24 10/23/24 subcutaneous pen injector (Kiko) Previous Rx's ?Medication ?Instructions ?Recorded blood-glucose meter (FreeStyle #1 ea 09/09/20 [place] kit) glucose 4 gram chewable tablet 16 g (4 x 4 gram) PO Q15M 30 days 12/24/20 #50 tabs omeprazole 40 mg capsule,delayed 40 mg PO BID #180 caps 01/20/21 release blood pressure test kit-large #1 ea 05/21/21 lancets 28 gauge (FreeStyle #300 ea 06/23/21 Lancets) blood sugar diagnostic (FreeStyle #300 ea 11/03/21 Lite Strips) empagliflozin 25 mg tablet 25 mg PO QAM #30 tabs 01/14/22 (Jardiance) cane #1 ea 01/25/23 tadalafil 5 mg tablet 5 mg PO DAILY sexual activity 90 06/10/23 days #90 tabs pen needle, diabetic 31 gauge x 1 ea subcut DAILY 90 days #100 ea 08/05/2316 (BD Ultra-Fine Short Pen Needle) cyclobenzaprine 10 mg tablet 10 mg PO TID PRN muscle spasm 30 12/05/23 days #90 tabs meclizine 25 mg tablet 25 mg PO BID PRN dizziness 30 days 02/13/24 #60 tabs albuterol sulfate 2.5 mg/3 mL 2.5 mg (3 mL) inhalation Q6H 04/25/24 (0.083 %) solution for nebulization ASTHMA 30 days #360 mL fluticasone 250 mcg-salmeterol 50 1 inh inhalation BID asthma 30 06/06/24 mcg/dose blistr powdr for days #60 ea inhalation (Advair Diskus) testosterone cypionate 200 mg/mL 80 mg (0.4 mL) subcut QWEEK 4 06/15/24 intramuscular oil weeks #4 multiple units (Depo-Testosterone) montelukast 10 mg tablet 10 mg PO BEDTIME 90 days #90 tabs 07/26/24 lisinopril 5 mg tablet 5 mg PO DAILY 90 days #90 tabs 08/02/24 needle (disp) 18 G 18 gauge x 1 #30 ea 08/06/24 1/2 (BD Regular Bevel [place]) syringe (disposable) 1 mL (BD #30 ea 08/06/24 Luer-Enio Syringe) needle (disp) 25 gauge 25 gauge x #30 ea 08/10/24 5/8 (BD Regular Bevel [place]) fenofibrate nanocrystallized 145 145 mg PO DAILY #90 tabs 08/23/24 mg tablet metformin 500 mg tablet 500 mg PO BID 90 days #180 tabs 08/23/24 tadalafil 20 mg tablet 20 mg PO ONCE PRN sexual activity 08/26/24 30 days #30 tabs pfxdfsixiw-kcanibgaquavi-wikkuirf 1 tab PO Q6H PRN haeadace #20 tabs 09/15/24 50 mg-325 mg-40 mg tablet sumatriptan succinate 25 mg tablet 25 mg PO Q2-4H PRN migraine 10/23/24 headache 30 days #9 tabs cholecalciferol (vitamin D3) 25 25 mcg PO DAILY 90 days #90 caps 10/25/24 mcg (1,000 unit) capsule diphenhydramine HCl 25 mg capsule 50 mg (2 x 25 mg) PO TID PRN 11/17/24 (Benadryl) allergic reaction #20 caps ketotifen fumarate 0.025 % (0.035 1 drp ophthalmic (eye) Q8H PRN 11/17/24 %) eye drops (Alaway) allergy symptoms #5 mL prednisone 10 mg tablet 10 mg PO DIRECTED 8 days #20 11/18/24 tabs Ventolin HFA 90 mcg/actuation 2 puff inhalation Q6H PRN 11/29/24 aerosol inhaler (albuterol sulfate) shortness of breath or wheezing 30 days #8 grams atorvastatin 40 mg tablet 40 mg PO BEDTIME 90 days #90 tabs 11/29/24 ketorolac 10 mg tablet 10 mg PO TID PRN pain 5 days #15 11/30/24 tabs prednisone 50 mg tablet 50 mg PO DAILY 5 days #5 tabs 11/30/24 Allergies Allergy/AdvReac Type Severity Reaction Status Date / Time No Known Allergies Allergy Verified 11/30/24 08:09 Review of Systems Review of Systems: Yes all other systems are reviewed and are negative PMFSH Past Medical History Attestation statement: The following information was validated with the patient. Source: old records reviewed and nursing notes reviewed Medical History Erectile dysfunction associated with type 2 diabetes mellitus Allergic rhinitis Nocturnal hypoxemia Asthma exacerbation Bronchitis Excessive daytime sleepiness Bilateral hand pain Dyslipidemia Mild recurrent major depression DM2 (diabetes mellitus, type 2) REE (obstructive sleep apnea) Polyarthralgia Acute lumbar myofascial strain Lumbar degenerative disc disease Hypertriglyceridemia Type 2 diabetes mellitus with hyperglycemia Polysubstance abuse Hypogonadism Erectile dysfunction GERD (gastroesophageal reflux disease) Anxiety and depression Asthma Colitis Surgical History History of surgery History of elbow surgery Family History Family History Father Hypertension Diabetes Cancer Cancer, hepatocellular Mother No problems noted. Son Ulcerative colitis Paternal Grandfather Cancer Social History Social History Household Members: Spouse Housing: House Alcohol intake: never Patient Tobacco Use Status: Former Tobacco user Tobacco use type: Cigarette Cigarette Packs Per Day: 1 Cigarettes Per Day: 20 Years Smoked: 20 Smoked in Last 30 Days: No e-Cigarette/Vaping Use: Never Used Second Hand Smoke Exposure: No Use of substances other than those prescribed or required for medical reasons: No Substance Use Type: Former Substance User, Heroin and Marijuana Advance Directives: No Advance Directives Information Provided: Yes service: No Current occupational status: disabled 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 Oriented X3.? No acute distress.? Head: Normocephalic, atraumatic, no step-offs or deformities Eyes: Pupils equal, round and reactive to light.? ENT: Pharynx normal.? Neck: Normal inspection.? Neck supple.? + left sided paraspinous & trapezius ttp on exam. Negative meningeal signs . Negative spurling.negative hoffmans CVS: Normal heart rate and rhythm.? Pulses normal.? Respiratory: No respiratory distress.? Breath sounds normal.? Abdomen: Soft and nontender.? Skin: Skin warm and dry.? Normal skin color.? Normal skin turgor.? Extremities: No lower extremity edema.? No calf ttp. 5/5 strength to bilateral upper and lower extremities Neuro: Oriented X 3.? No motor deficit.? No sensory deficit. CN 2-12 intact Course Reevaluation(s) Reevaluation #1: Patient x-ray of cervical spine with mild spondylosis C6 through C7. Patient feeling better after Toradol. Will discharge with prednisone, Toradol. Educated patient on diagnosis and treatment plan, answered all question, patient verbalizes understanding. At this time patient will be discharged home, advised to return with new or worsening symptoms. Educated on worrisome signs and symptoms and when to return. At this time I feel comfortable discharge home. Time: 09:20 Medications Administered Discontinued Medications Generic Name Dose Route Start Last Admin Trade Name Freq PRN Reason Stop Dose Admin Ketorolac Tromethamine 30 mg 11/30/24 08:23 11/30/24 08:42 Ketorolac Tromethamine 30 Mg/Ml Vial IM 11/30/24 08:24 30 mg ONCE ONE Administration Medical Decision Making Medical Decision Making [facility] Narrative: 44-year-old male presents with left-sided neck pain and upper back/trop pain ongoing for 8 days. On exam Normal inspection.? Neck supple.? + left sided paraspinous & trapezius ttp on exam. Negative meningeal signs negative Spurling sign. History and physical exam concerning for cervical paraspinous muscle spasms, unlikely cervical myelopathy, cord compression, meningitis, encephalitis. Unlikely fracture, dislocation. Patient has a history of herniated disc in his neck this could be contributing or possible spondylosis versus facet mediated pain. Will obtain an x-ray and medicate patient with Toradol. Differential Diagnosis Differential Diagnoses: The differential diagnosis associated with the presentation includes (History and physical exam concerning for cervical paraspinous muscle spasms, unlikely cervical myelopathy, cord compression, meningitis, encephalitis. Unlikely fracture, dislocation. Patient has a history of herniated disc in his neck this could be contributing or possible spondylosis versus facet) Admission/Observation Consideration of admission/observation: Escalation of care including admission/observation considered Lab Data [facility] Lab Attestation statement: I reviewed the patient's lab results. Independent Interpretation I performed an independent interpretation of an: Plain X-Ray Radiology Impression Discussion of test interpretation with radiology: I have reviewed the radiologist's reading. Chronic Conditions Patient?s care impacted by: Other Critical Care Time Critical Care Time Critical Care Time: No Discharge Plan Discharge Clinical Impression: Cervical paraspinal muscle spasm, Spondylosis of cervical spine Patient Disposition: Home, Self-Care Instructions: Muscle Spasm (ED) Additional Instructions: Take your medications as prescribed. If you were prescribed antibiotics today, it is important that you take your medication to their entirety, do not skip any doses, do not finish them early. Follow-up with your primary care provider this week. Return to the emergency department with new or worsening symptoms. Such as fevers, chills, chest pain, shortness of breath, nausea, vomiting, dizziness, headache, vision changes, lethargy In case of emergency call 911 Toradol has been sent to your pharmacy, you tolerated this well in the department. Please take this as prescribed do not take this with ibuprofen, or other NSAIDs, do not mix this with alcohol. Side effects of this medication including increased risk for bleeding and possible kidney injury. XR/XR cervical spine 2V IMPRESSION: Mild spondylosis C6-7. Prescriptions: New ketorolac 10 mg tablet 10 mg PO TID PRN (Reason: pain) 5 Days Qty: 15 0RF Rx Instructions: Tolerated IM or IV in department prednisone 50 mg tablet 50 mg PO DAILY 5 Days Qty: 5 0RF No Action (DME) blood-glucose meter [FreeStyle [place]] Kit See Rx Instructions .ROUTE .MEDSUPPLY Qty: 1 0RF Rx Instructions: As directed check the BS TID glucose 4 gram tablet,chewable 16 g PO Q15M 30 Days Qty: 50 3RF omeprazole 40 mg capsule,delayed release(DR/EC) 40 mg PO BID Qty: 180 3RF (DME) lancets [FreeStyle Lancets] 28 gauge misc See Rx Instructions .ROUTE .MEDSUPPLY Qty: 300 3RF Rx Instructions: As directed check the BS TID (DME) FreeStyle Lite Strips Strip See Rx Instructions .ROUTE .MEDSUPPLY Qty: 300 1RF Rx Instructions: three times a day (DME) cane Device See Rx Instructions .Route Qty: 1 0RF Rx Instructions: As directed tadalafil 5 mg tablet 5 mg PO DAILY 90 Days Qty: 90 1RF pen needle, diabetic [BD Ultra-Fine Short Pen Needle] 31 gauge x 5/16 needle 1 ea subcut DAILY 90 Days Qty: 100 3RF cyclobenzaprine 10 mg tablet 10 mg PO TID PRN (Reason: muscle spasm) 30 Days Qty: 90 1RF meclizine 25 mg tablet 25 mg PO BID PRN (Reason: dizziness) 30 Days Qty: 60 0RF fluticasone propion-salmeterol [Advair Diskus] 250-50 mcg/dose blister with device 1 inh inhalation BID 30 Days Qty: 60 5RF montelukast 10 mg tablet 10 mg PO BEDTIME 90 Days Qty: 90 1RF lisinopril 5 mg tablet 5 mg PO DAILY 90 Days Qty: 90 1RF (DME) BD Luer-Enio Syringe 1 mL syringe See Rx Instructions .MEDSUPPLY Qty: 30 0RF Rx Instructions: Testosterone injection weekly (DME) BD Regular Bevel [place] 18 gauge x 1 1/2 needle See Rx Instructions .MEDSUPPLY Qty: 30 0RF Rx Instructions: As directed to be used weekly for T injection (DME) BD Regular Bevel [place] 25 gauge x 5/8 needle See Rx Instructions .MEDSUPPLY Qty: 30 0RF Rx Instructions: As directed - for testosterone subcutaneous injection tadalafil 20 mg tablet 20 mg PO ONCE PRN (Reason: sexual activity) 30 Days Qty: 30 6RF Rx Instructions: On demand medication take 60 minutes before intended activity cholecalciferol (vitamin D3) 25 mcg (1,000 unit) capsule 25 mcg PO DAILY 90 Days Qty: 90 1RF prednisone 10 mg tablet 10 mg PO DIRECTED 8 Days Qty: 20 0RF Rx Instructions: Take 4 tabs for 2 days, then 3 tabs for 2 days, then 2 tabs for 2 days, then 1 tab for 2 days atorvastatin 40 mg tablet 40 mg PO BEDTIME 90 Days Qty: 90 0RF albuterol sulfate [Ventolin HFA] 90 mcg/actuation HFA aerosol inhaler 2 puff inhalation Q6H PRN (Reason: shortness of breath or wheezing) 30 Days Qty: 8 0RF qddgjvpkcs-gsrehbxzdvjpn-asdj 50-325-40 mg tablet 1 tab PO Q6H PRN (Reason: haeadace) Qty: 20 0RF ketotifen fumarate [Alaway] 0.025 % (0.035 %) drops 1 drp ophthalmic (eye) Q8H PRN (Reason: allergy symptoms) Qty: 5 0RF Rx Instructions: do not exceed 2 doses in a 24 hour period diphenhydramine HCl [Benadryl] 25 mg capsule 50 mg PO TID PRN (Reason: allergic reaction) Qty: 20 0RF buprenorphine-naloxone [Suboxone] 12-3 mg film 1 film buccal ONCE (DME) blood pressure test kit-large Kit See Rx Instructions .Route Qty: 1 0RF Rx Instructions: As directed ibuprofen 800 mg tablet 800 mg PO TID PRN (Reason: pain) quetiapine 300 mg tablet extended release 24 hr 300 mg PO BEDTIME zolpidem 10 mg tablet 10 mg PO BEDTIME PRN (Reason: insomnia) buspirone 15 mg tablet 15 mg PO TID hydroxyzine HCl 50 mg tablet 50 mg PO Q8H PRN (Reason: anxiety) trazodone 150 mg tablet 150 mg PO DAILY venlafaxine 75 mg capsule,extended release 24hr 75 mg PO DAILY Jardiance 25 mg tablet 25 mg PO QAM Qty: 30 4RF ammonium lactate 12 % cream 1 appl topical BID venlafaxine 150 mg capsule,extended release 24hr 150 mg PO DAILY testosterone cypionate [Depo-Testosterone] 200 mg/mL oil 80 mg subcut QWEEK 28 Days Qty: 4 5RF Rx Instructions: Discard excess medication after use Mounjaro 2.5 mg/0.5 mL pen injector subcut fenofibrate nanocrystallized 145 mg tablet 145 mg PO DAILY Qty: 90 1RF metformin 500 mg tablet 500 mg PO BID 90 Days Qty: 180 1RF albuterol sulfate 2.5 mg /3 mL (0.083 %) solution for nebulization 2.5 mg inhalation Q6H 30 Days Qty: 360 4RF sumatriptan succinate 25 mg tablet 25 mg PO Q2-4H PRN (Reason: migraine headache) 30 Days Qty: 9 1RF Rx Instructions: do not exceed 8 doses per 24 hrs Referrals: [facility] [Provider Group] - 2 days Ayah Mir MD [Primary Care Provider] - 3 days Stand Alone Forms: Work/School Release Print Language: Polish
[2024-11-30] MEDS: Ketorolac Tromethamine 30 MG/ML VIAL IM (08:42)
[2024-11-30 08:44] VITALS: BP 135/75; PULSE 69; RESP 18; O2SAT 95
[2024-11-30 09:20] VITALS: BP 135/75; PULSE 69; RESP 18; TEMP -17.7; TEMP 0; O2SAT 95
== END 2024-11-30 09:21 | disposition home or self-care (01) ==
PROVIDERS: Emergency Provider Emergency Medicine; PCP Internal Medicine
DX: M62.838 Other muscle spasm (principal); M47.812 Spondylosis without myelopathy or radiculopathy, cervical region; M54.2 Cervicalgia; Z79.899 Other long term (current) drug therapy
CPT/HCPCS: 72040; 96372; 99284; J1885

== ENCOUNTER → 2024-11-30 08:24 | Outpatient (BNV) | payer MEDICARE, MEDICAID, SELFPAY | PROVIDERS: Emergency Provider Emergency Medicine; PCP Internal Medicine; Visit Provider Radiology Diagnostic Radiology | DX: M54.2 Cervicalgia (principal) | CPT/HCPCS: 72040 ==

== ENCOUNTER 2024-12-11 10:36 | Outpatient (AMB) | payer MEDICARE, MEDICAID, SELFPAY ==
[2024-12-11 10:57] VITALS: BP 130/70; PULSE 82; O2SAT 95; BMI 31.8
--- NOTE | 2024-12-11 10:57 | A.OFFVIS_ITS ---
Vital Signs 12/11/24 10:57 Height 5 ft 10 in Weight 221 lb 9.033 oz BMI 31.8 BP 130/70 Blood Pressure Location Lt brachial Position Sitting Pulse 82 Pulse Oximetry (%) 95 Oxygen Delivery Method Room Air Intake Visit Reasons: Obstructive sleep apnea Intake Note: pt is here for follow up of REE and states he feels tired and states he has some nausea and stomach issues, but this is happening only for the past week Setter Cold Rolling Machine Required: Yes Setter Cold Rolling Machine Services: Setter Cold Rolling Machine Present Setter Cold Rolling Machine Name: [id number] Qamar Allergies No Known Allergies Allergy (Verified 12/11/24 11:06) [facility] Medical History Erectile dysfunction associated with type 2 diabetes mellitus Allergic rhinitis Nocturnal hypoxemia Asthma exacerbation Bronchitis Excessive daytime sleepiness Bilateral hand pain Dyslipidemia Mild recurrent major depression DM2 (diabetes mellitus, type 2) REE (obstructive sleep apnea) Polyarthralgia Acute lumbar myofascial strain Lumbar degenerative disc disease Hypertriglyceridemia Type 2 diabetes mellitus with hyperglycemia Polysubstance abuse Hypogonadism Erectile dysfunction GERD (gastroesophageal reflux disease) Anxiety and depression Asthma Colitis Surgical History History of surgery History of elbow surgery Family History Father Hypertension Diabetes Cancer Cancer, hepatocellular Mother No problems noted. 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
--- NOTE | 2024-12-11 11:10 | A.OFFVIS_ITS ---
Vital Signs 12/11/24 10:57 Height 5 ft 10 in Weight 221 lb 9.033 oz BMI 31.8 BP 130/70 Blood Pressure Location Lt brachial Position Sitting Pulse 82 Pulse Oximetry (%) 95 Oxygen Delivery Method Room Air Intake Visit Reasons: Obstructive sleep apnea Allergies No Known Allergies Allergy (Verified 12/11/24 11:06) Medication List - Last Reconciled 12/11/24 by Gilberto Baldwin MD albuterol sulfate 2.5 mg (3 mL) inhalation Q6H 30 days ammonium lactate 12% 1 appl topical BID atorvastatin 40 mg PO BEDTIME 90 days blood pressure test kit-large As directed blood sugar diagnostic (FreeStyle Lite Strips) three times a day blood-glucose meter (FreeStyle [place] kit) As directed check the BS TID buprenorphine-naloxone 12-3 mg (Suboxone) 1 film buccal ONCE buspirone 15 mg PO TID adzfwsgtpg-ajccfflzgbtrc-fhyx 50-325-40 mg 1 tab PO Q6H PRN cane As directed cholecalciferol (vitamin D3) 25 mcg PO DAILY 90 days cyclobenzaprine 10 mg PO TID PRN 30 days diphenhydramine HCl (Benadryl) 50 mg (2 x 25 mg) PO TID PRN empagliflozin (Jardiance) 25 mg PO QAM fenofibrate nanocrystallized 145 mg PO DAILY fluticasone propion-salmeterol 250-50 mcg/dose (Advair Diskus) 1 inh inhalation BID 30 days glucose 16 grams (4 x 4 gram) PO Q15M 30 days hydroxyzine HCl 50 mg PO Q8H PRN ibuprofen 800 mg PO TID PRN ketorolac 10 mg PO TID PRN 5 days ketotifen fumarate 0.025%(0.035%) ([place]) 1 drp ophthalmic (eye) Q8H PRN lancets (FreeStyle Lancets) As directed check the BS TID lisinopril 5 mg PO DAILY 90 days meclizine 25 mg PO BID PRN 30 days metformin 500 mg PO BID 90 days montelukast 10 mg PO BEDTIME 90 days needle (disp) 18 G (BD Regular Bevel Bogue [place]) As directed to be used weekly for T injection needle (disp) 25 gauge (BD Regular Bevel Bogue [place]) As directed - for testosterone subcutaneous injection omeprazole 40 mg PO BID pen needle, diabetic (BD Ultra-Fine Short Pen Needle) 1 ea subcut DAILY 90 days quetiapine ER 300 mg PO BEDTIME sumatriptan succinate 25 mg PO Q2-4H PRN 30 days syringe (disposable) (BD Luer-Enio Syringe) Testosterone injection weekly tadalafil 5 mg PO DAILY 90 days tadalafil 20 mg PO ONCE PRN 30 days testosterone cypionate (Depo-Testosterone) 80 mg (0.4 mL) subcut QWEEK 4 weeks tirzepatide (Mounjaro) mg subcut trazodone 150 mg PO DAILY venlafaxine ER 150 mg PO DAILY venlafaxine ER 75 mg PO DAILY Ventolin HFA 90 mcg/actuation (albuterol sulfate) 2 puffs inhalation Q6H PRN 30 days NS zolpidem 10 mg PO BEDTIME PRN Do you need a note to return to daycare/school/sports/work: No HPI HPI Obstructive sleep apnea: Details: This 44 years old Citizen Of [place]-speaking gentleman is a case of moderate obesity and obstructive sleep apnea as well as mild bronchial asthma. In addition he has multiple medical issues. He is being treated with CPAP. Slowly and gradually his compliance has improved and now he is using almost all the nights. However after 3-4 hours usage his mask comes off and he forgets to put it back on. He claims that he is sleeping better and denies any daytime sleepiness. He has no issues with the CPAP mask or the CPAP device. Breathing has been under control and stable. [facility] Medical History Erectile dysfunction associated with type 2 diabetes mellitus Allergic rhinitis Nocturnal hypoxemia Asthma exacerbation Bronchitis Excessive daytime sleepiness Bilateral hand pain Dyslipidemia Mild recurrent major depression DM2 (diabetes mellitus, type 2) REE (obstructive sleep apnea) Polyarthralgia Acute lumbar myofascial strain Lumbar degenerative disc disease Hypertriglyceridemia Type 2 diabetes mellitus with hyperglycemia Polysubstance abuse Hypogonadism Erectile dysfunction GERD (gastroesophageal reflux disease) Anxiety and depression Asthma Colitis Surgical History History of surgery History of elbow surgery Family History Father Hypertension Diabetes Cancer Cancer, hepatocellular Mother No problems noted. 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 Cognitive needs: Yes Hearing needs: No Vision needs: No Review of Systems Const All systems reviewed & are unremarkable except as noted in HPI and below Eyes Reports no additional complaints ENT Reports no additional complaints Card Denies chest pain, Denies irregular heart rhythm and Denies leg edema Resp Reports as per HPI GI Reports no additional complaints Reports no additional complaints Musc Reports no additional complaints Skin/Breast Reports system reviewed and no additional complaints, except as documented Neuro Reports no additional complaints Psych Reports no additional complaints Physical Exam Vital Signs: Last Vital Signs Pulse 82 12/11/24 10:57 BP 130/70 12/11/24 10:57 Pulse Ox 95 12/11/24 10:57 Oxygen Delivery Method Room Air 12/11/24 10:57 BMI result Body Mass Index 31.8 Const General: healthy appearing (Except being overweight), comfortable, no acute distress, alert and awake Orientation/consciousness: patient oriented x3 HEENT Head: Yes normal to inspection General nose exam: No nasal polyps present, No nasal discharge present and Other nasal findings present ( has mild bilateral nasal congestion) Face and sinus: Yes sinuses nontender Mouth: oropharynx abnormals (Oropharynx is narrow crowded and Mallampati class 4) Throat: Yes posterior oropharynx normal Eyes General: appearance normal, both eyes and all related structures Neck Neck: Yes normal visual inspection, Yes no lymphadenopathy, Yes trachea midline, Yes no JVD and Yes other (Neck circumference 17 in) Thyroid: Thyroid normal Chest Chest palpation & inspection: normal inspection of the chest, normal palpation of entire chest wall and no tenderness Resp Effort & Inspection: normal respiratory effort Auscultation: crackles, no wheezes and other (BREATH SOUNDS ARE DIMINISHED OVER THE BASILAR AREAS) Cardio Palpation: normal PMI Rate: regular rate Rhythm: regular rhythm Heart sounds: no gallops and no murmurs Peripheral pulses: Peripheral pulses 2+ throughout GI Palpation (GI): Soft to palpation, nontender, No hepatosplenomegaly present and no masses Auscultation: normal bowel sounds Back/Spine/Pelvis Thoracic/Lumbar Spine: thoracic and lumbar spine normal to inspection Skin General skin exam: no rashes or lesions noted Neuro General: patient oriented x3 and no focal motor deficits Cranial nerves: Yes CN's II-XII intact bilaterally Extrem General: Yes normal to inspection, Yes no clubbing, cyanosis or edema and Yes no calf tenderness Psych Appearance: grossly normal and well kempt Speech and movement: Normal speech and movement present Results Reviewed Results Reviewed: Last compliance report was in September 2024. He uses for . 29/30 nights However his average use it per night remains a few minutes below 4 hours. Assessment & Plan Assessment & Plan (1) Asthma: Comment: HE DOES HAVE HISTORY OF BRONCHIAL ASTHMA, CURRENTLY DOING WELL WITH ADVAIR 250-50 1 INHALATION B.I.D. AND IS DOING WELL. LUNGS ARE CLEAR . Code(s): J45.909 - Unspecified asthma, uncomplicated Category: Medical Qualifiers: Asthma severity: moderate Asthma persistence: persistent Asthma complication type: uncomplicated Qualified Code(s): J45.40 - Moderate persistent asthma, uncomplicated Plan: Advised to continue using Advair 250-51 inhalation b.i.d.. And use albuterol HFA 1 or 2 puffs Q 6 hours only p.r.n. (2) REE (obstructive sleep apnea): Comment: A HOME-BASED SLEEP STUDY WAS DONE ON 06/16/2023 WHICH WAS POSITIVE FOR OBSTRUCTIVE SLEEP APNEA, MODERATELY SEVERE, ALONG WITH NOCTURNAL HYPOXEMIA. His compliance has been suboptimal. But with continued Education and counseling he is using it almost every night Usage per night remains suboptimal but almost close to 4 minutes per night. It is definitely better than before. He claims that he sleeps better. Code(s): G47.33 - Obstructive sleep apnea (adult) (pediatric) Category: Medical Plan: Again discussed with him in detail that he needs to use CPAP regularly every night and should use it more than 4 hours per night. Coding Level of Care Code Est Pt Level 3 (75523) Diagnoses Moderate persistent asthma without complication J45.40 Asthma severity: moderate Asthma persistence: persistent Asthma complication type: uncomplicated REE (obstructive sleep apnea) G47.33
== END 2024-12-11 11:22 | disposition home or self-care (01) ==
LOC: HO.HPS 10:36
PROVIDERS: PCP Internal Medicine; Visit Provider Internal Medicine
DX: J45.40 Moderate persistent asthma, uncomplicated (principal); G47.33 Obstructive sleep apnea (adult) (pediatric)
CPT/HCPCS: 99213

== ENCOUNTER → 2024-12-11 10:36 | Outpatient (BNVA) | payer MEDICARE, MEDICAID, SELFPAY | PROVIDERS: PCP Internal Medicine; Visit Provider Internal Medicine | DX: J45.40 Moderate persistent asthma, uncomplicated (principal); G47.33 Obstructive sleep apnea (adult) (pediatric) | CPT/HCPCS: 99212 ==

== ENCOUNTER 2024-12-29 11:04 | Emergency (ER) | payer MEDICARE, MEDICAID, SELFPAY ==
--- NOTE | ~2024-12-29 | CT_ITS ---
CLINICAL HISTORY: AP diarrhea, h o colitis CT ABDOMEN AND PELVIS WITH CONTRAST Comparison: CT/SR - CT ABDOMEN PELVIS W CON - 12/30/21 13:46 EDT Findings: No basilar consolidation or pleural effusion. Unremarkable gallbladder and solid organs. No urolithiasis. No AAA. No lymphadenopathy. No bowel obstruction, pneumoperitoneum, or pneumatosis. Mild fluid distention of multiple small bowel loops with no abrupt transition point. There is mild wall enhancement. No significant mesenteric or paracolic edema. No ascites or organized fluid collection. Appendix is not identified with certainty. No significant inflammatory changes are seen in its expected location. Multiple nonspecific borderline enlarged bilateral inguinal lymph nodes. There are heterogeneous soft tissue densities in the ventral subcutaneous tissues. No associated fluid collection or gas lobules. Moderate disc and facet degenerative changes at L5-S1. IMPRESSION: 1. Mild small bowel ileus and enteritis. No obstruction or ascites. 2. No acute obstructive uropathy or urolithiasis. 3. Heterogeneous soft tissue densities in the ventral subcutaneous tissues of the lower abdomen can be related to prior injections or cellulitis. No abnormal fluid collection. This document has been electronically signed by: Mini Wan DO on 12/29/2024 15:05:49
[2024-12-29 11:17] VITALS: BP 127/76; PULSE 79; RESP 18; TEMP 37.1; O2SAT 94; BMI 32.0
--- NOTE | 2024-12-29 11:17 | ED.GENADULT ---
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 He states the pain began last night around 1am and has been worsening through the morning. He reports experiencing nausea without vomiting and has has approximately >10 episodes of watery light brown diarrhea. He explains he ate cheese pizza around 3pm yesterday (12/28) but denies sick contacts, or recent travel. He states he does have some chronic abdominal pain and takes PPI medications intermittently. He explains he has followed up with GI and they presumed colitis without definitive diagnosis, had upper endoscopy and colonoscopy with negative findings, and was not started on any medication for management. He denies fever, vomiting, black/tarry stools, chest pain, SOB. MD complaint: abdominal pain Related Data Home Medications ?Medication ?Instructions ?Recorded ?Confirmed buspirone 15 mg tablet 15 mg PO TID 06/04/20 12/11/24 quetiapine 300 mg tablet,extended 300 mg PO BEDTIME 06/04/20 12/11/24 release 24 hr zolpidem 10 mg tablet 10 mg PO BEDTIME PRN insomnia 06/04/20 12/11/24 buprenorphine 12 mg-naloxone 3 mg 1 film buccal ONCE 07/09/20 12/11/24 sublingual film (Suboxone) hydroxyzine HCl 50 mg tablet 50 mg PO Q8H PRN anxiety 07/10/20 12/11/24 ibuprofen 800 mg tablet 800 mg PO TID PRN pain 09/16/20 12/11/24 trazodone 150 mg tablet 150 mg PO DAILY 12/08/20 12/11/24 venlafaxine 75 mg capsule,extended 75 mg PO DAILY 01/14/22 12/11/24 release 24 hr venlafaxine 150 mg 150 mg PO DAILY 05/28/22 12/11/24 capsule,extended release 24 hr ammonium lactate 12 % topical cream 1 appl topical BID 12/01/22 12/11/24 tirzepatide 2.5 mg/0.5 mL mg subcut 08/23/24 12/11/24 subcutaneous pen injector (Kiko) Previous Rx's ?Medication ?Instructions ?Recorded blood-glucose meter (FreeStyle #1 ea 09/09/20 Santo kit) glucose 4 gram chewable tablet 16 g (4 x 4 gram) PO Q15M 30 days 12/24/20 #50 tabs omeprazole 40 mg capsule,delayed 40 mg PO BID #180 caps 01/20/21 release blood pressure test kit-large #1 ea 05/21/21 lancets 28 gauge (FreeStyle #300 ea 06/23/21 Lancets) blood sugar diagnostic (FreeStyle #300 ea 11/03/21 Lite Strips) empagliflozin 25 mg tablet 25 mg PO QAM #30 tabs 01/14/22 (Jardiance) cane #1 ea 01/25/23 tadalafil 5 mg tablet 5 mg PO DAILY sexual activity 90 06/10/23 days #90 tabs pen needle, diabetic 31 gauge x 1 ea subcut DAILY 90 days #100 ea 08/05/2301/18 (BD Ultra-Fine Short Pen Needle) cyclobenzaprine 10 mg tablet 10 mg PO TID PRN muscle spasm 30 12/05/23 days #90 tabs meclizine 25 mg tablet 25 mg PO BID PRN dizziness 30 days 02/13/24 #60 tabs albuterol sulfate 2.5 mg/3 mL 2.5 mg (3 mL) inhalation Q6H 04/25/24 (0.083 %) solution for nebulization ASTHMA 30 days #360 mL testosterone cypionate 200 mg/mL 80 mg (0.4 mL) subcut QWEEK 4 06/15/24 intramuscular oil weeks #4 multiple units (Depo-Testosterone) montelukast 10 mg tablet 10 mg PO BEDTIME 90 days #90 tabs 07/26/24 lisinopril 5 mg tablet 5 mg PO DAILY 90 days #90 tabs 08/02/24 needle (disp) 18 G 18 gauge x 1 #30 ea 08/06/24 1/2 (BD Regular Bevel [place]) syringe (disposable) 1 mL (BD #30 ea 08/06/24 Luer-Enio Syringe) needle (disp) 25 gauge 25 gauge x #30 ea 08/10/24 5/8 (BD Regular Bevel [place]) fenofibrate nanocrystallized 145 145 mg PO DAILY #90 tabs 08/23/24 mg tablet metformin 500 mg tablet 500 mg PO BID 90 days #180 tabs 08/23/24 tadalafil 20 mg tablet 20 mg PO ONCE PRN sexual activity 08/26/24 30 days #30 tabs vmlvmzxjwh-zwlefifqmoxld-lvskpegz 1 tab PO Q6H PRN haeadace #20 tabs 09/15/24 50 mg-325 mg-40 mg tablet sumatriptan succinate 25 mg tablet 25 mg PO Q2-4H PRN migraine 10/23/24 headache 30 days #9 tabs cholecalciferol (vitamin D3) 25 25 mcg PO DAILY 90 days #90 caps 10/25/24 mcg (1,000 unit) capsule diphenhydramine HCl 25 mg capsule 50 mg (2 x 25 mg) PO TID PRN 11/17/24 (Benadryl) allergic reaction #20 caps ketotifen fumarate 0.025 % (0.035 1 drp ophthalmic (eye) Q8H PRN 11/17/24 %) eye drops (Alaway) allergy symptoms #5 mL atorvastatin 40 mg tablet 40 mg PO BEDTIME 90 days #90 tabs 11/29/24 ketorolac 10 mg tablet 10 mg PO TID PRN pain 5 days #15 11/30/24 tabs fluticasone 250 mcg-salmeterol 50 1 inh inhalation BID asthma 30 12/04/24 mcg/dose blistr powdr for days #60 ea inhalation (Advair Diskus) Ventolin HFA 90 mcg/actuation 2 puff inhalation Q6H PRN 12/28/24 aerosol inhaler (albuterol sulfate) shortness of breath or wheezing 30 days #8 grams dicyclomine 10 mg capsule 10 mg PO QID PRN abdominal pain 12/29/24 #20 caps ondansetron 4 mg disintegrating 4 mg PO Q6H PRN nausea and 12/29/24 tablet vomiting #12 tabs Allergies Allergy/AdvReac Type Severity Reaction Status Date / Time No Known Allergies Allergy Verified 12/29/24 11:19 Review of Systems Review of Systems: Yes all other systems are reviewed and are negative Constitutional: Constitutional: Reports no additional constitutional complaints, Denies body ache(s), Denies chills, Denies fever(s), Denies headache(s) and Denies weakness Eyes: Eyes: Reports no additional eye complaints and Denies change in vision ENT: Reports system reviewed and no additional complaints, except as documented, Denies dizziness, Denies headache(s), Denies nasal congestion, Denies nasal discharge and Denies neck pain Cardiovascular: Cardiovascular: Reports no additional cardiovascular complaints, Denies chest pain, Denies leg edema and Denies dyspnea Respiratory: Respiratory: Reports no additional respiratory complaints, Denies cough and Denies dyspnea Gastrointestinal: Gastrointestinal: Reports no additional gastrointestinal complaints, Reports abdominal pain, Denies melena, Reports hematochezia, Denies coffee ground emesis, Reports diarrhea, Reports nausea and Denies vomiting Genitourinary: Genitourinary: Denies urinary incontinence Musculoskeletal: Musculoskeletal: Reports no additional musculoskeletal complaints, Denies back pain, Denies arthralgias, Denies joint swelling, Denies neck pain, Denies numbness and Denies tingling Integumentary/Breasts: Skin/Breast: Reports system reviewed and no additional complaints, except as docu and Denies rash Neurologic: Reports system reviewed and no additional complaints, except as documented, Denies Abnormal speech present, Denies dizziness, Denies headache(s), Denies numbness, Denies tingling and Denies weakness PMFSH Past Medical History Attestation statement: The following information was validated with the patient. Source: old records reviewed and nursing notes reviewed Medical History Erectile dysfunction associated with type 2 diabetes mellitus Allergic rhinitis Nocturnal hypoxemia Asthma exacerbation Bronchitis Excessive daytime sleepiness Bilateral hand pain Dyslipidemia Mild recurrent major depression DM2 (diabetes mellitus, type 2) REE (obstructive sleep apnea) Polyarthralgia Acute lumbar myofascial strain Lumbar degenerative disc disease Hypertriglyceridemia Type 2 diabetes mellitus with hyperglycemia Polysubstance abuse Hypogonadism Erectile dysfunction GERD (gastroesophageal reflux disease) Anxiety and depression Asthma Colitis Surgical History History of surgery History of elbow surgery Family History Family History Father Hypertension Diabetes Cancer Cancer, hepatocellular Mother No problems noted. Son Ulcerative colitis Paternal Grandfather Cancer Social History Social History Household Members: Spouse Housing: House Unable to assess alcohol history related to: Unknown Alcohol intake: never Patient Tobacco Use Status: Former Tobacco user Tobacco use type: Cigarette Cigarette Packs Per Day: 1 Cigarettes Per Day: 20 Years Smoked: 20 Smoked in Last 30 Days: No e-Cigarette/Vaping Use: Never Used Second Hand Smoke Exposure: No Use of substances other than those prescribed or required for medical reasons: Unknown Substance Use Type: Former Substance User, Heroin and Marijuana Advance Directives: No Advance Directives Information Provided: No service: No Current occupational status: disabled 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 Cognitive needs: Yes Hearing needs: No Vision needs: No Physical Exam ED Vital Signs: Vital Signs - 24 hr 12/29/24 11:17 12/29/24 12:23 12/29/24 14:32 Temperature 98.8 F Pulse Rate 79 67 Respiratory Rate 18 16 20 Blood Pressure 127/76 125/62 Pulse Oximetry 94 94 Oxygen Delivery Method Room Air Room Air 12/29/24 16:13 Temperature 97.8 F Pulse Rate 76 Respiratory Rate 19 Blood Pressure 114/63 Pulse Oximetry 98 Oxygen Delivery Method Room Air BMI result Body Mass Index 32.0 Const Other: Patient appears mildly uncomfortable, is grimacing, and holding abdomen General: cooperative, healthy appearing and no acute distress Nutritional Appearance: average body habitus Orientation/consciousness: patient oriented x3 Limitations: no limitations HENMT Head: Yes normal to inspection Ears: hearing grossly normal bilaterally General nose exam: Normal external nose present Face and sinus: Yes normal facial exam Mouth: Normal oral and palatal mucosa present Throat: Yes posterior oropharynx normal, Yes tonsils normal and Yes uvula midline Eyes General: appearance normal, both eyes and all related structures Pupils: Equal, round and reactive pupils present Neck Neck: Yes normal visual inspection, Yes full ROM and Yes no lymphadenopathy Chest Chest palpation & inspection: normal inspection of the chest Resp Effort & Inspection: normal respiratory effort Auscultation: clear to auscultation bilaterally Cardio Rate: regular rate Rhythm: regular rhythm Peripheral pulses: Peripheral pulses 2+ throughout GI Inspection: Yes normal to inspection and No distended Palpation (GI): Soft to palpation, Tenderness to palpation present (GI) (diffusely) with no rebound tenderness and no guarding Auscultation: normal bowel sounds Back/Spine/Pelvis Thoracic/Lumbar Spine: thoracic and lumbar spine normal to inspection Skin General skin exam: no rashes or lesions noted Neuro General: patient oriented x3, no focal motor deficits and normal sensation to monofilament Cranial nerves: Yes Equal, round and reactive pupils present Cognition (Neuro): normal cognition Speech: No Abnormal speech present Gait exam (Neuro): Normal gait present Motor exam (neuro): 5/5 motor strength present throughout Extrem General: Yes normal to inspection Course Course Course Narrative: RME, this is a rapid medical exam performed by Jeevan Dinero please refer to primary provider for complete H&P- 44 past medical history for asthma, hepatitis-C, diabetes, hypertension, obesity, GERD presents for evaluation abdominal pain, nausea and diarrhea. Symptoms started around 1am this morning. Denies any previous abdominal surgeries. He has had a similar episode in the past and was told it was colitis. Plan for labs, UA, will defer any potential advanced imaging to primary ER provider. Reevaluation(s) Reevaluation #1: 1530- CT shows enteritis with radiology concern for mild small bowel ileus. Clinically I have a low suspicion for this as patient is having active bowel movements, + BS, tolerating PO fluids. More likely gastroenteritis. I did speak to general surgery. They (David) reviewed the CT scan, examined the patient and agree ileus less likely. Reviewed worrisome signs/symptoms with patient and when to return to the ER. Comfortable with discharge home. Medications Administered Discontinued Medications Generic Name Dose Route Start Last Admin Trade Name Zachq PRN Reason Stop Dose Admin Famotidine 20 mg 12/29/24 11:54 12/29/24 12:10 Famotidine/Pf 20 Mg/2 Ml Vial IVPUSH 12/29/24 11:55 20 mg ONCE ONE Administration Sodium Chloride 1,000 mls @ 999 mls/hr 12/29/24 11:54 12/29/24 13:50 Ns IV 12/29/24 12:54 Infused .Q1H1M STA Infusion Iohexol 100 ml 12/29/24 14:22 12/29/24 14:23 Iohexol 350 Mg/Ml 100 Ml Infus..Btl IV 12/29/24 14:23 85 ml ONCE ONE Administration Ketorolac Tromethamine 15 mg 12/29/24 11:54 12/29/24 12:05 Ketorolac Tromethamine 15 Mg/Ml Vial IVPUSH 12/29/24 11:55 15 mg ONCE ONE Administration Morphine Sulfate 4 mg 12/29/24 13:55 12/29/24 14:32 Morphine Sulfate 4 Mg/Ml Cartridge IVPUSH 12/29/24 13:56 4 mg ONCE ONE Administration Protocol Ondansetron HCl 4 mg 12/29/24 11:54 12/29/24 12:07 Ondansetron Hcl 4 Mg/2 Ml Vial IVPUSH 12/29/24 11:55 4 mg ONCE ONE Administration Medical Decision Making Medical Decision Making MDM Narrative: 44 year-old male with PMHx of asthma, T2DM, HTN, anxiety, presents to the ED due to abdominal pain. He states the pain began last night around 1am and has been worsening through the morning. He reports experiencing nausea without vomiting and has has approximately >10 episodes of watery light brown diarrhea. He explains he ate cheese pizza around 3pm yesterday (12/28) but denies sick contacts, or recent travel. He states he does have some chronic abdominal pain and takes PPI medications intermittently. He explains he has followed up with GI and they presumed colitis without definitive diagnosis, had upper endoscopy and colonoscopy with negative findings, and was not started on any medication for management. He denies fever, vomiting, chest pain, SOB. Patients vital signs are unremarkable, he is in no acute distress and is non-toxic appearing. On exam abdomen is diffusely tender with no rebound tenderness or guarding. Will obtain labs, stool studies, UA, viral testing. Will give IV fluids, antiemetic, antacid and analgesia and reassess for improvement or need for imaging. Differential Diagnosis Differential Diagnoses: The differential diagnosis associated with the presentation includes viral illness, gastritis, colitis, cholecystitis, cholelithiasis, appendicitis, pancreatitis, diverticulitis, SBO, infectious diarrhea Admission/Observation Consideration of admission/observation: Escalation of care including admission/observation considered Enteritis on CT scan, low suspician for ileus, seen by surgery who agrees, tolerating PO, no need for IVF and admission Consult Healthcare Provider Management of the patient was discussed with: Academic Affairs Dean Vijay (see course of care) Lab Data [facility] Lab Attestation statement: I reviewed the patient's lab results. 12/29/24 11:49 12/29/24 13:13 Labs: Lab Results 04/26/25 04/26/25 04/26/25 Range/Units 11:49 12:26 13:13 WBC 10.0 (4.8-10.8) X10*3/uL RBC 5.72 (4.60-5.80) X10*6/uL Hgb 17.1 (14.0-18.0) g/dl Hct 49.9 (42.0-52.0) % MCV 87.2 (80.0-98.0) fL MCH 29.9 (27.0-33.0) pg MCHC 34.3 (31.0-36.0) g/dl RDW 14.1 (11.0-16.0) % Plt Count 201 (160-400) X10*3/uL MPV 9.7 (9.4-12.4) fL Immature Gran % (Auto) 0.7 H (0.0-0.4) % Neut % (Auto) 71.0 (45-73) % Lymph % (Auto) 16.6 L (20-40) % [place] % (Auto) 9.0 (2-11) % Eos % (Auto) 2.1 (0-4) % Baso % (Auto) 0.6 (0-2) % Lymph # (Auto) 1.7 (1.2-4.9) X10*3/uL [place] # (Auto) 0.9 (0.1-1.2) X10*3/uL Eos # (Auto) 0.2 (0.0-0.4) X10*3/uL Baso # (Auto) 0.1 (0.0-0.2) X10*3/uL Abs Immat Gran (auto) 0.07 H (0.00-0.03) X10*3/uL Absolute Neuts (auto) 7.1 (2.0-8.3) x10*3/uL Absolute Nucleated RBC 0.000 (0.0-0.012) X10*3/uL Nucleated RBC % (auto) 0.0 (0.0-0.2) /100WBC Sodium 139 (135-145) mmol/L Potassium 3.5 (3.3-5.1) mmol/L Chloride 110 H (96-108) mmol/L Carbon Dioxide 23 (22-29) mmol/L Anion Gap 10 L (12-20) BUN 14 (9-16) mg/dL Creatinine 0.77 (0.5-1.4) mg/dL Estim Creat Clear Calc 141.5 Estimated GFR > 60 Random Glucose 106 (60-115) mg/dL Calcium 8.2 L D (8.4-10.2) mg/dL Total Bilirubin 0.6 (0.0-1.0) mg/dL AST 22 (5-37) U/L ALT 21 (0-40) U/L Alkaline Phosphatase 47 (39-117) U/L Total Protein 6.1 L (6.5-8.0) g/dL Albumin 3.8 (3.5-5.0) g/dL Lipase 15 (8-78) U/L Urine Color Dark Yellow Urine Appearance Clear Urine pH 5.5 (5.0-9.0) Ur Specific [place] 1.025 (1.005-1.025) Urine Protein 30 (1+) H (Neg-Trace) mg/dL Urine Glucose (UA) Negative (Negative) mg/dL Urine Ketones Trace (Negative) mg/dL Urine Blood Trace H (Negative) Urine Nitrite Negative (Negative) Ur Leukocyte Esterase Trace H (Negative) Urine RBC 0-2 (0-2) /HPF Urine WBC 0-5 (0-5) /HPF Ur Squamous Epith Cells 0-2 (0-2) /HPF Urine Bacteria None Seen (None Seen) Hyaline Casts 0-2 (0-2) /LPF Influenza Type A (PCR) NEGATIVE (Negative) Influenza Type B (PCR) NEGATIVE (Negative) RSV RNA Qual (PCR) NEGATIVE (Negative) SARS-CoV-2 RNA (RT-PCR) NEGATIVE (Negative) Independent Interpretation I performed an independent interpretation of an: CT Scan Interpretation: I independently reviewed the CT scan. See course of care with discussion. Radiology Impression Discussion of test interpretation with radiology: I have reviewed the radiologist's reading. Radiologist Impression: [address] [address] [address] Scan Report Signed Patient: Roland Lama MR#: [id number] : 1980 Acct:[id number] Age/Sex: 44 / M ADM Date: 12/29/24 Loc: .ED Attending Dr: Ordering Physician: Marce Christianson NP Date of Service: 12/29/24 Procedure(s): CT abdomen pelvis w IV con Accession Number(s): [id number] cc: Marce Christianson NP; Ayah Mir MD~ Report Number: [id number]: Total DLP = 672.00 mGy-cm CLINICAL HISTORY: AP diarrhea, h o colitis CT ABDOMEN AND PELVIS WITH CONTRAST Comparison: CT/SR - CT ABDOMEN PELVIS W CON - 12/30/21 13:46 EDT Findings: No basilar consolidation or pleural effusion. Unremarkable gallbladder and solid organs. No urolithiasis. No AAA. No lymphadenopathy. No bowel obstruction, pneumoperitoneum, or pneumatosis. Mild fluid distention of multiple small bowel loops with no abrupt transition point. There is mild wall enhancement. No significant mesenteric or paracolic edema. No ascites or organized fluid collection. Appendix is not identified with certainty. No significant inflammatory changes are seen in its expected location. Multiple nonspecific borderline enlarged bilateral inguinal lymph nodes. There are heterogeneous soft tissue densities in the ventral subcutaneous tissues. No associated fluid collection or gas lobules. Moderate disc and facet degenerative changes at L5-S1. IMPRESSION: 1. Mild small bowel ileus and enteritis. No obstruction or ascites. 2. No acute obstructive uropathy or urolithiasis. 3. Heterogeneous soft tissue densities in the ventral subcutaneous tissues of the lower abdomen can be related to prior injections or cellulitis. No abnormal fluid collection. This document has been electronically signed by: Mini Wan DO on 12/29/2024 15:05:49 External Record Review External record reviewed: Outside ED record Prescription Management I considered prescription management with: Antibiotic Discharge Plan Discharge Clinical Impression: Gastroenteritis Patient Disposition: Home, Self-Care Instructions: Gastroenteritis (ED) Prescriptions: New dicyclomine 10 mg capsule 10 mg PO QID PRN (Reason: abdominal pain) Qty: 20 0RF ondansetron 4 mg tablet,disintegrating 4 mg PO Q6H PRN (Reason: nausea and vomiting) Qty: 12 0RF No Action (DME) blood-glucose meter [FreeStyle Santo] Kit See Rx Instructions .ROUTE .MEDSUPPLY Qty: 1 0RF Rx Instructions: As directed check the BS TID glucose 4 gram tablet,chewable 16 g PO Q15M 30 Days Qty: 50 3RF omeprazole 40 mg capsule,delayed release(DR/EC) 40 mg PO BID Qty: 180 3RF (DME) lancets [FreeStyle Lancets] 28 gauge misc See Rx Instructions .ROUTE .MEDSUPPLY Qty: 300 3RF Rx Instructions: As directed check the BS TID (DME) FreeStyle Lite Strips Strip See Rx Instructions .ROUTE .MEDSUPPLY Qty: 300 1RF Rx Instructions: three times a day (DME) cane Device See Rx Instructions .Route Qty: 1 0RF Rx Instructions: As directed tadalafil 5 mg tablet 5 mg PO DAILY 90 Days Qty: 90 1RF pen needle, diabetic [BD Ultra-Fine Short Pen Needle] 31 gauge x 5/16 needle 1 ea subcut DAILY 90 Days Qty: 100 3RF cyclobenzaprine 10 mg tablet 10 mg PO TID PRN (Reason: muscle spasm) 30 Days Qty: 90 1RF meclizine 25 mg tablet 25 mg PO BID PRN (Reason: dizziness) 30 Days Qty: 60 0RF montelukast 10 mg tablet 10 mg PO BEDTIME 90 Days Qty: 90 1RF lisinopril 5 mg tablet 5 mg PO DAILY 90 Days Qty: 90 1RF (DME) BD Luer-Enio Syringe 1 mL syringe See Rx Instructions .MEDSUPPLY Qty: 30 0RF Rx Instructions: Testosterone injection weekly (DME) BD Regular Bevel [place] 18 gauge x 1 1/2 needle See Rx Instructions .MEDSUPPLY Qty: 30 0RF Rx Instructions: As directed to be used weekly for T injection (DME) BD Regular Bevel [place] 25 gauge x 5/8 needle See Rx Instructions .MEDSUPPLY Qty: 30 0RF Rx Instructions: As directed - for testosterone subcutaneous injection tadalafil 20 mg tablet 20 mg PO ONCE PRN (Reason: sexual activity) 30 Days Qty: 30 6RF Rx Instructions: On demand medication take 60 minutes before intended activity cholecalciferol (vitamin D3) 25 mcg (1,000 unit) capsule 25 mcg PO DAILY 90 Days Qty: 90 1RF atorvastatin 40 mg tablet 40 mg PO BEDTIME 90 Days Qty: 90 0RF fluticasone propion-salmeterol [Advair Diskus] 250-50 mcg/dose blister with device 1 inh inhalation BID 30 Days Qty: 60 3RF albuterol sulfate [Ventolin HFA] 90 mcg/actuation HFA aerosol inhaler 2 puff inhalation Q6H PRN (Reason: shortness of breath or wheezing) 30 Days Qty: 8 1RF wzfdumgomj-armcnxeywoieg-qqun 50-325-40 mg tablet 1 tab PO Q6H PRN (Reason: haeadace) Qty: 20 0RF ketotifen fumarate [Alaway] 0.025 % (0.035 %) drops 1 drp ophthalmic (eye) Q8H PRN (Reason: allergy symptoms) Qty: 5 0RF Rx Instructions: do not exceed 2 doses in a 24 hour period diphenhydramine HCl [Benadryl] 25 mg capsule 50 mg PO TID PRN (Reason: allergic reaction) Qty: 20 0RF ketorolac 10 mg tablet 10 mg PO TID PRN (Reason: pain) 5 Days Qty: 15 0RF Rx Instructions: Tolerated IM or IV in department buprenorphine-naloxone [Suboxone] 12-3 mg film 1 film buccal ONCE (DME) blood pressure test kit-large Kit See Rx Instructions .Route Qty: 1 0RF Rx Instructions: As directed ibuprofen 800 mg tablet 800 mg PO TID PRN (Reason: pain) quetiapine 300 mg tablet extended release 24 hr 300 mg PO BEDTIME zolpidem 10 mg tablet 10 mg PO BEDTIME PRN (Reason: insomnia) buspirone 15 mg tablet 15 mg PO TID hydroxyzine HCl 50 mg tablet 50 mg PO Q8H PRN (Reason: anxiety) trazodone 150 mg tablet 150 mg PO DAILY venlafaxine 75 mg capsule,extended release 24hr 75 mg PO DAILY Jardiance 25 mg tablet 25 mg PO QAM Qty: 30 4RF ammonium lactate 12 % cream 1 appl topical BID venlafaxine 150 mg capsule,extended release 24hr 150 mg PO DAILY testosterone cypionate [Depo-Testosterone] 200 mg/mL oil 80 mg subcut QWEEK 28 Days Qty: 4 5RF Rx Instructions: Discard excess medication after use Mounjaro 2.5 mg/0.5 mL pen injector subcut fenofibrate nanocrystallized 145 mg tablet 145 mg PO DAILY Qty: 90 1RF metformin 500 mg tablet 500 mg PO BID 90 Days Qty: 180 1RF albuterol sulfate 2.5 mg /3 mL (0.083 %) solution for nebulization 2.5 mg inhalation Q6H 30 Days Qty: 360 4RF sumatriptan succinate 25 mg tablet 25 mg PO Q2-4H PRN (Reason: migraine headache) 30 Days Qty: 9 1RF Rx Instructions: do not exceed 8 doses per 24 hrs Print Language: Polish
[2024-12-29 11:55] LABS: MANUAL DIFF FLAG NO
[2024-12-29 11:57] LABS: Basophils Absolute Auto 0.1 X10*3/uL (0.0-0.2); Basophils Percent Auto 0.6 % (0-2); Eosinophils Absolute Auto 0.2 X10*3/uL (0.0-0.4); Eosinophils Percent Auto 2.1 % (0-4); Hematocrit 49.9 % (42.0-52.0); Hemoglobin 17.1 g/dl (14.0-18.0); Imm Gran Abs Auto 0.07 X10*3/uL (0.00-0.03); Imm Gran Pct Auto 0.7 % (0.0-0.4); Lymphocytes Absolute Auto 1.7 X10*3/uL (1.2-4.9); Lymphocytes Percent Auto 16.6 % (20-40); Mean Corpuscular HGB Conc 34.3 g/dl (31.0-36.0); Mean Corpuscular Hemoglobin 29.9 pg (27.0-33.0); Mean Corpuscular Volume 87.2 fL (80.0-98.0); Mean Platelet Volume 9.7 fL (9.4-12.4); Monocytes Absolute Auto 0.9 X10*3/uL (0.1-1.2); Neutrophils Absolute Auto 7.1 x10*3/uL (2.0-8.3); Platelet Count 201 X10*3/uL (160-400); Red Blood Count 5.72 X10*6/uL (4.60-5.80); Red Cell Distribution Width 14.1 % (11.0-16.0)
[2024-12-29 11:58] LABS: Appearance Urine Clear; Color Urine Dark Yellow; Glucose Urine UA Negative (Negative); Leukocyte Esterase Urine Trace (Negative); Nitrite Urine Negative (Negative); PH 5.5 (5.0-9.0); Specific Gravity - Urine 1.025 (1.005-1.025); UMIC TRIGGER UACC YES; Urine Blood Trace (Negative); Urine Ketones Trace mg/dL (Negative); Urine Protein 30 (1+) mg/dL (Neg-Trace)
[2024-12-29 12:03] LABS: Bacteria Urine None Seen (None Seen); Hyaline Casts Urine 0-2 /LPF (0-2); RBC Urine 0-2 /HPF (0-2); Squamous Epithelial Cell Urine 0-2 /HPF (0-2); WBC Urine 0-5 /HPF (0-5)
[2024-12-29] MEDS: Ketorolac Tromethamine 15 MG/ML VIAL IVPUSH (12:05)
[2024-12-29] MEDS: ondansetron HCL 4 MG/2 ML VIAL IVPUSH (12:07)
[2024-12-29] MEDS: Famotidine/PF 20 MG/2 ML VIAL IVPUSH (12:10)
[2024-12-29] MEDS: 0.9 % Sodium Chloride 1,000 ML 999 ML IV (12:20)
[2024-12-29 12:23] VITALS: BP 125/62; PULSE 67; RESP 16; O2SAT 94
[2024-12-29 13:16] LABS: Influenza A PCR NEGATIVE (Negative); Influenza B PCR NEGATIVE (Negative); Resp Syncy Virus RNA Qual PCR NEGATIVE (Negative); SARS COV2 PCR INHOUSE NEGATIVE (Negative)
[2024-12-29 13:37] LABS: Alanine Aminotransferase 21 U/L (0-40); Albumin Level 3.8 g/dL (3.5-5.0); Alkaline Phosphatase 47 U/L (39-117); Anion Gap 10 (12-20); Aspartate Amino Transferase 22 U/L (5-37); Bilirubin Total 0.6 mg/dL (0.0-1.0); Blood Urea Nitrogen 14 mg/dL (9-16); Calcium 8.2 mg/dL (8.4-10.2); Carbon Dioxide 23 mmol/L (22-29); Chloride 110 mmol/L (96-108); Creatinine Clr Calc Pharmacy 141.5; Estimated Glomerular Filt Rate > 60; Glucose Random 106 mg/dL (60-115); Lipase 15 U/L (8-78); Potassium 3.5 mmol/L (3.3-5.1); Sodium 139 mmol/L (135-145); Total Protein 6.1 g/dL (6.5-8.0)
[2024-12-29] MEDS: iohexoL 350 MG/ML 100 ML INFUS..BTL IV (14:23)
[2024-12-29 14:32] VITALS: RESP 20
[2024-12-29] MEDS: Morphine Sulfate 4 MG/ML CARTRIDGE IVPUSH (14:32)
--- NOTE | 2024-12-29 16:00 | P.CONGS_ITS ---
History of Present Illness Consult details Consult date: 12/29/24 Narrative: 44-year-old male with known asthma, diabetes, migraines, hypogonadism, obesity, here in the ER because of abdominal pain and diarrhea He says that this started around 01:00 last night. He says that he had [employer] yesterday afternoon. He started to have diffuse abdominal pain and diarrhea described as watery stools in large amounts starting last night. This had persisted throughout the night and this morning. He says that he probably has had about 15 episodes of watery stools. He describes having nausea as well but no vomiting. He says he says he feels he has a reflux He denies any fever or chills. Review of Systems 2 Constitutional: Constitutional: Denies chills and Denies fever(s) Cardiovascular: Cardiovascular: Denies chest pain, Denies dyspnea and Denies dyspnea on exertion Respiratory: Respiratory: Denies cough, Denies dyspnea and Denies dyspnea on exertion Gastrointestinal: Gastrointestinal: Denies hematochezia and Denies change in bowel habits Genitourinary: Genitourinary: Denies hematuria and Denies difficulty urinating Musculoskeletal: Musculoskeletal: Reports back pain, Reports arthralgias and Reports limited range of motion Neurologic: Denies focal weakness and Denies convulsions Psychiatric: Psychiatric: Denies depression and Denies mood swings PMFSH Past Medical History Medical History Erectile dysfunction associated with type 2 diabetes mellitus Allergic rhinitis Nocturnal hypoxemia Asthma exacerbation Bronchitis Excessive daytime sleepiness Bilateral hand pain Dyslipidemia Mild recurrent major depression DM2 (diabetes mellitus, type 2) REE (obstructive sleep apnea) Polyarthralgia Acute lumbar myofascial strain Lumbar degenerative disc disease Hypertriglyceridemia Type 2 diabetes mellitus with hyperglycemia Polysubstance abuse Hypogonadism Erectile dysfunction GERD (gastroesophageal reflux disease) Anxiety and depression Asthma Colitis Family History Family History Father Hypertension Diabetes Cancer Cancer, hepatocellular Mother No problems noted. 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 Cognitive needs: Yes Hearing needs: No Vision needs: No Meds Allergies Allergy/AdvReac Type Severity Reaction Status Date / Time No Known Allergies Allergy Verified 12/29/24 11:19 Home Medications ?Medication ?Instructions ?Recorded ?Confirmed ?Last Taken ?Type buspirone 15 mg tablet 15 mg PO TID 06/04/20 12/11/24 Unknown History quetiapine 300 mg tablet,extended 300 mg PO BEDTIME 06/04/20 12/11/24 Unknown History release 24 hr zolpidem 10 mg tablet 10 mg PO BEDTIME PRN insomnia 06/04/20 12/11/24 Unknown History buprenorphine 12 mg-naloxone 3 mg 1 film buccal ONCE 07/09/20 12/11/24 Unknown History sublingual film (Suboxone) hydroxyzine HCl 50 mg tablet 50 mg PO Q8H PRN anxiety 07/10/20 12/11/24 Unknown History ibuprofen 800 mg tablet 800 mg PO TID PRN pain 09/16/20 12/11/24 Unknown History trazodone 150 mg tablet 150 mg PO DAILY 12/08/20 12/11/24 Unknown History venlafaxine 75 mg capsule,extended 75 mg PO DAILY 01/14/22 12/11/24 Unknown History release 24 hr venlafaxine 150 mg 150 mg PO DAILY 05/28/22 12/11/24 Unknown History capsule,extended release 24 hr ammonium lactate 12 % topical cream 1 appl topical BID 12/01/22 12/11/24 Unknown History tirzepatide 2.5 mg/0.5 mL mg subcut 08/23/24 12/11/24 Unknown History subcutaneous pen injector (Kiko) Physical Exam 2 Vital Signs: Vital Signs: Last Vital Signs Temp 98.8 F 12/29/24 11:17 Pulse 67 12/29/24 12:23 Resp 20 12/29/24 14:32 BP 125/62 12/29/24 12:23 Pulse Ox 94 12/29/24 12:23 O2 Del Method Room Air 12/29/24 12:23 BMI result Body Mass Index 32.0 Const: General: no acute distress Orientation/consciousness: patient oriented x3 Neck: Neck: Yes no lymphadenopathy Resp: Auscultation: clear to auscultation bilaterally Cardio: Rhythm: regular rhythm GI: Inspection: No distended Palpation (GI): Soft to palpation, Tenderness to palpation present (GI) (Some diffuse tenderness) and no guarding Neuro: General: patient oriented x3 Results Labs 12/29/24 11:49 12/29/24 13:13 Labs: Abnormal lab results 12/29/24 12/29/24 Range/Units 11:49 13:13 Immature Gran % (Auto) 0.7 H (0.0-0.4) % Lymph % (Auto) 16.6 L (20-40) % Abs Immat Gran (auto) 0.07 H (0.00-0.03) X10*3/uL Chloride 110 H (96-108) mmol/L Anion Gap 10 L (12-20) Calcium 8.2 L D (8.4-10.2) mg/dL Total Protein 6.1 L (6.5-8.0) g/dL Urine Protein 30 (1+) H (Neg-Trace) mg/dL Urine Blood Trace H (Negative) Ur Leukocyte Esterase Trace H (Negative) Short CBC 12/29/24 Range/Units 11:49 WBC 10.0 (4.8-10.8) X10*3/uL Hgb 17.1 (14.0-18.0) g/dl Hct 49.9 (42.0-52.0) % Plt Count 201 (160-400) X10*3/uL BMP 12/29/24 13:13 Sodium 139 Potassium 3.5 Chloride 110 H Carbon Dioxide 23 BUN 14 Creatinine 0.77 Calcium 8.2 L D Liver Function 12/29/24 Range/Units 13:13 Total Bilirubin 0.6 (0.0-1.0) mg/dL AST 22 (5-37) U/L ALT 21 (0-40) U/L Alkaline Phosphatase 47 (39-117) U/L Albumin 3.8 (3.5-5.0) g/dL Urine 12/29/24 Range/Units 11:49 Urine Color Dark Yellow Urine Appearance Clear Urine pH 5.5 (5.0-9.0) Ur Specific [place] 1.025 (1.005-1.025) Urine Protein 30 (1+) H (Neg-Trace) mg/dL Urine Glucose (UA) Negative (Negative) mg/dL All other labs normal. Imaging Abdomen CT scan report/results: report reviewed and image reviewed CT scan - pelvis: report reviewed and image reviewed Additional studies: Laboratory Results WBC 10.0 X10*3/uL (4.8-10.8) 12/29/24 11:49 RBC 5.72 X10*6/uL (4.60-5.80) 12/29/24 11:49 Hgb 17.1 g/dl (14.0-18.0) 12/29/24 11:49 Hct 49.9 % (42.0-52.0) 12/29/24 11:49 MCV 87.2 fL (80.0-98.0) 12/29/24 11:49 MCH 29.9 pg (27.0-33.0) 12/29/24 11:49 MCHC 34.3 g/dl (31.0-36.0) 12/29/24 11:49 RDW 14.1 % (11.0-16.0) 12/29/24 11:49 Plt Count 201 X10*3/uL (160-400) 12/29/24 11:49 MPV 9.7 fL (9.4-12.4) 12/29/24 11:49 Immature Gran % (Auto) 0.7 % (0.0-0.4) H 12/29/24 11:49 Neut % (Auto) 71.0 % (45-73) 12/29/24 11:49 Lymph % (Auto) 16.6 % (20-40) L 12/29/24 11:49 Winn % (Auto) 9.0 % (2-11) 12/29/24 11:49 Eos % (Auto) 2.1 % (0-4) 12/29/24 11:49 Baso % (Auto) 0.6 % (0-2) 12/29/24 11:49 Lymph # (Auto) 1.7 X10*3/uL (1.2-4.9) 12/29/24 11:49 Winn # (Auto) 0.9 X10*3/uL (0.1-1.2) 12/29/24 11:49 Eos # (Auto) 0.2 X10*3/uL (0.0-0.4) 12/29/24 11:49 Baso # (Auto) 0.1 X10*3/uL (0.0-0.2) 12/29/24 11:49 Abs Immat Gran (auto) 0.07 X10*3/uL (0.00-0.03) H 12/29/24 11:49 Absolute Neuts (auto) 7.1 x10*3/uL (2.0-8.3) 12/29/24 11:49 Absolute Nucleated RBC 0.000 X10*3/uL (0.0-0.012) 12/29/24 11:49 Nucleated RBC % (auto) 0.0 /100WBC (0.0-0.2) 12/29/24 11:49 Sodium 139 mmol/L (135-145) 12/29/24 13:13 Potassium 3.5 mmol/L (3.3-5.1) 12/29/24 13:13 Chloride 110 mmol/L (96-108) H 12/29/24 13:13 Carbon Dioxide 23 mmol/L (22-29) 12/29/24 13:13 Anion Gap 10 (12-20) L 12/29/24 13:13 BUN 14 mg/dL (9-16) 12/29/24 13:13 Creatinine 0.77 mg/dL (0.5-1.4) 12/29/24 13:13 Estim Creat Clear Calc 141.5 12/29/24 13:13 Estimated GFR > 60 12/29/24 13:13 Random Glucose 106 mg/dL (60-115) 12/29/24 13:13 Calcium 8.2 mg/dL (8.4-10.2) L D 12/29/24 13:13 Total Bilirubin 0.6 mg/dL (0.0-1.0) 12/29/24 13:13 AST 22 U/L (5-37) 12/29/24 13:13 ALT 21 U/L (0-40) 12/29/24 13:13 Alkaline Phosphatase 47 U/L (39-117) 12/29/24 13:13 Total Protein 6.1 g/dL (6.5-8.0) L 12/29/24 13:13 Albumin 3.8 g/dL (3.5-5.0) 12/29/24 13:13 Lipase 15 U/L (8-78) 12/29/24 13:13 Urine Color Dark Yellow 12/29/24 11:49 Urine Appearance Clear 12/29/24 11:49 Urine pH 5.5 (5.0-9.0) 12/29/24 11:49 Ur Specific [place] 1.025 (1.005-1.025) 12/29/24 11:49 Urine Protein 30 (1+) mg/dL (Neg-Trace) H 12/29/24 11:49 Urine Glucose (UA) Negative mg/dL (Negative) 12/29/24 11:49 Urine Ketones Trace mg/dL (Negative) 12/29/24 11:49 Urine Blood Trace (Negative) H 12/29/24 11:49 Urine Nitrite Negative (Negative) 12/29/24 11:49 Ur Leukocyte Esterase Trace (Negative) H 12/29/24 11:49 Urine RBC 0-2 /HPF (0-2) 12/29/24 11:49 Urine WBC 0-5 /HPF (0-5) 12/29/24 11:49 Ur Squamous Epith Cells 0-2 /HPF (0-2) 12/29/24 11:49 Urine Bacteria None Seen (None Seen) 12/29/24 11:49 Hyaline Casts 0-2 /LPF (0-2) 12/29/24 11:49 Influenza Type A (PCR) NEGATIVE (Negative) 12/29/24 12:26 Influenza Type B (PCR) NEGATIVE (Negative) 12/29/24 12:26 RSV RNA Qual (PCR) NEGATIVE (Negative) 12/29/24 12:26 SARS-CoV-2 RNA (RT-PCR) NEGATIVE (Negative) 12/29/24 12:26 IMPRESSION: 1. Mild small bowel ileus and enteritis. No obstruction or ascites. 2. No acute obstructive uropathy or urolithiasis. 3. Heterogeneous soft tissue densities in the ventral subcutaneous tissues of the lower abdomen can be related to prior injections or cellulitis. No abnormal fluid collection. Assessment and Plan (1) Abdominal pain: Qualifiers: Abdominal location: epigastric Qualified Code(s): R10.13 - Epigastric pain Status: Acute 44-year-old male with the abdominal pain and diarrhea since last night. I have reviewed his CAT scan and this does not reveal an obstructive pattern. There is no obvious inflammatory process. He has some diffusely dilated small bowel loops and this may be teleservices representative of some form of enteritis. Stool studies including C diff probably should be checked. His exam is otherwise benign. His labs are unremarkable. It does not appear that he has any surgical issue at this time. I have recommended adequate IV hydration for him as he has had a lot of GI losses from diarrhea If he gets admitted, I will follow along in the hospital. I have discussed the above with the ED staff. Procedures Date of Service Date of Service: 01/03/25
[2024-12-29 16:13] VITALS: BP 114/63; PULSE 76; RESP 19; TEMP 36.6; O2SAT 98
[2024-12-29] MEDS: Dicyclomine HCl 10 MG CAPSULE PO (16:56)
[2024-12-29 17:11] VITALS: BP 114/63; PULSE 76; RESP 19; TEMP 36.6; O2SAT 98
== END 2024-12-29 17:12 | disposition home or self-care (01) ==
PROVIDERS: Nurse Practitioner Family; Physician Assistant; Emergency Provider Emergency Medicine; PCP Internal Medicine
DX: K52.9 Noninfective gastroenteritis and colitis, unspecified (principal); R10.13 Epigastric pain; R11.0 Nausea; E11.9 Type 2 diabetes mellitus without complications; I10 Essential (primary) hypertension; Z79.899 Other long term (current) drug therapy; Z87.891 Personal history of nicotine dependence; Z03.818 Encounter for observation for suspected exposure to other biological agents ruled out
CPT/HCPCS: 0241U; 36415; 74177; 80053; 81001; 83690; 85025; 96361; 96374; 96375; 99284; J1308; J1885; J2270; J2405; Q9967

== ENCOUNTER → 2024-12-29 11:32 | Outpatient (BNV) | payer MEDICARE, MEDICAID, SELFPAY | PROVIDERS: Emergency Provider Emergency Medicine; PCP Internal Medicine; Visit Provider Surgery | DX: R10.13 Epigastric pain (principal) | CPT/HCPCS: 99283 ==

== ENCOUNTER → 2024-12-29 13:55 | Outpatient (BNV) | payer MEDICARE, MEDICAID, SELFPAY | PROVIDERS: Emergency Provider Emergency Medicine; PCP Internal Medicine; Visit Provider Radiology Diagnostic Radiology | DX: M79.89 Other specified soft tissue disorders (principal) | CPT/HCPCS: 74177 ==

== ENCOUNTER 2025-01-03 11:33 | Outpatient (AMB) | payer MEDICARE, MEDICAID, SELFPAY ==
--- NOTE | 2025-01-03 11:52 | A.OFFPC_ITS ---
Vital Signs 01/03/25 11:54 Height 5 ft 9 in Weight 207 lb 4 oz BMI 30.6 BP 120/60 Blood Pressure Location Lt brachial Position Sitting Pulse 64 Pulse Source Pulse Oximeter Temp 97.5 F Temp Source Temporal Artery Scan Pulse Oximetry (%) 97 Oxygen Delivery Method Room Air Intake Visit Reasons: [facility] 12/29 ABD pain/vomiting/diarrhea/bleeding Intake Note: Patient is here to follow-up after a visit the emergency department at [facility] on 12/29/24 Dressage Judge Required: Yes Dressage Judge Language: Acting Instructor Name: Azra Reese PA-C Information Interpreted: non-clinical & clinical Staff Engineer: Not Required per policy Accompanied by: Self / Same As Patient Allergies No Known Allergies Allergy (Verified 01/03/25 11:59) Medication List - Last Reconciled 01/03/25 by Azra Reese PA-C albuterol sulfate 2.5 mg (3 mL) inhalation Q6H 30 days ammonium lactate 12% 1 appl topical BID atorvastatin 40 mg PO BEDTIME 90 days blood pressure test kit-large As directed blood sugar diagnostic (FreeStyle Lite Strips) three times a day blood-glucose meter (FreeStyle Colp kit) As directed check the BS TID buprenorphine-naloxone 12-3 mg (Suboxone) 1 film buccal ONCE buspirone 15 mg PO TID vqnoxbticp-zixdpmhwyfpwa-hicx 50-325-40 mg 1 tab PO Q6H PRN cane As directed cholecalciferol (vitamin D3) 25 mcg PO DAILY 90 days cyclobenzaprine 10 mg PO TID PRN 30 days dicyclomine 10 mg PO QID PRN diphenhydramine HCl (Benadryl) 50 mg (2 x 25 mg) PO TID PRN empagliflozin (Jardiance) 25 mg PO QAM fenofibrate nanocrystallized 145 mg PO DAILY fluticasone propion-salmeterol 250-50 mcg/dose (Advair Diskus) 1 inh inhalation BID 30 days glucose 16 grams (4 x 4 gram) PO Q15M 30 days hydroxyzine HCl 50 mg PO Q8H PRN ibuprofen 800 mg PO TID PRN ketorolac 10 mg PO TID PRN 5 days ketotifen fumarate 0.025%(0.035%) ([place]) 1 drp ophthalmic (eye) Q8H PRN lancets (FreeStyle Lancets) As directed check the BS TID lisinopril 5 mg PO DAILY 90 days meclizine 25 mg PO BID PRN 30 days metformin 500 mg PO BID 90 days montelukast 10 mg PO BEDTIME 90 days needle (disp) 18 G (BD Regular Bevel [place]) As directed to be used weekly for T injection needle (disp) 25 gauge (BD Regular Bevel [place]) As directed - for testosterone subcutaneous injection omeprazole 40 mg PO BID ondansetron 4 mg PO Q6H PRN pen needle, diabetic (BD Ultra-Fine Short Pen Needle) 1 ea subcut DAILY 90 days quetiapine ER 300 mg PO BEDTIME sumatriptan succinate 25 mg PO Q2-4H PRN 30 days syringe (disposable) (BD Luer-Enio Syringe) Testosterone injection weekly tadalafil 5 mg PO DAILY 90 days tadalafil 20 mg PO ONCE PRN 30 days testosterone cypionate (Depo-Testosterone) 80 mg (0.4 mL) subcut QWEEK 4 weeks tirzepatide (Mounjaro) mg subcut trazodone 150 mg PO DAILY venlafaxine ER 150 mg PO DAILY venlafaxine ER 75 mg PO DAILY Ventolin HFA 90 mcg/actuation (albuterol sulfate) 2 puffs inhalation Q6H PRN 30 days NS zolpidem 10 mg PO BEDTIME PRN Tobacco use date assessed: 01/03/25 Dental Screening Dental Screen Date: 10/23/24 [facility] 12/29 ABD pain/vomiting/diarrhea/bleeding HPI Details The patient is a 44-year-old male presenting with gastrointestinal pain and potential bowel obstruction. He describes a current struggle with severe abdominal discomfort that began several days ago, featuring unsuccessful attempts to evacuate, significant pain, and gas buildup. Notably, recent CT scan of abd/pelvis suggested Mild small bowel ileus and enteritis. The patient was still having bowel movements at that time and the general surgeon reviewed the CT scan results and they decided that the patient can be discharged home with follow-up and GI referral. Although patient reports since he has gone home he has not felt any better he is having moderate amount of nausea, flatulence, burping and he has not had a bowel movement in 2 days. Reports that he has not eaten since Tuesday either therefore he believes he is not having a bowel movement because of that. He would like some pain medications and referral to Gastroenterology. He denies any fevers, chills, chest pain or shortness of breath, dysuria hematuria, diarrhea at this time. Reports that he did have some bloody stools although this was when he was straining and having the diarrhea which has resolved. The severity of the pain restricts him from eating and is so disabling that even walking presents difficulty. The problem, seemingly an exacerbation or return of prior symptoms, requires immediate attention. In his medical past, the patient underwent several colonoscopies with normal results. PENDING SALE TO [facility] Medical History Erectile dysfunction associated with type 2 diabetes mellitus Allergic rhinitis Nocturnal hypoxemia Asthma exacerbation Bronchitis Excessive daytime sleepiness Bilateral hand pain Dyslipidemia Mild recurrent major depression DM2 (diabetes mellitus, type 2) REE (obstructive sleep apnea) Polyarthralgia Acute lumbar myofascial strain Lumbar degenerative disc disease Hypertriglyceridemia Type 2 diabetes mellitus with hyperglycemia Polysubstance abuse Hypogonadism Erectile dysfunction GERD (gastroesophageal reflux disease) Anxiety and depression Asthma Colitis Surgical History History of surgery History of elbow surgery Family History Father Hypertension Diabetes Cancer Cancer, hepatocellular Mother No problems noted. 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 7. Trouble concentrating on things, such as reading the newspaper or watching television: not at all 8. Moving or speaking so slowly that other people could have noticed. Or the opposite - being so fidgety or restless that you have been moving around a lot more than usual: not at all 9. Thoughts that you would be better off or of hurting yourself in some way: not at all Source: Developed by Drs. Surjit Espino, Lucina Escoto, Elvin Hussein and colleagues, with an educational porsche from [employer]. Thrive Questionnaire Date Thrive assessed: 10/23/24 I am a: Parent/Caregiver What is your living situation today?: I have a steady place to live Within the past 12 months, did the food you bought not last and you didn't have the money to get more?: Sometimes True Within the past 12 months, did you worry whether your food would run out before you got money to buy more?: Sometimes True Do you have trouble paying for medicines?: Yes Do you have trouble getting transportation to medical appointments?: No Do you have trouble paying your heating and electricity bill?: Yes Do you have trouble taking care of your child, family member or friend?: Yes Do you have trouble with day-to-day activities such as bathing, preparing meals, shopping, managing finances, etc.?: I choose not to answer this question Are you currently unemployed and looking for a job?: Yes Are you interested in more education?: No Currently or been in a relationship where the following occur: No concerns reported THRIVE Score: 3 MIRIAM-7 AMB Questionnaire MIRIAM-7 Date MIRIAM - 7 assessed: 10/23/24 Source: Developed by Drs. Surjit Espino, Lucina Escoto, Elvin Hussein and colleagues, with an educational porsche from [employer]. Review of Systems Const Details: - Gastrointestinal: Reports severe abdominal pain, inability to evacuate, and gas formation. Denies consistent bloody evacuation unless allowed to evacuate. - Neurological: Reports severe pain affecting his ability to walk. - Respiratory: Mentions a possible sleep breathing disorder. Physical exam (Primary Care) Vital Signs: Last Vital Signs Temp 97.5 F 01/03/25 11:54 Pulse 64 01/03/25 11:54 BP 120/60 01/03/25 11:54 Pulse Ox 97 01/03/25 11:54 Oxygen Delivery Method Room Air 01/03/25 11:54 BMI result Body Mass Index 30.6 Tobacco/Smoking Status: Tobacco use Status Tobacco use date assessed 01/03/25 01/03/25 11:57 Patient Tobacco Use Status Former Tobacco user 01/03/25 11:57 Tobacco use type Cigarette 01/03/25 11:57 e-Cigarette/Vaping Use Never Used 01/03/25 11:57 Thrive Assessment: Date of Thrive Assessment Date Thrive assessed 10/23/24 01/03/25 11:57 Currently or been in a relationship where the following occur: No concerns reported Const Other: Appearance: Alert. Oriented X3. No acute distress. Head: Normal external exam. Normocephalic. Atraumatic. Eyes: Pupils are equal, round, and reactive to light. Extraocular movements intact. Conjunctiva and sclera normal. Eyelids normal. Throat: Pharynx normal. Uvula midline. Moist mucous membranes. Neck: Normal inspection. Neck supple. Full range of motion. Cardiovascular: Normal heart rate and rhythm. Respiratory: No respiratory distress. Painless inspiration. Abdomen: Soft but with significant tenderness. A palpable mass is noted to left lower quadrant right lower quadrant. + distention noted. BRUISING NOTED TO LOWER ABDOMEN FROM TESTOSTERONE INJECTIONS PER PATIENT. Back: No costovertebral angle tenderness. Full range of motion noted. Skin: Skin warm and dry. Normal skin color. Normal skin turgor. No rashes/lesions/lacerations noted. Extremities: Extremities exhibit normal range of motion. Neuro: Oriented X 3. No motor deficit. No sensory deficit. Reflexes normal. Results Reviewed Results Reviewed: - Imaging: Recent CT scan IMPRESSION: 1. Mild small bowel ileus and enteritis. No obstruction or ascites. 2. No acute obstructive uropathy or urolithiasis. 3. Heterogeneous soft tissue densities in the ventral subcutaneous tissues of the lower abdomen can be related to prior injections or cellulitis. No abnormal fluid collection Coding Level of Care Code Est Pt Level 4 (67125) Complex EM visit Add On G2211 Diagnoses Abdominal pain R10.13 Abdominal location: epigastric Assessment & Plan Assessment & Plan (1) Abdominal pain: Code(s): R10.9 - Unspecified abdominal pain Category: Medical Qualifiers: Abdominal location: epigastric Qualified Code(s): R10.13 - Epigastric pain Plan: Patient referred back to the emergency department for further evaluation and management of his abdominal pain, constipation. Plan Plan Patient was informed and verbally consented to the use of an ambient scribe for clinic note documentation during this visit. 1. Potential Bowel Obstruction Monitoring and immediate gastroenterological consultation are essential. Hospital readmission may be required if symptoms or condition worsen. 2. Gastrointestinal Pain Address underlying causes and manage severe pain with possible hospital care if outpatient measures fail. During the visit, we reviewed the findings from the recent CT scan, which indicated Mild small bowel ileus and enteritis. I discussed with the patient the need for continued monitoring and the possibility of hospitalization should symptoms progress or worsened substantially. We explored the prospect of an immediate gastroenterological consult to further investigate any obstructive symptoms and to determine appropriate action. Potential analgesic strategies were considered, ensuring developed protocols of care align without obscuring diagnosis clarity. Although ultimately due to patient having severe pain he was referred back to the emergency department for further evaluation and management of his abdominal pain. I discussed this case with RADHA Patel who was the triage PA at [facility] ED at this time. Orders: Referrals Gastroenterology Referral R10.13 - Epigastric pain Patient Instructions: - Monitor symptoms and seek immediate care if pain worsens. - Avoid eating solid foods until further medical advice. - Consult a plastics engineering teacher promptly for comprehensive evaluation. - go directly to the emergency department at this time for further evaluation and treatment
[2025-01-03 11:54] VITALS: BP 120/60; PULSE 64; TEMP 36.4; O2SAT 97; BMI 30.6
== END 2025-01-03 12:54 | disposition home or self-care (01) ==
LOC: HO.HMCH 11:34
PROVIDERS: PCP Internal Medicine; Visit Provider Physician Assistant Medical
DX: R10.13 Epigastric pain (principal)

== ENCOUNTER → 2025-01-03 11:33 | Outpatient (BNVA) | payer MEDICARE, MEDICAID, SELFPAY | PROVIDERS: PCP Internal Medicine; Visit Provider Physician Assistant Medical | DX: R10.13 Epigastric pain (principal) | CPT/HCPCS: 99212 ==

== ENCOUNTER 2025-02-14 18:54 | Emergency (ER) | payer MEDICARE, MEDICAID, SELFPAY ==
[2025-02-14 19:01] VITALS: BP 106/67; PULSE 90; RESP 17; TEMP 36.8; O2SAT 98; BMI 31.1
--- NOTE | 2025-02-14 19:05 | ED_ITS ---
HPI - General Adult General Chief complaint: Abdominal Pain Stated complaint: abd pain Time Seen by Provider: 02/14/25 20:30 Related Data Home Medications ?Medication ?Instructions ?Recorded ?Confirmed quetiapine 300 mg tablet,extended 300 mg PO BEDTIME 02/20/25 release 24 hr zolpidem 10 mg tablet 10 mg PO BEDTIME PRN insomni a 06/04/20 02/20/25 buprenorphine 12 mg-naloxone 3 mg 1 film buccal ONCE 1 09/08/19 02/20/25 sublingual film (Suboxone) hydroxyzine HCl 50 mg tablet 50 mg PO Q8H PRN anxiety 07/10/20 02/20/25 ibuprofen 800 mg tablet 800 mg PO TID PRN pain 09/1602/20/25 trazodone 150 mg tablet 150 mg PO DAILY 12/08/20 venlafaxine 75 mg capsule,extended 75 mg PO DAILY 01/0302/20/25 release 24 hr venlafaxine 150 mg 150 mg PO DAILY 05/28/22 capsule,extended release 24 hr ammonium lactate 12 % topical cream 1 appl topical BID 12/01/22 02/20/25 buspirone 30 mg tablet 30 mg PO BID 02/20/25 pantoprazole 40 mg tablet,delayed mg PO 02/20/2502/20 release tirzepatide 7.5 mg/0.5 mL 7.5 mg subcut QWEEK 02/20/25 02/20/25 subcutaneous pen injector (Kiko) Previous Rx's ?Medication ?Instructions ?Recorded blood-glucose meter (FreeStyle #1 ea 09/09/20 [place] kit) glucose 4 gram chewable tablet 16 g (4 x 4 gram) PO Q1 5M 30 days 12/24/20 #50 tabs blood pressure test kit-large #1 ea 05/21/21 lancets 28 gauge (FreeStyle #300 ea 06/23/21 Lancets) blood sugar diagnostic (FreeStyle #300 ea 11/03/21 Lite Strips) empagliflozin 25 mg tablet 25 mg PO QAM #30 tabs 01/14 (Jardiance) cane #1 ea 01/25/23 tadalafil 5 mg tablet 5 mg PO DAILY sexual activit y 90 06/10/23 Held on 06/10/23. days #90 tabs Instructions: Dose Change pen needle, diabetic 31 gauge x 1 ea subcut DAILY 90 d ays #100 ea 08/05/23 5/16 (BD Ultra-Fine Short Pen Needle) cyclobenzaprine 10 mg tablet 10 mg PO TID PRN muscle s pasm 30 12/05/23 days #90 tabs meclizine 25 mg tablet 25 mg PO BID PRN dizziness 3 0 days 02/13/24 #60 tabs albuterol sulfate 2.5 mg/3 mL 2.5 mg (3 mL) inhalation Q6H 04/25/24 (0.083 %) solution for nebulization ASTHMA 30 days #36 0 mL testosterone cypionate 200 mg/mL 80 mg (0.4 mL) subcut QWEEK 4 06/15/24 intramuscular oil weeks #4 multiple units (Depo-Testosterone) needle (disp) 18 G 18 gauge x 1 #30 ea 08/06/24 1/2 (BD Regular Bevel [place]) syringe (disposable) 1 mL (BD #30 ea 08/06/24 Luer-Enio Syringe) needle (disp) 25 gauge 25 gauge x #30 ea 08/10/24 5/8 (BD Regular Bevel [place]) metformin 500 mg tablet 500 mg PO BID 90 days #180 t abs 08/23/24 Held on 02/20/25. Instructions: since kiko tadalafil 20 mg tablet 20 mg PO ONCE PRN sexual act ivity 08/26/24 30 days #30 tabs nljevuenfw-ojhnpcprxijec-ecndsenl 1 tab PO Q6H PRN hae adace #20 tabs 09/15/24 50 mg-325 mg-40 mg tablet sumatriptan succinate 25 mg tablet 25 mg PO Q2-4H PRN migraine 10/23/24 headache 30 days #9 tabs cholecalciferol (vitamin D3) 25 25 mcg PO DAILY 90 day s #90 caps 10/25/24 mcg (1,000 unit) capsule diphenhydramine HCl 25 mg capsule 50 mg (2 x 25 mg) PO TID PRN 11/17/24 (Benadryl) allergic reaction #20 caps ketotifen fumarate 0.025 % (0.035 1 drp ophthalmic (ey e) Q8H PRN 11/17/24 %) eye drops (Alaway) allergy symptoms #5 mL atorvastatin 40 mg tablet 40 mg PO BEDTIME 90 days #90 tabs 11/29/24 fluticasone 250 mcg-salmeterol 50 1 inh inhalation BID asthma 30 12/04/24 mcg/dose blistr powdr for days #60 ea inhalation (Advair Diskus) ondansetron 4 mg disintegrating 4 mg PO Q6H PRN nausea and 12/29/24 tablet vomiting #12 tabs lisinopril 5 mg tablet 5 mg PO DAILY 90 days #90 ta bs 01/25/25 montelukast 10 mg tablet 10 mg PO BEDTIME 90 days #90 tabs 02/02/25 Ventolin HFA 90 mcg/actuation 2 puff inhalation Q6H DC N 02/20/25 aerosol inhaler (albuterol sulfate) shortness of breat h or wheezing 30 days #8 grams dicyclomine 20 mg tablet 20 mg PO QID 30 days #120 ta bs 02/20/25 mesalamine 400 mg capsule (with 800 mg (2 x 400 mg) PO BID #120 ea 02/28/25 delayed release tablets inside) prednisone 20 mg tablet 40 mg (2 x 20 mg) PO DAILY # 60 tabs 02/28/25 Allergies Allergy/AdvReac Type Severity Reaction Status Date / Time No Known Allergies Allergy Verified 02/20/25 15:52 [facility] Past Medical History Medical History Abdominal pain Asthma exacerbation Hypogonadism Acute lumbar myofascial strain Annual physical exam Elevated blood pressure reading Arthritis Dyslipidemia Hypertriglyceridemia COVID-19 Testosterone deficiency Pain, hand joint Joint pain in fingers of left hand Screening for viral disease Encounter for testing for latent tuberculosis infection Onychomycosis Physical exam Right foot pain Skin lesion of scalp Lymph node abscess Bronchitis Skin lesion Swelling, mass, or lump in chest Erectile dysfunction associated with type 2 diabetes mellitus Allergic rhinitis Nocturnal hypoxemia Excessive daytime sleepiness Bilateral hand pain Mild recurrent major depression DM2 (diabetes mellitus, type 2) REE (obstructive sleep apnea) Polyarthralgia Lumbar degenerative disc disease Type 2 diabetes mellitus with hyperglycemia Polysubstance abuse Erectile dysfunction GERD (gastroesophageal reflux disease) Anxiety and depression Asthma Colitis Surgical History History of surgery History of elbow surgery Family History Family History Father Hypertension Diabetes Cancer Cancer, hepatocellular Mother No problems noted. 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 He reports a history of colitis. Plan for labs, urinalysis Medications Administered Discontinued Medications Generic Name Dose Route Start Last Admin Trade Name Freq PRN Reason Stop Dose Admin Dicyclomine HCl 10 mg 02/14/25 20:33 02/14/25 21:01 Dicyclomine Hcl 10 Mg Capsule PO 02/14/25 20:34 10 mg ONCE ONE Administration Loperamide HCl 2 mg 02/14/25 20:33 02/14/25 21:01 Loperamide Hcl 2 Mg Capsule PO 02/14/25 20:34 2 mg ONCE ONE Administration Medical Decision Making Lab Data 02/14/25 19:13 02/14/25 19:13 Labs: Lab Results 02/14/25 02/14/25 Range/Units 19:13 21:01 WBC 6.1 (4.8-10.8) X10*3/uL RBC 5.43 (4.60-5.80) X10*6/uL Hgb 16.1 (14.0-18.0) g/dl Hct 47.0 (42.0-52.0) % MCV 86.6 (80.0-98.0) fL MCH 29.7 (27.0-33.0) pg MCHC 34.3 (31.0-36.0) g/dl RDW 13.3 (11.0-16.0) % Plt Count 227 (160-400) X10*3/uL MPV 9.3 L (9.4-12.4) fL Immature Gran % (Auto) 0.3 (0.0-0.4) % Neut % (Auto) 44.8 L (45-73) % Lymph % (Auto) 28.3 (20-40) % Bureau % (Auto) 18.4 H (2-11) % Eos % (Auto) 7.7 H (0-4) % Baso % (Auto) 0.5 (0-2) % Lymph # (Auto) 1.7 (1.2-4.9) X10*3/uL Bureau # (Auto) 1.1 (0.1-1.2) X10*3/uL Eos # (Auto) 0.5 H (0.0-0.4) X10*3/uL Baso # (Auto) 0.0 (0.0-0.2) X10*3/uL Abs Immat Gran (auto) 0.02 (0.00-0.03) X10*3/uL Absolute Neuts (auto) 2.7 (2.0-8.3) x10*3/uL Absolute Nucleated RBC 0.000 (0.0-0.012) X10*3/uL Nucleated RBC % (auto) 0.0 (0.0-0.2) /100WBC Sodium 140 (135-145) mmol/L Potassium 3.8 (3.3-5.1) mmol/L Chloride 108 (96-108) mmol/L Carbon Dioxide 24 (22-29) mmol/L Anion Gap 12 (12-20) BUN 12 (9-16) mg/dL Creatinine 1.02 (0.5-1.4) mg/dL Estim Creat Clear Calc 108.7 Estimated GFR > 60 Random Glucose 85 (60-115) mg/dL Calcium 9.1 D (8.4-10.2) mg/dL Total Bilirubin 0.9 (0.0-1.0) mg/dL AST 22 (5-37) U/L ALT 28 (0-40) U/L Alkaline Phosphatase 50 (39-117) U/L Total Protein 7.2 (6.5-8.0) g/dL Albumin 4.7 (3.5-5.0) g/dL Lipase 12 (8-78) U/L Urine Color Yellow Urine Appearance Clear Urine pH 6.0 (5.0-9.0) Ur Specific Ewen 1.025 (1.005-1.025) Urine Protein Trace (Neg-Trace) mg/dL Urine Glucose (UA) Negative (Negative) mg/dL Urine Ketones Trace (Negative) mg/dL Urine Blood Small (1+) H (Negative) Urine Nitrite Negative (Negative) Ur Leukocyte Esterase Negative (Negative) Urine RBC 0-2 (0-2) /HPF Urine WBC 0-5 (0-5) /HPF Ur Squamous Epith Cells 0-2 (0-2) /HPF Urine Bacteria None Seen (None Seen) Hyaline Casts 0-2 (0-2) /LPF Discharge Plan Discharge Clinical Impression: Enteritis Patient Disposition: Home, Self-Care Instructions: Acute Diarrhea (ED) Additional Instructions: _ DISCHARGE DIAGNOSES: Abdominal pain and diarrhea, unclear cause could be inflammatory or viral HISTORY OF PRESENTATION: ?Recurrent episode of abdominal pain and diarrhea no blood EMERGENCY DEPARTMENT COURSE,TESTS, TREATMENTS: While in the ED today you had lab work that was generally reassuring with normal blood counts and normal electrolytes and kidney function DISCHARGE MEDICATIONS: ?We have prescribed an antispasm medicine for the abdomen/intestines and an medicine only for severe watery diarrhea FOLLOW-UP: ?Call your primary or general physician soon as possible to discuss your symptoms, your ED visit and to discuss follow up plans Continue with your previously scheduled gastroenterology follow up INSTRUCTIONS ?& RETURN PRECAUTIONS: If any symptoms change first call your primary physician, if it is after-hours your primary doctors office should have a provider clinical documentation manager you can speak with. If the symptoms are severe or very concerning to you then call 911 or return to the ED. Hydrate, take the medications as needed. Discuss any worsening symptoms with your primary doctor continue with follow up Isaac Villagran MD Emergency Physician [facility] Prescriptions: No Action (DME) blood-glucose meter [FreeStyle [place]] Kit See Rx Instructions .ROUTE .MEDSUPPLY Qty: 1 0RF Rx Instructions: As directed check the BS TID glucose 4 gram tablet,chewable 16 g PO Q15M 30 Days Qty: 50 3RF (DME) lancets [FreeStyle Lancets] 28 gauge misc See Rx Instructions .ROUTE .MEDSUPPLY Qty: 300 3RF Rx Instructions: As directed check the BS TID (DME) FreeStyle Lite Strips Strip See Rx Instructions .ROUTE .MEDSUPPLY Qty: 300 1RF Rx Instructions: three times a day (DME) cane Device See Rx Instructions .Route Qty: 1 0RF Rx Instructions: As directed tadalafil 5 mg tablet 5 mg PO DAILY 90 Days Qty: 90 1RF pen needle, diabetic [BD Ultra-Fine Short Pen Needle] 31 gauge x 5/16 needle 1 ea subcut DAILY 90 Days Qty: 100 3RF cyclobenzaprine 10 mg tablet 10 mg PO TID PRN (Reason: muscle spasm) 30 Days Qty: 90 1RF meclizine 25 mg tablet 25 mg PO BID PRN (Reason: dizziness) 30 Days Qty: 60 0RF (DME) BD Luer-Enio Syringe 1 mL syringe See Rx Instructions .MEDSUPPLY Qty: 30 0RF Rx Instructions: Testosterone injection weekly (DME) BD Regular Bevel [place] 18 gauge x 1 1/2 needle See Rx Instructions .MEDSUPPLY Qty: 30 0RF Rx Instructions: As directed to be used weekly for T injection (DME) BD Regular Bevel [place] 25 gauge x 5/8 needle See Rx Instructions .MEDSUPPLY Qty: 30 0RF Rx Instructions: As directed - for testosterone subcutaneous injection tadalafil 20 mg tablet 20 mg PO ONCE PRN (Reason: sexual activity) 30 Days Qty: 30 6RF Rx Instructions: On demand medication take 60 minutes before intended activity cholecalciferol (vitamin D3) 25 mcg (1,000 unit) capsule 25 mcg PO DAILY 90 Days Qty: 90 1RF atorvastatin 40 mg tablet 40 mg PO BEDTIME 90 Days Qty: 90 0RF fluticasone propion-salmeterol [Advair Diskus] 250-50 mcg/dose blister with device 1 inh inhalation BID 30 Days Qty: 60 3RF lisinopril 5 mg tablet 5 mg PO DAILY 90 Days Qty: 90 2RF montelukast 10 mg tablet 10 mg PO BEDTIME 90 Days Qty: 90 1RF albuterol sulfate [Ventolin HFA] 90 mcg/actuation HFA aerosol inhaler 2 puff inhalation Q6H PRN (Reason: shortness of breath or wheezing) 30 Days Qty: 8 1RF prednisone 20 mg tablet 40 mg PO DAILY Qty: 60 1RF mesalamine 400 mg capsule (with del rel tablets) 800 mg PO BID Qty: 120 6RF javborjdva-onwjhnhtssznu-mypz 50-325-40 mg tablet 1 tab PO Q6H PRN (Reason: haeadace) Qty: 20 0RF ketotifen fumarate [Alaway] 0.025 % (0.035 %) drops 1 drp ophthalmic (eye) Q8H PRN (Reason: allergy symptoms) Qty: 5 0RF Rx Instructions: do not exceed 2 doses in a 24 hour period diphenhydramine HCl [Benadryl] 25 mg capsule 50 mg PO TID PRN (Reason: allergic reaction) Qty: 20 0RF ondansetron 4 mg tablet,disintegrating 4 mg PO Q6H PRN (Reason: nausea and vomiting) Qty: 12 0RF buprenorphine-naloxone [Suboxone] 12-3 mg film 1 film buccal ONCE (DME) blood pressure test kit-large Kit See Rx Instructions .Route Qty: 1 0RF Rx Instructions: As directed ibuprofen 800 mg tablet 800 mg PO TID PRN (Reason: pain) quetiapine 300 mg tablet extended release 24 hr 300 mg PO BEDTIME zolpidem 10 mg tablet 10 mg PO BEDTIME PRN (Reason: insomnia) hydroxyzine HCl 50 mg tablet 50 mg PO Q8H PRN (Reason: anxiety) trazodone 150 mg tablet 150 mg PO DAILY venlafaxine 75 mg capsule,extended release 24hr 75 mg PO DAILY Jardiance 25 mg tablet 25 mg PO QAM Qty: 30 4RF ammonium lactate 12 % cream 1 appl topical BID venlafaxine 150 mg capsule,extended release 24hr 150 mg PO DAILY testosterone cypionate [Depo-Testosterone] 200 mg/mL oil 80 mg subcut QWEEK 28 Days Qty: 4 5RF Rx Instructions: Discard excess medication after use metformin 500 mg tablet 500 mg PO BID 90 Days Qty: 180 1RF albuterol sulfate 2.5 mg /3 mL (0.083 %) solution for nebulization 2.5 mg inhalation Q6H 30 Days Qty: 360 4RF sumatriptan succinate 25 mg tablet 25 mg PO Q2-4H PRN (Reason: migraine headache) 30 Days Qty: 9 1RF Rx Instructions: do not exceed 8 doses per 24 hrs pantoprazole 40 mg tablet,delayed release (DR/EC) PO buspirone 30 mg tablet 30 mg PO BID Mounjaro 7.5 mg/0.5 mL pen injector 7.5 mg subcut QWEEK dicyclomine 20 mg tablet 20 mg PO QID 30 Days Qty: 120 6RF Interventions: ED Discharge Assessment Last Done: 02/14/25 21:36 Discharge Date/Time: 02/14/25 21:36 Print Language: Setswana
[2025-02-14 19:18] LABS: MANUAL DIFF FLAG NO
[2025-02-14 19:21] LABS: Basophils Percent Auto 0.5 % (0-2); Eosinophils Absolute Auto 0.5 X10*3/uL (0.0-0.4); Eosinophils Percent Auto 7.7 % (0-4); Hemoglobin 16.1 g/dl (14.0-18.0); Imm Gran Abs Auto 0.02 X10*3/uL (0.00-0.03); Imm Gran Pct Auto 0.3 % (0.0-0.4); Lymphocytes Absolute Auto 1.7 X10*3/uL (1.2-4.9); Lymphocytes Percent Auto 28.3 % (20-40); Mean Corpuscular HGB Conc 34.3 g/dl (31.0-36.0); Mean Corpuscular Hemoglobin 29.7 pg (27.0-33.0); Mean Corpuscular Volume 86.6 fL (80.0-98.0); Mean Platelet Volume 9.3 fL (9.4-12.4); Monocytes Absolute Auto 1.1 X10*3/uL (0.1-1.2); Monocytes Percent Auto 18.4 % (2-11); Neutrophils Absolute Auto 2.7 x10*3/uL (2.0-8.3); Neutrophils Percent Auto 44.8 % (45-73); Platelet Count 227 X10*3/uL (160-400); Red Blood Count 5.43 X10*6/uL (4.60-5.80); Red Cell Distribution Width 13.3 % (11.0-16.0); White Blood Count 6.1 X10*3/uL (4.8-10.8)
[2025-02-14 19:35] LABS: Alanine Aminotransferase 28 U/L (0-40); Albumin Level 4.7 g/dL (3.5-5.0); Alkaline Phosphatase 50 U/L (39-117); Anion Gap 12 (12-20); Aspartate Amino Transferase 22 U/L (5-37); Bilirubin Total 0.9 mg/dL (0.0-1.0); Blood Urea Nitrogen 12 mg/dL (9-16); Calcium 9.1 mg/dL (8.4-10.2); Carbon Dioxide 24 mmol/L (22-29); Chloride 108 mmol/L (96-108); Creatinine Clr Calc Pharmacy 108.7; Estimated Glomerular Filt Rate > 60; Glucose Random 85 mg/dL (60-115); Lipase 12 U/L (8-78); Potassium 3.8 mmol/L (3.3-5.1); Sodium 140 mmol/L (135-145); Total Protein 7.2 g/dL (6.5-8.0)
[2025-02-14 19:49] VITALS: BP 110/62; PULSE 88; RESP 18; TEMP 36.7; O2SAT 97
[2025-02-14 20:45] VITALS: BP 108/67; PULSE 75; RESP 16; TEMP 36.4; O2SAT 96
[2025-02-14] MEDS: Loperamide HCl 2 MG CAPSULE PO (21:01)
[2025-02-14] MEDS: Dicyclomine HCl 10 MG CAPSULE PO (21:01)
[2025-02-14 21:11] LABS: Appearance Urine Clear; Color Urine Yellow; Glucose Urine UA Negative (Negative); Leukocyte Esterase Urine Negative (Negative); Nitrite Urine Negative (Negative); Specific Gravity - Urine 1.025 (1.005-1.025); UMIC TRIGGER UACC YES; Urine Blood Small (1+) (Negative); Urine Ketones Trace mg/dL (Negative); Urine Protein Trace mg/dL (Neg-Trace)
[2025-02-14 21:36] VITALS: BP 108/67; PULSE 75; RESP 16; TEMP 36.4; O2SAT 96
[2025-02-14 21:41] LABS: Bacteria Urine None Seen (None Seen); Hyaline Casts Urine 0-2 /LPF (0-2); RBC Urine 0-2 /HPF (0-2); Squamous Epithelial Cell Urine 0-2 /HPF (0-2); WBC Urine 0-5 /HPF (0-5)
== END 2025-02-14 21:36 | disposition home or self-care (01) ==
PROVIDERS: Physician Assistant; Emergency Provider Emergency Medicine; PCP Internal Medicine
DX: K52.9 Noninfective gastroenteritis and colitis, unspecified (principal); Z79.899 Other long term (current) drug therapy; Z87.891 Personal history of nicotine dependence
CPT/HCPCS: 36415; 80053; 81001; 83690; 85025; 99283; 99284

== ENCOUNTER 2025-02-20 12:53 | Outpatient (AMB) | payer MEDICARE, MEDICAID, SELFPAY ==
--- NOTE | 2025-02-20 13:08 | MHC.OFFVIS ---
Vital Signs 02/20/25 13:15 Height 5 ft 10 in Weight 196 lb 3.382 oz BMI 28.2 BP 120/63 Blood Pressure Location Lt brachial Position Sitting Pulse 89 Intake Visit Reasons: epigastric pain Intake Note: Roland presents in the office as a new patient for epigastric pains. CC: Stomach pains, 2 weeks with both constipation and diarrhea. Today has been better. [employer] Equipment Operator Required: Yes Allergies No Known Allergies Allergy (Verified 02/20/25 15:52) HPI HPI epigastric pain: Details: 44-year-old male here for initial evaluation of epigastric pain. He is referred by Ayah Mir. PMX REE Obesity Asthma Allergic rhinitis Hypertension High cholesterol Diabetes Hepatitis C Depression with anxiety Polyarthralgias Erectile dysfunction GERD Lumbar degenerative disc disease Headaches Hypogonadism History of polysubstance abuse HISTORY of small-bowel ileus * SURGICAL HISTORY Left leg surgical repair Elbow prosthesis * ALLERGIES: NKDA * [employer] LABS: Laboratory Tests 02/14/25 19:13 WBC 6.1 Hgb 16.1 Hct 47.0 Plt Count 227 Estimated GFR > 60 Total Bilirubin 0.9 AST 22 ALT 28 Alkaline Phosphatase [address] ABD AND PELVIS 12/29/2024 Findings: No basilar consolidation or pleural effusion. Unremarkable gallbladder and solid organs. No urolithiasis. No AAA. No lymphadenopathy. No bowel obstruction, pneumoperitoneum, or pneumatosis. Mild fluid distention of multiple small bowel loops with no abrupt transition point. There is mild wall enhancement. No significant mesenteric or paracolic edema. No ascites or organized fluid collection. Appendix is not identified with certainty. No significant inflammatory changes are seen in its expected location. Multiple nonspecific borderline enlarged bilateral inguinal lymph nodes. There are heterogeneous soft tissue densities in the ventral subcutaneous tissues. No associated fluid collection or gas lobules. Moderate disc and facet degenerative changes at L5-S1. IMPRESSION: 1. Mild small bowel ileus and enteritis. No obstruction or ascites. 2. No acute obstructive uropathy or urolithiasis. 3. Heterogeneous soft tissue densities in the ventral subcutaneous tissues of the lower abdomen can be related to prior injections or cellulitis. No abnormal fluid collection. TODAY'S VISIT [place] LIve Onset 2 mos ago with a lot of abd pain and inflammation. He presented to the ER and was told that my colon was inflamed. He was given medications that did nto help. The sx were bloating, diarrhea, and a lot of HB accompanied by generalized abd pain an d cramping. If he has any PO intake when he has these sx he will have post prandial diarrhea. These sx have occurred intermittently over the past 5 years. They used to occur about twice a year, but now it is happening more often and the pain is stronger. His last episode was just 2 mos ago. No N/V. In the past his sx were resolved with ER medications, now he was given zofran and bentyl w/o any help and neither did the ER medications. THe only new dx is diabetes and he was started on Mounjaro a few mos ago. Also his son has UC and his father suffered similar sx. Roland had a negative colonoscopy [place] [address] Chou. This was for similar sx. BUT he also says he had this in the past but the medications worked faster. [facility] Medical History Abdominal pain Asthma exacerbation Hypogonadism Acute lumbar myofascial strain Annual physical exam Elevated blood pressure reading Arthritis Dyslipidemia Hypertriglyceridemia COVID-19 Testosterone deficiency Pain, hand joint Joint pain in fingers of left hand Screening for viral disease Encounter for testing for latent tuberculosis infection Onychomycosis Physical exam Right foot pain Skin lesion of scalp Lymph node abscess Bronchitis Skin lesion Swelling, mass, or lump in chest Erectile dysfunction associated with type 2 diabetes mellitus Allergic rhinitis Nocturnal hypoxemia Excessive daytime sleepiness Bilateral hand pain Mild recurrent major depression DM2 (diabetes mellitus, type 2) REE (obstructive sleep apnea) Polyarthralgia Lumbar degenerative disc disease Type 2 diabetes mellitus with hyperglycemia Polysubstance abuse Erectile dysfunction GERD (gastroesophageal reflux disease) Anxiety and depression Asthma Colitis Surgical History History of surgery History of elbow surgery Family History Father Hypertension Diabetes Cancer Cancer, hepatocellular Mother No problems noted. 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 Cognitive needs: Yes Hearing needs: No Vision needs: No Review of Systems Const Denies fatigue, Denies fever(s), Reports headache(s), Denies night sweats, Denies poor appetite and Denies weight loss ENT Reports Normal hearing present, Denies dental pain, Denies dysphagia, Reports dizziness, Reports headache(s), Denies hearing loss, Denies mouth pain, Denies odynophagia, Denies throat swelling, Denies tongue swelling and Reports other (Dentition adequate) Card Reports no additional complaints Resp Reports no additional complaints GI Details: Reports abdominal pain, Denies melena, Reports bloating, Reports hematochezia, Denies constipation, Denies GI cramping, Denies dysphagia, Reports excessive flatus, Denies early satiety, Reports heartburn, Denies diarrhea, Reports loose stools, Reports nausea, Denies odynophagia, Denies vomiting and Denies hematemesis Details: ED Musc Reports abnormal gait, Reports back pain, Reports myalgias, Reports arthralgias, Reports radiating pain into limb and Reports stiffness Skin/Breast Denies pruritus, Denies lesions, Denies rash and Denies jaundice Neuro Reports Normal hearing present, Denies Abnormal speech present, Reports abnormal gait, Reports dizziness and Reports headache(s) Endo Denies fatigue Aller/Immun Denies throat swelling and Denies tongue swelling Physical Exam Vital Signs: Last Vital Signs Pulse 89 02/20/25 13:15 BP 120/63 02/20/25 13:15 BMI result Body Mass Index 28.2 Const General: cooperative, no acute distress, well developed and well groomed Nutritional Appearance: well nourished and overweight Orientation/consciousness: oriented to person, oriented to place and oriented to time Limitations: language barrier and ambulation with cane HEENT Head: Yes normocephalic and Yes atraumatic Eyes General: appearance normal, both eyes and all related structures Pupils: Equal, round and reactive pupils present Neck Neck: Yes normal visual inspection and Yes no lymphadenopathy Thyroid: Thyroid normal Resp Effort & Inspection: normal respiratory effort and able to speak in complete sentences Auscultation: clear to auscultation bilaterally Cardio Rate: regular rate Rhythm: regular rhythm Heart sounds: Normal, physiologic split S2 sound present Peripheral pulses: radial pulses present and posterior tibial pulses present GI Inspection: No distended and No Abdominal panniculus present Palpation (GI): Soft to palpation, Tenderness to palpation present (GI) (most profoundly in RUQ) in the epigastrum, in the LUQ, in the RUQ and periumbilically, no guarding, not rigid and No hepatosplenomegaly present Percussion: Yes normal to percussion Auscultation: normal bowel sounds Rectal Exam - Male: Yes deferred Skin General skin exam: no rashes or lesions noted, turgor normal, skin not dry, no jaundice, No spider nevi and no striae Rashes: no rashes Nails: normal Neuro General: oriented to person, oriented to place and oriented to time Cranial nerves: Yes Equal, round and reactive pupils present and Yes Normal hearing present Speech: No Abnormal speech present Extrem General: Yes normal to inspection, No clubbing, No cyanosis and No edema Psych Appearance: grossly normal and well kempt Mental Status: mental status grossly normal Speech and movement: Normal speech and movement present Affect: normal affect Attitude: cooperative Thought process: Circumstantial thought process present and not confabulating Thought content: Normal thought content present Insight: Limited insight present (Psych) Judgement: Limited judgement present (Psych) Results AMB Hemoglobin A1c AMB Hemoglobin A1c 5.2 % Last Edit by RED Forman on 02/20/25 15:42 Assessment & Plan Assessment & Plan (1) Abdominal pain: Code(s): R10.9 - Unspecified abdominal pain Category: Medical Qualifiers: Abdominal location: epigastric Qualified Code(s): R10.13 - Epigastric pain (2) Bloody stools: Code(s): K92.1 - Melena Category: Medical (3) Family history of ulcerative colitis: Code(s): Z83.79 - Family history of other diseases of the digestive system Category: Medical (4) Abdominal pain: Code(s): R10.9 - Unspecified abdominal pain Category: Medical Qualifiers: Abdominal location: epigastric Qualified Code(s): R10.13 - Epigastric pain Plan [place] #Fr[employer]ise LIve Onset 2 mos ago with a lot of abd pain and inflammation. He presented to the ER and was told that my colon was inflamed. He was given medications that did nto help. The sx were bloating, diarrhea, and a lot of HB accompanied by generalized abd pain an d cramping. If he has any PO intake when he has these sx he will have post prandial diarrhea. These sx have occurred intermittently over the past 5 years. They used to occur about twice a year, but now it is happening more often and the pain is stronger. His last episode was just 2 mos ago. No N/V. In the past his sx were resolved with ER medications, now he was given zofran and bentyl w/o any help and neither did the ER medications. THe only new dx is diabetes and he was started on Mounjaro a few mos ago. Also his son has UC and his father suffered similar sx. Roland had a negative colonoscopy [place] [address] Chou. This was for similar sx. BUT he also says he had this in the past but the medications worked faster. Orders: Orders [facility] 02/20/25 Z83.79 - Family history of other diseases of the digestive system NM hepatobiliary w pharm 02/20/25 R10.9 - Unspecified abdominal pain Lipase 02/20/25 R10.13 - Epigastric pain, R19.7 - Diarrhea, unspecified EGD/[place] [facility] - GI Use Only 02/20/25 K92.1 - Melena, R10.13 - Epigastric pain Amylase 02/20/25 R10.13 - Epigastric pain, R19.7 - Diarrhea, unspecified Medications: New dicyclomine 20 mg PO QID 120 tabs 6RF 30 days R10.13 - Epigastric pain Discontinued dicyclomine Discontinued Reason: Patient Completed Course 10 mg PO QID PRN 20 caps 0RF abdominal pain dicyclomine Discontinued Reason: Doctor's Order 10 mg PO TID 7 caps 0RF ketorolac Tolerated IM or IV in department Discontinued Reason: Doctor's Order 10 mg PO TID 5 days PRN 15 tabs 0RF pain fenofibrate nanocrystallized Discontinued Reason: Doctor's Order 145 mg PO DAILY 90 tabs 1RF R10.9 - Unspecified abdominal pain On Hold metformin Hold Comment: since mounjaro 500 mg PO BID 90 days 180 tabs 1RF Coding Level of Care Code New Pt Level 3 (34180) Diagnoses Abdominal pain R10.13 Abdominal location: epigastric Bloody stools K92.1 Family history of ulcerative colitis Z83.79
[2025-02-20 13:15] VITALS: BP 120/63; PULSE 89; BMI 28.2
--- OUTSIDE RECORDS SUMMARY | 2025-02-20 14:46 | XMS_ITS | Clinical Summary ---
Author Organization [address] [place] [address] Address [address] [place] [address] Phone Care Team Providers Care Beater Head Name Role Phone Ayah Peña MD Primary Care Provider [phone] Encounters Date Type Department Care Team Description 02/15/2025 Telephone Gastroenterology [facility] 175 [facility] [address] [phone] Chinmay Orellana MD appointment [facility] [address] [id number] Ramírez Hernandez PA provider calll back; appointment from Last 3 Months Medical History Medical History Date Comments Diabetes mellitus type 2, co ntrolled, with complications (CMS/HCC V24, CMS/HCC V28) DX:Diabetes mellitus type 2, controlled, with complications ([facility]) Esophageal reflux DX:Esophageal reflux Epigastric pain DX:Epigastric pa in Rectal bleeding DX:Rectal bleedi ng Family History Medical History Relation Name Comments Esophageal cancer Paternal Grandfather Relation Name Status Comments Paternal Grandfather Social History Tobacco Use Types Packs/Day Years Used Date Smoking Tobacco: Never Smokeless Tobacco: Never Sex and Gender Information Value Date Recorded Sex Assigned at Not on file Legal Sex Male 4:32 AM EST Gender Identity Not on file Sexual Orientation Not on file Obstetrics History Last Filed Vital Signs Vital Sign Reading Time Taken Comments Blood Pressure 140/75 11/15/2023 2:38 PM EDT Sit ting L Arm Pulse 76 11/15/2023 2:38 PM EDT Temperature - - Respiratory Rate - - Oxygen Saturation - - Inhaled Oxygen Concentration - - Weight 97.5 kg (215 lb) 11/15/2023 2:38 PM EDT Height 175.3 cm (5' 9 ) 11/15/2023 2:38 PM EDT Body Mass Index 31.75 11/15/2023 2:38 PM EDT Plan of Treatment Upcoming Encounters Date Type Department Care Team (Late st Contact Info) Description 04/11/2025 2:40 PM EDT Office Visit Gastroenterology - [place] 175 [facility] 175 [facility] [address] [place] [phone] Chinmay Orellana MD 175 [facility] [address] [place] [address] Health Maintenance Due Date Last Done Comments Diabetes: Annual GFR (Glomer ular Filtration Rate) 1980 Diabetes: Annual Foot Exam 1990 Diabetes: Annual Retina Eye Exam 1990 DTaP,Tdap,and Td Vaccines (1 - Tdap) 1999 Hepatitis B Vaccines (1 of 3 - 19+ 3-dose series) 1999 Pneumococcal Vaccine: Pediat rics (0 to 5 Years) and At-Risk Patients (6 to 64 Years) (1 of 2 - PCV) 1999 Cholesterol Screening (Lipid Panel) 08/08/2022 Depression Screening 08/08/2022 HIV Screening 08/08/2022 Hepatitis C Screening 08/08/2022 Medicare Annual Wellness Visit 08/08/2022 Social Influencers of Health Screening 08/08/2022 COVID-19 Vaccine (2023-2 5 season) 2024 Diabetes: Annual Urine Albumin-Creatinine Ratio (uACR) 02/08/2025 Diabetes: Blood Sugar Contro l Test (HGBA1C) 02/08/2025 Influenza Vaccine (Season Ended) 2025 HIB Vaccines Aged Out No longer eligi ble based on patient's age to complete this topic HPV Vaccines Aged Out No longer eligi ble based on patient's age to complete this topic Hepatitis A Vaccines Aged Out No long er eligible based on patient's age to complete this topic IPV Vaccines Aged Out No longer eligi ble based on patient's age to complete this topic MMR Vaccines Aged Out No longer eligi ble based on patient's age to complete this topic Meningococcal ACWY Vaccine Aged Out N o longer eligible based on patient's age to complete this topic Meningococcal B Vaccine Aged Out No l onger eligible based on patient's age to complete this topic RSV Immunization Patients Un gil 20 months Aged Out No longer eligible b ased on patient's age to complete this topic Varicella Vaccines Aged Out No longer eligible based on patient's age to complete this topic Insurance MEDICARE MEDICAID - [place] Care Teams Beater Head Relationship Specialty Start Date End Date Ayah Peña MD [address] [facility] , [address] [facility] D[facility]A: [facility] [place], [place] PCP - General Internal Medicine 05/31/19
== END 2025-02-20 14:03 | disposition home or self-care (01) ==
LOC: HO.HGI 12:54
PROVIDERS: PCP Internal Medicine; Visit Provider Nurse Practitioner
DX: R10.13 Epigastric pain (principal); K92.1 Melena; Z83.79 Family history of other diseases of the digestive system
CPT/HCPCS: 99203

== ENCOUNTER 2025-02-20 14:12 | Outpatient (REF) | payer MEDICARE, MEDICAID, SELFPAY ==
[2025-02-20 15:29] LABS: Alanine Aminotransferase 22 U/L (0-40); Albumin Level 4.2 g/dL (3.5-5.0); Alkaline Phosphatase 59 U/L (39-117); Anion Gap 10 (12-20); Aspartate Amino Transferase 21 U/L (5-37); Bilirubin Total 0.3 mg/dL (0.0-1.0); Blood Urea Nitrogen 8 mg/dL (9-16); Carbon Dioxide 28 mmol/L (22-29); Chloride 109 mmol/L (96-108); Cholesterol 134 mg/dL (<200); Estimated Glomerular Filt Rate > 60; Glucose Fasting 88 mg/dL (60-99); HDL Cholesterol 23 mg/dL (>40); LDL Cholesterol Calculated 92 mg/dL (<100); Lipase 12 U/L (8-78); Potassium 3.4 mmol/L (3.3-5.1); Sodium 144 mmol/L (135-145); Total Protein 6.7 g/dL (6.5-8.0); Triglycerides 95 mg/dL (<150)
[2025-02-20 15:33] LABS: Microalbum/Creatinine Ratio Ur 10.8 ug/mg cr (<30)
[2025-02-20 15:46] LABS: Amylase 80 U/L (28-100)
[2025-02-20 15:52] LABS: Vitamin D 25-OH Total 24.6 ng/mL (>30)
[2025-02-20 16:41] LABS: Hematocrit 43.8 % (42.0-52.0); Hemoglobin 15.3 g/dl (14.0-18.0); Mean Corpuscular HGB Conc 34.9 g/dl (31.0-36.0); Mean Corpuscular Hemoglobin 30.1 pg (27.0-33.0); Mean Corpuscular Volume 86.1 fL (80.0-98.0); Platelet Count 234 X10*3/uL (160-400); Red Blood Count 5.09 X10*6/uL (4.60-5.80); Red Cell Distribution Width 13.8 % (11.0-16.0); White Blood Count 6.3 X10*3/uL (4.8-10.8)
[2025-02-20 17:35] LABS: Prostate Specific Antigen 0.36 ng/mL (<0.05-4.0)
[2025-02-25 00:54] LABS: Testosterone, Total 433 ng/dL (250-1100)
== END 2025-02-20 14:13 | disposition home or self-care (01) ==
LOC: HO.LAB 14:12
PROVIDERS: Urology; Absent Provider Internal Medicine; PCP Internal Medicine; Visit Provider Nurse Practitioner
DX: E29.1 Testicular hypofunction (principal); G44.52 New daily persistent headache (NDPH); E55.9 Vitamin D deficiency, unspecified; R80.9 Proteinuria, unspecified; E11.9 Type 2 diabetes mellitus without complications; K92.1 Melena; R10.13 Epigastric pain; R19.7 Diarrhea, unspecified; E78.2 Mixed hyperlipidemia; I15.2 Hypertension secondary to endocrine disorders; F33.0 Major depressive disorder, recurrent, mild; Z12.5 Encounter for screening for malignant neoplasm of prostate; Z83.79 Family history of other diseases of the digestive system
CPT/HCPCS: 36415; 80053; 80061; 81479; 82043; 82150; 82306; 82397; 82570; 83036; 83520; 83690; 84153; 84403; 85027; 86140; 88346; 88350; 99202; 99212

== ENCOUNTER 2025-02-20 14:59 | Outpatient (AMB) | payer MEDICARE, MEDICAID, SELFPAY ==
--- NOTE | 2025-02-20 15:29 | MHC.PC.OV ---
Vital Signs 02/20/25 15:32 Height 5 ft 10 in Weight 195 lb BMI 28.0 BP 110/66 Blood Pressure Location Lt brachial Position Sitting Intake Visit Reasons: dm Intake Note: Patient here for a follow up DM Pricing Consultant Required: No Accompanied by: Spouse Allergies No Known Allergies Allergy (Verified 02/20/25 15:52) Medication List - Last Reconciled 02/20/25 by Ayah Peña MD albuterol sulfate 2.5 mg (3 mL) inhalation Q6H 30 days ammonium lactate 12% 1 appl topical BID atorvastatin 40 mg PO BEDTIME 90 days blood pressure test kit-large As directed blood sugar diagnostic (FreeStyle Lite Strips) three times a day blood-glucose meter (FreeStyle [place] kit) As directed check the BS TID buprenorphine-naloxone 12-3 mg (Suboxone) 1 film buccal ONCE buspirone 30 mg PO BID hjcuchdptn-awmysgcjixwiz-nqts 50-325-40 mg 1 tab PO Q6H PRN cane As directed cholecalciferol (vitamin D3) 25 mcg PO DAILY 90 days cyclobenzaprine 10 mg PO TID PRN 30 days dicyclomine 20 mg PO QID 30 days diphenhydramine HCl (Benadryl) 50 mg (2 x 25 mg) PO TID PRN empagliflozin (Jardiance) 25 mg PO QAM fluticasone propion-salmeterol 250-50 mcg/dose (Advair Diskus) 1 inh inhalation BID 30 days glucose 16 grams (4 x 4 gram) PO Q15M 30 days hydroxyzine HCl 50 mg PO Q8H PRN ibuprofen 800 mg PO TID PRN ketotifen fumarate 0.025%(0.035%) ([place]away) 1 drp ophthalmic (eye) Q8H PRN lancets (FreeStyle Lancets) As directed check the BS TID lisinopril 5 mg PO DAILY 90 days meclizine 25 mg PO BID PRN 30 days metformin 500 mg PO BID 90 days Held on 02/20/25. Instructions: since alicja montelukast 10 mg PO BEDTIME 90 days needle (disp) 18 G (BD Regular Bevel [place]) As directed to be used weekly for T injection needle (disp) 25 gauge (BD Regular Bevel [place]) As directed - for testosterone subcutaneous injection ondansetron 4 mg PO Q6H PRN pantoprazole mg PO pen needle, diabetic (BD Ultra-Fine Short Pen Needle) 1 ea subcut DAILY 90 days quetiapine ER 300 mg PO BEDTIME sumatriptan succinate 25 mg PO Q2-4H PRN 30 days syringe (disposable) (BD Luer-Enio Syringe) Testosterone injection weekly tadalafil 5 mg PO DAILY 90 days Held on 06/10/23. Instructions: Dose Change tadalafil 20 mg PO ONCE PRN 30 days testosterone cypionate (Depo-Testosterone) 80 mg (0.4 mL) subcut QWEEK 4 weeks tirzepatide (Mounjaro) 7.5 mg subcut QWEEK trazodone 150 mg PO DAILY venlafaxine ER 150 mg PO DAILY venlafaxine ER 75 mg PO DAILY Ventolin HFA 90 mcg/actuation (albuterol sulfate) 2 puffs inhalation Q6H PRN 30 days NS zolpidem 10 mg PO BEDTIME PRN Tobacco use date assessed: 01/03/25 Dental Screening Dental Screen Date: 10/23/24 HPI HPI Comments History of Present Illness Details This is a 44 year old male with diabetes mellitus type 2, hypertension, mixed hyperlipidemia and mild recurrent major depression that comes today complianing of abdominal discomfort and diarrhea that has been present on and off since December which took him to ER and had CT of abdomen showing enteritis. Then diarrhea improve but came back again few weeks ago. Saw gastroenterology today which add him dicyclomine 20 mg. I will order stool samples to rule out any organism causing this. A1c within goal and is only taking Mounjaro. BP stable. LDL not on goal and dietary changes were advised. Depression stable with seroquel and follow by psychiatry. [facility] Medical History (Updated 02/20/25 @ 16:06 by Ayah Peña MD) Abdominal pain Asthma exacerbation Hypogonadism Acute lumbar myofascial strain Annual physical exam Elevated blood pressure reading Arthritis Dyslipidemia Hypertriglyceridemia COVID-19 Testosterone deficiency Pain, hand joint Joint pain in fingers of left hand Screening for viral disease Encounter for testing for latent tuberculosis infection Onychomycosis Physical exam Right foot pain Skin lesion of scalp Lymph node abscess Bronchitis Skin lesion Swelling, mass, or lump in chest Erectile dysfunction associated with type 2 diabetes mellitus Allergic rhinitis Nocturnal hypoxemia Excessive daytime sleepiness Bilateral hand pain Mild recurrent major depression DM2 (diabetes mellitus, type 2) REE (obstructive sleep apnea) Polyarthralgia Lumbar degenerative disc disease Type 2 diabetes mellitus with hyperglycemia Polysubstance abuse Erectile dysfunction GERD (gastroesophageal reflux disease) Anxiety and depression Asthma Colitis Surgical History History of surgery History of elbow surgery Family History Father Hypertension Diabetes Cancer Cancer, hepatocellular Mother No problems noted. 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 Cognitive needs: Yes Hearing needs: No Vision needs: No Questionnaire Thrive Questionnaire Date Thrive assessed: 10/23/24 I am a: Parent/Caregiver What is your living situation today?: I have a steady place to live Within the past 12 months, did the food you bought not last and you didn't have the money to get more?: Sometimes True Within the past 12 months, did you worry whether your food would run out before you got money to buy more?: Sometimes True Do you have trouble paying for medicines?: Yes Do you have trouble getting transportation to medical appointments?: No Do you have trouble paying your heating and electricity bill?: Yes Do you have trouble taking care of your child, family member or friend?: Yes Do you have trouble with day-to-day activities such as bathing, preparing meals, shopping, managing finances, etc.?: I choose not to answer this question Are you currently unemployed and looking for a job?: Yes Are you interested in more education?: No Currently or been in a relationship where the following occur: No concerns reported THRIVE Score: 3 MIRIAM-7 AMB Questionnaire MIRIAM-7 Date MIRIAM - 7 assessed: 10/23/24 Source: Developed by Drs. Surjit Espino, Lucina Escoto, Elvin Hussein and colleagues, with an educational porsche from [employer]. Review of Systems Const All systems reviewed & are unremarkable except as noted in HPI and below Card Denies chest pain at rest, Denies chest pain with activity, Denies edema, Denies irregular heart rhythm, Denies claudication, Denies dyspnea, Denies dyspnea on exertion, Denies orthopnea, Denies paroxysmal nocturnal dyspnea and Denies slow heart rate Resp Denies cough, Denies dyspnea and Denies dyspnea on exertion GI Reports abdominal pain, Denies change in bowel habits, Denies excessive flatus, Reports diarrhea, Denies nausea and Denies vomiting Physical exam (Primary Care) Vital Signs: Last Vital Signs BP 110/66 02/20/25 15:32 BMI result Body Mass Index 28.0 Tobacco/Smoking Status: Tobacco use Status Tobacco use date assessed 01/03/25 02/20/25 15:39 Patient Tobacco Use Status Former Tobacco user 02/20/25 15:39 Tobacco use type Cigarette 02/20/25 15:39 e-Cigarette/Vaping Use Never Used 02/20/25 15:39 Thrive Assessment: Date of Thrive Assessment Date Thrive assessed 10/23/24 02/20/25 15:39 Currently or been in a relationship where the following occur: No concerns reported Const Limitations: ambulation with cane Resp Effort & Inspection: normal respiratory effort Auscultation: clear to auscultation bilaterally Cardio Jugular venous distension: no JVD Rate: regular rate Rhythm: regular rhythm Heart sounds: S1 normal heart sound present and S2 normal heart sound present GI Inspection: Yes normal to inspection Palpation (GI): No hepatosplenomegaly present Results AMB Hemoglobin A1c AMB Hemoglobin A1c 5.2 % Last Edit by RED Forman on 02/20/25 15:42 Results Reviewed Results Reviewed: Laboratory Last Values Hgb A1c (Clinic) 5.2 % (4.0-6.0) 02/20/25 15:06 Coding Level of Care Code Est Pt Level 4 (26157) Complex EM visit Add On G2211 Diagnoses Hypertension due to endocrine disorder I15.2 Hypertension type: secondary to endocrine disorders Mixed hyperlipidemia E78.2 Type 2 diabetes mellitus without complication, unspecified whether press tender long goods insulin use E11.9 Diabetes mellitus senior living insulin use: unspecified senior living insulin use status Diabetes mellitus complication status: without complication Mild recurrent major depression F33.0 Diarrhea R19.7 Time Spent (min) 21 Assessment & Plan Assessment & Plan (1) HTN (hypertension): Comment: Todays office BP is good. Code(s): I10 - Essential (primary) hypertension Category: Medical Qualifiers: Hypertension type: secondary to endocrine disorders Qualified Code(s): I15.2 - Hypertension secondary to endocrine disorders (2) Mixed hyperlipidemia: Code(s): E78.2 - Mixed hyperlipidemia Category: Medical (3) DM2 (diabetes mellitus, type 2): Code(s): E11.9 - Type 2 diabetes mellitus without complications Category: Medical Qualifiers: Diabetes mellitus senior living insulin use: unspecified press tender long goods insulin use status Diabetes mellitus complication status: without complication Qualified Code(s): E11.9 - Type 2 diabetes mellitus without complications (4) Mild recurrent major depression: Code(s): F33.0 - Major depressive disorder, recurrent, mild Category: Medical (5) Diarrhea: Code(s): R19.7 - Diarrhea, unspecified Category: Medical Plan Stool samples ordered. Follow up with Gastroenterology. Continue current meds. Orders: Orders H pylori Ag Stool Today R19.7 - Diarrhea, unspecified AMB Hemoglobin A1c Today E11.9 - Type 2 diabetes mellitus without complications CDiff Gene PCR Today R19.7 - Diarrhea, unspecified Giardia Ag Stool EIA Today R19.7 - Diarrhea, unspecified Leukocytes Stool Qualitative Today R19.7 - Diarrhea, unspecified
[2025-02-20 15:32] VITALS: BP 110/66; BMI 28.0
== END 2025-02-20 16:11 | disposition home or self-care (01) ==
LOC: HO.HMCH 15:01
PROVIDERS: PCP Internal Medicine; Visit Provider Internal Medicine
DX: I15.2 Hypertension secondary to endocrine disorders (principal); E78.2 Mixed hyperlipidemia; E11.9 Type 2 diabetes mellitus without complications; F33.0 Major depressive disorder, recurrent, mild; R19.7 Diarrhea, unspecified

== ENCOUNTER 2025-03-06 11:44 | Outpatient (AMB) | payer MEDICARE, MEDICAID, SELFPAY ==
--- NOTE | 2025-03-06 11:55 | A.OFFVIS_ITS ---
Intake Visit Reasons: Medicaci?n y seguimiento Intake Note: Patient is present for MEDICATION F/U Urology Medication:TESTOSTERONE,TADALAFIL Antibiotic Allergy:NONE Blood Thinner:NONE Regulatory Administrator Required: No Allergies No Known Allergies Allergy (Verified 03/06/25 11:56) HPI Comments Details: Roland is a pleasant Vietnamese-speaking male. He is a patient of Dr. Peña. 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 Initiated therapy with testosterone replacement Had been using testosterone 80 mg subcutaneous weekly Lab work Wed Labs - 09/28 T 844 0.3 48, 04/28 T 103, 02/27 433 Erectile dysfunction in setting of diabetes Progressive Concurrent diagnosis include diabetes, hepatitis-C, dyslipidemia, hypertension, depression with SSRI, sleep disorder Laboratories - 03/26 HbA1c 6.2, T 120, 11/25 T 23 Prior therapy include daily 5 mg tadalafil Therapeutic plan - daily tadalafil with on demand [facility] Medical History Abdominal pain Asthma exacerbation Hypogonadism Acute lumbar myofascial strain Annual physical exam Elevated blood pressure reading Arthritis Dyslipidemia Hypertriglyceridemia COVID-19 Testosterone deficiency Pain, hand joint Joint pain in fingers of left hand Screening for viral disease Encounter for testing for latent tuberculosis infection Onychomycosis Physical exam Right foot pain Skin lesion of scalp Lymph node abscess Bronchitis Skin lesion Swelling, mass, or lump in chest Erectile dysfunction associated with type 2 diabetes mellitus Allergic rhinitis Nocturnal hypoxemia Excessive daytime sleepiness Bilateral hand pain Mild recurrent major depression DM2 (diabetes mellitus, type 2) REE (obstructive sleep apnea) Polyarthralgia Lumbar degenerative disc disease Type 2 diabetes mellitus with hyperglycemia Polysubstance abuse Erectile dysfunction GERD (gastroesophageal reflux disease) Anxiety and depression Asthma Colitis Surgical History History of surgery History of elbow surgery Family History Father Hypertension Diabetes Cancer Cancer, hepatocellular Mother No problems noted. 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 Cognitive needs: Yes Hearing needs: No Vision needs: No Review of Systems Const Denies chills and Denies fever(s) Card Reports no additional complaints and Denies syncope Resp Denies cough GI Denies abdominal pain and Denies heartburn Reports as per HPI and Denies change in libido Neuro Denies syncope Psych Denies change in libido Endo Denies change in libido Physical Exam Const General: cooperative, healthy appearing, comfortable and no acute distress Orientation/consciousness: patient oriented x3 HEENT Face and sinus: Yes normal facial exam Mouth: moist mucous membranes Neck Neck: Yes normal visual inspection, Yes full ROM and Yes trachea midline Chest Chest palpation & inspection: normal inspection of the chest Resp Effort & Inspection: normal respiratory effort, able to speak in complete sentences and no respiratory distress GI Inspection: Yes normal to inspection Back/Spine/Pelvis Cervical Spine: normal cervical lordosis Thoracic/Lumbar Spine: thoracic and lumbar spine normal to inspection Skin General skin exam: no rashes or lesions noted Neuro General: patient oriented x3, gait normal, tone normal and moves all extremities Extrem General: Yes normal to inspection and Yes capillary refill normal Assessment & Plan Assessment & Plan (1) Hypogonadism in male: Code(s): E29.1 - Testicular hypofunction Category: Medical (2) Erectile dysfunction: Code(s): N52.9 - Male erectile dysfunction, unspecified Category: Medical Plan Six-month follow-up Orders: Orders Testosterone, Total 6 Months E29.1 - Testicular hypofunction Prostate Specific Antigen 6 Months E29.1 - Testicular hypofunction Complete Blood Count no Diff 6 Months E29.1 - Testicular hypofunction Patient Instructions: This note is constructed using voice recognition software. While every effort has been made to ensure accuracy banquet attendant errors may have been included. Imaging studies, laboratory and physical exam results were discussed and reviewed in detail. No major barriers to patient understanding were identified. An opportunity to ask questions regarding the treatment plan was provided. All questions were answered. The patient expressed understanding and agreement with the above treatment plan. The patient is aware they should contact our office by phone for worsening of their current condition or the appearance of new urologic symptoms. Compliance is encouraged with any medications and followup testing that is ordered. It is a privilege to participate in the urologic care of your patient. If you have any questions or concerns regarding treatment for the above conditions, or other urologic issues, please do not hesitate to contact me. The office telephone contact is [phone]. Sincerely, Dr Juan David Mane MD, [facility] - Urology Compassionate Specialist Care for the Genitourinary System Coding Level of Care Code Est Pt Level 3 (64257) Complex EM visit Add On G2211 Diagnoses Hypogonadism in male E29.1 Erectile dysfunction N52.9
--- OUTSIDE RECORDS SUMMARY | 2025-03-06 12:31 | XMS_ITS | Clinical Summary ---
Author Organization [address] [place] [address] Address [address] [place] [address] Phone Care Team Providers Care Insurance Customer Service Specialist Name Role Phone Ayah Peña MD Primary Care Provider [phone] Encounters Date Type Department Care Team Description 02/15/2025 Telephone Gastroenterology [facility] 175 [facility] [address] [phone] Chinmay Orellana MD appointment [facility] [address] [id number] Ramírez Hernandez PA provider calll back; appointment from Last 3 Months Medical History Medical History Date Comments Diabetes mellitus type 2, co ntrolled, with complications (CMS/HCC V24, CMS/HCC V28) DX:Diabetes mellitus type 2, controlled, with complications ([facility]) Esophageal reflux DX:Esophageal reflux Epigastric pain DX:Epigastric [...] 2:40 PM EDT Office Visit Gastroenterology - [place] [address] [facility] [address] [place] [id number] Chinmay Orellana MD 175 [facility] [address] [place] [address] 05/07/2025 9:45 AM EDT Consult Orthopedic Surgery - [place] [address] [facility] [address] [place] [id number] Nicola Amaro DPM 175 [facility] [address] [place] [address] Health Maintenance Due Date Last Done Comments [...] Influencers of Health Screening 08/08/2022 COVID-19 Vaccine (1 - 2023-2 5 season) 2024 Diabetes: Annual Urine Albumin-Creatinine [...] Insurance MEDICARE MEDICAID - [place] Care Teams Insurance Customer Service Specialist Relationship Specialty Start Date End Date Ayah Peña MD [address] [place] [address] , [address] Physician Associ D/B/A: [facility] [place] PCP - General Internal Medicine 05/31/19
--- OUTSIDE RECORDS SUMMARY | 2025-03-06 12:31 | XMS_ITS | Patient Health Record ---
Author Organization [facility] Address [address] [place] [address] Care Team Providers Care Fiber Product Cutting Machine Operator Name Role Phone Ayah Mir Primary Care Provider Michoacano Flanagan Jr Unavailable Reason For Referral No Information Medications Medication SIG (Take, Route, Frequency, Duration) Notes Start Date End Date Status KlonoPIN Active flovent HFA Active Colyte with Flavor Packs 240 GM As directed Orally Over the specified time. for 1 day(s) 08/27/2015 Active ProAir HFA Active Dicyclomine HCl 20 MG 1 tablet Orally 2- 4 times a day 08/27/2015 Active Asmanex HFA Active albuterol Active Omeprazole 20 MG 1 capsule Orally Twi ce a day for 30 days 08/27/2015 Active Singulair Active Zolpidem Tartrate Ac tive SEROquel Active Problems Problem Type SNOMED Code ICD Code Onset Dates Problem Status W/U Status Risk Notes Problem [id number] Gastro-esophagea l reflux disease without esophagitis (K21.9) Active confirmed Problem [id number] Colitis (K52.9) Active confirmed Plan Of Treatment Future Test Test Name Order Date UPPER GI ENDOSCOPY 08/27/2015 COLONOSCOPY 08/27/2015 Insurance Providers Payer Name Payer Address Payer Phone Subscriber Number Group Number Insured Name Patient Relationship to Insured Coverage Start Date Coverage End Date MEDICARE OF [place] [address] [place] [id number] [phone] [id number] KARYN TUCKER Self - patient is the insured MEDICAID OF [facility] [address] [place] [address] [id number] KARYN TUCKER Self - patient is the insured Medical (General) History Medical History History ICD Code asthma Denies [place],DM,CVA,renal disease Surgical History Surgery Date(Month/Year) left elbow 2000 left foot 2010
== END 2025-03-06 12:50 | disposition home or self-care (01) ==
LOC: HO.HUSH 11:45
PROVIDERS: PCP Internal Medicine; Visit Provider Urology
DX: E29.1 Testicular hypofunction (principal); N52.9 Male erectile dysfunction, unspecified
CPT/HCPCS: 99213; G2211

== ENCOUNTER → 2025-03-06 11:44 | Outpatient (BNVA) | payer MEDICARE, MEDICAID, SELFPAY | PROVIDERS: PCP Internal Medicine; Visit Provider Urology | DX: E29.1 Testicular hypofunction (principal); N52.9 Male erectile dysfunction, unspecified | CPT/HCPCS: 99212 ==

== ENCOUNTER 2025-03-07 12:33 | Outpatient (AMB) | payer MEDICARE, MEDICAID, SELFPAY ==
--- NOTE | 2025-03-07 12:35 | A.OFFVIS_ITS ---
Vital Signs 03/07/25 12:37 Height 5 ft 10 in Weight 200 lb BMI 28.7 BP 136/78 Blood Pressure Location Rt brachial Position Sitting Pulse 66 Pulse Source Pulse Oximeter Pulse Oximetry (%) 96 Oxygen Delivery Method Room Air Intake Visit Reasons: 2 wks abd pain, diarrhea Intake Note: Est pt for epigastric pain mgmt. CC; C.O. chronic sx persistence w/o significant improvement or change since last visit. Still experiencing significant epigastric pain. Auto Finance Sales Rep Required: Yes Auto Finance Sales Rep Services: Auto Finance Sales Rep Present Auto Finance Sales Rep Name: Roland [id number] Information Interpreted: clinical only Accompanied by: Self / Same As Patient Allergies No Known Allergies Allergy (Verified 03/07/25 12:41) HPI HPI 2 wks abd pain, diarrhea: Details: Assessment & Plan (1) Abdominal pain: Code(s): R10.9 - Unspecified abdominal pain Category: Medical Qualifiers: Abdominal location: epigastric Qualified Code(s): R10.13 - Epigastric pain (2) Bloody stools: Code(s): K92.1 - Melena Category: Medical (3) Family history of ulcerative colitis: Code(s): Z83.79 - Family history of other diseases of the digestive system Category: Medical (4) Abdominal pain: Code(s): R10.9 - Unspecified abdominal pain Category: Medical Qualifiers: Abdominal location: epigastric Qualified Code(s): R10.13 - Epigastric pain Plan British #Francoise LIve Onset 2 mos ago with a lot of abd pain and inflammation. He presented to the ER and was told that my colon was inflamed. He was given medications that did not help. The sx were bloating, diarrhea, and a lot of HB accompanied by generalized abd pain an d cramping. If he has any PO intake when he has these sx he will have post prandial diarrhea. These sx have occurred intermittently over the past 5 years. They used to occur about twice a year, but now it is happening more often and the pain is stronger. His last episode was just 2 mos ago. No N/V. In the past his sx were resolved with ER medications, now he was given zofran and bentyl w/o any help and neither did the ER medications. THe only new dx is diabetes and he was started on Mounjaro a few mos ago. Also his son has UC and his father suffered similar sx. Roland had a negative colonoscopy [place] [address] Chou. This was for similar sx. BUT he also says he had this in the past but the medications worked faster. Orders: Orders [facility] 02/20/25 Z83.79 - Family history of other diseases of the digestive system NM hepatobiliary w pharm 02/20/25 R10.9 - Unspecified abdominal pain Lipase 02/20/25 R10.13 - Epigastric pain, R19.7 - Diarrhea, unspecified EGD/[facility] Combo - GI Use Only 02/20/25 K92.1 - Melena, R10.13 - Epigastric pain Amylase 02/20/25 R10.13 - Epigastric pain, R19.7 - Diarrhea, unspecified Medications: New dicyclomine 20 mg PO QID 120 tabs 6RF 30 days R10.13 - Epigastric pain Discontinued dicyclomine Discontinued Reason: Patient Completed Course 10 mg PO QID PRN 20 caps 0RF abdominal pain dicyclomine Discontinued Reason: Doctor's Order 10 mg PO TID 7 caps 0RF ketorolac Tolerated IM or IV in department Discontinued Reason: Doctor's Order 10 mg PO TID 5 days PRN 15 tabs 0RF pain fenofibrate nanocrystallized Discontinued Reason: Doctor's Order 145 mg PO DAILY 90 tabs 1RF R10.9 - Unspecified abdominal pain On Hold metformin Hold Comment: since mounjaro 500 mg PO BID 90 days 180 tabs 1RF Labs: Laboratory Tests 02/20/25 14:29 Amylase 80 Lipase 12 [facility] IS CONSISTENT WITH CROHN'S DISEASE HIDA SCAN EGD/COLONOSCOPY BIOPSY TODAY'S VISIT British #Francoise Shahab and Emily He had some improvement with the prednisone, he had solid stools for a week, but then without any interruption of therapy the diarrhea seems to have returned this. He confirms that he is taking the prednisone 40 mg and the mesalamine twice a day. I review with him that the genetic study came back positive for Crohn's which would be more consistent with the CAT scan findings of small intestine inflammation. However, this also can be a sign of an infectious process. He did not go for the stool studies that had been ordered which is a little disappointing, so I reinforced the fact that this is very important for us to continue the treatment correctly. I would not want to be treating the wrong entity. It just because there is a genetic study with the certain genetic predilection does not mean that this is what is manifesting right now. However it is somewhat suspicious that he has had episodes of this in the past with worsening severity. He does have a family history of ulcerative colitis as well. For now I think we are going to increase the prednisone, he does express concern about his diabetes in his high blood pressure which is valid so will try keep him on the short as possible steroid dose if we determine this is inflammatory bowel disease. Clearly if it is something else we will discontinue the steroids in favor of inappropriate treatment. At least for the moment he has had less pain which is encouraging. The cramping is severely lessened, and the diarrhea is not nearly as bad. This is encouraging. Return office visit in 2 weeks. [facility] Medical History (Updated 03/07/25 @ 12:50 by JACE Mcfadden) Hepatitis C antibody positive in blood Diarrhea Abdominal pain Asthma exacerbation Hypogonadism Acute lumbar myofascial strain Annual physical exam Elevated blood pressure reading Arthritis Dyslipidemia Hypertriglyceridemia COVID-19 Testosterone deficiency Pain, hand joint Joint pain in fingers of left hand Screening for viral disease Encounter for testing for latent tuberculosis infection Onychomycosis Physical exam Right foot pain Skin lesion of scalp Lymph node abscess Bronchitis Skin lesion Swelling, mass, or lump in chest Erectile dysfunction associated with type 2 diabetes mellitus Allergic rhinitis Nocturnal hypoxemia Excessive daytime sleepiness Bilateral hand pain Mild recurrent major depression DM2 (diabetes mellitus, type 2) REE (obstructive sleep apnea) Polyarthralgia Lumbar degenerative disc disease Type 2 diabetes mellitus with hyperglycemia Polysubstance abuse Erectile dysfunction GERD (gastroesophageal reflux disease) Anxiety and depression Asthma Colitis Surgical History (Reviewed 03/07/25 @ 12:41 by Max Lorenzo [facility]) History of surgery History of elbow surgery Family History Father Hypertension Diabetes Cancer Cancer, hepatocellular Mother No problems noted. 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 Cognitive needs: Yes Hearing needs: No Vision needs: No Review of Systems Const Denies fatigue, Denies fever(s), Denies night sweats, Denies poor appetite and Denies weight loss ENT Reports Normal hearing present, Denies dental pain, Denies dysphagia, Denies hearing loss, Denies mouth pain, Denies odynophagia, Denies throat swelling, Denies tongue swelling and Reports other (Dentition adequate) Card Reports no additional complaints Resp Reports no additional complaints GI Details: Denies abdominal pain, Denies melena, Denies bloating, Denies hematochezia, Denies constipation, Reports GI cramping, Denies dysphagia, Denies excessive fl atus, Denies early satiety, Reports heartburn, Reports diarrhea, Denies nausea, Denies odynophagia, Denies vomiting and Denies hematemesis Skin/Breast Denies pruritus, Denies lesions, Denies rash and Denies jaundice Neuro Reports Normal hearing present and Denies Abnormal speech present Endo Denies fatigue Aller/Immun Denies throat swelling and Denies tongue swelling Physical Exam Const General: cooperative, no acute distress, well developed and well groomed Nutritional Appearance: well nourished and overweight Orientation/consciousness: oriented to person, oriented to place and oriented to time Limitations: language barrier and ambulation with cane HEENT Head: Yes normocephalic and Yes atraumatic Eyes General: appearance normal, both eyes and all related structures Pupils: Equal, round and reactive pupils present Neck Neck: Yes normal visual inspection and Yes no lymphadenopathy Thyroid: Thyroid normal Resp Effort & Inspection: normal respiratory effort and able to speak in complete sentences Auscultation: clear to auscultation bilaterally Cardio Rate: regular rate Rhythm: regular rhythm Heart sounds: Normal, physiologic split S2 sound present Peripheral pulses: radial pulses present and posterior tibial pulses present GI Inspection: No distended and No Abdominal panniculus present Palpation (GI): Soft to palpation, nontender, no guarding, not rigid and No hepatosplenomegaly present Percussion: Yes normal to percussion Auscultation: normal bowel sounds Rectal Exam - Male: Yes deferred Skin General skin exam: no rashes or lesions noted, turgor normal, skin not dry, no jaundice, No spider nevi and no striae Rashes: no rashes Nails: normal Neuro General: oriented to person, oriented to place and oriented to time Cranial nerves: Yes Equal, round and reactive pupils present and Yes Normal hearing present Speech: No Abnormal speech present Extrem General: Yes normal to inspection, No clubbing, No cyanosis and No edema Psych Appearance: grossly normal and well kempt Mental Status: mental status grossly normal Speech and movement: Normal speech and movement present Affect: normal affect Attitude: cooperative Thought process: Normal thought process present and not confabulating Thought content: Normal thought content present Insight: Fair insight present (Psych) Judgement: Fair judgement present (Psych) Assessment & Plan Assessment & Plan (1) Family history of ulcerative colitis: Code(s): Z83.79 - Family history of other diseases of the digestive system Category: Medical (2) Acute diarrhea: Code(s): R19.7 - Diarrhea, unspecified Category: Medical (3) Bloody stools: Code(s): K92.1 - Melena Category: Medical (4) Inflammatory bowel disease: Code(s): K52.9 - Noninfective gastroenteritis and colitis, unspecified Category: Medical (5) Abdominal pain: Code(s): R10.9 - Unspecified abdominal pain Category: Medical Qualifiers: Abdominal location: epigastric Qualified Code(s): R10.13 - Epigastric pain (6) GERD (gastroesophageal reflux disease): Code(s): K21.9 - Gastro-esophageal reflux disease without esophagitis Category: Medical Plan British #Francoise Shahab and Emily He had some improvement with the prednisone, he had solid stools for a week, but then without any interruption of therapy the diarrhea seems to have returned this. He confirms that he is taking the prednisone 40 mg and the mesalamine twice a day. I review with him that the genetic study came back positive for Crohn's which would be more consistent with the CAT scan findings of small intestine inflammation. However, this also can be a sign of an infectious process. He did not go for the stool studies that had been ordered which is a little disappointing, so I reinforced the fact that this is very important for us to continue the treatment correctly. I would not want to be treating the wrong entity. It just because there is a genetic study with the certain genetic predilection does not mean that this is what is manifesting right now. However it is somewhat suspicious that he has had episodes of this in the past with worsening severity. He does have a family history of ulcerative colitis as well. For now I think we are going to increase the prednisone, he does express concern about his diabetes in his high blood pressure which is valid so will try keep him on the short as possible steroid dose if we determine this is inflammatory bowel disease. Clearly if it is something else we will discontinue the steroids in favor of inappropriate treatment. At least for the moment he has had less pain which is encouraging. The cramping is severely lessened, and the diarrhea is not nearly as bad. This is encouraging. Return office visit in 2 weeks. HIDA SCAN EGD/COLONOSCOPY BIOPSY Orders: Orders GI Panel Today R19.7 - Diarrhea, unspecified Medications: Changed From prednisone 40 mg (2 x 20 mg) PO DAILY 60 tabs 1RF To prednisone 60 mg (3 x 20 mg) PO DAILY 90 tabs 3RF Coding Level of Care Code Est Pt Level 3 (45431) Diagnoses Family history of ulcerative colitis Z83.79 Acute diarrhea R19.7 Bloody stools K92.1 Inflammatory bowel disease K52.9 Abdominal pain R10.13 Abdominal location: epigastric GERD (gastroesophageal reflux disease) K21.9
[2025-03-07 12:37] VITALS: BP 136/78; PULSE 66; O2SAT 96; BMI 28.7
--- OUTSIDE RECORDS SUMMARY | 2025-03-07 12:46 | XMS_ITS | Clinical Summary ---
Author Organization [address] [place] [address] Address [address] [place] [address] Phone Care Team Providers Care District Sales Manager Name Role Phone Ayah Peña MD Primary Care Provider [phone] Encounters Date Type Department Care Team Description 02/15/[address] [facility] 175 [facility] [address] [address] Chinmay Orellana MD appointment [facility] [address] [address] Ramírez Hernandez PA provider calll back; appointment from Last 3 Months Medical History Medical History Date Comments Diabetes mellitus type 2, co ntrolled, with complications (CMS/HCC V24, CMS/HCC V28) DX:Diabetes mellitus type 2, controlled, with complications ([facility]) Esophageal reflux DX:Esophageal reflux Epigastric pain DX:Epigastric [...] 2:40 PM EDT Office Visit Gastroenterology - [place] [address] [facility] [address] [place] [phone] Chinmay Orellana MD 175 [facility] [address] [place] [address] 05/07/2025 9:45 AM EDT Consult Orthopedic Surgery - [place] 250 175 [facility] 250 [place] [phone] Nicola Amaro DPM 175 [facility] 250 [place] [address] Health Maintenance Due Date Last Done Comments [...] Insurance MEDICARE MEDICAID - [place] Care Teams District Sales Manager Relationship Specialty Start Date End Date Ayah Peña MD [address] [place] [address] , [address] Physician Associ D/B/A: [facility] [place] PCP - General Internal Medicine 05/31/19
--- OUTSIDE RECORDS SUMMARY | 2025-03-07 12:46 | XMS_ITS | Patient Health Record ---
Author Organization [facility] Address [address] [place] [address] Care Team Providers Care Health And Wellness Manager Name Role Phone Ayah Mir Primary Care [...] Problem Status W/U Status Risk Notes Problem [id number] Gastro-esophagea l reflux disease without esophagitis (K21.9) Active confirmed Problem [id number] Colitis (K52.9) Active confirmed Plan Of Treatment Future Test Test Name Order Date UPPER GI ENDOSCOPY 08/27/2015 COLONOSCOPY 08/27/2015 Insurance Providers Payer Name Payer Address Payer Phone Subscriber Number Group Number Insured Name Patient Relationship to Insured Coverage Start Date Coverage End Date MEDICARE OF [place] [address] [place] [id number] [phone] [id number] KARYN TUCKER Self - patient is the insured MEDICAID OF [facility] [address] [place] [address] [id number] KARYN TUCKER Self - patient is the insured Medical (General) History Medical History History ICD Code asthma Denies [place],DM,CVA,renal disease Surgical History Surgery Date(Month/Year) left elbow 2000 left foot 2010
== END 2025-03-07 13:10 | disposition home or self-care (01) ==
LOC: HO.HGI 12:34
PROVIDERS: PCP Internal Medicine; Visit Provider Nurse Practitioner
DX: Z83.79 Family history of other diseases of the digestive system (principal); R19.7 Diarrhea, unspecified; K92.1 Melena; K52.9 Noninfective gastroenteritis and colitis, unspecified; R10.13 Epigastric pain; K21.9 Gastro-esophageal reflux disease without esophagitis
CPT/HCPCS: 99213

== ENCOUNTER → 2025-03-07 12:33 | Outpatient (BNVA) | payer MEDICARE, MEDICAID, SELFPAY | PROVIDERS: PCP Internal Medicine; Visit Provider Nurse Practitioner | DX: R10.13 Epigastric pain (principal); K52.9 Noninfective gastroenteritis and colitis, unspecified; K92.1 Melena; K21.9 Gastro-esophageal reflux disease without esophagitis; Z79.899 Other long term (current) drug therapy; Z83.79 Family history of other diseases of the digestive system | CPT/HCPCS: 99212 ==

== ENCOUNTER → 2025-04-08 07:58 | Outpatient (REF) | payer MEDICARE, MEDICAID, SELFPAY ==
--- NOTE | ~2025-04-08 | NM_ITS ---
EXAMINATION: NM BILIARY TRACT CLINICAL INFORMATION: Unspecified abdominal pain COMPARISON: None available. TECHNIQUE: Following intravenous administration of 5 mCi of 99m technetium mebrofenin, imaging over right upper quadrant was obtained up to 60 minutes. At 60 minutes 1.8 mcg of CCK was injected or to 30 minutes and imaging was obtained at the same time. FINDINGS: There is normal hepatic uptake without focal defect. Common bile duct is visualized by 7 minutes and gallbladder by 10 minutes Post-CCK the gallbladder ejection fraction at 10 minutes is 11%, At 20 minutes ejection fraction is 34% and At 30 minutes ejection fraction is 76% NM/NM hepatobiliary w pharm IMPRESSION: Normal hepatic uptake. Patent cystic duct and common bile duct. Normal gallbladder ejection fraction of 76% at 30 minutes. Electronically signed by: Jonh Blunt MD 04/08/2025 10:48 AM EDT
--- OUTSIDE RECORDS SUMMARY | 2025-04-08 08:01 | XMS_ITS | Clinical Summary ---
Author Organization [address] [place] [address] Address [address] [place] [address] Phone Care Team Providers Care Program Engineer Name Role Phone Ayah Peña MD Primary Care Provider [phone] Encounters Date Type Department Care Team Description 02/15/[address] [facility] 175 [facility] [address] [address] Chinmay Orellana MD appointment [facility] 175 [facility] [address] [address] Ramírez Hernandez PA provider calll back; appointment from Last 3 Months Medical History Medical History Date Comments Diabetes mellitus type 2, co ntrolled, with complications (CMS/HCC V24, CMS/HCC V28) DX:Diabetes mellitus type 2, controlled, with complications ([facility]) Esophageal reflux DX:Esophageal reflux Epigastric pain DX:Epigastric [...] 2:40 PM EDT Office Visit Gastroenterology - [place] [address] [facility] [address] [place] [phone] Chinmay Orellana MD 175 [facility] [address] [place] [address] 05/07/2025 9:45 AM EDT Consult Orthopedic Surgery - [place] 250 175 [facility] 250 [place] [phone] Nicola Amaro DPM 175 [facility] 250 [place] [address] Health Maintenance Due Date Last Done Comments Diabetes: Annual GFR (Glomer ular Filtration Rate) 1980 Diabetes: Annual Foot Exam 1990 Diabetes: Annual Retina Eye Exam 1990 DTaP,Tdap,and Td Vaccines (1 - Tdap) 1999 Hepatitis B Vaccines (1 of 3 - 19+ 3-dose series) 1999 Pneumococcal Vaccine: Pediat rics (0 to 5 Years) and At-Risk Patients (6 to 49 Years) (1 of 2 - PCV) 1999 Cholesterol Screening (Lipid Panel) 08/08/2022 HIV Screening 08/08/2022 Hepatitis C Screening 08/08/2022 Medicare Annual Wellness Visit 08/08/2022 Social Influencers of Health Screening 08/08/2022 COVID-19 Vaccine (1 - 2023-2 5 season) 2024 Depression Screening 09/05/2024 Diabetes: Annual Urine Albumin-Creatinine Ratio (uACR) 02/08/2025 Diabetes: Blood Sugar Contro l Test (HGBA1C) 02/08/2025 Influenza Vaccine (#1) 2025 HIB Vaccines Aged Out No longer [...] Insurance MEDICARE MEDICAID - [place] Care Teams Program Engineer Relationship Specialty Start Date End Date Ayah Peña MD [address] [place] [address] , [address] Physician Associ D/B/A: [facility] [place] PCP - General Internal Medicine 05/31/19
--- OUTSIDE RECORDS SUMMARY | 2025-04-08 08:01 | XMS_ITS | Encounter Summary ---
Author Organization [facility] Address [address] [address] [place] [address] Phone Care Team Providers Care Ferry Terminal Supervisor Name Role Phone Ayah Mir MD Primary Care Provid er Reason for Referral * Consultation (Within 1 month) - Closed Specialty Diagnoses / Procedures Referred By Contgarrett t Referred To Contact Rheumatology Diagnoses Arthralgia of hand, unspecified laterality System, Provider Not In, [facility] [address] [address] Rashard Bashir MD Phone: tel: fax: [email or web address] Referral ID Status Reason Start Date Expiration Date Visits Re quested Visits Authorized [id number] Closed 02/28/2018 02/28/2019 1 1 Encounter Details Date Type Department Care Team (Latest Contact Info) Description 02/28/2018 Transcribe Orders [facility] Rheumatology [address], [address] [place] [address] Jacinto Wheeler MD [address] [place] [address] [place] [address] Arthralgia of hand, unspecified laterality (Primary Dx) Social History Tobacco Use Types Packs/Day Years Used Date Smoking Tobacco: Former Cigarettes Q uit: 2000 Alcohol Use Standard Drinks/Week Comments No 0 (1 standard drink = 0.6 oz pur e alcohol) Sex and Gender Information Value Date Recorded Sex Assigned at Not on file Legal Sex Male 11:42 AM EST Gender Identity Not on file Sexual Orientation Not on file documented as of this encounter Plan of Treatment Scheduled Referrals Name Type Priority Associated Diagnoses Orde r Schedule Ambulatory referral to [facility] Rheumatology Outpatient Referral Routine Arthralgia of hand, unspecified laterality Ordered: 02/28/2018 documented as of this encounter Visit Diagnoses Diagnosis Arthralgia of hand, unspecified laterality- Primary documented in this encounter Care Teams Ferry Terminal Supervisor Relationship Specialty Start Date End Date Ayah Mir MD [address] [place] [address] PCP - General 09/09/16 documented as of this encounter Additional Source Comments The information contained in this document represents components of the legal health record. It is not the complete legal health record.[facility]
--- OUTSIDE RECORDS SUMMARY | 2025-04-08 08:01 | XMS_ITS | Patient Health Record ---
Author Organization [facility] Address [address] [place] [address] Care Team Providers Care Merchant Police Name Role Phone Ayah Mir Primary Care Provider [place]ano Flanagan Jr Unavailable [phone] Reason For Referral No Information Medications Medication [...] Problem Status W/U Status Risk Notes Problem [id number] Gastro-esophagea l reflux disease without esophagitis (K21.9) Active confirmed Problem [id number] Colitis (K52.9) Active confirmed Plan Of Treatment Future Test Test Name Order Date UPPER GI ENDOSCOPY 08/27/2015 COLONOSCOPY 08/27/2015 Insurance Providers Payer Name Payer Address Payer Phone Subscriber Number Group Number Insured Name Patient Relationship to Insured Coverage Start Date Coverage End Date MEDICARE OF [place] [address] [place] [id number] [phone] [id number] KARYN TUCKER Self - patient is the insured MEDICAID OF [facility] [address] [place] [address] [phone] [id number] KARYN TUCKER Self - patient is the insured Medical (General) History Medical History History ICD Code asthma Denies [place],DM,CVA,renal disease Surgical History Surgery Date(Month/Year) left elbow 2000 left foot 2010
== END ==
LOC: HO.NUCMED 07:58
PROVIDERS: PCP Internal Medicine; Visit Provider Nurse Practitioner
DX: R10.9 Unspecified abdominal pain (principal)
CPT/HCPCS: 78227; A9537; J2805

== ENCOUNTER → 2025-04-08 08:00 | Outpatient (BNV) | payer MEDICARE, MEDICAID, SELFPAY | PROVIDERS: PCP Internal Medicine; Visit Provider Radiology Diagnostic Radiology | DX: R10.9 Unspecified abdominal pain (principal) | CPT/HCPCS: 78227 ==

== ENCOUNTER 2025-05-30 15:15 | Outpatient (AMB) | payer MEDICARE, MEDICAID, SELFPAY ==
--- OUTSIDE RECORDS SUMMARY | 2016-10-25 01:00 | XMS_ITS | Encounter Summary ---
Author Organization [facility] Address [address] [place] [address] Phone Care Team Providers Care Neonatal Social Worker Name Role Phone Ayah Mir MD Primary Care Provid er Reason for Visit * MRI/CAT Scan - Closed Specialty Diagnoses / Procedures Referred By Contac t Referred To Contact Procedures MRI Spine (Bone) Outside (No Interpretation) Domingo Giraldo MD [address] [address] Phone: tel: fax: mailto:[email or web address] [email or web address] Referral ID Status Reason Start Date Expiration Date Visits Re quested Visits Authorized [id number] Closed 04/26/2017 04/26/2018 1 1 Encounter Details Date Type Department Care Team (Late st Contact Info) Description 10/25/2016 Hospital Encounter [facility] Imaging [address] [place] [address] Domingo Giraldo MD [address] [address] [email or web address] [email or web address] Social History Tobacco Use Types Packs/Day [...] (No Interpretation) (10/25/2016 12:00 AM EST) Narrative [facility] [place] [place] - 04/26/2017 2:40 PM EDT This study is for PACS storage only and not for interpretation. us Domingo Giraldo MD IMG OUTSIDE IMAGING W /OUT INTERPRETATION Final Result [facility] documented in this encounter Visit Diagnoses Not on filedocumented in this encounter Care Teams Neonatal Social Worker Relationship Specialty Start Date End Date Ayah Mir MD [address] [place] [address] PCP - General 09/09/16 documented as of this encounter Additional Source Comments The information contained in this document represents components of the legal health record. It is not the complete legal health record.[facility]
[2025-05-30 15:21] VITALS: BP 110/70; PULSE 94; O2SAT 97; BMI 29.4
--- NOTE | 2025-05-30 15:21 | A.OFFVIS_ITS ---
Vital Signs 05/30/25 15:21 Height 5 ft 10 in Weight 205 lb 0.478 oz BMI 29.4 BP 110/70 Blood Pressure Location Lt brachial Position Sitting Pulse 94 Pulse Source Pulse Oximeter Pulse Oximetry (%) 97 Oxygen Delivery Method Room Air Intake Visit Reasons: Obstructive sleep apnea Intake Note: pt is here for follow up and states past few days he states asthma symptoms, cpap use is tuff due to anxiety issues and makes him feel like he needs to take off the mask. pt needs refill on albuterol for nebulizer Diamond Sawer Required: Yes Diamond Sawer Services: Diamond Sawer Present Diamond Sawer Name: Bettie Cooney RMA Allergies No Known Allergies Allergy (Verified 05/30/25 15:42) Medication List - Last Reconciled 05/30/25 by Gilberto Baldwin MD albuterol sulfate 2.5 mg (3 mL) inhalation Q6H 30 days ammonium lactate 12% 1 appl topical BID atorvastatin 40 mg PO BEDTIME 90 days blood pressure test kit-large As directed blood sugar diagnostic (FreeStyle Lite Strips) three times a day blood-glucose meter (FreeStyle [place] kit) As directed check the BS TID buprenorphine-naloxone 12-3 mg (Suboxone) 1 film buccal ONCE buspirone 30 mg PO BID cztscxmgdn-gtzzbcfjzsmch-edhc 50-325-40 mg 1 tab PO Q6H PRN cane As directed cholecalciferol (vitamin D3) 25 mcg PO DAILY 90 days cyclobenzaprine 10 mg PO TID PRN 30 days dicyclomine 20 mg PO QID 30 days diphenhydramine HCl (Benadryl) 50 mg (2 x 25 mg) PO TID PRN empagliflozin (Jardiance) 25 mg PO QAM fluticasone propion-salmeterol 250-50 mcg/dose (Advair Diskus) 1 inh inhalation BID 30 days glucose 16 grams (4 x 4 gram) PO Q15M 30 days hydroxyzine HCl 50 mg PO Q8H PRN ibuprofen 800 mg PO TID PRN ketotifen fumarate 0.025%(0.035%) (Alaway) 1 drp ophthalmic (eye) Q8H PRN lancets (FreeStyle Lancets) As directed check the BS TID lisinopril 5 mg PO DAILY 90 days meclizine 25 mg PO BID PRN 30 days mesalamine 800 mg (2 x 400 mg) PO BID metformin 500 mg PO BID 90 days Held on 02/20/25. Instructions: since mounjaro montelukast 10 mg PO BEDTIME 90 days needle (disp) 18 G (BD Regular Bevel [place]) As directed to be used weekly for T injection needle (disp) 25 gauge (BD Regular Bevel [place]) As directed - for testosterone subcutaneous injection ondansetron 4 mg PO Q6H PRN pantoprazole mg PO pen needle, diabetic (BD Ultra-Fine Short Pen Needle) 1 ea subcut DAILY 90 days quetiapine ER 300 mg PO BEDTIME sumatriptan succinate 25 mg PO Q2-4H PRN 30 days syringe (disposable) (BD Luer-Enio Syringe) Testosterone injection weekly tadalafil 5 mg PO DAILY 90 days Held on 06/10/23. Instructions: Dose Change tadalafil 20 mg PO ONCE PRN 30 days testosterone cypionate (Depo-Testosterone) 80 mg (0.4 mL) subcut QWEEK 4 weeks tirzepatide (Mounjaro) 7.5 mg subcut QWEEK trazodone 150 mg PO DAILY venlafaxine ER 150 mg PO DAILY venlafaxine ER 75 mg PO DAILY Ventolin HFA 90 mcg/actuation (albuterol sulfate) 2 puffs inhalation Q6H PRN 30 days NS zolpidem 10 mg PO BEDTIME PRN Do you need a note to return to daycare/school/sports/work: No HPI HPI Obstructive sleep apnea: Details: This 45 years old gentleman is here for follow-up for his bronchial asthma and sleep apnea. Bronchial asthma is fairly well controlled except that on some days he gets more nasal congestion and cough. Today is a rainy day in which he has come for the visit and he is a bit more congested than usual. As far as CPAP is concerned he has been somewhat a regular during the past month. He claims that he gets anxious with the mask and has to pull it off after a few hours of usage. For about 1 and half week he was on vacation and could not use the mask. [facility] Medical History (Updated 05/30/25 @ 15:51 by Gilberto Baldwin MD) Hepatitis C antibody positive in blood Diarrhea Abdominal pain Asthma exacerbation Hypogonadism Acute lumbar myofascial strain Annual physical exam Elevated blood pressure reading Arthritis Dyslipidemia Hypertriglyceridemia COVID-19 Testosterone deficiency Pain, hand joint Joint pain in fingers of left hand Screening for viral disease Encounter for testing for latent tuberculosis infection Onychomycosis Physical exam Right foot pain Skin lesion of scalp Lymph node abscess Bronchitis Skin lesion Swelling, mass, or lump in chest Erectile dysfunction associated with type 2 diabetes mellitus Allergic rhinitis Nocturnal hypoxemia Excessive daytime sleepiness Bilateral hand pain Mild recurrent major depression DM2 (diabetes mellitus, type 2) REE (obstructive sleep apnea) Polyarthralgia Lumbar degenerative disc disease Type 2 diabetes mellitus with hyperglycemia Polysubstance abuse Erectile dysfunction GERD (gastroesophageal reflux disease) Anxiety and depression Asthma Colitis Surgical History History of surgery History of elbow surgery Family History Father Hypertension Diabetes Cancer Cancer, hepatocellular Mother No problems noted. 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 Cognitive needs: Yes Hearing needs: No Vision needs: No Review of Systems Const All systems reviewed & are unremarkable except as noted in HPI and below Eyes Reports no additional complaints ENT Reports no additional complaints Card Denies chest pain, Denies irregular heart rhythm and Denies leg edema Resp Reports as per HPI GI Reports no additional complaints Reports no additional complaints Musc Reports no additional complaints Skin/Breast Reports system reviewed and no additional complaints, except as documented Neuro Reports no additional complaints Psych Reports no additional complaints Physical Exam Vital Signs: Last Vital Signs Pulse 94 05/30/25 15:21 BP 110/70 05/30/25 15:21 Pulse Ox 97 05/30/25 15:21 Oxygen Delivery Method Room Air 05/30/25 15:21 BMI result Body Mass Index 29.4 Const General: healthy appearing (Except being overweight), comfortable, no acute distress, alert and awake Orientation/consciousness: patient oriented x3 HEENT Head: Yes normal to inspection General nose exam: No nasal polyps present, No nasal discharge present and Other nasal findings present ( has mild bilateral nasal congestion) Face and sinus: Yes sinuses nontender Mouth: oropharynx abnormals (Oropharynx is narrow crowded and Mallampati class 4) Throat: Yes posterior oropharynx normal Eyes General: appearance normal, both eyes and all related structures Neck Neck: Yes normal visual inspection, Yes no lymphadenopathy, Yes trachea midline, Yes no JVD and Yes other (Neck circumference 17 in) Thyroid: Thyroid normal Chest Chest palpation & inspection: normal inspection of the chest, normal palpation of entire chest wall and no tenderness Resp Effort & Inspection: normal respiratory effort Auscultation: crackles, no wheezes and other (BREATH SOUNDS ARE DIMINISHED OVER THE BASILAR AREAS) Cardio Palpation: normal PMI Rate: regular rate Rhythm: regular rhythm Heart sounds: no gallops and no murmurs Peripheral pulses: Peripheral pulses 2+ throughout GI Palpation (GI): Soft to palpation, nontender, No hepatosplenomegaly present and no masses Auscultation: normal bowel sounds Back/Spine/Pelvis Thoracic/Lumbar Spine: thoracic and lumbar spine normal to inspection Skin General skin exam: no rashes or lesions noted Neuro General: patient oriented x3 and no focal motor deficits Cranial nerves: Yes CN's II-XII intact bilaterally Extrem General: Yes normal to inspection, Yes no clubbing, cyanosis or edema and Yes no calf tenderness Psych Appearance: grossly normal and well kempt Speech and movement: Normal speech and movement present Results Reviewed Results Reviewed: CPAP compliance. In the last 30 nights is reviewed He has used only 19/30 nights., 63% Average usage 3 hours 19 minutes . Residual AHI 6.4 Assessment & Plan Assessment & Plan (1) Asthma: Comment: HE DOES HAVE HISTORY OF BRONCHIAL ASTHMA, CURRENTLY DOING WELL WITH ADVAIR 250-50 1 INHALATION B.I.D. AND IS DOING WELL. LUNGS ARE CLEAR . Code(s): J45.909 - Unspecified asthma, uncomplicated Category: Medical Qualifiers: Asthma severity: moderate Asthma persistence: persistent Asthma complication type: uncomplicated Qualified Code(s): J45.40 - Moderate persistent asthma, uncomplicated Plan: Continue the same inhalers. Also use montelukast 10 mg daily (2) REE (obstructive sleep apnea): Comment: A HOME-BASED SLEEP STUDY WAS DONE ON 06/16/2023 WHICH WAS POSITIVE FOR OBSTRUCTIVE SLEEP APNEA, MODERATELY SEVERE, ALONG WITH NOCTURNAL HYPOXEMIA. Or a while his compliance had improved. And during the last month he has not used it enough, Complains of feeling anxious with the mask and removes it . Prematurely Code(s): G47.33 - Obstructive sleep apnea (adult) (pediatric) Category: Medical Plan: Patient educated about the importance of using CPAP regularly. Also advised that he has to use the mask at least for 4 hours every night (3) Anxiety and depression: Comment: This gentleman has history of mental health issues. He is on quetiapine ER 300 mg at bedtime, trazodone 150 mg daily and also on venlafaxine ER 75 mg daily He still remains somewhat anxious especially at night and has difficulty in keeping the mask on. Code(s): F41.9 - Anxiety disorder, unspecified; F32.9 - Major depressive disorder, single episode, unspecified Category: Medical Plan: I advised him to take his meds regularly. Try to keep the mask on at least for 4 hours every night Coding Level of Care Code Est Pt Level 3 (77193) Diagnoses Moderate persistent asthma without complication J45.40 Asthma severity: moderate Asthma persistence: persistent Asthma complication type: uncomplicated REE (obstructive sleep apnea) G47.33 Anxiety and depression F41.9; F32.9
--- OUTSIDE RECORDS SUMMARY | 2025-05-30 19:26 | XMS_ITS | Encounter Summary ---
Author Organization [facility] Address [address] [place] [address] Phone Care Team Providers Care Food Crops Farm Hand Name Role Phone Ayah Mir MD Primary Care Provid er Reason for Referral * Consultation (Within 1 month) - Closed Specialty Diagnoses / Procedures Referred By Contgarrett t Referred To Contact Rheumatology System, Provider Not In, PhD [id number] [place] [id number] Phone: tel: Referral ID Status Reason Start Date Expiration Date Visits Re quested Visits Authorized [id number] Closed 12/27/2017 12/27/2018 1 1 Encounter Details Date Type Department Care Team (Late st Contact Info) Description 12/27/2017 Transcribe Orders [facility] [place] [address], [address] Floor, [address] [place] [address] Jacinto Wheeler MD [address] [place] [address] Dr [facility] [place] [address] Social History Tobacco Use Types Packs/Day Years [...] Scheduled Referrals Name Type Priority Associated Diagnoses Order Schedule Ambulatory referral to [facility] Outpatient Referral Routine Ordered: 12/27/2017 documented as of this encounter Visit Diagnoses Not on filedocumented in this encounter Care Teams Food Crops Farm Hand Relationship Specialty Start Date End Date Ayah Mir MD [address] [place] [address] PCP - General 09/09/16 documented as of this encounter Additional Source Comments The information contained in this document represents components of the legal health record. It is not the complete legal health record.[facility]
--- OUTSIDE RECORDS SUMMARY | 2025-05-30 19:26 | XMS_ITS | Encounter Summary ---
Author Organization [facility] Address [address] [place] [address] Phone Care Team Providers Care Off Track Betting Manager Name Role Phone Ayah Mir MD Primary Care Provid er Reason for Referral * Consultation (Within 1 month) - Closed Specialty Diagnoses / Procedures Referred By Contgarrett t Referred To Contact Rheumatology Diagnoses Arthralgia of hand, unspecified laterality System, Provider Not In, PhD Partners [address] [address] Rashard Bashir MD Phone: tel: fax: [email or web address]:[email or web address] Referral ID Status Reason Start Date Expiration Date Visits Re quested Visits Authorized [id number] Closed 02/28/2018 02/28/2019 1 1 Encounter Details Date Type Department Care Team (Latest Contact Info) Description 02/28/2018 Transcribe Orders [facility] Rheumatology [address], [address] [place] [address] Jacinto Wheeler MD [address] [place] [address] [place] [address] Arthralgia of hand, unspecified laterality (Primary Dx) [...] Diagnoses Orde r Schedule Ambulatory referral to [facility] Rheumatology Outpatient Referral Routine Arthralgia of hand, unspecified laterality Ordered: 02/28/2018 documented as of this encounter Visit Diagnoses Diagnosis Arthralgia of hand, unspecified laterality- Primary documented in this encounter Care Teams Off Track Betting Manager Relationship Specialty Start Date End Date Ayah Mir MD [address] [place] [address] PCP - General 09/09/16 documented as of this encounter Additional Source Comments The information contained in this document represents components of the legal health record. It is not the complete legal health record.[facility]
--- OUTSIDE RECORDS SUMMARY | 2025-05-30 19:27 | XMS_ITS | Encounter Summary ---
Author Organization [facility] Address [address] [place] [address] Phone Care Team Providers Care Cougar Hunter Name Role Phone Aayh Mir MD Primary Care Provid er Encounter Details Date Type Department Care Team (Late st Contact Info) Description 12/20/2016 Procedure Pass [facility] [address] [place] [address] Social History Tobacco Use Types Packs/Day Years [...] on file documented as of this encounter Visit Diagnoses Not on filedocumented in this encounter Care Teams Cougar Hunter Relationship Specialty Start Date End Date Ayah Mir MD [address] [place] [address] PCP - General 09/09/16 documented as of this encounter Additional Source Comments The information contained in this document represents components of the legal health record. It is not the complete legal health record.[facility]
--- OUTSIDE RECORDS SUMMARY | 2025-05-30 19:27 | XMS_ITS | Patient Health Record ---
Author Organization [facility] Address [address] [place] [address] Care Team Providers Care Weapons System Instrument Mechanic Name Role Phone Ayah Mir Primary Care Provider [place]ano Flanagan Jr Unavailable [phone] Reason For Referral No Information Medications Medication [...] Problem Status W/U Status Risk Notes Problem [id number] Gastro-esophagea l reflux disease without esophagitis (K21.9) Active confirmed Problem [id number] Colitis (K52.9) Active confirmed Plan Of Treatment Future Test Test Name Order Date UPPER GI ENDOSCOPY 08/27/2015 COLONOSCOPY 08/27/2015 Insurance Providers Payer Name Payer Address Payer Phone Subscriber Number Group Number Insured Name Patient Relationship to Insured Coverage Start Date Coverage End Date MEDICARE OF [place] [address] [place] [id number] [phone] [id number] KARYN TUCKER Self - patient is the insured MEDICAID OF [facility] [address] [place] [address] [phone] [id number] KARYN TUCKER Self - patient is the insured Medical (General) History Medical History History ICD Code asthma Denies WA,DM,CVA,renal disease Surgical History Surgery Date(Month/Year) left elbow 2000 left foot 2010
--- OUTSIDE RECORDS SUMMARY | 2025-05-30 19:27 | XMS_ITS | Encounter Summary ---
Author Organization [facility] Address [address] [place] [address] Phone Care Team Providers Care Turret Lathe Set Up Operator Name Role Phone Ayah Mir MD Primary Care Provid er Encounter Details Date Type Department Care Team (Late st Contact Info) Description 04/26/2017 Procedure Pass [facility] [address] [place] [address] Social History Tobacco Use Types Packs/Day Years [...] on filedocumented in this encounter Care Teams Turret Lathe Set Up Operator Relationship Specialty Start Date End Date Ayah Mir MD [address] [place] [address] PCP - General 09/09/16 documented as of this encounter Additional Source Comments The information contained in this document represents components of the legal health record. It is not the complete legal health record.[facility]
--- OUTSIDE RECORDS SUMMARY | 2025-05-30 19:27 | XMS_ITS | Clinical Summary ---
Author Organization [facility] Address [address] [place] [address] Phone Care Team Providers Care Gear And Spline Grinder Name Role Phone Ayah Mir MD Primary Care Provid er Medications montelukast (SINGULAIR) 10 mg tablet Take 10 mg by mouth daily. Active albuterol (PROVENTIL HFA;VENTOLIN HFA) 90 mcg/actuation inhaler Inhale 2 puffs into the lungs as needed for wheezing. Active omeprazole (PRILOSEC) 20 MG capsule Take 20 mg by mouth daily. Active QUEtiapine (SEROQUEL) 50 MG tablet Take 50 mg by mouth nightly. Active sertraline (ZOLOFT) 50 MG tablet Take 50 mg by mouth 2 (two) times a day. Active zolpidem (AMBIEN) 10 mg tablet Take 10 mg by mouth nightly as needed for sleep. Active oxyCODONE 5 MG immediate release tablet Take 1 tablet (5 mg total) by mouth every 4 (four) hours as needed for moderate pain. Partial fill ok at patient request. 40 tablet 12/20/2016 Active cephalexin (KEFLEX) 500 MG capsule Take 1 capsule (500 mg total) by mouth 4 (four) times a day. 28 capsule 01/04/2017 Active oxyCODONE 5 MG immediate release tablet Take 1 tablet (5 mg total) by mouth every 4 (four) hours as needed for moderate pain. 30 tablet 01/04/2017 Active Active Problems Problem Noted Date Diagnosed Date Closed bicondylar fracture of distal humerus Social History Tobacco Use Types Packs/Day Years [...] on file Sexual Orientation Not on file Last Filed Vital Signs Vital Sign Reading Time Taken Comments Blood Pressure 113/68 12/20/2016 12:15 PM EDT Pulse 61 12/20/2016 12:15 PM EDT Temperature 36.8 C (98.3 F) 12/20/2016 10:55 AM EDT Respiratory Rate 12 12/20/2016 12:1 5 PM EDT Oxygen Saturation 96% 12/20/2016 12: 15 PM EDT Inhaled Oxygen Concentration - - Weight 91.1 kg (200 lb 13.4 oz) 12/20/2016 7:45 AM EDT Height 177.8 cm (5' 10 ) 12/20/2016 7:45 AM EDT Body Mass Index 28.82 12/20/2016 7:45 AM EDT Plan of Treatment Health Maintenance Due Date Last Done Comments LIPID PANEL 1980 DEPRESSION SCREENING 1992 SMOKING Hx and SMOKELESS TOBACCO SCREENING 1993 HEPATITIS C SCREENING 1998 HIV ONE-TIME SCREENING (18-6 5 YEARS) 1998 Adult Td,Tdap Booster 05/16/2022 05/16/2012 INFLUENZA VACCINE (#1) 2025 3, 05/16/2012, 05/19/2011 COVID-19 VACCINE (3 - 2024-2 6 season) 2025 03/02/2021, 01/22/2021 PNEUMOCOCCAL VACCINES (0-49 years) Aged Out 07/02/2010 No longer eligible b ased on patient's age to complete this topic HEPATITIS A VACCINES Aged Out 01/20/2011, 07/24/2010 No longer eligible based on patient's age to complete this topic HIB VACCINES Aged Out No longer eligi ble based on patient's age to complete this topic MENINGOCOCCAL VACCINES (ACWY) Aged Out No longer eligible based on patient's age to complete this topic MENINGOCOCCAL VACCINES (B) Aged Out N o longer eligible based on patient's age to complete this topic Medical Devices Implanted Type Area Intermediate Designer Device Identifier Shelf Expiration Date Model / Serial / Lot Left Ankle Hardware Insurance [employer] MEDICARE PART A & B [facility] B Member Subscriber Plan / Payer (Ef fective 2011-Present) Name:Roland Torres Member ID:[id number] Relation to Subscriber:Self Name:Roland Torres Subscriber ID:[id number] Payer ID:[id number] Group ID:Not on file Type:Medicare Address: [employer] [address] [place] B [facility] PART A & [place] [facility] & B Care Teams Gear And Spline Grinder Relationship Specialty Start Date End Date Ayah Mir MD [address] [place] [address] PCP - General 09/09/16 Additional Source Comments The information contained in this document represents components of the legal health record. It is not the complete legal health record.[facility]
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
--- OUTSIDE RECORDS SUMMARY | 2025-05-30 19:27 | XMS_ITS | Encounter Summary ---
Author Organization [facility] Address [address] [place] [address] Phone Care Team Providers Care Athletic Shoe Designer Name Role Phone Ayah Mir MD Primary Care Provid er Encounter Details Date Type Department Care Team (Late st Contact Info) Description 04/26/2017 Procedure Pass [facility] [address] [place] [address] Social History Tobacco Use Types Packs/Day Years [...] on filedocumented in this encounter Care Teams Athletic Shoe Designer Relationship Specialty Start Date End Date Ayah Mir MD [address] [place] [address] PCP - General 09/09/16 documented as of this encounter Additional Source Comments The information contained in this document represents components of the legal health record. It is not the complete legal health record.[facility]
== END 2025-05-30 15:41 | disposition home or self-care (01) ==
LOC: HO.HPS 15:16
PROVIDERS: PCP Internal Medicine; Visit Provider Internal Medicine
DX: J45.40 Moderate persistent asthma, uncomplicated (principal); G47.33 Obstructive sleep apnea (adult) (pediatric); F41.9 Anxiety disorder, unspecified; F32.9 Major depressive disorder, single episode, unspecified
CPT/HCPCS: 99213

== ENCOUNTER → 2025-05-30 15:15 | Outpatient (BNVA) | payer MEDICARE, MEDICAID, SELFPAY | PROVIDERS: PCP Internal Medicine; Visit Provider Internal Medicine | DX: J45.40 Moderate persistent asthma, uncomplicated (principal); G47.33 Obstructive sleep apnea (adult) (pediatric); F41.9 Anxiety disorder, unspecified; F32.9 Major depressive disorder, single episode, unspecified; Z87.891 Personal history of nicotine dependence | CPT/HCPCS: 99212 ==

== ENCOUNTER 2025-06-20 01:08 | Emergency (ER) | payer MEDICARE, MEDICAID, SELFPAY ==
--- OUTSIDE RECORDS SUMMARY | 2016-10-25 01:00 | XMS_ITS | Encounter Summary ---
Author Organization [facility] Address [address] [place] [address] Phone Care Team Providers Care Probation Manager Name Role Phone Ayah Mir MD Primary Care Provid er Reason for Visit * MRI/CAT Scan - Closed Specialty Diagnoses / Procedures Referred By Contac t Referred To Contact Procedures MRI Spine (Bone) Outside (No Interpretation) Domingo Giraldo MD [address] [address] Phone: tel: fax: mailto:[email or web address] Referral ID Status Reason Start Date Expiration Date Visits Re quested Visits Authorized [id number] Closed 04/26/2017 04/26/2018 1 1 Encounter Details Date Type Department Care Team (Late st Contact Info) Description 10/25/2016 Hospital Encounter [facility] Imaging [address] [place] [address] Domingo Giraldo MD [address] [address] [email or web address] Social History Tobacco Use Types Packs/Day Years [...] (No Interpretation) (10/25/2016 12:00 AM EST) Narrative [facility] IMG INTERFACES - 04/26/2017 2:40 PM EDT This study is for PACS storage only and not for interpretation. us Domingo Giraldo MD IMG OUTSIDE IMAGING W /OUT INTERPRETATION Final Result [facility] IMG INTERFACES documented in this encounter Visit Diagnoses Not on filedocumented in this encounter Care Teams Probation Manager Relationship Specialty Start Date End Date Ayah Mir MD [address] [place] [address] PCP - General 09/09/16 documented as of this encounter Additional Source Comments The information contained in this document represents components of the legal health record. It is not the complete legal health record.[facility]
--- NOTE | ~2025-06-20 | CT_ITS ---
CLINICAL HISTORY: Abd Pain; Tenderness CT abdomen and pelvis with contrast Comparison: CT/SR - CT ABDOMEN PELVIS W IV CON - 12/29/24 14:18 EDT Findings: The lung bases are clear. Unremarkable gallbladder and solid organs. No urolithiasis. No bowel obstruction, pneumoperitoneum, or pneumatosis. The stomach is distended with ingested material. There are a few mildly dilated small bowel loops within the left upper abdomen. No transition point or significant bowel wall thickening. Pelvic contents unremarkable. No fluid collections or adenopathy. Appendix not definitively identified. No vascular dilation. The bones are intact. There is some fat stranding within the anterior abdominal wall at the level of the pelvis possibly related to subcutaneous injections. IMPRESSION: A few mildly dilated small bowel loops in the left upper abdomen are somewhat nonspecific. Findings could indicate a mild enteritis. No evidence of obstruction. No biliary obstruction or obstructive uropathy. This document has been electronically signed by: Nola Melendrez MD on 06/20/2025 05:16:56
[2025-06-20 01:28] VITALS: BP 127/75; PULSE 92; RESP 16; TEMP 36.3; O2SAT 95; BMI 28.6
[2025-06-20 01:55] LABS: Hematocrit 45.4 % (42.0-52.0); Hemoglobin 15.5 g/dl (14.0-18.0); Imm Gran Abs Auto 0.10 X10*3/uL (0.00-0.03); Imm Gran Pct Auto 0.9 % (0.0-0.4); Lymphocytes Absolute Auto 1.9 X10*3/uL (1.2-4.9); MANUAL DIFF FLAG NO; Mean Corpuscular HGB Conc 34.1 g/dl (31.0-36.0); Mean Corpuscular Hemoglobin 29.9 pg (27.0-33.0); Mean Corpuscular Volume 87.6 fL (80.0-98.0); NRBC Abs Auto 0.000 X10*3/uL (0.0-0.012); NRBC Pct Auto 0.0 /100WBC (0.0-0.2); Platelet Count 234 X10*3/uL (160-400); Red Blood Count 5.18 X10*6/uL (4.60-5.80); White Blood Count 11.1 X10*3/uL (4.8-10.8)
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
--- OUTSIDE RECORDS SUMMARY | 2025-06-20 01:59 | XMS_ITS | Clinical Summary ---
Author Organization [facility] Address [address] [place] [address] Phone Care Team Providers Care Cattle Trader Name Role Phone Ayah Peña MD Primary Care Provider [phone] Allergies No known active allergies Medications albuterol HFA (PROAIR HFA ; PROVENTIL HFA ; VENTOLIN HFA) 90 mcg/actuation inhaler Inhale 2 puffs by mouth once daily as needed. Active albuterol 2.5 mg /3 mL (0.083 %) nebulizer solution 4 Active atorvastatin (LIPITOR) 40 mg tablet Take 1 tablet (40 mg total) by mouth 1 (one) time each day. 5 Active Suboxone 12-3 mg film TAKE 1 FILM SUBLINGUALLY EVERY DAY Active busPIRone (BUSPAR) 15 mg tablet Take 1 tablet (15 mg total) by mouth. 9 Active busPIRone (BUSPAR) 30 mg tablet 5 Active butalbital-acet aminophen-caffe ine (FIORICET, ESGIC) 50-325-40 mg per tablet take 1 tablet by mouth every 6 hours as needed for headache 5 Active dicyclomine (BENTYL) 10 mg capsule Take 1 capsule (10 mg total) by mouth. 5 Active Jardiance 25 mg tablet See Instructions, KIET 1 TABLETA POR LA BOCA POR LA MANANA, # 30 tablet, 1 Refills, Maintenance, 12/28/24 1:28:00 PM EDT, [facility], 178, cm, 06/28/24 13:00:00 EDT, Height, 103, kg, 04/19/24 19:47:00 EDT, Dry Weight 5 Active fenofibrate (TRICOR) 145 mg tablet 5 Active Wixela Inhub 250-50 mcg/dose diskus inhaler INHALE 1 PUFF TWICE A DAY FOR ASTHMA FOR 30 DAYS 5 Active gabapentin (NEURONTIN) 300 mg capsule Take 1 capsule (300 mg total) by mouth. 9 Active hydrOXYzine HCL (ATARAX) 50 mg tablet Take 1 tablet (50 mg total) by mouth 2 times daily as needed. 2 Active lisinopriL (PRINIVIL,ZESTR IL) 5 mg tablet 5 Active mesalamine (DELZICOL) 400 mg capsule (with del rel tablets) DR capsule Take 2 capsules (800 mg total) by mouth 2 (two) times a day. 5 Active montelukast (SINGULAIR) 10 mg tablet Take 1 tablet (10 mg total) by mouth. at bedtime. Active omeprazole (PriLOSEC) [address] capsule Take 1 capsule (20 mg total) by mouth daily. Active predniSONE (DELTASONE) 20 mg tablet Take 3 tablets (60 mg total) by mouth 1 (one) time each day. 5 Active QUEtiapine XR (SEROquel XR) 300 mg 24 hr tablet Take 1 tablet (300 mg total) by mouth at bedtime. 2 Active SUMAtriptan (IMITREX) 25 mg tablet TAKE 1 TABLET ORALLY EVERY 2-4 HOURS NEEDED FOR MIGRAINE HEADACHE FOR 30 DAYS MAX 8 DOSES/24 HRS 5 Active testosterone cypionate (DEPO-TESTOTERO NE) 200 mg/mL injection 5 Active Mounjaro 7.5 mg/0.5 mL injection every 7 (seven) days. Active tiZANidine (ZANAFLEX) 4 mg tablet Take 1 tablet (4 mg total) by mouth 3 times daily as needed. 2 Active traZODone (DESYREL) 150 mg tablet Take 1 tablet (150 mg total) by mouth at bedtime. 2 Active venlafaxine XR (EFFEXOR-XR) 150 mg 24 hr capsule 5 Active venlafaxine XR (EFFEXOR-XR) 75 mg 24 hr capsule Take 1 capsule (75 mg total) by mouth daily. 2 Active Ambien 10 mg tablet Take 1 tablet (10 mg total) by mouth at bedtime as needed. 2 Active terbinafine (LamISIL) 250 mg tabletIndicatio ns:Acquired hallux valgus of left foot,Dermatophy tosis of nail Take 1 tablet (250 mg total) by mouth 1 (one) time each day. 30 tablet 2 5 08/07/20 25 Active terbinafine (LamISIL) 250 mg tablet Take 1 tablet (250 mg total) by mouth 1 (one) time each day. Patient having issue getting refill for 90 day course 30 each 5 07/12/20 25 Active Active Problems Problem Noted Date Diagnosed Date Rectal bleeding 04/11/2025 Encounters Date Type Department Care Team Description 06/12/2025 9:30 AM EDT Office Visit Orthopedic Surgery [facility] [address] [phone] Nicola Amaro DPM Dermatophytosis of nail (Primary Dx); Acquired hallux valgus of left foot; Juan's bunionette, right 05/08/2025 Telephone Orthopedic Surgery [facility] [address] [phone] Nicola Amaro DPM 05/07/2025 9:45 AM EDT Consult Orthopedic Surgery [facility] [address] [phone] Nicola Amaro DPM Dermatophytosis of nail (Primary Dx); Type 2 diabetes mellitus without complications (CMS/HCC V24, CMS/HCC V28); Acquired hallux valgus of left foot; Juan's bunionette, right 04/11/2025 2:40 PM EDT Office Visit Gastroenterology [facility] [address] [facility] [address] [place] [phone] Chinmay Orellana MD Rectal bleeding (Primary Dx) from Last 3 Months Medical History Medical History Date Comments Diabetes mellitus type 2, co ntrolled, with complications (CMS/HCC V24, CMS/HCC V28) DX:Diabetes mellitus type 2, controlled, with complications (HCC) Esophageal reflux DX:Esophageal reflux Epigastric pain DX:Epigastric [...] Sign Reading Time Taken Comments Blood Pressure 118/72 04/11/2025 2:15 PM EDT Pulse 74 04/11/2025 2:15 PM EDT Temperature - - Respiratory Rate - - Oxygen Saturation - - Inhaled Oxygen Concentration - - Weight 89.4 kg (197 lb 1.5 oz) 05/07/2025 10:00 AM EDT Height 177.8 cm (5' 10 ) 05/07/2025 10:00 AM EDT Body Mass Index 28.28 05/07/2025 10:00 AM EDT Plan of Treatment Upcoming Encounters Date Type Department Care Team (Late st Contact Info) Description 07/11/2025 7:30 AM EST Hospital Encounter [facility] [address] [place] [phone] Chinmay Orellana MD 175 [facility] [address] [place] [address] 08/12/2025 10:30 AM EST Office Visit Orthopedic Surgery - [place] [address] [facility] [address] [place] [phone] Nicola Amaro DPM 175 [facility] [address] [place] [phone] Health Maintenance Due Date Last Done Comments Colorectal Cancer Screening: Colonoscopy 1980 Diabetes: Annual GFR (Glomerular Filtration Rate) 1980 Diabetes: Annual Foot Exam 1990 Diabetes: Annual Retina Eye Exam 1990 Hepatitis B Vaccines (1 of 3 - 19+ 3-dose series) 1999 02/03/2011, 09/30/2010, 07/24/2010 HPV Vaccines (1 - 3-dose SCDM series) 2007 Pneumococcal Vaccine: Pediatrics (0 to 5 Years) and At-Risk Patients (6 to 49 Years) (2 of 2 - PCV) 05/21/2022 05/21/2021, 07/02/2010 Cholesterol Screening (Lipid Panel) 08/08/2022 HIV Screening 08/08/2022 Medicare Annual Wellness Visit 08/08/2022 Social Influencers of Health Screening 08/08/2022 Depression Screening 09/05/2024 Diabetes: Annual Urine Albumin-Creatinine Ratio (uACR) 02/08/2025 Diabetes: Blood Sugar Control Test (HGBA1C) 02/08/2025 COVID-19 Vaccine ( - season) 2025 03/02/2021, 01/22/2021 Influenza Vaccine (#1) 2025 , 06/25/2019, 08/21/2013, Additional history exists DTaP,Tdap,and Td Vaccines (4 - Td or Tdap) 05/21/2031 05/21/2021, 07/12/2018, 05/16/2012 RSV Immunization Adult Patients (1 - 1-dose 75+ series) 2055 Hepatitis A Vaccines Aged Out 01/20/2011, 07/24/20 10 No longer eligible based on patient's age to complete this topic Hepatitis C Screening Completed 06/04/2022 HIB Vaccines Aged Out No longer eligi [...] to complete this topic RSV Immunization Patients Under 20 months Aged Out No longer eligible based on patient's age to complete this topic Varicella Vaccines Aged Out No longer eligible based on patient's age to complete this topic Goals Goal Patient Goal Type Associated Problems Recent Progress Patient-Stated? Author Autogenerat ed Goal Care Plan Autogenerated Problem No Arvin Porras Additional Health Concerns Active Problems Noted Date Diagnosed Date Autogenerated Problem 06/12/2025 Insurance MEDICARE [place]ICAID - [place] Care Teams Cattle Trader Relationship Specialty Start Date End Date Ayah Peña MD [address] [facility] , [address] [facility] D/B/A: [facility] [place] PCP - General Internal Medicine 05/31/19
--- OUTSIDE RECORDS SUMMARY | 2025-06-20 01:59 | XMS_ITS | Clinical Summary ---
Author Organization [facility] Address [address] [place] [address] Phone Care Team Providers Care Molding Line Assistant Name Role Phone Ayah Mir MD Primary [...] (#1) 2025 3, 05/16/2012, 05/19/2011 COVID-19 VACCINE (2024-2 6 season) 2025 03/02/2021, 01/22/2021 COLOGUARD 2025 COLONOSCOPY 2025 COLORECTAL CANCER SCREENING 2025 FIT TEST 2025 FOBT 2025 SIGMOIDOSCOPY 2025 VIRTUAL COLONOSCOPY 2025 PNEUMOCOCCAL VACCINES (0-49 years) Aged Out 07/02/2010 [...] this topic Medical Devices Implanted Type Area Box Truck Driver Device Identifier Shelf Expiration Date Model / Serial / Lot Left Ankle Hardware Insurance [employer] MED[employer]ARE PART A & B [place] & [place] MEDICARE PART A & [place] & [place] & [place] MED[place] PART A & B [address] [place], [place] [id number] MEDICARE PART A & B Care Teams Molding Line Assistant Relationship Specialty Start Date End Date Ayah Mir MD [address] [place] [address] PCP - General 09/09/16 Additional Source Comments The information contained in this document represents components of the legal health record. It is not the complete legal health record.[facility]
--- OUTSIDE RECORDS SUMMARY | 2025-06-20 01:59 | XMS_ITS | Encounter Summary ---
Author Organization [facility] Address [address] [place] [address] Phone Care Team Providers Care Assembler Small Products Name Role Phone Ayah Mir MD Primary Care Provid er Reason for Referral * Consultation (Within 1 month) - Closed Specialty Diagnoses / Procedures Referred By Contgarrett t Referred To Contact Rheumatology System, Provider Not In, PhD [id number] [place] [phone] Phone: tel: Referral ID Status Reason Start Date Expiration Date Visits Re quested Visits Authorized [id number] Closed 12/27/2017 12/27/2018 1 1 Encounter Details Date Type Department Care Team (Late st Contact Info) Description 12/27/2017 Transcribe Orders [facility] Rheumatology [address], 4th Floor, [address] [place] [address] Jacinto Wheeler MD [address] [place] [address] [place] [address] Social History Tobacco Use Types Packs/Day Years [...] Associated Diagnoses Order Schedule Ambulatory referral to [facility] Rheumatology Outpatient Referral Routine Ordered: 12/27/2017 documented as of this encounter Visit Diagnoses Not on filedocumented in this encounter Care Teams Assembler Small Products Relationship Specialty Start Date End Date Ayah Mir MD [address] [place] [address] PCP - General 09/09/16 documented as of this encounter Additional Source Comments The information contained in this document represents components of the legal health record. It is not the complete legal health record.[facility]
--- OUTSIDE RECORDS SUMMARY | 2025-06-20 01:59 | XMS_ITS | Encounter Summary ---
Author Organization [facility] Address [address] [place] [address] Phone Care Team Providers Care Dimethylaniline Sulfator Operator Name Role Phone Ayah Mir MD Primary Care Provid er Encounter Details Date Type Department Care Team (Late st Contact Info) Description 04/26/2017 Procedure Pass [facility] [address] [place] [address] Social History Tobacco Use Types Packs/Day Years [...] on filedocumented in this encounter Care Teams Dimethylaniline Sulfator Operator Relationship Specialty Start Date End Date Ayah Mir MD [address] [place] [address] PCP - General 09/09/16 documented as of this encounter Additional Source Comments The information contained in this document represents components of the legal health record. It is not the complete legal health record.[facility]
--- OUTSIDE RECORDS SUMMARY | 2025-06-20 01:59 | XMS_ITS | Encounter Summary ---
Author Organization [facility] Address [address] [place] [address] Phone Care Team Providers Care Technical Engineer Name Role Phone Ayah Mir MD Primary Care Provid er Reason for Referral * Consultation (Within 1 month) - Closed Specialty Diagnoses / Procedures Referred By Contgarrett t Referred To Contact Rheumatology Diagnoses Arthralgia of hand, unspecified laterality System, Provider Not In, PhD [facility] [address] [address] Rashard Bashir MD Phone: tel: fax: mailto:[email or web address] Referral ID Status Reason Start Date Expiration Date Visits Re quested Visits Authorized [id number] Closed 02/28/2018 02/28/2019 1 1 Encounter Details Date Type Department Care Team (Latest Contact Info) Description 02/28/2018 Transcribe Orders [facility] Rheumatology [address], 4[address] Floor, [address] [place] [address] Jacinto Wheeler MD [address] [place] [address] [place] [address] Arthralgia of hand, unspecified laterality (Primary Dx) [...] Diagnoses Orde r Schedule Ambulatory referral to [facility] Rheumatology Outpatient Referral Routine Arthralgia of hand, unspecified laterality Ordered: 02/28/2018 documented as of this encounter Visit Diagnoses Diagnosis Arthralgia of hand, unspecified laterality- Primary documented in this encounter Care Teams Technical Engineer Relationship Specialty Start Date End Date Ayah Mir MD [address] [place] [address] PCP - General 09/09/16 documented as of this encounter Additional Source Comments The information contained in this document represents components of the legal health record. It is not the complete legal health record.[facility]
--- OUTSIDE RECORDS SUMMARY | 2025-06-20 01:59 | XMS_ITS | Encounter Summary ---
Author Organization [facility] Address [address] [place] [address] Phone Care Team Providers Care Lens Coating Technician Name Role Phone Ayah Mir MD Primary Care Provid er Encounter Details Date Type Department Care Team (Late st Contact Info) Description 04/26/2017 Procedure Pass [facility] [address] [place] [address] Social History Tobacco Use Types Packs/Day Years [...] on filedocumented in this encounter Care Teams Lens Coating Technician Relationship Specialty Start Date End Date Ayah Mir MD [address] [place] [address] PCP - General 09/09/16 documented as of this encounter Additional Source Comments The information contained in this document represents components of the legal health record. It is not the complete legal health record.[facility]
--- OUTSIDE RECORDS SUMMARY | 2025-06-20 01:59 | XMS_ITS | Encounter Summary ---
Author Organization [facility] Address [address] [place] [address] Phone Care Team Providers Care Air Director Name Role Phone Ayah Mir MD Primary Care Provid er Encounter Details Date Type Department Care Team (Late st Contact Info) Description 12/20/2016 Procedure Pass [facility] [address] [place] [address] Social History Tobacco Use Types Packs/Day Years [...] on filedocumented in this encounter Care Teams Air Director Relationship Specialty Start Date End Date Ayah Mir MD [address] [place] [address] PCP - General 09/09/16 documented as of this encounter Additional Source Comments The information contained in this document represents components of the legal health record. It is not the complete legal health record.[facility]
--- OUTSIDE RECORDS SUMMARY | 2025-06-20 01:59 | XMS_ITS | Patient Health Record ---
Author Organization [facility] Address [address] [place] [address] Care Team Providers Care Embedded Case Manager Name Role Phone Ayah Mir Primary Care Provider Michoacano Flanagan Jr Unavailable Reason For Referral No Information Medications Medication SIG (Take, Route, Frequency, Duration) Notes Start Date End Date Status KlonoPIN Active flovent HFA Active Colyte with Flavor Packs 240 GM As directed Orally Over the specified time.; Duration: 1 day(s) 08/27/2015 Active ProAir HFA Active Dicyclomine HCl 20 MG 1 tablet Orally 2- 4 times a day 08/27/2015 Active Asmanex HFA Active albuterol Active Omeprazole 20 MG 1 capsule Orally Twi ce a day; Duration: 30 days 08/27/2015 Active Singulair Active Zolpidem Tartrate Ac tive SEROquel Active Problems Problem Type SNOMED Code ICD Code Onset Dates Problem Status W/U Status Risk Notes Problem Gastro-esophagea l reflux disease without esophagitis (293704719) Gastro-esophage al reflux disease without esophagitis (K21.9) Active confirmed Problem Colitis (36270894) Colitis (K52.9) Active confirmed Plan Of Treatment Future Test Test Name Order Date UPPER GI ENDOSCOPY 08/27/2015 COLONOSCOPY 08/27/2015 Insurance Providers Payer Name Payer Address Payer Phone Subscriber Number Group Number Insured Name Patient Relationship to Insured Coverage Start Date Coverage End Date [place] [address] [place] [id number] [phone] [id number] VALENCIAKARYN SPAULDING Self - patient is the insured MEDICAID OF [facility] [address] [place] [address] [id number] KARYN TUCKER Self - patient is the insured Medical (General) History Medical History History ICD Code asthma Denies SC,DM,CVA,renal disease Surgical History Surgery Date(Month/Year) left elbow 2000 left foot 2010
[2025-06-20 02:19] LABS: Alanine Aminotransferase 32 U/L (0-40); Albumin Level 4.7 g/dL (3.5-5.0); Alkaline Phosphatase 63 U/L (39-117); Anion Gap 15 (12-20); Aspartate Amino Transferase 28 U/L (5-37); Blood Urea Nitrogen 17 mg/dL (9-16); Calcium 10.0 mg/dL (8.4-10.2); Carbon Dioxide 26 mmol/L (22-29); Chloride 105 mmol/L (96-108); Creatinine Clr Calc Pharmacy 117.1; Estimated Glomerular Filt Rate > 60; Lipase 12 U/L (8-78); Magnesium 2.3 mg/dL (1.6-2.6); Potassium 3.9 mmol/L (3.3-5.1); Sodium 142 mmol/L (135-145); Total Protein 7.2 g/dL (6.5-8.0)
--- NOTE | 2025-06-20 02:57 | ED.ABDPAIN ---
HPI - Abdominal Pain General Chief Complaint: Abdominal Pain Stated Complaint: abd pain + blood in stool Time Seen by Provider: 06/20/25 02:45 Source: patient Mode of arrival: ambulatory Limitations: language barrier ([employer] services utilized.) History of Present Illness ED Provider: Hugo WOOD HPI narrative: The patient is a 45-year-old male with a history of IBS, diabetes, REE, hyperlipidemia, hypertension, asthma, GERD, anxiety and depression presenting to the ED reporting he has been experiencing abdominal pain for the past 2 months, is scheduled for colonoscopy in the week of July, however over the past week has had increasing pain with increased diarrhea and intermittent chills. The patient reports over the last 2 months he has also experienced intermittent bright red blood per rectum, but none recently. The patient denies associated fever/chills, vomiting, chest pain, shortness of breath, recent sick contacts, recent trauma, or surgical abdominal history. Related Data Home Medications ?Medication ?Instructions ?Recorded ?Confirmed quetiapine 300 mg tablet,extended 300 mg PO BEDTIME 06/04/20 05/30/25 release 24 hr zolpidem 10 mg tablet 10 mg PO BEDTIME PRN insomnia 06/04/20 05/30/25 buprenorphine 12 mg-naloxone 3 mg 1 film buccal ONCE 07/09/20 05/30/25 sublingual film (Suboxone) hydroxyzine HCl 50 mg tablet 50 mg PO Q8H PRN anxiety 07/10/20 05/30/25 ibuprofen 800 mg tablet 800 mg PO TID PRN pain 09/16/20 05/30/25 trazodone 150 mg tablet 150 mg PO DAILY 12/08/20 05/30/25 venlafaxine 75 mg capsule,extended 75 mg PO DAILY 01/14/22 05/30/25 release 24 hr venlafaxine 150 mg 150 mg PO DAILY 05/28/22 05/30/25 capsule,extended release 24 hr ammonium lactate 12 % topical cream 1 appl topical BID 12/01/22 05/30/25 buspirone 30 mg tablet 30 mg PO BID 02/20/25 05/30/25 pantoprazole 40 mg tablet,delayed mg PO 02/20/25 05/30/25 release tirzepatide 7.5 mg/0.5 mL 7.5 mg subcut QWEEK 02/20/25 05/30/25 subcutaneous pen injector (Mounjaro) Previous Rx's ?Medication ?Instructions ?Recorded blood-glucose meter (FreeStyle #1 ea 09/09/20 Esmond kit) glucose 4 gram chewable tablet 16 g (4 x 4 gram) PO Q15M 30 days 12/24/20 #50 tabs blood pressure test kit-large #1 ea 05/21/21 lancets 28 gauge (FreeStyle #300 ea 06/23/21 Lancets) blood sugar diagnostic (FreeStyle #300 ea 11/03/21 Lite Strips) empagliflozin 25 mg tablet 25 mg PO QAM #30 tabs 01/14/22 (Jardiance) cane #1 ea 01/25/23 tadalafil 5 mg tablet 5 mg PO DAILY sexual activity 90 06/10/23 Held on 06/10/23. days #90 tabs Instructions: Dose Change pen needle, diabetic 31 gauge x 1 ea subcut DAILY 90 days #100 ea 08/05/2301/18 (BD Ultra-Fine Short Pen Needle) cyclobenzaprine 10 mg tablet 10 mg PO TID PRN muscle spasm 30 12/05/23 days #90 tabs meclizine 25 mg tablet 25 mg PO BID PRN dizziness 30 days 02/13/24 #60 tabs albuterol sulfate 2.5 mg/3 mL 2.5 mg (3 mL) inhalation Q6H 04/25/24 (0.083 %) solution for nebulization ASTHMA 30 days #360 mL needle (disp) 18 G 18 gauge x 1 #30 ea 08/06/24 1/2 (BD Regular [place]vel [place]) syringe (disposable) 1 mL (BD #30 ea 08/06/24 Luer-Enio Syringe) needle (disp) 25 gauge 25 gauge x #30 ea 08/10/24 5/8 (BD Regular Bevel [place]) metformin 500 mg tablet 500 mg PO BID 90 days #180 tabs 08/23/24 Held on 02/20/25. Instructions: since alicja llxyfautiu-fehdyjecbaire-gidltefk 1 tab PO Q6H PRN haeadace #20 tabs 09/15/24 50 mg-325 mg-40 mg tablet diphenhydramine HCl 25 mg capsule 50 mg (2 x 25 mg) PO TID PRN 03/15/25 (Benadryl) allergic reaction #20 caps ketotifen fumarate 0.025 % (0.035 1 drp ophthalmic (eye) Q8H PRN 11/17/ %) eye drops (Alaway) allergy symptoms #5 mL ondansetron 4 mg disintegrating 4 mg PO Q6H PRN nausea and 12/29/24 tablet vomiting #12 tabs lisinopril 5 mg tablet 5 mg PO DAILY 90 days #90 tabs 01/25/25 dicyclomine 20 mg tablet 20 mg PO QID 30 days #120 tabs 02/20/25 mesalamine 400 mg capsule (with 800 mg (2 x 400 mg) PO BID #120 ea 02/28/25 delayed release tablets inside) tadalafil 20 mg tablet 20 mg PO ONCE PRN sexual activity 03/06/25 30 days #30 tabs testosterone cypionate 200 mg/mL 80 mg (0.4 mL) subcut QWEEK 4 03/13/25 intramuscular oil weeks #4 multiple units (Depo-Testosterone) sumatriptan succinate 25 mg tablet 25 mg PO Q2-4H PRN migraine 04/25/25 headache 30 days #9 tabs cholecalciferol (vitamin D3) 25 25 mcg PO DAILY 90 days #90 caps 04/26/25 mcg (1,000 unit) capsule fluticasone 250 mcg-salmeterol 50 1 inh inhalation BID asthma 30 04/29/25 mcg/dose blistr powdr for days #60 ea inhalation (Advair Diskus) montelukast 10 mg tablet 10 mg PO BEDTIME 90 days #90 tabs 05/08/25 Ventolin HFA 90 mcg/actuation 2 puff inhalation Q6H PRN 05/15/25 aerosol inhaler (albuterol sulfate) shortness of breath or wheezing 30 days #8 grams atorvastatin 40 mg tablet 40 mg PO BEDTIME 90 days #90 tabs 05/30/25 prednisone 10 mg tablet 10 mg PO DIRECTED #42 tabs 06/20/25 Allergies Allergy/AdvReac Type Severity Reaction Status Date / Time No Known Allergies Allergy Verified 06/20/25 01:30 Review of Systems Review of Systems Yes all other systems are reviewed and are negative PMFSH Past Medical History Medical History (Updated 06/20/25 @ 05:29 by Hugo Acosta PA-C) Hepatitis C antibody positive in blood Diarrhea Abdominal pain Asthma exacerbation Hypogonadism Acute lumbar myofascial strain Annual physical exam Elevated blood pressure reading Arthritis Dyslipidemia Hypertriglyceridemia COVID-19 Testosterone deficiency Pain, hand joint Joint pain in fingers of left hand Screening for viral disease Encounter for testing for latent tuberculosis infection Onychomycosis Physical exam Right foot pain Skin lesion of scalp Lymph node abscess Bronchitis Skin lesion Swelling, mass, or lump in chest Erectile dysfunction associated with type 2 diabetes mellitus Allergic rhinitis Nocturnal hypoxemia Excessive daytime sleepiness Bilateral hand pain Mild recurrent major depression DM2 (diabetes mellitus, type 2) REE (obstructive sleep apnea) Polyarthralgia Lumbar degenerative disc disease Type 2 diabetes mellitus with hyperglycemia Polysubstance abuse Erectile dysfunction GERD (gastroesophageal reflux disease) Anxiety and depression Asthma Colitis Surgical History History of surgery History of elbow surgery Family History Family History Father Hypertension Diabetes Cancer Cancer, hepatocellular Mother No problems noted. Son Ulcerative colitis Paternal Grandfather Cancer Social History Social History Household Members: Spouse Housing: House Alcohol intake: never Patient Tobacco Use Status: Former Tobacco user Tobacco use type: Cigarette Cigarette Packs Per Day: 1 Cigarettes Per Day: 20 Years Smoked: 20 Smoked in Last 30 Days: No e-Cigarette/Vaping Use: Never Used Second Hand Smoke Exposure: Yes Substance Use Type: Former Substance User, Heroin and Marijuana Advance Directives: No Advance Directives Information Provided: Yes Do you have a plan to hurt others: No Plan service: No Current occupational status: disabled 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 Vital signs as documented. HEAD: Atraumatic, normocephalic. EYES: EOMs grossly intact, pupils equal, conjunctiva clear, no exudate. ENT: Nares patent, no discharge. Airway patent, no audible stridor, visible mucosa is pink and moist without noted lesions. NECK: Trachea is midline, no obvious masses or gross abnormalities. CHEST: Symmetric movement, normal appearance. LUNGS: LS present and CTAB, no w/r/r. Non-labored work of breathing. CARDIAC: Regular Rhythm, S1/S2 appreciated, no murmurs, rubs or gallops. ABDOMEN: Abdomen soft x4 quadrants, positive tenderness to palpation of the bilateral lower quadrants, negative rebound, negative guarding, no palpable masses or organomegaly. Negative CVAT bilaterally. : Deferred. EXTREMITIES: Normal tone, moves all extremities spontaneously without reported pain. No obvious acute injury or deformity noted. NEURO: Alert and oriented x3, CN II-XII appear grossly intact. Cerebellar Functioning grossly intact. No obvious sensory or motor deficits. Speech clear and appropriate. PSYCH: normal affect, appropriate eye contact, fluid speech, with appropriate response to questioning. No reported suicidality or homicidality. SKIN: Warm, dry, color appropriate, normal turgor. No rashes noted. Medical Decision Making Medical Decision Making [facility] Narrative: 4:00 AM 06/20/2025 (Rickey WOOD): The patient is a 45-year-old male with a history of IBS, diabetes, REE, hyperlipidemia, hypertension, asthma, GERD, anxiety and depression presenting to the ED reporting he has been experiencing abdominal pain for the past 2 months, is scheduled for colonoscopy in the 1st week of July, however over the past week has had increasing pain with increased diarrhea and intermittent chills. The patient reports over the last 2 months he has also experienced intermittent bright red blood per rectum, but none recently. The patient denies associated fever/chills, vomiting, chest pain, shortness of breath, recent sick contacts, recent trauma, or surgical abdominal history. On exam the patient has diffuse lower abdominal tenderness, negative rebound, negative CVAT, no other acute findings. The patient's laboratory evaluation shows no significant leukocytosis, no anemia, electrolyte abnormality, or PHAM. LFTs are unremarkable, lipase is normal. Per chart review the patient has not undergone CT abdomen and pelvis since December of this year, due to tenderness to palpation, we will obtain CT abdomen and pelvis to rule out acute intra-abdominal pathology. Patient will receive IV fluid hydration and pain management. 5:25 AM 06/20/2025 (Rickey WOOD): The patient's CT is reassuring, there are a few mildly dilated small bowel loops in the left upper abdomen which are nonspecific and could represent mild enteritis. No other acute findings noted. Findings and pain may be consistent with the patient's known history of IBS. Patient will be discharged with a 2 week prednisone taper and instructions to follow up with GI for his colonoscopy in the beginning of July. Lab Data MDM Lab Attestation statement: I reviewed the patient's lab results. 06/20/25 01:49 06/20/25 01:49 Labs: Lab Results 06/20/25 06/20/25 Range/Units 01:49 04:07 WBC 11.1 H (4.8-10.8) X10*3/uL RBC 5.18 (4.60-5.80) X10*6/uL Hgb 15.5 (14.0-18.0) g/dl Hct 45.4 (42.0-52.0) % MCV 87.6 (80.0-98.0) fL MCH 29.9 (27.0-33.0) pg MCHC 34.1 (31.0-36.0) g/dl RDW 12.8 (11.0-16.0) % Plt Count 234 (160-400) X10*3/uL MPV 9.0 L (9.4-12.4) fL Immature Gran % (Auto) 0.9 H (0.0-0.4) % Neut % (Auto) 70.0 (45-73) % Lymph % (Auto) 16.9 L (20-40) % Bay % (Auto) 9.5 (2-11) % Eos % (Auto) 2.2 (0-4) % Baso % (Auto) 0.5 (0-2) % Lymph # (Auto) 1.9 (1.2-4.9) X10*3/uL Bay # (Auto) 1.1 (0.1-1.2) X10*3/uL Eos # (Auto) 0.3 (0.0-0.4) X10*3/uL Baso # (Auto) 0.1 (0.0-0.2) X10*3/uL Abs Immat Gran (auto) 0.10 H (0.00-0.03) X10*3/uL Absolute Neuts (auto) 7.8 (2.0-8.3) x10*3/uL Absolute Nucleated RBC 0.000 (0.0-0.012) X10*3/uL Nucleated RBC % (auto) 0.0 (0.0-0.2) /100WBC Sodium 142 (135-145) mmol/L Potassium 3.9 (3.3-5.1) mmol/L Chloride 105 (96-108) mmol/L Carbon Dioxide 26 (22-29) mmol/L Anion Gap 15 (12-20) BUN 17 H (9-16) mg/dL Creatinine 0.90 (0.5-1.4) mg/dL Estim Creat Clear Calc 117.1 Estimated GFR > 60 Random Glucose 97 (60-115) mg/dL Calcium 10.0 D (8.4-10.2) mg/dL Magnesium 2.3 (1.6-2.6) mg/dL Total Bilirubin 0.3 (0.0-1.0) mg/dL AST 28 (5-37) U/L ALT 32 (0-40) U/L Alkaline Phosphatase 63 (39-117) U/L Total Protein 7.2 (6.5-8.0) g/dL Albumin 4.7 (3.5-5.0) g/dL Lipase 12 (8-78) U/L Urine Color Yellow Urine Appearance Clear Urine pH 6.5 (5.0-9.0) Ur Specific Schlater 1.025 (1.005-1.025) Urine Protein Trace (Neg-Trace) mg/dL Urine Glucose (UA) Negative (Negative) mg/dL Urine Ketones Negative (Negative) mg/dL Urine Blood Trace H (Negative) Urine Nitrite Negative (Negative) Ur Leukocyte Esterase Negative (Negative) Urine RBC 6-10 H (0-2) /HPF Urine WBC 0-5 (0-5) /HPF Ur Squamous Epith Cells 0-2 (0-2) /HPF Urine Bacteria None Seen (None Seen) Hyaline Casts 0-2 (0-2) /LPF Radiology Impression Discussion of test interpretation with radiology: I have reviewed the radiologist's reading. Radiologist Impression: CLINICAL HISTORY: Abd Pain; Tenderness CT abdomen and pelvis with contrast Comparison: CT/SR - CT ABDOMEN PELVIS W IV CON - 12/29/24 14:18 EDT Findings: The lung bases are clear. Unremarkable gallbladder and solid organs. No urolithiasis. No bowel obstruction, pneumoperitoneum, or pneumatosis. The stomach is distended with ingested material. There are a few mildly dilated small bowel loops within the left upper abdomen. No transition point or significant bowel wall thickening. Pelvic contents unremarkable. No fluid collections or adenopathy. Appendix not definitively identified. No vascular dilation. The bones are intact. There is some fat stranding within the anterior abdominal wall at the level of the pelvis possibly related to subcutaneous injections. IMPRESSION: A few mildly dilated small bowel loops in the left upper abdomen are somewhat nonspecific. Findings could indicate a mild enteritis. No evidence of obstruction. No biliary obstruction or obstructive uropathy. This document has been electronically signed by: Nola Melendrez MD on 06/20/2025 05:16:56 Prescription Management I considered prescription management with: Pain Medication Medications Administered Discontinued Medications Generic Name Dose Route Start Last Admin Trade Name Freq PRN Reason Stop Dose Admin Sodium Chloride 1,000 mls @ 999 mls/hr 06/20/25 03:15 06/20/25 03:22 Ns IV 06/20/25 04:15 999 mls/hr .Q1H1M ABDOUL Administration Iohexol 85 ml 06/20/25 04:02 06/20/25 04:03 Iohexol 350 Mg/Ml 100 Ml Infus..Btl IV 06/20/25 04:03 85 ml ONCE ONE Administration Morphine Sulfate 4 mg 06/20/25 03:42 06/20/25 04:09 Morphine Sulfate 4 Mg/Ml Cartridge IVPUSH 06/20/25 03:43 4 mg ONCE ONE Administration Protocol Discharge Plan Discharge Clinical Impression: Enteritis Irritable bowel syndrome (IBS) Qualifiers: Irritable bowel syndrome type: with diarrhea Qualified Code(s): K58.0 - Irritable bowel syndrome with diarrhea Patient Disposition: Home, Self-Care Instructions: Irritable Bowel Syndrome (ED), Enteritis (ED) Additional Instructions: Raisa por elegir el [facility] para butcher atenci?n m?dica hoy. Afortunadamente, butcher evaluaci?n de laboratorio, tomograf?a computarizada y examen de hoy son tranquilizadores. En ken momento, no hay indicaci?n de ingreso hospitalario ni de observaci?n continua en urgencias, y es seguro darle de mik. Butcher tomograf?a computarizada mostr? asas de intestino miles levemente inflamadas, compatibles con enteritis viral o posiblemente un reflejo de butcher SII conocido. Debido a cristina antecedentes de SII y a estos hallazgos en la tomograf?a computarizada, le estamos tratando con un tratamiento corto de prednisona de disminuci?n gradual. T?smith seg?n lo prescrito hasta terminarlo. Es extremadamente importante que asista a butcher genevieve de seguimiento para la colonoscopia/gastrointestinal programada a principios de noviembre para obtener un diagn?stico definitivo y el tratamiento de cristina s?ntomas persistentes. Debe maria elena dosis alternas (escalonadas) de ibuprofeno 600 mg y Tylenol 1000 mg cada 4 horas seg?n sea necesario para cualquier dolor adicional. Mant?ngase ann hidratado y descanse lo suficiente. Por favor, consulte con butcher m?dico de cabecera para daryn reevaluaci?n, un tratamiento adicional de cristina s?ntomas y atenci?n preventiva continua. Si no tiene un m?dico de cabecera, llame a [facility] al [phone] para asignarle moises nuevo. Mientras espera la asignaci?n de butcher nuevo m?dico de cabecera, puede llamar a nuestra Cl?natalie de Atenci?n Sin Genevieve Pre[facility] al [phone] para necesidades que no mireya de emergencia. Por favor, regrese al servicio de urgencias si presenta un cambio grave o repentino en cristina s?ntomas, fiebre superior a 38 ?C que no mejora con Tylenol o ibuprofeno, v?mitos recurrentes o cualquier otro s?ntoma o inquietud nuevo o que empeore. Thank you for choosing [facility]'s Emergency Department for your care today. Thankfully your laboratory evaluation, CT, and exam today are all reassuring. At this time there is no indication for admission to the hospital or continued ED observation, and it is safe to discharge you home. Your CT showed some mildly inflamed loops of small bowel consistent with either viral enteritis, or possibly a reflexion of your known IBS. Due to your history of IBS and these findings on CT we are treating you with a short tapering course of prednisone. Please take as prescribed until finished. It is extremely important that you follow up with the your scheduled colonoscopy/GI appointment in the beginning of July for definitive diagnosis and management of your ongoing symptoms. You should take alternating (staggered) doses of ibuprofen 600mg and Tylenol 1000mg every 4 hours as needed for any additional pain. Please stay well hydrated and get plenty of rest. Please follow up with your primary care physician for re-evaluation, additional management of your symptoms, and continued preventative care. If you do not have a primary care physician, please call the [facility] at [phone] to establish a new primary care physician. While waiting to establish your new primary care physician, you can call our [facility] at [phone] for non-emergency needs. Please return to the emergency department if you develop a severe or sudden change in your symptoms, a fever over 100.4 that does not improve with Tylenol or Ibuprofen, recurrent vomiting, or any other new or worsening symptoms or concerns. Prescriptions: New prednisone 10 mg tablet 10 mg PO DIRECTED Qty: 42 0RF Rx Instructions: Take 60 mg (6 tabs) daily for 2 days. Then take 50 mg (5 tabs) daily for 2 days. Then take 40 mg (4 tabs) daily for 2 days. Then take 30 mg (3 tabs) daily for 2 days. Then take 20 mg (2 tabs) daily for 2 days. Then take 10 mg (1 tab) daily for 2 days. Then stop. No Action (DME) blood-glucose meter [FreeStyle Esmond] Kit See Rx Instructions .ROUTE .MEDSUPPLY Qty: 1 0RF Rx Instructions: As directed check the BS TID glucose 4 gram tablet,chewable 16 g PO Q15M 30 Days Qty: 50 3RF (DME) lancets [FreeStyle Lancets] 28 gauge misc See Rx Instructions .ROUTE .MEDSUPPLY Qty: 300 3RF Rx Instructions: As directed check the BS TID (DME) FreeStyle Lite Strips Strip See Rx Instructions .ROUTE .MEDSUPPLY Qty: 300 1RF Rx Instructions: three times a day (DME) cane Device See Rx Instructions .Route Qty: 1 0RF Rx Instructions: As directed tadalafil 5 mg tablet 5 mg PO DAILY 90 Days Qty: 90 1RF pen needle, diabetic [BD Ultra-Fine Short Pen Needle] 31 gauge x 5/16 needle 1 ea subcut DAILY 90 Days Qty: 100 3RF cyclobenzaprine 10 mg tablet 10 mg PO TID PRN (Reason: muscle spasm) 30 Days Qty: 90 1RF meclizine 25 mg tablet 25 mg PO BID PRN (Reason: dizziness) 30 Days Qty: 60 0RF (DME) BD Luer-Enio Syringe 1 mL syringe See Rx Instructions .MEDSUPPLY Qty: 30 0RF Rx Instructions: Testosterone injection weekly (DME) BD Regular Bevel [place] 18 gauge x 1 1/2 needle See Rx Instructions .MEDSUPPLY Qty: 30 0RF Rx Instructions: As directed to be used weekly for T injection (DME) BD Regular Bevel [place] 25 gauge x 5/8 needle See Rx Instructions .MEDSUPPLY Qty: 30 0RF Rx Instructions: As directed - for testosterone subcutaneous injection lisinopril 5 mg tablet 5 mg PO DAILY 90 Days Qty: 90 2RF mesalamine 400 mg capsule (with del rel tablets) 800 mg PO BID Qty: 120 6RF tadalafil 20 mg tablet 20 mg PO ONCE PRN (Reason: sexual activity) 30 Days Qty: 30 6RF Rx Instructions: On demand medication take 60 minutes before intended activity testosterone cypionate [Depo-Testosterone] 200 mg/mL oil 80 mg subcut QWEEK 28 Days Qty: 4 5RF Rx Instructions: Discard excess medication after use sumatriptan succinate 25 mg tablet 25 mg PO Q2-4H PRN (Reason: migraine headache) 30 Days Qty: 9 1RF Rx Instructions: do not exceed 8 doses per 24 hrs cholecalciferol (vitamin D3) 25 mcg (1,000 unit) capsule 25 mcg PO DAILY 90 Days Qty: 90 1RF fluticasone propion-salmeterol [Advair Diskus] 250-50 mcg/dose blister with device 1 inh inhalation BID 30 Days Qty: 60 0RF montelukast 10 mg tablet 10 mg PO BEDTIME 90 Days Qty: 90 1RF albuterol sulfate [Ventolin HFA] 90 mcg/actuation HFA aerosol inhaler 2 puff inhalation Q6H PRN (Reason: shortness of breath or wheezing) 30 Days Qty: 8 1RF atorvastatin 40 mg tablet 40 mg PO BEDTIME 90 Days Qty: 90 0RF xwoasswibv-zgqgpteojoutr-egcz 50-325-40 mg tablet 1 tab PO Q6H PRN (Reason: haeadace) Qty: 20 0RF ketotifen fumarate [Alaway] 0.025 % (0.035 %) drops 1 drp ophthalmic (eye) Q8H PRN (Reason: allergy symptoms) Qty: 5 0RF Rx Instructions: do not exceed 2 doses in a 24 hour period diphenhydramine HCl [Benadryl] 25 mg capsule 50 mg PO TID PRN (Reason: allergic reaction) Qty: 20 0RF ondansetron 4 mg tablet,disintegrating 4 mg PO Q6H PRN (Reason: nausea and vomiting) Qty: 12 0RF buprenorphine-naloxone [Suboxone] 12-3 mg film 1 film buccal ONCE (DME) blood pressure test kit-large Kit See Rx Instructions .Route Qty: 1 0RF Rx Instructions: As directed ibuprofen 800 mg tablet 800 mg PO TID PRN (Reason: pain) quetiapine 300 mg tablet extended release 24 hr 300 mg PO BEDTIME zolpidem 10 mg tablet 10 mg PO BEDTIME PRN (Reason: insomnia) hydroxyzine HCl 50 mg tablet 50 mg PO Q8H PRN (Reason: anxiety) trazodone 150 mg tablet 150 mg PO DAILY venlafaxine 75 mg capsule,extended release 24hr 75 mg PO DAILY Jardiance 25 mg tablet 25 mg PO QAM Qty: 30 4RF ammonium lactate 12 % cream 1 appl topical BID venlafaxine 150 mg capsule,extended release 24hr 150 mg PO DAILY metformin 500 mg tablet 500 mg PO BID 90 Days Qty: 180 1RF albuterol sulfate 2.5 mg /3 mL (0.083 %) solution for nebulization 2.5 mg inhalation Q6H 30 Days Qty: 360 4RF pantoprazole 40 mg tablet,delayed release (DR/EC) PO buspirone 30 mg tablet 30 mg PO BID Mounjaro 7.5 mg/0.5 mL pen injector 7.5 mg subcut QWEEK dicyclomine 20 mg tablet 20 mg PO QID 30 Days Qty: 120 6RF Referrals: Ayah Mir MD [Primary Care Provider, Internal Medicine] Clinical Impression: Enteritis; Irritable bowel syndrome (IBS) Print Language: Qatari
[2025-06-20 04:03] VITALS: BP 134/83; PULSE 70; RESP 18; TEMP 36.6; O2SAT 95
[2025-06-20] MEDS: iohexoL 350 MG/ML 100 ML INFUS..BTL 85 ML IV (04:03)
[2025-06-20 04:12] LABS: Appearance Urine Clear; Glucose Urine UA Negative (Negative); PH 6.5 (5.0-9.0); Specific Gravity - Urine 1.025 (1.005-1.025); UMIC TRIGGER UACC YES
[2025-06-20 06:18] VITALS: BP 130/85; PULSE 72; RESP 14; TEMP 36.6; O2SAT 96
[2025-06-20 06:45] VITALS: BP 130/85; PULSE 72; RESP 14; TEMP 36.6; O2SAT 96
== END 2025-06-20 06:46 | disposition home or self-care (01) ==
PROVIDERS: Emergency Provider Emergency Medicine; PCP Internal Medicine
DX: K58.0 Irritable bowel syndrome with diarrhea (principal); E11.9 Type 2 diabetes mellitus without complications; G47.33 Obstructive sleep apnea (adult) (pediatric); I10 Essential (primary) hypertension; Z79.899 Other long term (current) drug therapy
CPT/HCPCS: 36415; 74177; 80053; 81001; 83690; 83735; 85025; 96374; 99285; J2270; Q9967

== ENCOUNTER → 2025-06-20 03:42 | Outpatient (BNV) | payer MEDICARE, MEDICAID, SELFPAY | PROVIDERS: Emergency Provider Emergency Medicine; PCP Internal Medicine; Visit Provider Radiology Diagnostic Radiology | DX: R10.84 Generalized abdominal pain (principal) | CPT/HCPCS: 74177 ==

== ENCOUNTER 2025-06-26 14:03 | Outpatient (AMB) | payer MEDICARE, MEDICAID, SELFPAY ==
--- OUTSIDE RECORDS SUMMARY | 2016-10-25 01:00 | XMS_ITS | Encounter Summary ---
Author Organization [facility] Address [address] [place] [address] Phone Care Team Providers Care Pharmacy Stock Clerk Name Role Phone Ayah Mir MD Primary Care Provid er Reason for Visit * MRI/CAT Scan - Closed Specialty Diagnoses / Procedures Referred By Contac t Referred To Contact Procedures MRI Spine (Bone) Outside (No Interpretation) Domingo Giraldo MD [address] [address] Phone: tel: fax: mailto:[email or web address] Referral ID Status Reason Start Date Expiration Date Visits Re quested Visits Authorized [id number] Closed 04/26/2017 04/26/2018 1 1 Encounter Details Date Type Department Care Team (Late st Contact Info) Description 10/25/2016 Hospital Encounter [facility] Imaging [address] [place] [address] Domingo Giraldo MD [address] [address] [email or web address] Social History Tobacco Use Types Packs/Day [...] (No Interpretation) (10/25/2016 12:00 AM EST) Narrative [facility] IMG INTERFACES - 04/26/2017 2:40 PM EDT This study is for PACS storage only and not for interpretation. us Domingo Giraldo MD IMG OUTSIDE IMAGING W /OUT INTERPRETATION Final Result [facility] IMG INTERFACES documented in this encounter Visit Diagnoses Not on filedocumented in this encounter Care Teams Pharmacy Stock Clerk Relationship Specialty Start Date End Date Ayah Mir MD [address] [place] [address] PCP - General 09/09/16 documented as of this encounter Additional Source Comments The information contained in this document represents components of the legal health record. It is not the complete legal health record.[facility]
[2025-06-26 14:39] VITALS: BP 110/72; PULSE 94; RESP 18; TEMP 36.3; O2SAT 97; BMI 28.3
--- NOTE | 2025-06-26 14:39 | A.OFFPC_ITS ---
Vital Signs 06/26/25 14:39 Height 5 ft 10 in Weight 197 lb 4 oz BMI 28.3 BP 110/72 Blood Pressure Location Rt femoral Position Sitting Respiration 18 Pulse 94 Pulse Source Pulse Oximeter Temp 97.3 F Temp Source Temporal Artery Scan Pulse Oximetry (%) 97 Oxygen Delivery Method Room Air Intake Visit Reasons: dm Rotary Shear Worker Helper Required: No Accompanied by: Self / Same As Patient Allergies No Known Allergies Allergy (Verified 06/26/25 15:02) Medication List - Last Reconciled 06/26/25 by Ayah Peña MD albuterol sulfate 2.5 mg (3 mL) inhalation Q6H 30 days ammonium lactate 12% 1 appl topical BID atorvastatin 40 mg PO BEDTIME 90 days blood pressure test kit-large As directed blood sugar diagnostic (FreeStyle Lite Strips) three times a day blood-glucose meter (FreeStyle [place] kit) As directed check the BS TID buprenorphine-naloxone 12-3 mg (Suboxone) 1 film buccal ONCE buspirone 30 mg PO BID brhzkkcygl-dzigskkcrctey-yuwb 50-325-40 mg 1 tab PO Q6H PRN cane As directed cholecalciferol (vitamin D3) 25 mcg PO DAILY 90 days cyclobenzaprine 10 mg PO TID PRN 30 days dicyclomine 20 mg PO QID 30 days diphenhydramine HCl (Benadryl) 50 mg (2 x 25 mg) PO TID PRN empagliflozin (Jardiance) 25 mg PO QAM fluticasone propion-salmeterol 250-50 mcg/dose (Advair Diskus) 1 inh inhalation BID 30 days glucose 16 grams (4 x 4 gram) PO Q15M 30 days hydroxyzine HCl 50 mg PO Q8H PRN ibuprofen 800 mg PO TID PRN ketotifen fumarate 0.025%(0.035%) (Alaway) 1 drp ophthalmic (eye) Q8H PRN lancets (FreeStyle Lancets) As directed check the BS TID lisinopril 5 mg PO DAILY 90 days meclizine 25 mg PO BID PRN 30 days mesalamine 800 mg (2 x 400 mg) PO BID metformin 500 mg PO BID 90 days Held on 02/20/25. Instructions: since alicja montelukast 10 mg PO BEDTIME 90 days needle (disp) 18 G (BD Regular Bevel Everetts) As directed to be used weekly for T injection needle (disp) 25 gauge (BD Regular Bevel Everetts) As directed - for testosterone subcutaneous injection ondansetron 4 mg PO Q6H PRN pantoprazole mg PO pen needle, diabetic (BD Ultra-Fine Short Pen Needle) 1 ea subcut DAILY 90 days prednisone 10 mg PO DIRECTED quetiapine ER 300 mg PO BEDTIME sumatriptan succinate 25 mg PO Q2-4H PRN 30 days syringe (disposable) (BD Luer-Enio Syringe) Testosterone injection weekly tadalafil 5 mg PO DAILY 90 days Held on 06/10/23. Instructions: Dose Change tadalafil 20 mg PO ONCE PRN 30 days testosterone cypionate (Depo-Testosterone) 80 mg (0.4 mL) subcut QWEEK 4 weeks tirzepatide (Mounjaro) 7.5 mg subcut QWEEK trazodone 150 mg PO DAILY venlafaxine ER 150 mg PO DAILY venlafaxine ER 75 mg PO DAILY Ventolin HFA 90 mcg/actuation (albuterol sulfate) 2 puffs inhalation Q6H PRN 30 days NS zolpidem 10 mg PO BEDTIME PRN Tobacco use date assessed: 06/26/25 Dental Screening Dental Screen Date: 06/26/25 HPI HPI Comments History of Present Illness Details The patient is a 45-year-old male presenting with enteritis and migraine. Diabetes mellitus has been well controlled with an A1c within goal being less than 7%. Also has hyperlipidemia and his LDL goal is less than 70. The patient reports a diagnosis of enteritis following a CT scan that showed inflammation in the abdomen. He has been on prednisone for four months, but it has not been effective in alleviating symptoms. The patient also experiences migraines, with pain localized to the right side and middle of the head, affecting vision and causing swelling of veins. He has been using sumatriptan and butalbital for acute relief, but these medications have not been effective. Additionally, the patient reports rectal bleeding and dehydration, which was addressed with intravenous fluids. [facility] Medical History (Updated 06/27/25 @ 08:33 by Ayah Peña MD) Hepatitis C antibody positive in blood Diarrhea Abdominal pain Asthma exacerbation Hypogonadism Acute lumbar myofascial strain Annual physical exam Elevated blood pressure reading Arthritis Dyslipidemia Hypertriglyceridemia COVID-19 Testosterone deficiency Pain, hand joint Joint pain in fingers of left hand Screening for viral disease Encounter for testing for latent tuberculosis infection Onychomycosis Physical exam Right foot pain Skin lesion of scalp Lymph node abscess Bronchitis Skin lesion Swelling, mass, or lump in chest Erectile dysfunction associated with type 2 diabetes mellitus Allergic rhinitis Nocturnal hypoxemia Excessive daytime sleepiness Bilateral hand pain Mild recurrent major depression DM2 (diabetes mellitus, type 2) REE (obstructive sleep apnea) Polyarthralgia Lumbar degenerative disc disease Type 2 diabetes mellitus with hyperglycemia Polysubstance abuse Erectile dysfunction GERD (gastroesophageal reflux disease) Anxiety and depression Asthma Colitis Surgical History History of surgery History of elbow surgery Family History Father Hypertension Diabetes Cancer Cancer, hepatocellular Mother No problems noted. 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 Cognitive needs: Yes Hearing needs: No Vision needs: No Questionnaire Thrive Questionnaire Date Thrive assessed: 10/23/24 I am a: Parent/Caregiver What is your living situation today?: I have a steady place to live Within the past 12 months, did the food you bought not last and you didn't have the money to get more?: Sometimes True Within the past 12 months, did you worry whether your food would run out before you got money to buy more?: Sometimes True Do you have trouble paying for medicines?: Yes Do you have trouble getting transportation to medical appointments?: No Do you have trouble paying your heating and electricity bill?: Yes Do you have trouble taking care of your child, family member or friend?: Yes Do you have trouble with day-to-day activities such as bathing, preparing meals, shopping, managing finances, etc.?: I choose not to answer this question Are you currently unemployed and looking for a job?: Yes Are you interested in more education?: No Currently or been in a relationship where the following occur: No concerns reported THRIVE Score: 3 MIRIAM-7 AMB Questionnaire MIRIAM-7 Date MIRIAM - 7 assessed: 10/23/24 Source: Developed by Drs. Surjit Espino, Lucina Escoto, Elvin uHssein and colleagues, with an educational porsche from [employer]. Review of Systems Const All systems reviewed & are unremarkable except as noted in HPI and below Card Denies chest pain at rest, Denies chest pain with activity, Denies edema, Denies irregular heart rhythm, Denies claudication, Denies dyspnea, Denies dyspnea on exertion, Denies orthopnea, Denies paroxysmal nocturnal dyspnea and Denies slow heart rate Resp Denies cough, Denies dyspnea and Denies dyspnea on exertion Physical exam (Primary Care) Vital Signs: Last Vital Signs Temp 97.3 F 06/26/25 14:39 Pulse 94 06/26/25 14:39 Resp 18 06/26/25 14:39 BP 110/72 06/26/25 14:39 Pulse Ox 97 06/26/25 14:39 Oxygen Delivery Method Room Air 06/26/25 14:39 BMI result Body Mass Index 28.3 Tobacco/Smoking Status: Tobacco use Status Tobacco use date assessed 06/26/25 06/26/25 14:41 Patient Tobacco Use Status Former Tobacco user 06/26/25 14:41 Tobacco use type Cigarette 06/26/25 14:41 e-Cigarette/Vaping Use Never Used 06/26/25 14:41 Thrive Assessment: Date of Thrive Assessment Date Thrive assessed 10/23/24 06/26/25 14:41 Currently or been in a relationship where the following occur: No concerns reported Resp Effort & Inspection: normal respiratory effort Auscultation: clear to auscultation bilaterally Cardio Jugular venous distension: no JVD Rate: regular rate Rhythm: regular rhythm Heart sounds: S1 normal heart sound present and S2 normal heart sound present Extrem General: Yes full ROM Results AMB Hemoglobin A1c AMB Hemoglobin A1c 5.5 % Last Edit by Debi Rivera MA on 06/26/25 16:22 Results Reviewed Results Reviewed: Laboratory Last Values Hgb A1c (Clinic) 5.5 % (4.0-6.0) 06/26/25 15:05 Coding Level of Care Code Est Pt Level 4 (20085) Complex EM visit Add On G2211 Diagnoses Enteritis K52.9 Type 2 diabetes mellitus without complication, unspecified whether machine long goods helper insulin use E11.9 Diabetes mellitus halfway insulin use: unspecified halfway insulin use status Diabetes mellitus complication status: without complication Mixed hyperlipidemia E78.2 Persistent headaches R51.9 Time Spent (min) 22 Assessment & Plan Assessment & Plan (1) Enteritis: Code(s): K52.9 - Noninfective gastroenteritis and colitis, unspecified Category: Medical (2) DM2 (diabetes mellitus, type 2): Code(s): E11.9 - Type 2 diabetes mellitus without complications Category: Medical Qualifiers: Diabetes mellitus halfway insulin use: unspecified machine long goods helper insulin use status Diabetes mellitus complication status: without complication Qualified Code(s): E11.9 - Type 2 diabetes mellitus without complications (3) Mixed hyperlipidemia: Code(s): E78.2 - Mixed hyperlipidemia Category: Medical (4) Persistent headaches: Code(s): R51.9 - Headache, unspecified Category: Medical Plan Plan 1. Enteritis The patient has been diagnosed with enteritis following a CT scan showing abdominal inflammation. Current management includes prednisone, which has been ineffective over the past four months. Further evaluation and adjustment of treatment are necessary. 2. Migraine The patient experiences migraines with right-sided head pain, vision changes, and vein swelling. Current medications include sumatriptan and butalbital, which have not provided relief. Consideration for daily preventive medication is advised. 3. Diabetes mellitus type 2 Continue same medications. A1c goal is equal or less than 7%. 4. Hyperlipidemia Continue statins. LDL goal is less than 70. Orders: Orders AMB Hemoglobin A1c 06/26/25 E11.9 - Type 2 diabetes mellitus without complications MR head/brain wo con 06/26/25 R51.9 - Headache, unspecified Medications: New topiramate 25 mg PO DAILY 30 tabs 3RF 30 days lorazepam (Ativan) Take 1 to 2 tabs as needed before the MrI. 2 mg (2 x 1 mg) PO ONCE PRN 2 tabs 0RF anxiety 1 day Discontinued mesalamine Discontinued Reason: Patient Completed Course 800 mg (2 x 400 mg) PO BID 120 ea 6RF K52.9 - Noninfective gastroenteritis and colitis, unspecified
--- OUTSIDE RECORDS SUMMARY | 2025-06-26 20:17 | XMS_ITS | Encounter Summary ---
Author Organization [facility] Address [address] [place] [address] Phone Care Team Providers Care Report Checker Name Role Phone Ayah Mir MD Primary Care Provid er Reason for Referral * Consultation (Within 1 month) - Closed Specialty Diagnoses / Procedures Referred By Contgarrett t Referred To Contact Rheumatology System, Provider Not In, PhD [id number] [place] [phone] Phone: tel: Referral ID Status Reason Start Date Expiration Date Visits Re quested Visits Authorized [id number] Closed 12/27/2017 12/27/2018 1 1 Encounter Details Date Type Department Care Team (Late st Contact Info) Description 12/27/2017 Transcribe Orders [facility] Rheumatology [address], [address] Floor, [address] [place] [address] Jacinto Wheeler MD [address] [place] [address] Dr [place] [address] Social History Tobacco Use Types Packs/Day Years [...] Associated Diagnoses Order Schedule Ambulatory referral to [facility] Rheumatology Outpatient Referral Routine Ordered: 12/27/2017 documented as of this encounter Visit Diagnoses Not on filedocumented in this encounter Care Teams Report Checker Relationship Specialty Start Date End Date Ayah Mir MD [address] [place] [address] PCP - General 09/09/16 documented as of this encounter Additional Source Comments The information contained in this document represents components of the legal health record. It is not the complete legal health record.[facility]
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
--- OUTSIDE RECORDS SUMMARY | 2025-06-26 20:17 | XMS_ITS | Clinical Summary ---
Author Organization [facility] Address [address] [place] [address] Phone Care Team Providers Care Psychology Physician Name Role Phone Ayah Mir MD Primary [...] this topic Medical Devices Implanted Type Area Computer Discovery Teacher Device Identifier Shelf Expiration Date Model / Serial / Lot Left Ankle Hardware Insurance ShelfariHEALTH MEDICARE PART A & B [place] MED[place]ARE PART A & [place] & [place] & [place] MEDICARE PART A & B [address] [place], [place] [address]HEALTH MEDICARE PART A & B Care Teams Psychology Physician Relationship Specialty Start Date End Date Ayah Mir MD [address] [place] [address] PCP - General 09/09/16 Additional Source Comments The information contained in this document represents components of the legal health record. It is not the complete legal health record.[facility]
--- OUTSIDE RECORDS SUMMARY | 2025-06-26 20:17 | XMS_ITS | Encounter Summary ---
Author Organization [facility] Address [address] [place] [address] Phone Care Team Providers Care Donor Relations Coordinator Name Role Phone Ayah Mir MD Primary Care Provid er Reason for Referral * Consultation (Within 1 month) - Closed Specialty Diagnoses / Procedures Referred By Contgarrett t Referred To Contact Rheumatology Diagnoses Arthralgia of hand, unspecified laterality System, Provider Not In, PhD Partners [address] [address] Rashard Bashir MD Phone: tel: fax: mailto:[email or web address] Referral ID Status Reason Start Date Expiration Date Visits Re quested Visits Authorized [id number] Closed 02/28/2018 02/28/2019 1 1 Encounter Details Date Type Department Care Team (Latest Contact Info) Description 02/28/2018 Transcribe Orders [facility] Rheumatology [address], [address] Floor, [address] [place] [address] Jacinto Wheeler MD [address] [place] [address] [place] [address] Arthralgia of hand, unspecified laterality (Primary Dx) [...] Diagnoses Orde r Schedule Ambulatory referral to [facility] Rheumatology Outpatient Referral Routine Arthralgia of hand, unspecified laterality Ordered: 02/28/2018 documented as of this encounter Visit Diagnoses Diagnosis Arthralgia of hand, unspecified laterality- Primary documented in this encounter Care Teams Donor Relations Coordinator Relationship Specialty Start Date End Date Ayah Mir MD [address] [place] [address] PCP - General 09/09/16 documented as of this encounter Additional Source Comments The information contained in this document represents components of the legal health record. It is not the complete legal health record.[facility]
--- OUTSIDE RECORDS SUMMARY | 2025-06-26 20:17 | XMS_ITS | Encounter Summary ---
Author Organization [facility] Address [address] [place] [address] Phone Care Team Providers Care Telegraph Messenger Name Role Phone Ayah Mir MD Primary Care Provid er Encounter Details Date Type Department Care Team (Late st Contact Info) Description 04/26/2017 Procedure [facility] [address] [place] [address] Social History Tobacco Use Types Packs/Day Years [...] on filedocumented in this encounter Care Teams Telegraph Messenger Relationship Specialty Start Date End Date Ayah Mir MD [address] [place] [address] PCP - General 09/09/16 documented as of this encounter Additional Source Comments The information contained in this document represents components of the legal health record. It is not the complete legal health record.[facility]
--- OUTSIDE RECORDS SUMMARY | 2025-06-26 20:18 | XMS_ITS | Patient Health Record ---
Author Organization [facility] Address [address] [place] [address] Care Team Providers Care Paint Spray Inspector Name Role Phone Ayah Mir Primary Care Provider Michoacano Flanagan Jr Unavailable [phone] Reason For Referral No Information Medications Medication [...] Problem Gastro-esophagea l reflux disease without esophagitis ([id number]) Gastro-esophage al reflux disease without esophagitis (K21.9) Active confirmed Problem Colitis (62204953) Colitis (K52.9) Active confirmed Plan Of Treatment Future Test Test Name Order Date UPPER GI ENDOSCOPY 08/27/2015 COLONOSCOPY 08/27/2015 Insurance Providers Payer Name Payer Address Payer Phone Subscriber Number Group Number Insured Name Patient Relationship to Insured Coverage Start Date Coverage End Date [place] OF [place] [address] [place] [address] [phone] [id number] KARYN TUCKER Self - patient is the insured MEDICAID OF [facility] [address] [place] [address] [id number] KARYN TUCKER Self - patient is the insured Medical (General) History Medical History History ICD Code asthma Denies [place],DM,CVA,renal disease Surgical History Surgery Date(Month/Year) left elbow 2000 left foot 2010
--- OUTSIDE RECORDS SUMMARY | 2025-06-26 20:18 | XMS_ITS | Encounter Summary ---
Author Organization [facility] Address [address] [place] [address] Phone Care Team Providers Care Corporate Consultant Name Role Phone Ayah Mir MD Primary Care Provid er Encounter Details Date Type Department Care Team (Late st Contact Info) Description 12/20/2016 Procedure Pass [facility] [address] [place] [address] Social History Tobacco Use Types Packs/Day Years [...] on filedocumented in this encounter Care Teams Corporate Consultant Relationship Specialty Start Date End Date Ayah Mir MD [address] [place] [address] PCP - General 09/09/16 documented as of this encounter Additional Source Comments The information contained in this document represents components of the legal health record. It is not the complete legal health record.[facility]
--- OUTSIDE RECORDS SUMMARY | 2025-06-26 20:18 | XMS_ITS | Clinical Summary ---
Author Organization [address] [facility] Address [address] [place] [address] Phone Care Team Providers Care Sock Drier Name Role Phone Ayah Peña MD Primary Care Provider [phone] Allergies No known active allergies Medications albuterol [...] 1 Refills, Maintenance, 12/28/24 1:28:00 PM EDT, [facility], 178, cm, 06/28/24 13:00:00 EDT, [...] 9:30 AM EDT Office Visit Orthopedic Surgery [facility] [address] [phone] Nicola Amaro DPM Dermatophytosis of nail (Primary Dx); Acquired hallux valgus of left foot; Juan's bunionette, right 05/08/2025 Telephone Orthopedic Surgery [facility] [address] [phone] Nicola Amaro DPM 05/07/2025 9:45 AM EDT Consult Orthopedic Surgery [facility] [address] [phone] Nicola Amaro DPM Dermatophytosis of nail (Primary Dx); Type 2 diabetes mellitus without complications (CMS/HCC V24, CMS/HCC V28); Acquired hallux valgus of left foot; Juan's bunionette, right 04/11/2025 2:40 PM EDT Office Visit Gastroenterology [facility] [address] [facility] [address] [place] [phone] Chinmay Orellana MD Rectal bleeding (Primary Dx) [...] Description 07/11/2025 7:30 AM EST Hospital Encounter [facility] Endoscopy [address] [place] [phone] Chinmay Orellana MD [address] [facility] [place] [address] 08/12/2025 10:30 AM EST Office Visit Orthopedic Surgery - [place] [address] [facility] [address] [place] [phone] Nicola Amaro DPM [address] [facility] [address] [place] [phone] Health Maintenance Due Date Last Done Comments [...] Insurance MEDICARE [place]ICAID - [place] Care Teams Sock Drier Relationship Specialty Start Date End Date Ayah Peña MD [address] [facility] [address] [facility] D[facility] [place] PCP - General Internal Medicine 05/31/19
--- OUTSIDE RECORDS SUMMARY | 2025-06-26 20:18 | XMS_ITS | Encounter Summary ---
Author Organization [facility] Address [address] [place] [address] Phone Care Team Providers Care Brick And Tile Making Machine Operator Name Role Phone Ayah Mir MD Primary Care Provid er Encounter Details Date Type Department Care Team (Late st Contact Info) Description 04/26/2017 Procedure Pass [facility] Imaging [address] [place] [address] Social History Tobacco Use Types Packs/Day Years [...] on filedocumented in this encounter Care Teams Brick And Tile Making Machine Operator Relationship Specialty Start Date End Date Ayah Mir MD [address] [place] [address] PCP - General 09/09/16 documented as of this encounter Additional Source Comments The information contained in this document represents components of the legal health record. It is not the complete legal health record.[facility]
== END 2025-06-26 15:21 | disposition home or self-care (01) ==
LOC: HO.HMCH 14:04
PROVIDERS: PCP Internal Medicine; Visit Provider Internal Medicine
DX: K52.9 Noninfective gastroenteritis and colitis, unspecified (principal); E11.9 Type 2 diabetes mellitus without complications; E78.2 Mixed hyperlipidemia; R51.9 Headache, unspecified

== ENCOUNTER → 2025-06-26 14:03 | Outpatient (BNVA) | payer MEDICARE, MEDICAID, SELFPAY | PROVIDERS: PCP Internal Medicine; Visit Provider Internal Medicine | DX: E11.9 Type 2 diabetes mellitus without complications (principal); G43.909 Migraine, unspecified, not intractable, without status migrainosus; K52.9 Noninfective gastroenteritis and colitis, unspecified; E78.2 Mixed hyperlipidemia | CPT/HCPCS: 83036; 99212 ==

== ENCOUNTER 2025-07-18 22:18 | Emergency (ER) | payer MEDICARE, MEDICAID, SELFPAY ==
--- OUTSIDE RECORDS SUMMARY | 2016-10-25 | XMS_ITS | Encounter Summary ---
Author Organization [facility] Address [address] [place] [address] Phone Care Team Providers Care Helper Marble Finisher Name Role Phone Ayah Mir MD Primary Care Provid er Reason for Visit * MRI/CAT Scan - Closed Specialty Diagnoses / Procedures Referred By Contac t Referred To Contact Procedures MRI Spine (Bone) Outside (No Interpretation) Domingo Giraldo MD [address] [address] Phone: tel: fax: mailto:[email or web address] Referral ID Status Reason Start Date Expiration Date Visits Re quested Visits Authorized [id number] Closed 04/26/2017 04/26/2018 1 1 Encounter Details Date Type Department Care Team (Late st Contact Info) Description 10/25/2016 Hospital Encounter [facility] Imaging [address] [place] [address] Domingo Giraldo MD [address] [address] [email or web address] Social History Tobacco Use Types Packs/Day Years Used Date Smoking Tobacco: Former Cigarettes Q uit: 1999 Alcohol Use Standard Drinks/Week Comments No 0 (1 standard drink = 0.6 oz pur e alcohol) Education Answer Date Recorded Are you interested in more education? Not on alex e 12/31/2022 Are you concerned about learning? Not on file 12/31/2022 No 12/31/2022 No 12/31/2022 Digital Access Answer Date Recorded No 01/31/2023 No 01/31/2023 No 01/31/2023 Reliable internet access at home? Not on file 01/31/2023 Device with a working camera? Not on file Sex and Gender Information Value Date Recorded Sex Assigned at Not on file Legal Sex Male 11:42 AM EST Gender Identity Not on file Sexual Orientation Not on file documented as of this encounter Plan of Treatment Not on file documented as of this encounter Procedures Procedure Name Priority Date/Time Associated Diagnosis Comments MRI SPINE MUSCULOSKELETAL FOCUS OUTSIDE (NO INTERPRETATION) Routine 10/25/2016 12:00 AM EST documented in this encounter Results * MRI Spine (Bone) Outside (No Interpretation) (10/25/2016 12:00 AM EST) Narrative [facility] IMG INTERFACES - 04/26/2017 2:40 PM EDT This study is for PACS storage only and not for interpretation. us Domingo Giraldo MD IMG OUTSIDE IMAGING W /OUT INTERPRETATION Final Result [facility] IMG INTERFACES documented in this encounter Visit Diagnoses Not on filedocumented in this encounter Care Teams Helper Marble Finisher Relationship Specialty Start Date End Date Ayah Mir MD [address] [place] [address] PCP - General 09/09/16 documented as of this encounter Additional Source Comments The information contained in this document represents components of the legal health record. It is not the complete legal health record.[facility]
--- OUTSIDE RECORDS SUMMARY | 2025-07-18 23:15 | XMS_ITS | Encounter Summary ---
Author Organization [facility] Address [address] [place] [address] Phone Care Team Providers Care Quiller Operator Name Role Phone Ayah Mir MD Primary Care Provid er Reason for Referral * Consultation (Within 1 month) - Closed Specialty Diagnoses / Procedures Referred By Contgarrett t Referred To Contact Rheumatology Diagnoses Arthralgia of hand, unspecified laterality System, Provider Not In, PhD Partners [address] [address] Rashard Bashir MD Phone: tel: fax: mailto:[email or web address] Referral ID Status Reason Start Date Expiration Date Visits Re quested Visits Authorized [id number] Closed 02/28/2018 02/28/2019 1 1 Encounter Details Date Type Department Care Team (Latest Contact Info) Description 02/28/2018 Transcribe Orders [facility] Rheumatology [address], 4th Floor, [address] [place] [address] Jacinto Wheeler MD [address] [place] [address] [place] [address] Arthralgia of hand, unspecified laterality (Primary Dx) [...] Diagnoses Orde r Schedule Ambulatory referral to [facility] Rheumatology Outpatient Referral Routine Arthralgia of hand, unspecified laterality Ordered: 02/28/2018 documented as of this encounter Visit Diagnoses Diagnosis Arthralgia of hand, unspecified laterality- Primary documented in this encounter Care Teams Quiller Operator Relationship Specialty Start Date End Date Ayah Mir MD [address] [place] [address] PCP - General 09/09/16 documented as of this encounter Additional Source Comments The information contained in this document represents components of the legal health record. It is not the complete legal health record.[facility]
--- OUTSIDE RECORDS SUMMARY | 2025-07-18 23:15 | XMS_ITS | Encounter Summary ---
Author Organization [facility] Address [address] [place] [address] Phone Care Team Providers Care Home Health Care Case Manager Name Role Phone Ayah Mir MD Primary Care Provid er Reason for Referral * Consultation (Within 1 month) - Closed Specialty Diagnoses / Procedures Referred By Contgarrett t Referred To Contact Rheumatology System, Provider Not In, PhD [id number] [place] [phone] Phone: tel: Referral ID Status Reason Start Date Expiration Date Visits Re quested Visits Authorized [id number] Closed 12/27/2017 12/27/2018 1 1 Encounter Details Date Type Department Care Team (Late st Contact Info) Description 12/27/2017 Transcribe Orders [facility] Rheumatology [address], 4[address] Floor, [address] [place] [address] Jacinto Wheeler MD [address] [place] [address] Dr [facility] [place] [address] Social History Tobacco Use Types Packs/Day Years [...] Associated Diagnoses Order Schedule Ambulatory referral to [facility] Rheumatology Outpatient Referral Routine Ordered: 12/27/2017 documented as of this encounter Visit Diagnoses Not on filedocumented in this encounter Care Teams Home Health Care Case Manager Relationship Specialty Start Date End Date Ayah Mir MD [address] [place] [address] PCP - General 09/09/16 documented as of this encounter Additional Source Comments The information contained in this document represents components of the legal health record. It is not the complete legal health record.[facility]
--- OUTSIDE RECORDS SUMMARY | 2025-07-18 23:16 | XMS_ITS | Encounter Summary ---
Author Organization [facility] Address [address] [place] [address] Phone Care Team Providers Care Machine Clipper Name Role Phone Ayah Mir MD Primary Care Provid er Encounter Details Date Type Department Care Team (Late st Contact Info) Description 12/20/2016 Procedure Pass [facility] [address] [place] [address] Social History Tobacco Use Types Packs/Day Years [...] on filedocumented in this encounter Care Teams Machine Clipper Relationship Specialty Start Date End Date Ayah Mir MD [address] [place] [address] PCP - General 09/09/16 documented as of this encounter Additional Source Comments The information contained in this document represents components of the legal health record. It is not the complete legal health record.[facility]
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
--- OUTSIDE RECORDS SUMMARY | 2025-07-18 23:16 | XMS_ITS | Encounter Summary ---
Author Organization [facility] Address [address] [place] [address] Phone Care Team Providers Care Inseamer Name Role Phone Ayah Mir MD Primary Care Provid er Encounter Details Date Type Department Care Team (Late st Contact Info) Description 04/26/2017 Procedure Pass [facility] Imaging [address] [place] [address] Social History Tobacco Use Types Packs/Day Years [...] on filedocumented in this encounter Care Teams Inseamer Relationship Specialty Start Date End Date Ayah Mir MD [address] [place] [address] PCP - General 09/09/16 documented as of this encounter Additional Source Comments The information contained in this document represents components of the legal health record. It is not the complete legal health record.[facility]
--- OUTSIDE RECORDS SUMMARY | 2025-07-18 23:16 | XMS_ITS | Clinical Summary ---
Author Organization [address] [facility] Address [address] [place] [address] Phone Care Team Providers Care Car Detailer Name Role Phone Ayah Peña MD Primary Care Provider [phone] Allergies No known active allergies Medications albuterol [...] busPIRone (BUSPAR) 30 mg tablet 5 Active butalbital-amara taminophen-caf feine (FIORICET, ESGIC) 50-325-40 mg per tablet take 1 tablet by mouth every 6 hours as needed for headache 5 Active dicyclomine (BENTYL) 10 mg capsule Take 1 capsule (10 mg total) by mouth. 5 Active Jardiance 25 mg tablet See Instructions, KIET 1 TABLETA POR LA BOCA POR LA MANANA, # 30 tablet, 1 Refills, Maintenance, 12/28/24 1:28:00 PM EDT, [facility], 178, cm, 06/28/24 13:00:00 EDT, [...] times daily as needed. 2 Active lisinopriL (PRINIVIL,ZEST RIL) 5 mg tablet 5 Active mesalamine (DELZICOL) [...] 8 DOSES/24 HRS 5 Active testosterone cypionate (DEPO-TESTOTER ONE) 200 mg/mL injection 5 Active Mounjaro 7.5 [...] needed. 2 Active terbinafine (LamISIL) 250 mg tabletIndicati ons:Acquired hallux valgus of left foot,Dermatoph ytosis of nail Take 1 tablet (250 mg total) by mouth 1 (one) time each day. 30 tablet 2 5 08/07/20 25 Active polyethylene glycol (Golytely) 236-22.74-6.74 -5.86 gram solution Take 4L by mouth once for one dose. May substitue any PEG. Starting at 2PM the day before your procedure drink 1 8oz glasses at your own pace until you complete half of the gallon. Finish 2nd half of the gallon at 8PM. 4000 mL 5 Active bisacodyL (DULCOLAX) 5 mg EC tablet Take 2 tablets by mouth right before beginning bowel prep. See instructions provided by the office 2 tablet 5 Active terbinafine (LamISIL) 250 mg tablet Take 1 tablet (250 mg total) by mouth 1 (one) time each day. Patient having issue getting refill for 90 day course 30 each 5 07/12/20 25 Active Problems Problem Noted Date Diagnosed Date Rectal bleeding 04/11/2025 Encounters Date Type Department Care Team Description 07/11/2025 7:42 AM EST Anesthesia Event [facility] [address] [place] [address] Tamir Dela Cruz DO 07/11/2025 6:45 AM EST - 07/11/2025 11:59 PM EST Hospital Encounter [facility] [address] [place] [address] Chinmay Orellana MD Georgette, Nathaniel, CRNA Diarrhea, unspecified type; Rectal bleeding Discharge Disposition: Home or Self Care 06/12/2025 9:30 AM EDT Office Visit Orthopedic Surgery [facility] [address] [phone] Nicola Amaro DPM Dermatophytosis of nail (Primary Dx); Acquired hallux valgus of left foot; Juan's bunionette, right 05/08/[address] [facility] [address] [phone] Nicola Amaro DPM 05/07/2025 9:45 AM EDT Consult Orthopedic Surgery [facility] [address] [phone] Nicola Amaro DPM Dermatophytosis of nail (Primary Dx); Type 2 diabetes mellitus without complications (CMS/[facility] V24, CMS/[facility] V28); Acquired hallux valgus of left foot; Juan's bunionette, right from Last 3 Months Medical History Medical History Date Comments Diabetes mellitus type 2, co ntrolled, with complications (CMS/HCC V24, CMS/HCC V28) DX:Diabetes mellitus type 2, controlled, with complications ([facility]) Esophageal reflux DX:Esophageal reflux Epigastric pain DX:Epigastric pa in Rectal bleeding DX:Rectal bleedi ng Family History Medical History Relation Name Comments Esophageal cancer Paternal Grandfather Relation Name Status Comments Paternal Grandfather Social History Tobacco Use Types Packs/Day Years Used Date Smoking Tobacco: Never Smokeless Tobacco: Never Interpersonal Safety Answer Date Record ed Physical Abuse Unrecognized value 07/11/2025 Verbal Abuse Unrecognized value 07/11/2025 Sex and Gender Information Value Date Recorded Sex Assigned at Male 07/03/2025 7:52 PM EDT Legal Sex Male 4:32 AM EST Gender Identity Male 07/03/2025 7:52 PM EDT Sexual Orientation Not on file Obstetrics History Last Filed Vital Signs Vital Sign Reading Time Taken Comments Blood Pressure 146/80 07/11/2025 8:21 AM EST Pulse 81 07/11/2025 8:21 AM EST Temperature 36.7 C (98.1 F) 07/11/2025 8:01 AM EST Respiratory Rate 14 07/11/2025 8:21 AM EST Oxygen Saturation 98% 07/11/2025 8:21 AM EST Inhaled Oxygen Concentration - - Weight 90.7 kg (200 lb) 07/11/2025 7:10 AM EST Height 177.8 cm (5' 10 ) 07/11/2025 7:10 AM EST Body Mass Index 28.7 07/11/2025 7:10 AM EST Plan of Treatment Upcoming Encounters Date Type Department Care Team (Late st Contact Info) Description 08/12/2025 10:30 AM EST Office Visit Orthopedic Surgery - [place] [address] [phone] Nicola Amaro, DPM [address] [phone] Health Maintenance Due Date Last Done Comments Diabetes: Annual GFR (Glomerular Filtration Rate) 1980 [...] Td or Tdap) 05/21/2031 05/21/2021, 07/12/2018, 05/16/2012 Colorectal Cancer Screening: Colonoscopy 07/11/2035 07/11/2025 RSV Immunization Adult Patients (1 - 1-dose [...] ed Goal Care Plan Autogenerated Problem No VernArvin Procedures Procedure Name Priority Date/Time Associated Diagnosis Comments COLONOSCOPY Routine 07/11/2025 8:00 AM EST Diarrhea, unspecified type Rectal bleeding from Last 3 Months Results * COLONOSCOPY Anesthesia - MAC; [facility] ENDOSCOPY (07/11/2025 8:00 AM EST) Anatomical Region Laterality Modality Other 07/11/2025 7:46 AM EST Impressions 07/11/2025 8:03 AM EST - Non-bleeding internal hemorrhoids. - No specimens collected. Recommendation: - Use fiber, for example Citrucel, Fibercon, Konsyl or Metamucil. - Repeat colonoscopy in 10 years for screening purposes. Narrative 07/11/2025 8:03 AM EST [facility] GI Patient Name: Roland Ramirez Procedure Date: 07/11/2025 7:46 AM Date of : 1980 Age: 45 Gender: Male Note Status: Finalized Attending MD: Chinmay Orellana MD, Procedure Date No Time: 07/11/2025 Procedure: Colonoscopy Indications: Hematochezia Providers: Chinmay Orellana MD Referring MD: Chinmay Orellana MD Medicines: Propofol per Anesthesia Complications: No immediate complications. Estimated Blood Loss: Estimated blood loss: none. Procedure: After I obtained informed consent, the scope was passed under direct vision. Throughout the procedure, the patient's blood pressure, pulse, and oxygen saturations were monitored continuously.The Colonoscope was introduced through the anus and advanced to the terminal ileum. The colonoscopy was performed without difficulty. The patient tolerated the procedure well. The quality of the bowel preparation was adequate. Findings: The perianal and digital rectal examinations were normal. Non-bleeding internal hemorrhoids were found during endoscopy. The hemorrhoids were Grade I (internal hemorrhoids that do not prolapse). Procedure Code(s): --- Professional --- 25743, Colonoscopy, flexible; diagnostic, including collection of specimen(s) by brushing or washing, when performed (separate procedure) Diagnosis Code(s): --- Professional --- K64.0, First degree hemorrhoids K92.1, Melena (includes Hematochezia) CPT copyright 2020 [employer]. All rights reserved. The codes documented in this report are preliminary and upon physician coder review may be revised to meet current compliance requirements. Chinmay Orellana MD 07/11/2025 8:02:48 AM This report has been signed electronically.Chinmay Orellana MD Number of Addenda: 0 Note Initiated On: 07/11/2025 7:46 AM Scope In: Scope Out: Endoscopy Department at [facility] - [address] [place] [phone] Procedure Note Chinmay Orellana MD - 07/11/2025 [facility] GI Patient Name: Roland Ramirez Procedure Date: 07/11/2025 7:46 AM Date of : 1980 Age: 45 Gender: Male Note Status: Finalized Attending MD: Chinmay Orellana MD, Procedure Date No Time: 07/11/2025 Procedure: Colonoscopy Indications: Hematochezia Providers: Chinmay Orellana MD Referring MD: Chinmay Orellana MD Medicines: Propofol per Anesthesia Complications: No immediate complications. Estimated Blood Loss: Estimated blood loss: none. Procedure: After I obtained informed consent, the scope was passed under direct vision. Throughout theprocedure, the patient's blood pressure, pulse, and oxygen saturations were monitored continuously.The Colonoscope was introduced through the anus and advanced to the terminal ileum. The colonoscopy was performed without difficulty. The patient tolerated the procedure well. The quality of the bowel preparation was adequate. Findings: The perianal and digital rectal examinations were normal. Non-bleeding internal hemorrhoids were found during endoscopy. The hemorrhoids were Grade I (internal hemorrhoids that do not prolapse). Procedure Code(s): --- Professional --- 46648, Colonoscopy, flexible; diagnostic, including collection of specimen(s) by brushing or washing,when performed (separate procedure) Diagnosis Code(s): --- Professional --- K64.0, First degree hemorrhoids K92.1, Melena (includes Hematochezia) CPT copyright 2020 [employer]. All rights reserved. The codes documented in this report are preliminary and upon physician coder reviewmay be revised to meet current compliance requirements. Chinmay Orellana MD 07/11/2025 8:02:48 AM This report has been signed electronically.Chinmay Orellana MD Number of Addenda: 0 Note Initiated On: 07/11/2025 7:46 AM Scope In: Scope Out: Endoscopy Department at [facility] - [address] [place] [phone] IMPRESSION: - Non-bleeding internal hemorrhoids. - No specimens collected. Recommendation: - Use fiber, for example Citrucel, Fibercon, Konsylor Metamucil. - Repeat colonoscopy in 10 years for screening purposes. us Chinmay Orellana MD GI~PROCEDURE ORDERABLES Final Re sult from Last 3 Months Additional Health Concerns Active Problems Noted Date Diagnosed Date Autogenerated Problem 06/12/2025 Insurance MEDICARE MEDICAID - [place] Care Teams Car Detailer Relationship Specialty Start Date End Date Ayah Peña MD [address] [facility] , [address] [facility] D[facility]A: [facility] [place], [place] PCP - General Internal Medicine 05/31/19
--- OUTSIDE RECORDS SUMMARY | 2025-07-18 23:16 | XMS_ITS | Encounter Summary ---
Author Organization [facility] Address [address] [place] [address] Phone Care Team Providers Care Director Of Academic Name Role Phone Ayah Mir MD Primary Care Provid er Encounter Details Date Type Department Care Team (Late st Contact Info) Description 04/26/2017 Procedure Pass [facility] Imaging [address] [place] [address] Social History Tobacco Use Types Packs/Day Years [...] on filedocumented in this encounter Care Teams Director Of Academic Relationship Specialty Start Date End Date Ayah Mir MD [address] [place] [address] PCP - General 09/09/16 documented as of this encounter Additional Source Comments The information contained in this document represents components of the legal health record. It is not the complete legal health record.[facility]
--- OUTSIDE RECORDS SUMMARY | 2025-07-18 23:16 | XMS_ITS | Patient Health Record ---
Author Organization [facility] Address [address] [place] [address] Care Team Providers Care Grades 9 Through 12 Teacher Name Role Phone Ayah Mir Primary Care Provider Michoacano Flanagan Jr Unavailable [phone] Reason For Referral No Information Medications Medication [...] Problem Gastro-esophagea l reflux disease without esophagitis (435658645) Gastro-esophage al reflux disease without esophagitis (K21.9) Active confirmed Problem Colitis (69392891) Colitis (K52.9) Active confirmed Plan Of Treatment Future Test Test Name Order Date UPPER GI ENDOSCOPY 08/27/2015 COLONOSCOPY 08/27/2015 Insurance Providers Payer Name Payer Address Payer Phone Subscriber Number Group Number Insured Name Patient Relationship to Insured Coverage Start Date Coverage End Date [place] OF [place] [address] [place] [address] [phone] [id number] KARYN TUCKER Self - patient is the insured MEDICAID OF [facility] [address] [place] [address] [id number] KARYN TUCKER Self - patient is the insured Medical (General) History Medical History History ICD Code asthma Denies AL,DM,CVA,renal disease Surgical History Surgery Date(Month/Year) left elbow 2000 left foot 2010
--- OUTSIDE RECORDS SUMMARY | 2025-07-18 23:16 | XMS_ITS | Clinical Summary ---
Author Organization [facility] Address [address] [place] [address] Phone Care Team Providers Care Collections Clerk Name Role Phone Ayah Mir MD [...] HIV ONE-TIME SCREENING (18-6 5 YEARS) 1998 PNEUMOCOCCAL VACCINES (0-49 years) (2 of 2 - PCV) 07/02/2011 07/02/2010 Adult Td,Tdap Booster 05/16/2022 05/16/2012 INFLUENZA VACCINE (#1) 2025 3, 05/16/2012, 05/19/2011 COVID-19 VACCINE (3 - 2024-2 6 season) 2025 03/02/2021, 01/22/2021 COLOGUARD 2025 COLONOSCOPY 2025 COLORECTAL CANCER SCREENING 2025 FIT TEST 2025 FOBT 2025 SIGMOIDOSCOPY 2025 VIRTUAL COLONOSCOPY 2025 HEPATITIS A VACCINES Aged Out 01/20/2011, 07/24/2010 No longer eligible based on patient's age to complete this topic HIB VACCINES Aged Out No longer eligi ble based on patient's age to complete this topic IPV VACCINES Aged Out No longer eligi ble based on patient's age to complete this topic MENINGOCOCCAL VACCINES (ACWY) Aged Out No longer eligible based on patient's age to complete this topic MENINGOCOCCAL VACCINES (B) Aged Out N o longer eligible based on patient's age to complete this topic Medical Devices Implanted Type Area Tabular Typist Device Identifier Shelf Expiration Date Model / Serial / Lot Left Ankle Hardware Insurance [facility] MEDICARE PART A & [place] & B Care Teams Collections Clerk Relationship Specialty Start Date End Date Ayah Mir MD [address] [place] [address] PCP - General 09/09/16 Additional Source Comments The information contained in this document represents components of the legal health record. It is not the complete legal health record.[facility]
--- NOTE | 2025-07-18 23:23 | PC.NURSE ---
Pt was called for triage @7, registration notified t/w that patient went outside. No answer. Pt LWBS.
== END 2025-07-18 23:25 | disposition left against medical advice (07) ==
PROVIDERS: Emergency Provider Emergency Medicine; PCP Internal Medicine
DX: J45.909 Unspecified asthma, uncomplicated (principal)

== ENCOUNTER 2025-07-20 12:41 | Emergency (ER) | payer MEDICARE, MEDICAID, SELFPAY ==
[2025-07-20 12:54] VITALS: BP 127/79; PULSE 98; RESP 18; TEMP 36.7; O2SAT 96; BMI 28.5
[2025-07-20 14:32] LABS: Resp Syncy Virus RNA Qual PCR NEGATIVE (Negative); SARS COV2 PCR INHOUSE NEGATIVE (Negative)
[2025-07-20 14:36] VITALS: RESP 15
--- NOTE | 2025-07-20 15:04 | ED_ITS ---
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 Onset was gradual with progressive worsening; pain is constant and rated 8/10. The patient describes the pain as ?like a heart in my head.? that is constant and radiates into his neck. History of prior migraines and symptoms feel similar however typically they resolve after taking sumatriptan, he states that he has already had 2 doses of sumatiptan which has provided him without any relief.Associated symptoms: bilateral blurry vision, photophobia, phonophobia. Denies cough, nasal congestion, facial pain, cold symptoms, fevers, chills, or vomiting. No recent heavy lifting, falls, or head injuries. Took 800 mg ibuprofen at home without relief early this morning. No medication allergies reported. No other complaints or concerns at this time. MD elicited complaint: headache and migraine Pertinent past history: migraines Onset (ago): day(s) Onset description: gradually Severity: moderate Quality & Timing: aching Exacerbating factors: none Relieving factors: nothing Context: occurred at rest Associated symptoms: photophobia and sensitivity to sound Treatments prior to arrival: none Related Data Home Medications ?Medication ?Instructions ?Recorded ?Confirmed quetiapine 300 mg tablet,extended 300 mg PO BEDTIME 06/26/25 release 24 hr zolpidem 10 mg tablet 10 mg PO BEDTIME PRN insomni a 06/04/20 06/26/25 buprenorphine 12 mg-naloxone 3 mg 1 film buccal ONCE 1 09/08/19 06/26/25 sublingual film (Suboxone) hydroxyzine HCl 50 mg tablet 50 mg PO Q8H PRN anxiety 07/10/20 06/26/25 ibuprofen 800 mg tablet 800 mg PO TID PRN pain 09/1606/26/25 trazodone 150 mg tablet 150 mg PO DAILY 12/08/20 venlafaxine 75 mg capsule,extended 75 mg PO DAILY 01/0306/26/25 release 24 hr venlafaxine 150 mg 150 mg PO DAILY 05/28/22 capsule,extended release 24 hr ammonium lactate 12 % topical cream 1 appl topical BID 12/01/22 06/26/25 buspirone 30 mg tablet 30 mg PO BID 02/20/25 pantoprazole 40 mg tablet,delayed mg PO 02/20/2506/26 release tirzepatide 7.5 mg/0.5 mL 7.5 mg subcut QWEEK 02/20/25 06/26/25 subcutaneous pen injector (Kiko) Previous Rx's ?Medication ?Instructions ?Recorded blood-glucose meter (FreeStyle #1 ea 09/09/20 [place] kit) glucose 4 gram chewable tablet 16 g (4 x 4 gram) PO Q1 5M 30 days 12/24/20 #50 tabs blood pressure test kit-large #1 ea 05/21/21 lancets 28 gauge (FreeStyle #300 ea 06/23/21 Lancets) blood sugar diagnostic (FreeStyle #300 ea 11/03/21 Lite Strips) empagliflozin 25 mg tablet 25 mg PO QAM #30 tabs 01/14 (Jardiance) cane #1 ea 01/25/23 tadalafil 5 mg tablet 5 mg PO DAILY sexual activit y 90 06/10/23 Held on 06/10/23. days #90 tabs Instructions: Dose Change pen needle, diabetic 31 gauge x 1 ea subcut DAILY 90 d ays #100 ea 08/05/2301/18 (BD Ultra-Fine Short Pen Needle) cyclobenzaprine 10 mg tablet 10 mg PO TID PRN muscle s pasm 30 12/05/23 days #90 tabs meclizine 25 mg tablet 25 mg PO BID PRN dizziness 3 0 days 02/13/24 #60 tabs albuterol sulfate 2.5 mg/3 mL 2.5 mg (3 mL) inhalation Q6H 04/25/24 (0.083 %) solution for nebulization ASTHMA 30 days #36 0 mL needle (disp) 18 G 18 gauge x 1 #30 ea 08/06/24 1/2 (BD Regular Bevel Brandon) syringe (disposable) 1 mL (BD #30 ea 08/06/24 Luer-Enio Syringe) needle (disp) 25 gauge 25 gauge x #30 ea 08/10/24 5/8 (BD Regular Bevel Brandon) metformin 500 mg tablet 500 mg PO BID 90 days #180 t abs 08/23/24 Held on 02/20/25. Instructions: since barrieunmarcos zeamwdxovp-xswlhplogexcj-soaburcv 1 tab PO Q6H PRN hae adace #20 tabs 09/15/24 50 mg-325 mg-40 mg tablet diphenhydramine HCl 25 mg capsule 50 mg (2 x 25 mg) PO TID PRN 11/17/24 (Benadryl) allergic reaction #20 caps ketotifen fumarate 0.025 % (0.035 1 drp ophthalmic (ey e) Q8H PRN 11/17/24 %) eye drops (Alaway) allergy symptoms #5 mL ondansetron 4 mg disintegrating 4 mg PO Q6H PRN nausea and 12/29/24 tablet vomiting #12 tabs lisinopril 5 mg tablet 5 mg PO DAILY 90 days #90 ta bs 01/25/25 dicyclomine 20 mg tablet 20 mg PO QID 30 days #120 ta bs 02/20/25 tadalafil 20 mg tablet 20 mg PO ONCE PRN sexual act ivity 03/06/25 30 days #30 tabs testosterone cypionate 200 mg/mL 80 mg (0.4 mL) subcut QWEEK 4 03/13/25 intramuscular oil weeks #4 multiple units (Depo-Testosterone) cholecalciferol (vitamin D3) 25 25 mcg PO DAILY 90 day s #90 caps 04/26/25 mcg (1,000 unit) capsule fluticasone 250 mcg-salmeterol 50 1 inh inhalation BID asthma 30 04/29/25 mcg/dose blistr powdr for days #60 ea inhalation (Advair Diskus) montelukast 10 mg tablet 10 mg PO BEDTIME 90 days #90 tabs 05/08/25 atorvastatin 40 mg tablet 40 mg PO BEDTIME 90 days #90 tabs 05/30/25 prednisone 10 mg tablet 10 mg PO DIRECTED #42 tab s 06/20/25 sumatriptan succinate 25 mg tablet 25 mg PO Q2-4H PRN migraine 06/20/25 headache 30 days #9 tabs lorazepam 1 mg tablet (Ativan) 2 mg (2 x 1 mg) PO ONCE PRN 06/26/25 anxiety 1 day #2 tabs topiramate 25 mg tablet 25 mg PO DAILY 30 days #30 t abs 06/26/25 Ventolin HFA 90 mcg/actuation 2 puff inhalation Q6H AL N 07/08/25 aerosol inhaler (albuterol sulfate) shortness of breat h or wheezing 30 days #8 grams Allergies Allergy/AdvReac Type Severity Reaction Status Date / Time No Known Allergies Allergy Verified 07/20/25 12:58 Review of Systems Review of Systems: Constitutional : No Fever, No Chills ENT/Mouth : No sore throat, No Rhinorrhea Eyes: No Eye Pain, No Swelling, No Redness Cardiovascular : No Chest Pain, No SOB Respiratory : No Cough, No Sputum Gastrointestinal : No Nausea, No Vomiting, No Diarrhea, No abdominal Pain Genitourinary : No Dysuria, No Hematuria Musculoskeletal : No joint pain, No Myalgias, No Joint Swelling Skin : No Skin Lesions Neuro : No Weakness, No Numbness, + Headache All other systems reviewed and are negative Yes all other systems are reviewed and are negative Constitutional: Constitutional: Reports as per [facility] Past Medical History Attestation statement: The following information was validated with the patient. Medical History Hepatitis C antibody positive in blood Diarrhea Abdominal pain Asthma exacerbation Hypogonadism Acute lumbar myofascial strain Annual physical exam Elevated blood pressure reading Arthritis Dyslipidemia Hypertriglyceridemia COVID-19 Testosterone deficiency Pain, hand joint Joint pain in fingers of left hand Screening for viral disease Encounter for testing for latent tuberculosis infection Onychomycosis Physical exam Right foot pain Skin lesion of scalp Lymph node abscess Bronchitis Skin lesion Swelling, mass, or lump in chest Erectile dysfunction associated with type 2 diabetes mellitus Allergic rhinitis Nocturnal hypoxemia Excessive daytime sleepiness Bilateral hand pain Mild recurrent major depression DM2 (diabetes mellitus, type 2) REE (obstructive sleep apnea) Polyarthralgia Lumbar degenerative disc disease Type 2 diabetes mellitus with hyperglycemia Polysubstance abuse Erectile dysfunction GERD (gastroesophageal reflux disease) Anxiety and depression Asthma Colitis Surgical History History of surgery History of elbow surgery Family History Family History Father Hypertension Diabetes Cancer Cancer, hepatocellular Mother No problems noted. 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 Cognitive needs: Yes Hearing needs: No Vision needs: No Physical Exam Vital Signs: Vital Signs: Last Vital Signs Temp 97.7 F 07/20/25 17:17 Pulse 72 07/20/25 17:17 Resp 15 07/20/25 17:17 BP 132/76 07/20/25 17:17 Pulse Ox 96 07/20/25 12:54 O2 Del Method Room Air 07/20/25 17:17 BMI result Body Mass Index 28.5 Const: General: cooperative, comfortable and no acute distress Orientation/consciousness: patient oriented x3 Limitations: no limitations HEENT: Head: Yes normal to inspection, Yes normocephalic and Yes atraumatic Ears: hearing grossly normal bilaterally General nose exam: Normal external nose present Face and sinus: Yes normal facial exam Mouth: Normal oral and palatal mucosa present, oropharynx normal and moist mucous membranes Throat: Yes posterior oropharynx normal Eyes: General: appearance normal, both eyes and all related structures Eyelids: Yes eyelids normal Conjunctivae: conjunctivae normal Sclerae: sclerae normal Pupils: Equal, round and reactive pupils present EOM: EOMs intact bilaterally Neck: Neck: Yes normal visual inspection, Yes full ROM and Yes no lymphadenopathy Lymphatic: no lymphadenopathy noted Chest: Chest palpation & inspection: normal inspection of the chest Resp: Effort & Inspection: normal respiratory effort and able to speak in complete sentences Auscultation: clear to auscultation bilaterally, no crackles, no rales, no rhonchi and no wheezes Cardio: Rate: regular rate Rhythm: regular rhythm Heart sounds: S1 normal heart sound present and S2 normal heart sound present GI: Inspection: Yes normal to inspection Skin: General skin exam: no rashes or lesions noted Trauma: no lacerations or abrasions Wounds: no wounds Neuro: General: patient oriented x3 and moves all extremities Cranial nerves: Yes CN's II-XII intact bilaterally and Yes Equal, round and reactive pupils present Cognition (Neuro): normal cognition Gait exam (Neuro): Normal gait present Motor exam (neuro): 5/5 motor strength present throughout and Pronator motor function not present Coordination: [id number] test normal and [id number] test normal Pupils: Normal pupillary reactivity/response: bilateral Extrem: General: Yes normal to inspection Right upper extremity: normal to inspection Left upper extremity: normal to inspection Right lower extremity: normal to inspection Left lower extremity: normal to inspection Medications Administered Discontinued Medications Generic Name Dose Route Start Last Admin Trade Name Freq PRN Reason Stop Dose Admin Diphenhydramine HCl 25 mg 07/20/25 15:04 07/20/25 15:28 Diphenhydramine Hcl 50 Mg/Ml Vial IVPUSH 07/20/25 15:05 25 mg ONCE ONE Administration Sodium Chloride 1,000 mls @ 999 mls/hr 07/20/25 15:06 07/20/25 16:20 Ns IV 07/20/25 16:06 Infused .Q1H1M ONE Infusion Ketorolac Tromethamine 15 mg 07/20/25 15:04 07/20/25 15:26 Ketorolac Tromethamine 15 Mg/Ml Vial IVPUSH 07/20/25 15:05 15 mg ONCE ONE Administration Metoclopramide HCl 10 mg 07/20/25 15:04 07/20/25 15:30 Metoclopramide Hcl 10 Mg/2 Ml Vial IVPUSH 07/20/25 15:05 10 mg ONCE ONE Administration Medical Decision Making Medical Decision Making MDM Narrative: 45-year-old male who presents with severe headache consistent with migraine; normal focal neurologic exam. On arrival, vital signs within normal limits, he is speaking full sentences under no acute distress. No red flag headache symptoms - no thunderclap onset. Hx of similar migraines in the past. Deferring CT head given hx of migraines, no thunderclap onset, no head injury, or any focal deficits on exam. Plan: * Initiate IV fluids. * Migraine cocktail: Toradol, Reglan, and Benadryl IV. * Counseled patient that Benadryl may cause drowsiness. * Lights dimmed for comfort. * Re-evaluate response after medications; provide additional care as needed. Pt re-evaluated after IV migraine cocktail and patient is feeling much better, smiling and eager for d/c. Pt given return precautions, he understands and agrees with plan. Pt stable for d.c. Differential Diagnosis Differential Diagnoses: The differential diagnosis associated with the presentation includes migraine headche, tension headache, cluster headache, sinusitis Lab Data MDM Lab Attestation statement: I reviewed the patient's lab results. negative Labs: Lab Results 07/20/25 Range/Units 13:06 Influenza Type A (PCR) NEGATIVE (Negative) Influenza Type B (PCR) NEGATIVE (Negative) RSV RNA Qual (PCR) NEGATIVE (Negative) SARS-CoV-2 RNA (RT-PCR) NEGATIVE (Negative) Discharge Plan Discharge Clinical Impression: Migraine headache Patient Disposition: Home, Self-Care Instructions: Migraine Headache (ED) Additional Instructions: You were seen in the emergency department for a migraine. We had medicated you with a migraine cocktail, which is a combination of Benadryl, Reglan, and Toradol. Do not take any other NSAIDs until tomorrow. NSAIDs for also known as anti- inflammatories, ibuprofen, aspirin, and naproxen. You may take Tylenol if needed. Please drink plenty of fluids and get plenty of rest. Please return to the emergency room if you develop any new or worsening symptoms including but not limited to severe sudden headache, fevers, neck stiffness, confusion weakness, revision changes. Please follow-up with your PCP regarding this visit. Prescriptions: No Action (DME) blood-glucose meter [FreeStyle [place]] Kit See Rx Instructions .ROUTE .MEDSUPPLY Qty: 1 0RF Rx Instructions: As directed check the BS TID glucose 4 gram tablet,chewable 16 g PO Q15M 30 Days Qty: 50 3RF (DME) lancets [FreeStyle Lancets] 28 gauge misc See Rx Instructions .ROUTE .MEDSUPPLY Qty: 300 3RF Rx Instructions: As directed check the BS TID (DME) FreeStyle Lite Strips Strip See Rx Instructions .ROUTE .MEDSUPPLY Qty: 300 1RF Rx Instructions: three times a day (DME) cane Device See Rx Instructions .Route Qty: 1 0RF Rx Instructions: As directed tadalafil 5 mg tablet 5 mg PO DAILY 90 Days Qty: 90 1RF pen needle, diabetic [BD Ultra-Fine Short Pen Needle] 31 gauge x 5/16 needle 1 ea subcut DAILY 90 Days Qty: 100 3RF cyclobenzaprine 10 mg tablet 10 mg PO TID PRN (Reason: muscle spasm) 30 Days Qty: 90 1RF meclizine 25 mg tablet 25 mg PO BID PRN (Reason: dizziness) 30 Days Qty: 60 0RF (DME) BD Luer-Enio Syringe 1 mL syringe See Rx Instructions .MEDSUPPLY Qty: 30 0RF Rx Instructions: Testosterone injection weekly (DME) BD Regular Bevel Brandon 18 gauge x 1 1/2 needle See Rx Instructions .MEDSUPPLY Qty: 30 0RF Rx Instructions: As directed to be used weekly for T injection (DME) BD Regular Bevel Brandon 25 gauge x 5/8 needle See Rx Instructions .MEDSUPPLY Qty: 30 0RF Rx Instructions: As directed - for testosterone subcutaneous injection lisinopril 5 mg tablet 5 mg PO DAILY 90 Days Qty: 90 2RF tadalafil 20 mg tablet 20 mg PO ONCE PRN (Reason: sexual activity) 30 Days Qty: 30 6RF Rx Instructions: On demand medication take 60 minutes before intended activity testosterone cypionate [Depo-Testosterone] 200 mg/mL oil 80 mg subcut QWEEK 28 Days Qty: 4 5RF Rx Instructions: Discard excess medication after use cholecalciferol (vitamin D3) 25 mcg (1,000 unit) capsule 25 mcg PO DAILY 90 Days Qty: 90 1RF fluticasone propion-salmeterol [Advair Diskus] 250-50 mcg/dose blister with device 1 inh inhalation BID 30 Days Qty: 60 0RF montelukast 10 mg tablet 10 mg PO BEDTIME 90 Days Qty: 90 1RF atorvastatin 40 mg tablet 40 mg PO BEDTIME 90 Days Qty: 90 0RF sumatriptan succinate 25 mg tablet 25 mg PO Q2-4H PRN (Reason: migraine headache) 30 Days Qty: 9 1RF Rx Instructions: do not exceed 8 doses per 24 hrs albuterol sulfate [Ventolin HFA] 90 mcg/actuation HFA aerosol inhaler 2 puff inhalation Q6H PRN (Reason: shortness of breath or wheezing) 30 Days Qty: 8 1RF ltlrmqwwjg-epffbunswljvh-acfe 50-325-40 mg tablet 1 tab PO Q6H PRN (Reason: haeadace) Qty: 20 0RF ketotifen fumarate [Alaway] 0.025 % (0.035 %) drops 1 drp ophthalmic (eye) Q8H PRN (Reason: allergy symptoms) Qty: 5 0RF Rx Instructions: do not exceed 2 doses in a 24 hour period diphenhydramine HCl [Benadryl] 25 mg capsule 50 mg PO TID PRN (Reason: allergic reaction) Qty: 20 0RF ondansetron 4 mg tablet,disintegrating 4 mg PO Q6H PRN (Reason: nausea and vomiting) Qty: 12 0RF prednisone 10 mg tablet 10 mg PO DIRECTED Qty: 42 0RF Rx Instructions: Take 60 mg (6 tabs) daily for 2 days. Then take 50 mg (5 tabs) daily for 2 days. Then take 40 mg (4 tabs) daily for 2 days. Then take 30 mg (3 tabs) daily for 2 days. Then take 20 mg (2 tabs) daily for 2 days. Then take 10 mg (1 tab) daily for 2 days. Then stop. buprenorphine-naloxone [Suboxone] 12-3 mg film 1 film buccal ONCE (DME) blood pressure test kit-large Kit See Rx Instructions .Route Qty: 1 0RF Rx Instructions: As directed ibuprofen 800 mg tablet 800 mg PO TID PRN (Reason: pain) quetiapine 300 mg tablet extended release 24 hr 300 mg PO BEDTIME zolpidem 10 mg tablet 10 mg PO BEDTIME PRN (Reason: insomnia) hydroxyzine HCl 50 mg tablet 50 mg PO Q8H PRN (Reason: anxiety) trazodone 150 mg tablet 150 mg PO DAILY venlafaxine 75 mg capsule,extended release 24hr 75 mg PO DAILY Jardiance 25 mg tablet 25 mg PO QAM Qty: 30 4RF ammonium lactate 12 % cream 1 appl topical BID venlafaxine 150 mg capsule,extended release 24hr 150 mg PO DAILY metformin 500 mg tablet 500 mg PO BID 90 Days Qty: 180 1RF albuterol sulfate 2.5 mg /3 mL (0.083 %) solution for nebulization 2.5 mg inhalation Q6H 30 Days Qty: 360 4RF pantoprazole 40 mg tablet,delayed release (DR/EC) PO buspirone 30 mg tablet 30 mg PO BID Mounjaro 7.5 mg/0.5 mL pen injector 7.5 mg subcut QWEEK dicyclomine 20 mg tablet 20 mg PO QID 30 Days Qty: 120 6RF topiramate 25 mg tablet 25 mg PO DAILY 30 Days Qty: 30 3RF lorazepam [Ativan] 1 mg tablet 2 mg PO ONCE PRN (Reason: anxiety) 1 Days Qty: 2 0RF Rx Instructions: Take 1 to 2 tabs as needed before the MrI. Interventions: ED Discharge Assessment Last Done: 07/20/25 17:17 Discharge Date/Time: 07/20/25 17:24 Print Language: Bel[place]ian
[2025-07-20 17:17] VITALS: BP 132/76; PULSE 72; RESP 15; TEMP 36.5
== END 2025-07-20 17:24 | disposition home or self-care (01) ==
PROVIDERS: Emergency Provider Emergency Medicine; PCP Internal Medicine
DX: G43.909 Migraine, unspecified, not intractable, without status migrainosus (principal); E11.9 Type 2 diabetes mellitus without complications; Z03.818 Encounter for observation for suspected exposure to other biological agents ruled out
CPT/HCPCS: 87637; 96361; 96374; 96375; 99284; J1200; J1885; J2765

== ENCOUNTER 2025-07-31 13:29 | Outpatient (AMB) | payer MEDICARE, MEDICAID, SELFPAY ==
--- OUTSIDE RECORDS SUMMARY | 2016-10-25 | XMS_ITS | Encounter Summary ---
Author Organization [facility] Address [address] [place] [address] Phone Care Team Providers Care Typists Supervisor Name Role Phone Ayah Mir MD Primary Care Provid er Reason for Visit * MRI/CAT Scan - Closed Specialty Diagnoses / Procedures Referred By Contac t Referred To Contact Procedures MRI Spine (Bone) Outside (No Interpretation) Domingo Giraldo MD [address] [address] Phone: tel: fax: mailto:[email or web address] Referral ID Status Reason Start Date Expiration Date Visits Re quested Visits Authorized [id number] Closed 04/26/2017 04/26/2018 1 1 Encounter Details Date Type Department Care Team (Late st Contact Info) Description 10/25/2016 Hospital Encounter [facility] Imaging [address] [place] [address] Domingo Giraldo MD [address] [address] [email or web address] Social History Tobacco Use Types Packs/Day Years [...] (No Interpretation) (10/25/2016 12:00 AM EST) Narrative [facility] IMG INTERFACES - 04/26/2017 2:40 PM EDT This study is for PACS storage only and not for interpretation. us Domingo Giraldo MD IMG OUTSIDE IMAGING W /OUT INTERPRETATION Final Result [facility] IMG INTERFACES documented in this encounter Visit Diagnoses Not on filedocumented in this encounter Care Teams Typists Supervisor Relationship Specialty Start Date End Date Ayah Mir MD [address] [place] [address] PCP - General 09/09/16 documented as of this encounter Additional Source Comments The information contained in this document represents components of the legal health record. It is not the complete legal health record.[facility]
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
[2025-07-31 13:34] VITALS: BP 150/80; PULSE 92; O2SAT 94; BMI 28.6
--- OUTSIDE RECORDS SUMMARY | 2025-07-31 16:37 | XMS_ITS | Encounter Summary ---
Author Organization Located Within [facility] Address [address] [place] [address] Phone Care Team Providers Care Sisal Operator Name Role Phone Ayah Mir MD Primary Care Provid er Encounter Details Date Type Department Care Team (Late st Contact Info) Description 04/26/2017 Procedure Pass [facility] [address] [place] [address] Social History Tobacco Use Types Packs/Day Years [...] on filedocumented in this encounter Care Teams Sisal Operator Relationship Specialty Start Date End Date Ayah Mir MD [address] [place] [address] PCP - General 09/09/16 documented as of this encounter Additional Source Comments The information contained in this document represents components of the legal health record. It is not the complete legal health record.[facility]
--- OUTSIDE RECORDS SUMMARY | 2025-07-31 16:37 | XMS_ITS | Encounter Summary ---
Author Organization [facility] Address [address] [place] [address] Phone Care Team Providers Care Bridge Mechanic Name Role Phone Ayah Mir MD Primary Care Provid er Reason for Referral * Consultation (Within 1 month) - Closed Specialty Diagnoses / Procedures Referred By Contgarrett t Referred To Contact Rheumatology System, Provider Not In, PhD [id number] [place] [phone] Phone: tel: Referral ID Status Reason Start Date Expiration Date Visits Re quested Visits Authorized [id number] Closed 12/27/2017 12/27/2018 1 1 Encounter Details Date Type Department Care Team (Late st Contact Info) Description 12/27/2017 Transcribe Orders [facility] [address], [address] [place] [address] Jacinto Wheeler MD [address] [place] [address] Dr [facility] [place] [id number] Social History Tobacco Use Types Packs/Day Years [...] Associated Diagnoses Order Schedule Ambulatory referral to [facility] Outpatient Referral Routine Ordered: 12/27/2017 documented as of this encounter Visit Diagnoses Not on filedocumented in this encounter Care Teams Bridge Mechanic Relationship Specialty Start Date End Date Ayah Mir MD [address] [place] [address] PCP - General 09/09/16 documented as of this encounter Additional Source Comments The information contained in this document represents components of the legal health record. It is not the complete legal health record.[facility]
--- OUTSIDE RECORDS SUMMARY | 2025-07-31 16:37 | XMS_ITS | Clinical Summary ---
Author Organization [facility] Address [address] [place] [address] Phone Care Team Providers Care Hand Umbrella Tipper Name Role Phone Ayah Mir MD Primary [...] this topic Medical Devices Implanted Type Area Land Agent Device Identifier Shelf Expiration Date Model / Serial / Lot Left Ankle Hardware Insurance DonorPathHEALTH MEDICARE PART A & [place] & [place] MEDICARE PART A & [place] & [place] & [place] PART [place] & [place] MEDICARE PART A & [place] [address] [place] [address]HEALTH MEDICARE PART A & B Care Teams Hand Umbrella Tipper Relationship Specialty Start Date End Date Ayah Mir MD [address] [place] [address] PCP - General 09/09/16 Additional Source Comments The information contained in this document represents components of the legal health record. It is not the complete legal health record.[facility]
--- OUTSIDE RECORDS SUMMARY | 2025-07-31 16:37 | XMS_ITS | Encounter Summary ---
Author Organization [facility] Address [address] [facility] [address] [place] [address] Phone Care Team Providers Care Indoor Landscape Architect Name Role Phone Ayah Mir MD Primary Care Provid er Reason for Referral * Consultation (Within 1 month) - Closed Specialty Diagnoses / Procedures Referred By Contgarrett t Referred To Contact Rheumatology Diagnoses Arthralgia of hand, unspecified laterality System, Provider Not In, PhD [facility] [address] [address] Rashard Bashir MD Phone: tel: fax: mailto:[email or web address] Referral ID Status Reason Start Date Expiration Date Visits Re quested Visits Authorized [id number] Closed 02/28/2018 02/28/2019 1 1 Encounter Details Date Type Department Care Team (Latest Contact Info) Description 02/28/2018 Transcribe Orders [facility] [place] [address], 4th Floor, [address] [place] [address] Jacinto Wheeler MD [address] [place] [address] [place] [address] Arthralgia of hand, unspecified laterality (Primary Dx) [...] Diagnoses Orde r Schedule Amb[place] [facility] [place] Outpatient Referral Routine Arthralgia of hand, unspecified laterality Ordered: 02/28/2018 documented as of this encounter Visit Diagnoses Diagnosis Arthralgia of hand, unspecified laterality- Primary documented in this encounter Care Teams Indoor Landscape Architect Relationship Specialty Start Date End Date Ayah Mir MD [address] [place] [address] PCP - General 09/09/16 documented as of this encounter Additional Source Comments The information contained in this document represents components of the legal health record. It is not the complete legal health record.[facility]
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
--- OUTSIDE RECORDS SUMMARY | 2025-07-31 16:38 | XMS_ITS | Encounter Summary ---
Author Organization [facility] Address [address] [place] [address] Phone Care Team Providers Care Draft Roller Picker Name Role Phone Ayah Mir MD Primary Care Provid er Encounter Details Date Type Department Care Team (Late st Contact Info) Description 04/26/2017 Procedure Pass [facility] Imaging [address] [place] [address] Social History Tobacco Use Types Packs/Day Years [...] on filedocumented in this encounter Care Teams Draft Roller Picker Relationship Specialty Start Date End Date Ayah Mir MD [address] [place] [address] PCP - General 09/09/16 documented as of this encounter Additional Source Comments The information contained in this document represents components of the legal health record. It is not the complete legal health record.[facility]
--- OUTSIDE RECORDS SUMMARY | 2025-07-31 16:38 | XMS_ITS | Clinical Summary ---
Author Organization [address] [facility] Address [address] [place] [address] Phone Care Team Providers Care Caramel Coloring Operator Name Role Phone Ayah Peña MD Primary Care Provider [phone] Allergies No known active allergies Medications albuterol HFA (PROAIR HFA ; PROVENTIL HFA ; VENTOLIN HFA) 90 mcg/actuation inhaler Inhale 2 puffs by mouth once daily as needed. Active albuterol 2.5 mg /3 mL (0.083 %) nebulizer solution 04/26/20 24 Active atorvastatin (LIPITOR) 40 mg tablet Take 1 tablet (40 mg total) by mouth 1 (one) time each day. 03/11/20 25 Active Suboxone 12-3 mg film TAKE 1 FILM SUBLINGUALLY EVERY DAY Active busPIRone (BUSPAR) 15 mg tablet Take 1 tablet (15 mg total) by mouth. 12/29/19 19 Active busPIRone (BUSPAR) 30 mg tablet 03/13/20 25 Active butalbital-amara taminophen-caf feine (FIORICET, ESGIC) 50-325-40 mg per tablet take 1 tablet by mouth every 6 hours as needed for headache 09/15/19 25 Active dicyclomine (BENTYL) 10 mg capsule Take 1 capsule (10 mg total) by mouth. 02/16/20 25 Active Jardiance 25 mg tablet See Instructions, KIET 1 TABLETA POR LA BOCA POR LA MANANA, # 30 tablet, 1 Refills, Maintenance, 12/28/24 1:28:00 PM EDT, [facility], 178, cm, 06/28/24 13:00:00 EDT, Height, 103, kg, 04/19/24 19:47:00 EDT, Dry Weight 12/29/19 Active fenofibrate (TRICOR) 145 mg tablet 12/05/19 Active Wixela Inhub 250-50 mcg/dose diskus inhaler INHALE 1 PUFF TWICE A DAY FOR ASTHMA FOR 30 DAYS 04/01/20 Active gabapentin (NEURONTIN) 300 mg capsule Take 1 capsule (300 mg total) by mouth. 12/29/19 Active hydrOXYzine HCL (ATARAX) 50 mg tablet Take 1 tablet (50 mg total) by mouth 2 times daily as needed. 05/25/20 Active lisinopriL (PRINIVIL,ZEST RIL) 5 mg tablet 02/02/20 Active mesalamine (DELZICOL) 400 mg capsule (with del rel tablets) DR capsule Take 2 capsules (800 mg total) by mouth 2 (two) times a day. 03/31/20 Active montelukast (SINGULAIR) 10 mg tablet Take 1 tablet (10 mg total) by mouth. at bedtime. Active predniSONE (DELTASONE) 20 mg tablet Take 3 tablets (60 mg total) by mouth 1 (one) time each day. 03/17/20 Active QUEtiapine XR (SEROquel XR) 300 mg 24 hr tablet Take 1 tablet (300 mg total) by mouth at bedtime. 05/25/20 Active SUMAtriptan (IMITREX) 25 mg tablet TAKE 1 TABLET ORALLY EVERY 2-4 HOURS NEEDED FOR MIGRAINE HEADACHE FOR 30 DAYS MAX 8 DOSES/24 HRS 03/27/20 Active testosterone cypionate (DEPO-TESTOTER ONE) 200 mg/mL injection 03/14/20 Active Mounjaro 7.5 mg/0.5 mL injection every 7 (seven) days. Active tiZANidine (ZANAFLEX) 4 mg tablet Take 1 tablet (4 mg total) by mouth 3 times daily as needed. 05/30/20 Active traZODone (DESYREL) 150 mg tablet Take 1 tablet (150 mg total) by mouth at bedtime. 05/16/20 Active venlafaxine XR (EFFEXOR-XR) 150 mg 24 hr capsule 03/11/20 Active venlafaxine XR (EFFEXOR-XR) 75 mg 24 hr capsule Take 1 capsule (75 mg total) by mouth daily. 05/25/20 Active Ambien 10 mg tablet Take 1 tablet (10 mg total) by mouth at bedtime as needed. 06/11/20 Active terbinafine (LamISIL) 250 mg tabletIndicati ons:Acquired hallux valgus of left foot,Dermatoph ytosis of nail Take 1 tablet (250 mg total) by mouth 1 (one) time each day. 30 tablet 2 05/09/20 25 025 Active polyethylene glycol (Golytely) 236-22.74-6.74 -5.86 gram solution Take 4L by mouth once for one dose. May substitue any PEG. Starting at 2PM the day before your procedure drink 1 8oz glasses at your own pace until you complete half of the gallon. Finish 2nd half of the gallon at 8PM. 4000 mL 06/27/20 25 Active bisacodyL (DULCOLAX) 5 mg EC tablet Take 2 tablets by mouth right before beginning bowel prep. See instructions provided by the office 2 tablet 06/27/20 Active pantoprazole (PROTONIX) 40 mg EC tablet Take 1 tablet (40 mg total) by mouth 1 (one) time each day before breakfast. Do not crush, chew, or split. 90 each 07/31/20 25 026 Active omeprazole (PriLOSEC) [address] capsule Take 1 capsule (20 mg total) by mouth daily. 025 Discontinued terbinafine (LamISIL) 250 mg tablet Take 1 tablet (250 mg total) by mouth 1 (one) time each day. Patient having issue getting refill for 90 day course 30 each 06/12/20 25 025 Active Problems Problem Noted Date Diagnosed Date Rectal bleeding 04/11/2025 Encounters Date Type Department Care Team Description 07/11/2025 7:42 AM EST Anesthesia Event [facility] [address] [place] [address] Tamir Dela Cruz DO 07/11/2025 6:45 AM EST - 07/11/2025 11:59 PM EST Hospital Encounter [facility] [address] [place] [phone] Chinmay Orellana MD Georgette, Nathaniel, CRNA Diarrhea, unspecified type; Rectal bleeding Discharge Disposition: Home or Self Care 06/12/2025 9:30 AM EDT Office Visit [facility] [address] [address] Nicola Amaro DPM Dermatophytosis of nail (Primary Dx); Acquired hallux valgus of left foot; Tailor's bunionette, right 05/08/2025 Telephone [facility] [address] [address] Nicola Amaro DPM 05/07/2025 9:45 AM EDT Consult [facility] [address] [address] Nicola Amaro DPM Dermatophytosis of nail (Primary Dx); Type 2 diabetes mellitus without complications (CMS/HCC V24, CMS/HCC V28); Acquired hallux valgus of left foot; Tailor's bunionette, right from Last 3 Months Medical History Medical History Date Comments Diabetes mellitus type 2, co ntrolled, with complications (CMS/HCC V24, CMS/HCC V28) DX:Diabetes mellitus type 2, controlled, with complications ([facility]) Esophageal reflux DX:Esophageal reflux Epigastric [...] AM EST Office Visit [facility] [place] [address] [address] Nicola Amaro, DPM [address] [address] Health Maintenance Due Date Last [...] Control Test (HGBA1C) 02/08/2025 COVID-19 Vaccine ( season) 2025 03/02/2021, 01/22/2021 Influenza Vaccine (#1) 2025 0, 06/25/2019, 08/21/2013, Additional history exists DTaP,Tdap,and Td [...] Care Plan Autogenerated Problem No Arvin Porras Procedures Procedure Name Priority Date/Time Associated Diagnosis Comments COLONOSCOPY Routine 07/11/2025 8:00 AM EST Diarrhea, unspecified type Rectal bleeding from Last 3 Months Results * COLONOSCOPY Anesthesia - MAC; [facility] ENDOSCOPY (07/11/2025 8:00 AM EST) Anatomical Region Laterality Modality Other 07/11/2025 7:46 AM EST Impressions 07/11/2025 8:03 AM EST - Non-bleeding internal hemorrhoids. - No specimens collected. Recommendation: - Use fiber, for example Citrucel, Fibercon, Konsyl or Metamucil. - Repeat colonoscopy in 10 years for screening purposes. Narrative 07/11/2025 8:03 AM EST [facility] GI Patient Name: Roland Ramirez Procedure [...] not prolapse). Procedure Code(s): --- Professional --- 66718, Colonoscopy, flexible; diagnostic, including collection of specimen(s) by brushing or washing, when performed (separate procedure) Diagnosis Code(s): --- Professional --- K64.0, First degree hemorrhoids K92.1, Melena (includes Hematochezia) CPT copyright 2020 [employer]. All rights reserved. The codes documented in this report are preliminary and upon vertical boring mill operator review may be revised to meet current compliance requirements. Chinmay Orellana MD 07/11/2025 8:02:48 AM This report has been signed electronically.Chinmay Orellana MD Number of Addenda: 0 Note Initiated On: 07/11/2025 7:46 AM Scope In: Scope Out: Endoscopy Department at [facility] - [address] [place] [phone] Procedure Note Chinmay Orellana MD - 07/11/2025 [facility] Patient Name: Roland Ramirez Procedure [...] not prolapse). Procedure Code(s): --- Professional --- 49928, Colonoscopy, flexible; diagnostic, including collection of specimen(s) by brushing or washing,when performed (separate procedure) Diagnosis Code(s): --- Professional --- K64.0, First degree hemorrhoids K92.1, Melena (includes Hematochezia) CPT copyright 2020 [employer]. All rights reserved. The codes documented in this report are preliminary and upon vertical boring mill operator reviewmay be revised to meet current compliance requirements. Chinmay Orellana MD 07/11/2025 8:02:48 AM This report has been signed electronically.Chinmay Orellana MD Number of Addenda: 0 Note Initiated On: 07/11/2025 7:46 AM Scope In: Scope Out: Endoscopy Department at [facility] - [address] [place] [phone] IMPRESSION: - Non-bleeding internal hemorrhoids. - No specimens collected. Recommendation: - Use fiber, for example Citrucel, Fibercon, Konsylor Metamucil. - Repeat colonoscopy in 10 years for screening purposes. Chinmay Orellana MD GI~PROCEDURE ORDERABLES Final Re sult from Last 3 Months Additional Health Concerns Active Problems Noted Date Diagnosed Date Autogenerated Problem 06/12/2025 Insurance MEDICARE MEDICAID - [place] Care Teams Caramel Coloring Operator Relationship Specialty Start Date End Date Ayah Peña MD [address] [facility] , [address] [facility] D[facility]B/A: [facility] [place], [place] PCP - General Internal Medicine 05/31/19
--- OUTSIDE RECORDS SUMMARY | 2025-07-31 16:38 | XMS_ITS | Encounter Summary ---
Author Organization [facility] Address [address] [facility] [address] [place] [address] Phone Care Team Providers Care Credit Administration Specialist Name Role Phone Ayah Mir MD Primary Care Provid er Encounter Details Date Type Department Care Team (Late st Contact Info) Description 12/20/2016 Procedure Pass [facility] [address] [place] [address] Social History Tobacco Use Types Packs/Day Years [...] on filedocumented in this encounter Care Teams Credit Administration Specialist Relationship Specialty Start Date End Date Ayah Mir MD [address] [place] [address] PCP - General 09/09/16 documented as of this encounter Additional Source Comments The information contained in this document represents components of the legal health record. It is not the complete legal health record.[facility]
== END 2025-07-31 15:14 | disposition home or self-care (01) ==
LOC: HO.HSMS 13:30
PROVIDERS: PCP Internal Medicine; Visit Provider Nurse Practitioner Family
DX: R51.9 Headache, unspecified (principal); G43.109 Migraine with aura, not intractable, without status migrainosus; G47.33 Obstructive sleep apnea (adult) (pediatric); F41.9 Anxiety disorder, unspecified; F32.9 Major depressive disorder, single episode, unspecified
CPT/HCPCS: 99204

== ENCOUNTER → 2025-07-31 13:29 | Outpatient (BNVA) | payer MEDICARE, MEDICAID, SELFPAY | PROVIDERS: PCP Internal Medicine; Visit Provider Nurse Practitioner Family | DX: G43.109 Migraine with aura, not intractable, without status migrainosus (principal); G47.33 Obstructive sleep apnea (adult) (pediatric); Z99.89 Dependence on other enabling machines and devices; F41.9 Anxiety disorder, unspecified; F32.9 Major depressive disorder, single episode, unspecified; Z87.891 Personal history of nicotine dependence | CPT/HCPCS: 99202 ==

== ENCOUNTER 2025-09-02 11:17 | Outpatient (REF) | payer MEDICARE, MEDICAID, SELFPAY ==
--- OUTSIDE RECORDS SUMMARY | 2016-10-25 | XMS_ITS | Encounter Summary ---
Author Organization [facility] Address [address] [place] [address] Phone Care Team Providers Care Phone Banker Name Role Phone Ayah Mir MD Primary Care Provid er Reason for Visit * MRI/CAT Scan - Closed Specialty Diagnoses / Procedures Referred By Contac t Referred To Contact Procedures MRI Spine (Bone) Outside (No Interpretation) Domingo Giraldo MD [address] [address] Phone: tel: fax: mailto:[email or web address] Referral ID Status Reason Start Date Expiration Date Visits Re quested Visits Authorized [id number] Closed 04/26/2017 04/26/2018 1 1 Encounter Details Date Type Department Care Team (Late st Contact Info) Description 10/25/2016 Hospital Encounter [facility] Imaging [address] [place] [address] Domingo Giraldo MD [address] [address] [email or web address] Social History Tobacco Use Types Packs/Day Years [...] (No Interpretation) (10/25/2016 12:00 AM EST) Narrative [facility] [place]G INTERFACES - 04/26/2017 2:40 PM EDT This study is for PACS storage only and not for interpretation. us Domingo Giraldo MD IMG OUTSIDE IMAGING W /OUT INTERPRETATION Final Result [facility] documented in this encounter Visit Diagnoses Not on filedocumented in this encounter Care Teams Phone Banker Relationship Specialty Start Date End Date Ayah Mir MD [address] [place] [address] PCP - General 09/09/16 documented as of this encounter Additional Source Comments The information contained in this document represents components of the legal health record. It is not the complete legal health record.[facility]
[2025-09-02 12:06] LABS: Hematocrit 48.7 % (42.0-52.0); Hemoglobin 16.5 g/dl (14.0-18.0); Mean Corpuscular HGB Conc 33.9 g/dl (31.0-36.0); Mean Corpuscular Hemoglobin 30.2 pg (27.0-33.0); Mean Corpuscular Volume 89.2 fL (80.0-98.0); NRBC Abs Auto 0.000 X10*3/uL (0.0-0.012); NRBC Pct Auto 0.0 /100WBC (0.0-0.2); Platelet Count 222 X10*3/uL (160-400); Red Blood Count 5.46 X10*6/uL (4.60-5.80); White Blood Count 6.3 X10*3/uL (4.8-10.8)
[2025-09-02 12:53] LABS: Prostate Specific Antigen 0.46 ng/mL (<0.05-4.0)
--- OUTSIDE RECORDS SUMMARY | 2025-09-02 13:16 | XMS_ITS | Encounter Summary ---
Author Organization [facility] Address [address] [facility] [address] [place] [address] Phone Care Team Providers Care Health Care Specialist Name Role Phone Ayah Mir MD Primary Care Provid er Reason for Referral * Consultation (Within 1 month) - Closed Specialty Diagnoses / Procedures Referred By Contac t Referred To Contact Rheumatology System, Provider Not In, PhD [id number] [place] [phone] Phone: tel: Referral ID Status Reason Start Date Expiration Date Visits Re quested Visits Authorized [id number] Closed 12/27/2017 12/27/2018 1 1 Encounter Details Date Type Department Care Team (Late st Contact Info) Description 12/27/2017 Transcribe Orders [facility] [address] [place] [address], 4th Floor, [address] [place] [address] Jacinto Wheeler MD [address] [place] [address] Dr Murillo [address] [place], [place] [address] [address] Social History Tobacco Use Types Packs/Day Years [...] Associated Diagnoses Order Schedule Ambulatory referral [place] [facility] [place] Outpatient Referral Routine Ordered: 12/27/2017 documented as of this encounter Visit Diagnoses Not on filedocumented in this encounter Care Teams Health Care Specialist Relationship Specialty Start Date End Date Ayah Mir MD [address] [place] [address] PCP - General 09/09/16 documented as of this encounter Additional Source Comments The information contained in this document represents components of the legal health record. It is not the complete legal health record.[facility]
--- OUTSIDE RECORDS SUMMARY | 2025-09-02 13:16 | XMS_ITS | Encounter Summary ---
Author Organization [facility] Address [address] [place] [address] Phone Care Team Providers Care Senior Functional Analyst Name Role Phone Ayah Mir MD Primary Care Provid er Encounter Details Date Type Department Care Team (Late st Contact Info) Description 04/26/[address] [facility] Imaging [address] [place] [address] Social History Tobacco Use Types Packs/Day Years [...] on filedocumented in this encounter Care Teams Senior Functional Analyst Relationship Specialty Start Date End Date Ayah Mir MD [address] [place] [address] PCP - General 09/09/16 documented as of this encounter Additional Source Comments The information contained in this document represents components of the legal health record. It is not the complete legal health record.[facility]
--- OUTSIDE RECORDS SUMMARY | 2025-09-02 13:16 | XMS_ITS | Clinical Summary ---
Author Organization [facility] Address [address] [place] [address] Phone Care Team Providers Care Fraud Manager Name Role Phone Ayah Mir MD [...] this topic Medical Devices Implanted Type Area Gas Reverser Device Identifier Shelf Expiration Date Model / Serial / Lot Left Ankle Hardware Insurance [employer] MEDICARE PART A & [place] MED[place]ARE PART A & [place] & B Member Subscriber Plan / Payer (Ef fective 2011-Present) Name:Roland Torres Member ID:[id number] Relation to Subscriber:Self Name:Roland Torres Subscriber ID:[id number] Payer ID:[id number] Group ID:Not on file Type:Medicare Address: [facility] My Best Interest [facility] [address] [place] [address] [place], [place] [address]HEALTH MEDICARE PART A & B Care Teams Fraud Manager Relationship Specialty Start Date End Date Ayah Mir MD [address] [place] [address] PCP - General 09/09/16 Additional Source Comments The information contained in this document represents components of the legal health record. It is not the complete legal health record.[facility]
--- OUTSIDE RECORDS SUMMARY | 2025-09-02 13:16 | XMS_ITS | Patient Health Record ---
Author Organization [facility] Address [address] [place] [address] Care Team Providers Care Religion Professor Name Role Phone Ayah Mir Primary Care Provider [place]ano Flanagan Jr Unavailable [phone] Reason For Referral No Information Medications Medication SIG (Take, Route, Frequency, Duration) Notes Start Date End Date Status KlonoPIN Active flovent HFA Active Colyte with Flavor Packs 240 GM Solution Reconstituted As directed Orally Over the specified time.; Duration: 1 day(s) 08/27/2015 Active ProAir HFA Active Dicyclomine HCl 20 MG Tablet 1 tablet Or ally 2-4 times a day 08/27/2015 Active Asmanex HFA Active albuterol Active Omeprazole 20 MG Capsule Delayed Release 1 capsule Orally Twice a day; Duration: 30 days 08/27/2015 Active Singulair Active Zolpidem Tartrate Ac tive SEROquel Active Social History Social History Additional Details Category Social Info Options Details Miscellaneous: Marital status: Occupation: disabled Problems Problem Type SNOMED Code ICD Code Onset Dates Problem Status W/U Status Risk Notes Problem Gastro-esophagea l reflux disease without esophagitis (505882681) Gastro-esophage al reflux disease without esophagitis (K21.9) Active confirmed Problem Colitis (32677933) Colitis (K52.9) Active confirmed Plan Of Treatment Future Test Test Name Order Date UPPER GI ENDOSCOPY 08/27/2015 COLONOSCOPY 08/27/2015 Insurance Providers Payer Name Payer Address Payer Phone Subscriber Number Group Number Insured Name Patient Relationship to Insured Coverage Start Date Coverage End Date MEDICARE OF [place] [address] [id number] KARYN TUCKER Self - patient is the insured MEDICAID OF [facility] [address] [place] [address] [id number] KARYN TUCKER Self - patient is the insured Medical (General) History Medical History History ICD Code asthma Denies CA,DM,CVA,renal disease Surgical History Surgery Date(Month/Year) left elbow 2000 left foot 2010
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
--- OUTSIDE RECORDS SUMMARY | 2025-09-02 13:16 | XMS_ITS | Encounter Summary ---
Author Organization [facility] Address [address] [facility] [address] [place] [address] Phone Care Team Providers Care Drying Oven Attendant Name Role Phone Ayah Mir MD Primary Care Provid er Reason for Referral * Consultation (Within 1 month) - Closed Specialty Diagnoses / Procedures Referred By Contgarrett whitehead Referred To Contact Rheumatology Diagnoses Arthralgia of hand, unspecified laterality System, Provider Not In, PhD [facility] [address] [address] Rashard Bashir MD Phone: tel: fax: mailto:[email or web address] Referral ID Status Reason Start Date Expiration Date Visits Re quested Visits Authorized [id number] Closed 02/28/2018 02/28/2019 1 1 Encounter Details Date Type Department Care Team (Latest Contact Info) Description 02/28/2018 Transcribe Orders [facility] [address] [place] [address], 4th Floor, [address] [place] [address] Jacinto Wheeler MD [address] [place] [address] [place] [address] Arthralgia of hand, unspecified laterality (Primary Dx) [...] Diagnoses Orde r Schedule Ambulatory referral to [facility] [place] Outpatient Referral Routine Arthralgia of hand, unspecified laterality Ordered: 02/28/2018 documented as of this encounter Visit Diagnoses Diagnosis Arthralgia of hand, unspecified laterality- Primary documented in this encounter Care Teams Drying Oven Attendant Relationship Specialty Start Date End Date Ayah Mir MD [address] [place] [address] PCP - General 09/09/16 documented as of this encounter Additional Source Comments The information contained in this document represents components of the legal health record. It is not the complete legal health record.[facility]
--- OUTSIDE RECORDS SUMMARY | 2025-09-02 13:17 | XMS_ITS | Encounter Summary ---
Author Organization [facility] Address [address] [place] [address] Phone Care Team Providers Care Base Loader Name Role Phone Ayah Mir MD Primary Care Provid er Encounter Details Date Type Department Care Team (Late st Contact Info) Description 04/26/2017 Procedure Pass [facility] [address] [place] [address] Social History Tobacco Use Types Packs/Day Years [...] on filedocumented in this encounter Care Teams Base Loader Relationship Specialty Start Date End Date Ayah Mir MD [address] [place] [address] PCP - General 09/09/16 documented as of this encounter Additional Source Comments The information contained in this document represents components of the legal health record. It is not the complete legal health record.[facility]
--- OUTSIDE RECORDS SUMMARY | 2025-09-02 13:17 | XMS_ITS | Clinical Summary ---
Author Organization [address] [facility] Address [address] [place] [address] Phone Care Team Providers Care Sisal Picker Name Role Phone Ayah Peña MD Primary Care Provider [phone] Allergies No known active allergies Medications albuterol [...] mouth at bedtime as needed. 2 Active polyethylene glycol (Golytely) 236-22.74-6.74 -5.86 gram [...] by the office 2 tablet 5 Active pantoprazole (PROTONIX) 40 mg EC tablet Take 1 tablet (40 mg total) by mouth 1 (one) time each day before breakfast. Do not crush, chew, or split. 90 each 5 10/29/19 26 Active terbinafine (LamISIL) 250 mg tabletIndicati ons:Acquired hallux valgus of left foot,Dermatoph ytosis of nail Take 1 tablet (250 mg total) by mouth 1 (one) time each day. 30 tablet 2 5 08/07/20 25 Active Problems Problem Noted Date Diagnosed Date Rectal bleeding 04/11/2025 Encounters Date Type Department Care Team Description 09/02/2025 Telephone Orthopedic Surgery - [place] [facility] [address] [place] [address] Amanda Lopez 07/11/2025 7:42 AM EST Anesthesia Event [facility] [address] [place] [address] Tamir Dela Cruz DO 07/11/2025 6:45 AM EST - 07/11/2025 11:59 PM EST Hospital Encounter [facility] [address] [place] [address] Orellana, Chinmay, MD Julissa, Ramírez, FEATURES REPORTER Diarrhea, unspecified type; Rectal bleeding Discharge Disposition: Home or Self Care 06/12/2025 9:30 AM EDT Office Visit Orthopedic Surgery [facility] [address] [phone] Nicola Amaro, DPM Dermatophytosis of nail (Primary Dx); Acquired hallux valgus of left foot; Tailor's bunionette, right from Last 3 Months Medical History Medical History Date Comments Diabetes mellitus type 2, co ntrolled, with complications (CMS/HCC V24, [facility]/HCC V28) DX:Diabetes mellitus type 2, controlled, with complications ([facility]) Esophageal reflux DX:Esophageal reflux Epigastric pain DX:Epigastric [...] PM EDT Sexual Orientation Not on file Last Filed [...] Care Team (Late st Contact Info) Description 10/30/2025 2:15 PM EST Office Visit Orthopedic Surgery [facility] [address] [phone] Nicola Amaro DPM [address] [phone] 11/12/2025 2:15 PM EDT Office Visit Orthopedic Surgery - [place] [address] [address] Nicola Amaro DPM [address] [phone] Health Maintenance Due Date Last Done Comments Diabetes: Annual GFR (Glomerular Filtration Rate) 1980 Drug Screen 1980 Non-Opioid Controlled Substance Agreement 1980 Diabetes: Annual Foot Exam 1990 Diabetes: [...] 3 Months Results * COLONOSCOPY Anesthesia - [facility]; [facility] END[facility]COPY (07/11/2025 8:00 AM EST) Anatomical Region Laterality Modality Other 07/11/2025 7:46 AM EST Impressions 07/11/2025 8:03 AM EST - Non-bleeding internal hemorrhoids. - No specimens collected. Recommendation: - Use fiber, for example Citrucel, Fibercon, Konsyl or Metamucil. - Repeat colonoscopy in 10 years for screening purposes. Narrative 07/11/2025 8:03 AM EST [facility] GI Patient Name: Roland Ramirez Procedure [...] not prolapse). Procedure Code(s): --- Professional --- 53782, Colonoscopy, flexible; diagnostic, including collection of specimen(s) by brushing or washing, when performed (separate procedure) Diagnosis Code(s): --- Professional --- K64.0, First degree hemorrhoids K92.1, Melena (includes Hematochezia) CPT copyright 2020 [employer]. All rights reserved. The codes documented in this report are preliminary and upon regroover review may be revised to meet current compliance requirements. Chinmay Orellana MD 07/11/2025 8:02:48 AM This report has been signed electronically.Chinmay Orellana MD Number of Addenda: 0 Note Initiated On: 07/11/2025 7:46 AM Scope In: Scope Out: Endoscopy Department at [facility] - [address] [place] [phone] Procedure Note Chinmay Orellana MD - 07/11/2025 [facility] GI Patient Name: Roland Ramirez Procedure [...] not prolapse). Procedure Code(s): --- Professional --- 42040, Colonoscopy, flexible; diagnostic, including collection of specimen(s) by brushing or washing,when performed (separate procedure) Diagnosis Code(s): --- Professional --- K64.0, First degree hemorrhoids K92.1, Melena (includes Hematochezia) CPT copyright 2020 [employer]. All rights reserved. The codes documented in this report are preliminary and upon regroover reviewmay be revised to meet current compliance requirements. Chinmay Orellana MD 07/11/2025 8:02:48 AM This report has been signed electronically.Chinmay Orellana MD Number of Addenda: 0 Note Initiated On: 07/11/2025 7:46 AM Scope In: Scope Out: Endoscopy Department at [address] [phone] IMPRESSION: - Non-bleeding internal hemorrhoids. - No specimens collected. Recommendation: - Use fiber, for example Citrucel, Fibercon, Konsylor Metamucil. - Repeat colonoscopy in 10 years for screening purposes. us Chinmay Orellana MD GI~PROCEDURE ORDERABLES Final Re sult from Last 3 Months Additional Health Concerns Active Problems Noted Date Diagnosed Date Autogenerated Problem 06/12/2025 Insurance MEDICARE MEDICAID - [place] Care Teams Sisal Picker Relationship Specialty Start Date End Date Ayah Peña MD [address] [facility] , [address] [facility] Physician Associ D/B/A: [facility] [place] PCP - General Internal Medicine 05/31/19
--- OUTSIDE RECORDS SUMMARY | 2025-09-02 13:17 | XMS_ITS | Encounter Summary ---
Author Organization [facility] Address [address] [place] [address] Phone Care Team Providers Care Photography Teacher Name Role Phone Ayah Mir MD Primary Care Provid er Encounter Details Date Type Department Care Team (Late st Contact Info) Description 12/20/2016 Procedure Pass [facility] [address] [place] [address] Social History Tobacco Use Types Packs/Day Years [...] on filedocumented in this encounter Care Teams Photography Teacher Relationship Specialty Start Date End Date Ayah Mir MD [address] [place] [address] PCP - General 09/09/16 documented as of this encounter Additional Source Comments The information contained in this document represents components of the legal health record. It is not the complete legal health record.[facility]
--- OUTSIDE RECORDS SUMMARY | 2025-09-02 13:17 | XMS_ITS | Encounter Summary ---
Author Organization [facility] Address [address] [place] [address] Care Team Providers Care Roller Shop Supervisor Name Role Phone Ayah Peña MD Primary Care Provider [phone] Encounter Details Date Type Department Care Team (Late Contact Info) Description 09/02/2025 Telephone Orthopedic Surgery [facility] 175 [facility] [address] [place] [address] Amanda Lopez Social History Tobacco Use Types Packs/Day Years [...] PM EDT Sexual Orientation Not on file documented as of this encounter Progress Notes * Amanda Lopez - 09/02/2025 10:35 AM EST Patient called the office this morning to request a refill on the terbinafine 250mg. Patient's lastvisit with you was on June 12, 2025 and is not scheduled to be seen until 10/30/2025. documented in this encounter Plan of Treatment Upcoming Encounters Date Type Department Care Team (Late st Contact Info) Description 10/30/2025 2:15 PM EST Office Visit Orthopedic Surgery [facility] [address] [phone] Nicola Amaro DPM [address] [phone] 11/12/2025 2:15 PM EDT Office Visit Orthopedic Surgery - [place] 250 [address] [facility] [address] [place] [address] Nicola Amaro DPM [address] [phone] documented as of this encounter Goals Goal Patient Goal Type Associated Problems Recent Progress Patient-Stated? Author Autogenerat ed Goal Care Plan Autogenerated Problem No Arvin Porras documented as of this encounter Visit Diagnoses Not on filedocumented in this encounter Additional Health Concerns Active Problems Noted Date Diagnosed Date Autogenerated Problem 06/12/2025 documented as of this encounter Care Teams Roller Shop Supervisor Relationship Specialty Start Date End Date Ayah Peña MD [address] [place] [address] , [address] Physician Associ D/B/A: [facility] [place] PCP - General Internal Medicine 05/31/19 documented as of this encounter
== END 2025-09-02 11:18 ==
LOC: HO.LAB 11:17
PROVIDERS: PCP Internal Medicine; Visit Provider Urology
DX: E29.1 Testicular hypofunction (principal); Z12.5 Encounter for screening for malignant neoplasm of prostate
CPT/HCPCS: 36415; 84153; 84403; 85027